=== PATIENT | male | born 1985 | race African-American/Black ===

== ENCOUNTER 2018-04-13 13:06 | Observation (INO) | payer SELFPAY ==
--- OUTSIDE RECORDS SUMMARY | 2018-04-13 13:08 | XMS REPORT | Clinical Summary ---
:1985 Author Organization [facility] Address [address] [place] [address] Phone Care Team Providers Name Role Phone Unavailable Primary Care Provider Unavailable Allergies No Known Allergies Current Medications Prescription Sig. Disp. Refills Start Date End Date Status amLODIPine (NORVASC) 10 MG Take 10 mg by Active tabletIndications: mouth daily. hypertension Active Problems Problem Noted Date Provoked seizure ([facility]) 08/29/2017 Drug use 08/29/2017 Syncope, unspecified syncope type 08/29/2017 Anxiety 08/29/2017 Hypertrophic nonobstructive cardiomyopathy (HCC) 08/29/2017 Acute coronary syndrome ([facility]) 08/28/2017 Encounters Date Type Specialty Care Team Description 08/29/2017 Orders Only General Internal Medicine 08/28/2017 - Hospital Cardiology Ivan Rios, Syncope, unspecified 08/29/2017 Encounter MD syncope type;Observed Mateus Mathews seizure-like activity MD Saroj ([facility]);[facility], [facility], [facility];Acute MD coronary syndrome ([facility]);Anxiety;Drug use;Hypertrophic nonobstructive cardiomyopathy (HCC);Provoked seizure ([facility]) 08/28/2017 Procedure Pass 08/28/2017 Surgery Ivan Rios L CATH & CORONARY ANGIOS 08/28/2017 Procedure Pass 08/28/2017 Procedure Pass after 04/12/2017 Family History Medical History Relation Name Comments Hypertension Father Hypertension Maternal Aunt Hypertension Maternal Grandfather Arthritis Maternal Grandmother Hearing loss Maternal Grandmother Hypertension Maternal Grandmother Vision loss Maternal Grandmother Hypertension Maternal Uncle Heart disease Mother Hypertension Mother Stroke Mother Relation Name Status Comments Father Maternal Aunt Maternal Grandfather Maternal Grandmother Maternal Uncle Mother Social History Tobacco Use Types Packs/Day Years Used Date Current Every Day Smoker 0.5 12 Smokeless Tobacco: Current User Tobacco Cessation: Ready to Quit: No; Counseling Given: No Alcohol Use Drinks/Week oz/Week Comments Yes Sex Assigned at Date Recorded Not on file Last Filed Vital Signs Vital Sign Reading Time Taken Blood Pressure 128/84 08/29/2017 3:22 PM CDT Pulse 65 08/29/2017 3:22 PM CDT Temperature 36.3 C (97.4 F) 08/29/2017 3:22 PM CDT Respiratory Rate 20 08/29/2017 3:22 PM CDT Oxygen Saturation 96% 08/29/2017 3:22 PM CDT Inhaled Oxygen Concentration - - Weight 109 kg (240 lb 3.2 oz) 08/29/2017 4:17 AM CDT Height 195.6 cm (6' 5") 08/28/2017 11:00 PM CDT Body Mass Index 28.48 08/29/2017 4:17 AM CDT Plan of Treatment Not on file Procedures Procedure Name Priority Date/Time Associated Diagnosis Comments L CATH & CORONARY 08/28/2017 8:38 PM CDT NATHEN<I ANGIOS after 04/12/2017 Results EKG-SCANNED (09/07/2017 8:20 AM)RHYTHM STRIP - SCAN (09/01/2017 9:11 AM)Only the most recent of2 resultswithin the time period is included.CARDIAC CATH REPORT - SCAN (08/29/2017 6:30 PM)ECHOCARDIOGRAM REPORT - SCAN (08/29/2017 3: 50 PM)Transthoracic 2D echo w/ doppler (cw/pw/color) (08/29/2017 10:40 AM) Component Value Ref Range Ejection Fraction Specimen Performing Laboratory [facility] ECHO HEARTLAB MKCKESSON CPACS Narrative Transthoracic Echocardiography Report (TTE) Demographics Patient Name [place], Date of Study 08/29/2017 BUD [id number] Male Visit Number [id number] Room Number 1135 Number Date of Birth1985Referring Physician Ivan Rios MD Age32 year(s)Mutuel Clerk Halie Triana, Santhosh Lazo RDCSPhysicimandy YOU Procedure Type of Study TTE procedure:2DECHO W DOPPLER(CW/PW/COLOR) (Routine) Indications:Suspected hypertensive heart disease. Clinical History HGB 12.6 HCT 39 % ACS,HTN Height: 76 inches Weight: 108.86 kg (240 lbs) BSA: 2.39 m^2 BMI: 29.21 kg/m^2 HR: 65 bpm BP: 120/60 mmHg Signature Findings Rhythm/BPSinus bradycardia during the exam. Left Ventricle The LV endocardium is adequately visualized. The left ventricle is chamber size (by vol index) is normal (male - LVED vol - 34-74ml/m2). Severe concentric LV hypertrophy. All of the LV segments contract normally . Global LV systolic function normal . Estimated LVEF by qualitative assessment is normal (>60%) . The LVEF was measured using Santana's single plane method (apical 4 chamber) . Grade 1 diastolic dysfunction (impaired relaxation and low-normal LA pressure). Left AtriumLA is adequately visualized. LA size is mildly enlarged (35- 41 ml/m2) . Right VentricleThe right ventricular chamber size and systolic function are within normal limits. Right Atrium The RA is well visualized. RA cavity size is normal . Aortic Valve Normal AoV structure and function. No evidence of aortic stenosis. No evidence of aortic regurgitation. Mitral Valve Mild MV leaflet thickening. Trace mitral regurgitation. Tricuspid ValveNormal TV structure and function. No evidence of tricuspid regurgitation. Unable to estimate peak systolic PA pressure; inadequate TR velocity signal. Pulmonic Valve Normal PV structure. Mild pulmonary regurgitation. AortaAortic root size (SInus of Valsalva diameter) is normal . PericardiumA trivial pericardial effusion is present . IVC/SVC/PA/PV/PleuralThe inferior vena cava is adequately visualized. The inferior vena cava size is mildly increased . The estimated RA pressure by IVC dynamics 5-10mmHg . Chambers/Structures Left Atrium LA Volume: 88.39 ml LA Area: 25.86 cm^ 2 LA Vol. Index: 37 ml/m^2 Left Ventricle LVIDd: 5.15 cm LV Septum Diastolic: 2.6 cm LV PW Diastolic: 2.4 cm LVEDV BP Santana's:134.49 ml LVESV BP Santana's:41.52 ml LVEF BP Santana's: 69 % LVOT Diameter: 2.49 cm Aorta Ao Root S of Marla.: 2.87 cm Shunts QS:121.25 ml Doppler/Quantitative Measurements Mitral Valve MV Peak E-Wave: 0.79 m/s MV Peak A-Wave: 0.56 m/s E/A Ratio: 1.43 Peak Gradient: 2.53 mmHg Deceleration Time: 282.1 msec Aortic Valve Peak Velocity: 1.81 m/sMean Velocity: 1.06 m/s Peak Gradient: 13.14 mmHgMean Gradient: 5.51 mmHg AV Area (continuity): 4.18 cm^2 AV VTI: 29.02 cm AV DVI: 0.86 LVOT Peak Velocity: 1.43 m/s Peak Gradient: 8.23 mmHg Mean Velocity: 0.81 m/s Mean Gradient: 3.37 mmHg LVOT Diameter: 2.49 cmLVOT VTI: 24.9 cm LVOT Area: 4.87 cm^2LVOT SV:121.19 ml LVOT CO: 7.88 l/min LVOT CI: 3.3 l/min/m^2 Procedure Note Interface, External Ris In - 08/29/2017 3:08 PM CDT Transthoracic Echocardiography Report (TTE) Demographics Patient Name [place], Date of Study 08/29/2017 [facility] Gender Male Visit Number [id number] Race Unknown Room Number 1135 Number Date of 1985 Referring Physician Ivan Rios MD Age 32 year(s) Mutuel Clerk Halie Cox Account Auditor Dari Triana, Interpreting Kris Lazo [facility] Physician Procedure Type of Study TTE procedure:2DECHO W DOPPLER(CW/PW/COLOR) (Routine) Indications:Suspected hypertensive heart disease. Clinical History HGB 12.6 HCT 39 % ACS,HTN Height: 76 inches Weight: 108.86 kg (240 lbs) BSA: 2.39 m^2 BMI: 29.21 kg/m^2 HR: 65 bpm BP: 120/60 mmHg Signature Findings Rhythm/BP Sinus bradycardia during the exam. Left Ventricle The LV endocardium is adequately visualized. The left ventricle is chamber size (by vol index) is normal (male - LVED vol - 34-74ml/m2). Severe concentric LV hypertrophy. All of the LV segments contract normally . Global LV systolic function normal . Estimated LVEF by qualitative assessment is normal (>60%) . The LVEF was measured using Santana's single plane method (apical 4 chamber) . Grade 1 diastolic dysfunction (impaired relaxation and low-normal LA pressure). Left Atrium LA is adequately visualized. LA size is mildly enlarged (35-41 ml/m2) . Right Ventricle The right ventricular chamber size and systolic function are within normal limits. Right Atrium The RA is well visualized. RA cavity size is normal . Aortic Valve Normal AoV structure and function. No evidence of aortic stenosis. No evidence of aortic regurgitation. Mitral Valve Mild MV leaflet thickening. Trace mitral regurgitation. Tricuspid Valve Normal TV structure and function. No evidence of tricuspid regurgitation. Unable to estimate peak systolic PA pressure; inadequate TR velocity signal. Pulmonic Valve Normal PV structure. Mild pulmonary regurgitation. Aorta Aortic root size (SInus of Valsalva diameter) is normal . Pericardium A trivial pericardial effusion is present . IVC/SVC/PA/PV/Pleural The inferior vena cava is adequately visualized. The inferior vena cava size is mildly increased . The estimated RA pressure by IVC dynamics 5-10mmHg . Chambers/Structures Left Atrium LA Volume: 88.39 ml LA Area: 25.86 cm^2 LA Vol. Index: 37 ml/m^2 Left Ventricle LVIDd: 5.15 cm LV Septum Diastolic: 2.6 cm LV PW Diastolic: 2.4 cm LVEDV BP Santana's:134.49 ml LVESV BP Santana's:41.52 ml LVEF BP Santana's: 69 % LVOT Diameter: 2.49 cm Aorta Ao Root S of Marla.: 2.87 cm Shunts QS:121.25 ml Doppler/Quantitative Measurements Mitral Valve MV Peak E-Wave: 0.79 m/s MV Peak A-Wave: 0.56 m/s E/A Ratio: 1.43 Peak Gradient: 2.53 mmHg Deceleration Time: 282.1 msec Aortic Valve Peak Velocity: 1.81 m/s Mean Velocity: 1.06 m/s Peak Gradient: 13.14 mmHg Mean Gradient: 5.51 mmHg AV Area (continuity): 4.18 cm^2 AV VTI: 29.02 cm AV DVI: 0.86 LVOT Peak Velocity: 1.43 m/s Peak Gradient: 8.23 mmHg Mean Velocity: 0.81 m/s Mean Gradient: 3.37 mmHg LVOT Diameter: 2.49 cm LVOT VTI: 24.9 cm LVOT Area: 4.87 cm^2 LVOT SV:121.19 ml LVOT CO: 7.88 l/min LVOT CI: 3.3 l/min/m^2 ECG 12 lead (08/29/2017 9:28 AM) Specimen Performing Laboratory GE MUSE Narrative Ventricular Rate 57 BPM Atrial Rate 57 BPM P-R Interval 164 ms QRS Duration 88 ms Q-T Interval 432 ms QTC Calculation(Bazett) 420 ms P [place] 7 degrees R [place] 38 degrees T [place] 234 degrees Sinus bradycardia Left ventricular hypertrophy with repolarization abnormality Abnormal ECG No previous ECGs available Confirmed by MD CYDNEY, PENELOPE ([id number]) on 08/29/2017 2:24:34 PM Procedure Note Interface, External Ris In - 08/29/2017 2:24 PM CDT Ventricular Rate 57 BPM Atrial Rate 57 BPM P-R Interval 164 ms QRS Duration 88 ms Q-T Interval 432 ms QTC Calculation(Bazett) 420 ms P [place] 7 degrees R [place] 38 degrees T [place] 234 degrees Sinus bradycardia Left ventricular hypertrophy with repolarization abnormality Abnormal ECG No previous ECGs available Confirmed by MD CYDNEY, PENELOPE ([id number]) on 08/29/2017 2:24:34 PM Rapid drug screen, urine (08/29/2017 7:09 AM) Component Value Ref Range Barbiturate Screen Negative Negative Benzodiazepine Screen Positive (A) Negative Cocaine (Metab.) Screen Negative Negative Methadone Screen Negative Negative Opiate Screen Negative Negative Cannabinoid Screen Negative Negative Amph/Methamph Screen Negative Negative Phencyclidine Screen Negative Negative Oxycodone Screen Negative Negative Specimen Performing Laboratory Urine [address] [address] Narrative DRUGCUTOFF CONC. Cocaine 300 ng/mL Cwwxgajcesh95 ng/mL Zjvvlctjxnoqaj965 ng/mL Barbiturate 200 ng/mL Eweazfbhutfif85 ng/mL Bwlajm406 ng/mL Methadone 300 ng/mL Amphetamine/ 1000 ng/mL Methamphetamine Oxycodone 300 ng/mL This assay provides an unconfirmed qualitative test result for the clinical management of patients in emergency situations. Chain of custody not maintained. Some gjvf-mwp-rmkpwrb medications, as well as adulterants, may cause inaccurate results. Clinical correlation should be applied. A more comprehensive drug screen or confirmation of a detected drug may be performed upon request. Urinalysis w/Microscopic (08/29/2017 7:09 AM) Component Value Ref Range Color, UA Yellow Clarity, UA Clear Specific [place], UA 1.034 1.001 - 1.035 pH, UA 6.0 5.0 - 8.0 Protein, UA Negative Negative Glucose, UA Negative Negative Ketones, UA Negative Negative Bilirubin, UA Negative Negative Blood, UA Negative Negative Nitrite, UA Negative Negative Leukocytes, UA Negative Negative Urobilinogen, UA 0.2 0.2 - 1.0 mg/dL RBC, UA 1 /HPF WBC, UA 2 /HPF Mucus Rare Specimen Source Specimen Performing Laboratory Urine [address] [address] CBC with platelet count + automated diff (08/29/2017 4:21 AM)Only the most recent of2 resultswithin the time period is included. Component Value Ref Range WBC 5.9 3.5 - 10.5 K/L RBC 4.35 (L) 4.63 - 6.08 M/L Hemoglobin 12.6 (L) 13.7 - 17.5 GM/DL Hematocrit 39.0 (L) 40.1 - 51.0 % MCV 89.7 79.0 - 92.2 fL MCH 29.0 25.7 - 32.2 pg MCHC 32.3 32.3 - 36.5 GM/DL RDW 13.0 11.6 - 14.4 % Platelets 222 150 - 450 K/CU MM MPV 11.2 9.4 - 12.4 fL nRBC 0 0 - 0 /100 WBC % Neutros 51 % % Lymphs 38 % % Monos 8 % % Eos 2 % % Baso 1 % # Neutros 3.00 1.78 - 5.38 K/L # Lymphs 2.22 1.32 - 3.57 K/L # Monos 0.46 0.30 - 0.82 K/L # Eos 0.12 0.04 - 0.54 K/L # Baso 0.04 0.01 - 0.08 K/L Immature Granulocytes-Relative 0 0 - 1 % Specimen Performing Laboratory Blood - [place], [address] [address] CBC with platelet count + automated diff (08/29/2017 4:21 AM)Only the most recent of2 resultswithin the time period is included. Specimen Performing Laboratory Blood Narrative The following orders were created for panel order CBC with platelet count + automated diff. Procedure Abnormality Status --------- ------ CBC with platelet count ...[[id number]]AbnormalFinal result Please view results for these tests on the individual orders. Magnesium (08/29/2017 4:21 AM) Component Value Ref Range Magnesium 1.9 1.6 - 2.6 mg/dL Specimen Performing Laboratory Blood - [place], [address] [address] Hepatic function panel (08/29/2017 4:21 AM) Component Value Ref Range Protein, Total 6.1 6.0 - 8.3 gm/dL Albumin 3.5 3.5 - 5.0 g/dL Total Bilirubin 0.3 0.2 - 1.2 mg/dL Bilirubin, Direct 0.1 0.1 - 0.5 mg/dL Alkaline Phosphatase 65 40 - 150 U/L AST 15 5 - 34 U/L ALT 9 6 - 55 U/L Specimen Performing Laboratory Blood - [place], [address] [address] Basic metabolic panel (08/29/2017 4:21 AM)Only the most recent of2 resultswithin the time period is included. Component Value Ref Range Sodium 138 136 - 145 meq/L Potassium 3.8 3.5 - 5.1 meq/L Chloride 111 (H) 98 - 107 meq/L CO2 21 (L) 22 - 29 meq/L BUN 19 7 - 21 mg/dL Creatinine 1.12 0.57 - 1.25 mg/dL Glucose 96 70 - 105 mg/dL Calcium 8.6 8.4 - 10.2 mg/dL EGFR 91Comment: ESTIMATED GFR IS NOT ACCURATE mL/min/1.73 sq m CREATININE CLEARANCE IN PREDICTING GLOMERULAR FILTRATION RATE. ESTIMATED GFR IS NOT APPLICABLE FOR DIALYSIS PATIENTS. Specimen Performing Laboratory Blood - [place], [address] [address] after 04/12/2017
--- OUTSIDE RECORDS SUMMARY | 2018-04-13 13:08 | XMS REPORT ---
:1985 [facility] Address [address] [place] [address] Care Team Providers Name Role Phone ANTONIO FONG Unavailable Unavailable Problems This patient has no known problems. Allergies, Adverse Reactions, Alerts This patient has no known allergies or adverse reactions. Medications This patient has no known medications. Results Test Description Test Time Test Comments Text Results Atomic Results Result Comments URINALYSIS W/ MICROSCOPIC 2017-08-29 08:03:00 Test Item Value Reference Range Comments COLOR (BEAKER) (test vkrt=309) Yellow CLARITY (BEAKER) (test rfho=203) Clear SPECIFIC GRAVITY UA (BEAKER) (test hswf=533) 1.034 1.001-1.035 PH UA (BEAKER) (test vkok=260) 6.0 5.0-8.0 PROTEIN UA (BEAKER) (test slrv=862) Negative Negative GLUCOSE UA (BEAKER) (test eoca=364) Negative Negative KETONES UA (BEAKER) (test upbw=741) Negative Negative BILIRUBIN UA (BEAKER) (test dpqo=663) Negative Negative BLOOD UA (BEAKER) (test kwxv=272) Negative Negative NITRITE UA (BEAKER) (test jhxu=705) Negative Negative LEUKOCYTE ESTERASE UA (BEAKER) (test eapc=977) Negative Negative UROBILINOGEN UA (BEAKER) (test vsmr=132) 0.2 mg/dL 0.2-1.0 RBC UA (BEAKER) (test qagv=769) 1 /HPF WBC UA (BEAKER) (test cyfw=012) 2 /HPF MUCUS (BEAKER) (test ugyf=7317) Rare SOURCE(BEAKER) (test gctc=9123) RAPID DRUG SCREEN, [id number] 07:53:00 Test Item Value Reference Range Comments BARBITURATE URINE (BEAKER) (test huoo=445) Negative Negative BENZODIAZEPINE SCREEN URINE (BEAKER) (test Positive Negative wcsf=044) COCAINE (METAB.) SCREEN (BEAKER) (test dyah=1823) Negative Negative METHADONE SCREEN (BEAKER) (test bbcc=7154) Negative Negative OPIATE SCREEN URINE (BEAKER) (test badh=702) Negative Negative CANNABINOID SCREEN URINE (BEAKER) (test npxw=663) Negative Negative AMPH/METHAMPH SCREEN (BEAKER) (test evnf=6788) Negative Negative PHENCYCLIDINE SCREEN URINE (BEAKER) (test jdfc=371) Negative Negative OXYCODONE SCREEN URINE (BEAKER) (test qylr=6850) Negative Negative DRUG CUTOFF CONC.Cocaine 300 ng/mL Cannabinoid 50 ng/mL Benzodiazepine 200 ng/mLBarbiturate 200 ng/ mLPhencyclidine 25 ng/mLOpiate 300 ng/mLMethadone 300 ng/mLAmphetamine/ 1000 ng/mL MethamphetamineOxycodone 300 ng/mLThis assay provides an unconfirmed qualitative test result for the clinical management of patients in emergency situations. Chain of custody not maintained. Some klip-nse-obwbnrm medications, as well as adulterants, may cause inaccurate results. Clinical correlation should be applied. A more comprehensive drug screen or confirmation of a detected drug may be performed upon request.HEPATIC FUNCTION [id number] 05:51:00 Test Item Value Reference Range Comments TOTAL PROTEIN (BEAKER) (test xvoj=657) 6.1 gm/dL 6.0-8.3 ALBUMIN (BEAKER) (test duff=9753) 3.5 g/dL 3.5-5.0 BILIRUBIN TOTAL (BEAKER) (test qhhd=812) 0.3 mg/dL 0.2-1.2 BILIRUBIN DIRECT (BEAKER) (test ksmp=534) 0.1 mg/dL 0.1-0.5 ALKALINE PHOSPHATASE (BEAKER) (test vsew=607) 65 U/L 40-150 AST (SGOT) (BEAKER) (test uvvv=893) 15 U/L 5-34 ALT (SGPT) (BEAKER) (test ldpt=343) 9 U/L 6-55 BASIC METABOLIC [id number] 05:51:00 Test Item Value Reference Range Comments SODIUM (BEAKER) (test 138 meq/L 136-145 iday=910) POTASSIUM (BEAKER) (test 3.9 meq/L 3.5-5.1 grkk=152) CHLORIDE (BEAKER) (test 112 meq/L 98-107 fral=652) CO2 (BEAKER) (test 20 meq/L 22-29 caps=043) BLOOD UREA NITROGEN 21 mg/dL 7-21 (BEAKER) (test arjx=672) CREATININE (BEAKER) (test 1.12 mg/dL 0.57-1.25 kycl=377) GLUCOSE RANDOM (BEAKER) 96 mg/dL 70-105 (test pdaq=266) CALCIUM (BEAKER) (test 8.6 mg/dL 8.4-10.2 dujy=704) EGFR (BEAKER) (test 91 mL/min/1.73 sq m ESTIMATED GFR IS NOT ewec=9271) ACCURATE CREATININE CLEARANCE IN PREDICTING GLOMERULAR FILTRATION RATE. ESTIMATED GFR IS NOT APPLICABLE FOR DIALYSIS PATIENTS. CBC W/PLT COUNT & AUTO [id number] 05:47:00 Test Item Value Reference Range Comments WHITE BLOOD CELL COUNT (BEAKER) (test mbkx=956) 5.9 K/ L 3.5-10.5 RED BLOOD CELL COUNT (BEAKER) (test fxvt=767) 4.35 M/ L 4.63-6.08 HEMOGLOBIN (BEAKER) (test mssj=270) 12.6 GM/DL 13.7-17.5 HEMATOCRIT (BEAKER) (test mire=390) 39.0 % 40.1-51.0 MEAN CORPUSCULAR VOLUME (BEAKER) (test cvwz=257) 89.7 fL 79.0-92.2 MEAN CORPUSCULAR HEMOGLOBIN (BEAKER) (test 29.0 pg 25.7-32.2 ldaq=096) MEAN CORPUSCULAR HEMOGLOBIN CONC (BEAKER) (test 32.3 GM/DL 32.3-36.5 fccq=526) RED CELL DISTRIBUTION WIDTH (BEAKER) (test 13.0 % 11.6-14.4 dmss=187) PLATELET COUNT (BEAKER) (test muir=964) 222 K/CU MM 150-450 MEAN PLATELET VOLUME (BEAKER) (test jitr=059) 11.2 fL 9.4-12.4 NUCLEATED RED BLOOD CELLS (BEAKER) (test 0 /100 WBC 0-0 lrnh=603) NEUTROPHILS RELATIVE PERCENT (BEAKER) (test 51 % yjpk=333) LYMPHOCYTES RELATIVE PERCENT (BEAKER) (test 38 % mezm=887) MONOCYTES RELATIVE PERCENT (BEAKER) (test 8 % ozih=446) EOSINOPHILS RELATIVE PERCENT (BEAKER) (test 2 % sdrm=541) BASOPHILS RELATIVE PERCENT (BEAKER) (test 1 % kuwl=369) NEUTROPHILS ABSOLUTE COUNT (BEAKER) (test 3.00 K/ L 1.78-5.38 elsm=686) LYMPHOCYTES ABSOLUTE COUNT (BEAKER) (test 2.22 K/ L 1.32-3.57 cevc=590) MONOCYTES ABSOLUTE COUNT (BEAKER) (test 0.46 K/ L 0.30-0.82 gzsi=740) EOSINOPHILS ABSOLUTE COUNT (BEAKER) (test 0.12 K/ L 0.04-0.54 ebvu=566) BASOPHILS ABSOLUTE COUNT (BEAKER) (test 0.04 K/ L 0.01-0.08 yfbi=930) IMMATURE GRANULOCYTES-RELATIVE PERCENT (BEAKER) 0 % 0-1 (test bjjw=1114) [id number] 05:40:00 Test Item Value Reference Range Comments MAGNESIUM (BEAKER) (test vkaz=200) 1.9 mg/dL 1.6-2.6 BASIC METABOLIC [id number] 05:40:00 Test Item Value Reference Range Comments SODIUM (BEAKER) (test 138 meq/L 136-145 icjl=417) POTASSIUM (BEAKER) (test 3.8 meq/L 3.5-5.1 jjla=378) CHLORIDE (BEAKER) (test 111 meq/L 98-107 dmsd=400) CO2 (BEAKER) (test 21 meq/L 22-29 peyw=540) BLOOD UREA NITROGEN 19 mg/dL 7-21 (BEAKER) (test yrnm=274) CREATININE (BEAKER) (test 1.12 mg/dL 0.57-1.25 mtrf=382) GLUCOSE RANDOM (BEAKER) 96 mg/dL 70-105 (test srjr=801) CALCIUM (BEAKER) (test 8.6 mg/dL 8.4-10.2 jbax=210) EGFR (BEAKER) (test 91 mL/min/1.73 sq m ESTIMATED GFR IS NOT wexw=5226) ACCURATE CREATININE CLEARANCE IN PREDICTING GLOMERULAR FILTRATION RATE. ESTIMATED GFR IS NOT APPLICABLE FOR DIALYSIS PATIENTS. CBC W/PLT COUNT & AUTO [id number] 00:35:00 Test Item Value Reference Range Comments WHITE BLOOD CELL COUNT 4.4 K/ L 3.5-10.5 (BEAKER) (test aqad=800) RED BLOOD CELL COUNT (BEAKER) 4.54 M/ L 4.63-6.08 (test ypqh=106) HEMOGLOBIN (BEAKER) (test 14.2 GM/DL 13.7-17.5 mtwd=321) HEMATOCRIT (BEAKER) (test 41.1 % 40.1-51.0 ndnu=839) MEAN CORPUSCULAR VOLUME 90.5 fL 79.0-92.2 (BEAKER) (test zpnl=769) MEAN CORPUSCULAR HEMOGLOBIN 31.3 pg 25.7-32.2 (BEAKER) (test gvwh=317) MEAN CORPUSCULAR HEMOGLOBIN 34.5 GM/DL 32.3-36.5 CONC (BEAKER) (test mixj=517) RED CELL DISTRIBUTION WIDTH 14.3 % 11.6-14.4 (BEAKER) (test uigj=593) PLATELET COUNT (BEAKER) (test 409 K/CU MM 150-450 rxut=337) MEAN PLATELET VOLUME (BEAKER) fL 9.4-12.4 Unable to report due to (test tvay=929) abnormal Platelet population distribution. NUCLEATED RED BLOOD CELLS 8 /100 WBC 0-0 (BEAKER) (test bcdx=240) NEUTROPHILS RELATIVE PERCENT 51 % (BEAKER) (test yzau=526) LYMPHOCYTES RELATIVE PERCENT 44 % (BEAKER) (test vkor=784) MONOCYTES RELATIVE PERCENT 3 % (BEAKER) (test enky=486) EOSINOPHILS RELATIVE PERCENT 1 % (BEAKER) (test ueom=803) BASOPHILS RELATIVE PERCENT 1 % (BEAKER) (test uvdf=604) NEUTROPHILS ABSOLUTE COUNT 2.22 K/ L 1.78-5.38 (BEAKER) (test stkb=318) LYMPHOCYTES ABSOLUTE COUNT 1.92 K/ L 1.32-3.57 (BEAKER) (test qibc=736) MONOCYTES ABSOLUTE COUNT 0.14 K/ L 0.30-0.82 (BEAKER) (test hola=463) EOSINOPHILS ABSOLUTE COUNT 0.06 K/ L 0.04-0.54 (BEAKER) (test jhej=070) BASOPHILS ABSOLUTE COUNT 0.03 K/ L 0.01-0.08 (BEAKER) (test dyix=012) IMMATURE GRANULOCYTES-RELATIVE 0 % 0-1 PERCENT (readeo) (test unww=0969)
[2018-04-13 14:19] LABS: Absolute Lymphocytes (CBC) 2.4 K/uL (0.7-4.9); Absolute Monocytes 0.4 K/uL (0.1-1.3); Absolute Neutrophil 4.1 K/uL (1.8-8.0); Eosinophils % 2.3 % (0-4.4); Hematocrit 42.4 % (39.6-49.0); Lymphocytes % 33.6 % (15.3-44.8); MCH 30.2 pg (27.0-35.0); MCV 90.9 fL (80-100); MPV 9.2 fL (7.6-11.3); RBC Red Blood Cell Count 4.67 M/uL (4.33-5.43)
[2018-04-13 14:20] LABS: Protime INR 1.14
[2018-04-13] MEDS ORDERED: ASPIRIN EC 81 MG TAB PO ONE (14:21)
--- NOTE | 2018-04-13 14:21 | RAD REPORT ---
EXAM DESCRIPTION: RAD - Chest Single View - 04/13/2018 2:06 pm CLINICAL HISTORY: Persistent chest pain COMPARISON: October 2017 TECHNIQUE: AP portable chest image was obtained 1403 hours . FINDINGS: Lungs are clear. Heart size is upper normal, similar to slightly smaller than comparison. No acute vascular engorgement. Lung markings are similar to comparison. No measurable pleural effusio n and no pneumothorax. No gross bony abnormality seen. No acute aortic findings suspected. IMPRESSION: No acute cardiopulmonary process. No suspicious change from prior imaging.
[2018-04-13 14:29] LABS: Bicarbonate 24 mEq/L (21-31); Glucose Level 95 mg/dL (65-120); Potassium 3.8 mEq/L (3.6-5.0); Sodium Level 136 mEq/L (135-145)
[2018-04-13 14:35] LABS: ALT/SGPT 13 IU/L (10-60); AST/SGOT 19 IU/L (10-42); Albumin 4.4 g/dL (3.2-5.5); Alkaline Phosphatase 51 IU/L (42-121); BUN Blood Urea Nitrogen 14 mg/dL (6-20); Bilirubin Direct < 0.1 mg/dL (0-0.2); Bilirubin Total 0.4 mg/dL (0.3-1.2); Magnesium 1.8 mg/dL (1.8-2.5); Protein, Total 7.5 g/dL (6.0-8.3)
[2018-04-13] MEDS ORDERED: ONDANSETRON 4 MG/2 ML VIAL ONE ×2 (15:59→18:58)
[2018-04-13] MEDS ORDERED: FENTANYL CITR 100 MCG/2 ML ONE (16:00)
--- NOTE | 2018-04-13 16:32 | EDPHYS ---
Physician Documentation [facility] Name: Michele Lomas Age: 33 yrs Sex: Male : 1985 Arrival Date: 04/13/2018 Time: 13:09 Bed 25 Private MD: None, None ED Physician Ruben Styles HPI: 04/13 16:17 This 33 yrs old Black Male presents to ER via Ambulatory with complaints of Chest Pain. jr8 16:17 The patient or guardian reports chest pain that is located primarily in the anterior jr8 chest wall, bilaterally. The pain does not radiate. Associated signs and symptoms: Pertinent positives: nausea, vomiting. The chest pain is described as sharp. Duration: The patient or guardian reports multiple episodes. Modifying factors: The symptoms are alleviated by nothing. the symptoms are aggravated by nothing. Severity of pain: At its worst the pain was moderate in the emergency department the pain is unchanged. The patient has experienced a previous episode. The patient has not recently seen a physician. history of cardiomegaly. Has had heart cath in past with no acute findings other then enlarged heart. Started he has had on/off chest pain for past couple of days with nausea. Historical: - Allergies: 13:18 Banana; ph - Home Meds: 13:18 amlodipine 10 mg tab 1 tab once daily [Active]; ph - PMHx: 13:18 Back pain; Enlarged Heart; Hypertension; ph - PSHx: 13:18 heart cath; ph - Immunization history:: Adult Immunizations unknown. - Social history:: Smoking status: Patient uses tobacco products, smokes one-half pack cigarettes per day. - Ebola Screening: : No symptoms or risks identified at this time. ROS: 16:17 Eyes: Negative for injury, pain, redness, and discharge, ENT: Negative for injury, jr8 pain, and discharge, Neck: Negative for injury, pain, and swelling, Respiratory: Negative for shortness of breath, cough, wheezing, and pleuritic chest pain, Abdomen/GI: Negative for abdominal pain, nausea, vomiting, diarrhea, and constipation, Back: Negative for injury and pain, MS/Extremity: Negative for injury and deformity, Skin: Negative for injury, rash, and discoloration, Neuro: Negative for headache, weakness, numbness, tingling, and seizure. 16:17 Cardiovascular: Positive for chest pain, Negative for edema, orthopnea, palpitations, paroxysmal nocturnal dyspnea. Exam: 16:17 Eyes: Pupils equal round and reactive to light, extra-ocular motions intact. Lids and jr8 lashes normal. Conjunctiva and sclera are non-icteric and not injected. Cornea within normal limits. Periorbital areas with no swelling, redness, or edema. ENT: Nares patent. No nasal discharge, no septal abnormalities noted. Tympanic membranes are normal and external auditory canals are clear. Oropharynx with no redness, swelling, or masses, exudates, or evidence of obstruction, uvula midline. Mucous membranes moist. Neck: Trachea midline, no thyromegaly or masses palpated, and no cervical lymphadenopathy. Supple, full range of motion without nuchal rigidity, or vertebral point tenderness. No Meningismus. Cardiovascular: Regular rate and rhythm with a normal S1 and S2. No gallops, murmurs, or rubs. Normal PMI, no JVD. No pulse deficits. Respiratory: Lungs have equal breath sounds bilaterally, clear to auscultation and percussion. No rales, rhonchi or wheezes noted. No increased work of breathing, no retractions or nasal flaring. Abdomen/GI: Soft, non-tender, with normal bowel sounds. No distension or tympany. No guarding or rebound. No evidence of tenderness throughout. Back: No spinal tenderness. No costovertebral tenderness. Full range of motion. Skin: Warm, dry with normal turgor. Normal color with no rashes, no lesions, and no evidence of cellulitis. MS/ Extremity: Pulses equal, no cyanosis. Neurovascular intact. Full, normal range of motion. Neuro: Awake and alert, GCS 15, oriented to person, place, time, and situation. Cranial nerves II-XII grossly intact. Motor strength 5/5 in all extremities. Sensory grossly intact. Cerebellar exam normal. Normal gait. Vital Signs: 13:17 BP 155 / 98; Pulse 63; Resp 18; Temp 98.5; Pulse Ox 99% on R/A; Weight 99.79 kg; Height ph 5 ft. 11 in. (180.34 cm); Pain 8/10; 13:44 BP 159 / 85; Pulse 56; Resp 18; Pulse Ox 99% ; tl3 14:46 BP 152 / 97; Pulse 53; Resp 18; Pulse Ox 100% ; tl3 15:00 BP 156 / 81; Pulse 56; Resp 18; Pulse Ox 99% ; tl3 16:00 BP 163 / 95; Pulse 51; Resp 16; Pulse Ox 99% ; tl3 16:47 BP 152 / 98; Pulse 51; Resp 18; Pulse Ox 99% ; tl3 17:41 BP 152 / 78; Pulse 57; Resp 18; Pulse Ox 99% ; tl3 18:48 BP 152 / 88; Pulse 56; Resp 18; Pulse Ox 99% ; tl3 13:17 Body Mass Index 30.68 (99.79 kg, 180.34 cm) ph MDM: 13:40 Patient medically screened. jr8 16:28 HEART Score: ECG: Non specific repolarization disturbance / LBTB / PM (1), Age: < or = jr8 45 years (0), Risk Factors: > or = 3 Risk factors for atherosclerotic disease (2), [Hypertension] [Active Smoker] [+ Family HX] Troponin: > 1 and < 3 x normal limit (1). Data reviewed: vital signs, nurses notes, lab test result(s), EKG, radiologic studies, plain films, and as a result, I will admit patient. Data interpreted: Pulse oximetry: on room air is 100 %. Interpretation: normal. Counseling: I had a detailed discussion with the patient and/or guardian regarding: the historical points, exam findings, and any diagnostic results supporting the discharge/admit diagnosis, lab results, radiology results, the need for further work-up and treatment in the hospital. Response to treatment: the patient's symptoms have mildly improved after treatment. Physician consultation: Mark Norris DO was called at 16:31, was contacted at 16:31, regarding admission, to the telemetry unit. patient's condition, and will see patient in ED. 04/13 13:49 Order name: Basic Metabolic Panel; Complete Time: 15:03 04/13 13:49 Order name: BNP; Complete Time: 15:04/13 13:49 Order name: CBC with Diff; Complete Time: 14:33 04/13 13:49 Order name: LFT's; Complete Time: 15:04/13 13:49 Order name: Magnesium; Complete Time: 15:04/13 13:49 Order name: PT-INR; Complete Time: 14:33 8 04/13 13:49 Order name: Troponin (emerg Dept Use Only); Complete Time: 15:03 8 04/13 15:40 Order name: Troponin (emerg Dept Use Only) [facility] 04/13 16:56 Order name: Basic Metabolic Panel EDLA 04/13 16:56 Order name: Basic Metabolic Panel EDLA 04/13 16:56 Order name: Basic Metabolic Panel EDMS 04/13 16:56 Order name: Basic Metabolic Panel EDMS 04/13 16:56 Order name: CKMB Creatine Kinase MB EDLA 04/13 16:56 Order name: CKMB Creatine Kinase MB EDLA 04/13 13:49 Order name: XRAY Chest (1 view); Complete Time: 14:33 [facility] 04/13 13:49 Order name: EKG; Complete Time: 13:50 8 04/13 13:49 Order name: Cardiac monitoring; Complete Time: 14:18 [facility] 04/13 13:49 Order name: EKG - Nurse/Tech; Complete Time: 14:18 [facility] 04/13 13:49 Order name: IV Saline Lock; Complete Time: 14:18 8 04/13 13:49 Order name: Labs collected and sent; Complete Time: 14:18 [facility] 04/13 13:49 Order name: O2 Per Protocol; Complete Time: 14:18 [facility] 04/13 16:30 Order name: EKG Electrocardiogram; Complete Time: 18:49 EDLA 04/13 16:56 Order name: CKMB Creatine Kinase MB [facility] 04/13 16:56 Order name: Creatine Phosphokinase [facility] 04/13 13:49 Order name: O2 Sat Monitoring; Complete Time: 14:18 [facility] Administered Medications: 14:21 Drug: Aspirin Chewable Tablet 324 mg Route: PO; tl3 14:46 Follow up: Response: No adverse reaction tl3 16:05 Drug: fentaNYL (PF) 50 mcg Route: IVP; Site: right forearm; tl3 16:49 Follow up: Response: No adverse reaction; Pain is decreased tl3 16:06 Drug: Zofran 4 mg Route: IVP; Infused Over: 2 mins; Site: right forearm; tl3 16:49 Follow up: Response: No adverse reaction; Nausea is decreased tl3 16:06 CANCELLED (Duplicate Order): Zofran 4 mg IVP once; over 2 minutes tl3 19:08 Drug: Zofran 4 mg Route: IVP; Infused Over: 2 mins; Site: right forearm; tl3 19:37 Follow up: Response: No adverse reaction; Nausea is decreased tl3 19:08 Drug: fentaNYL (PF) 50 mcg Route: IVP; Site: right forearm; tl3 19:36 Follow up: Response: Pain is decreased tl3 Disposition: 04/13/18 16:32 Hospitalization ordered by Mark Norris for Observation. Preliminary diagnosis are Chest pain, unspecified, Cardiomegaly. - Bed requested for Telemetry/MedSurg (observation). - Status is Observation. tl3 - Condition is Stable. - Problem is new. - Symptoms have improved. UTI on Admission? No Addendum: 04/18/2018 15:25 Co-signature as Attending Physician, Ruben Styles MD I agree with the assessment and k dr plan of care. Signatures: Dispatcher [employer] EDMS Afshan Love Kevin, MD MD [facility] Carter Cedillo PA PA jr8 Michelle Perdomo RN RN Dede Braxton, SABINE RN tl3 Corrections: (The following items were deleted from the chart) 04/13 16:06 16:05 Zofran 4 mg IVP once; over 2 minutes ordered. tl3 tl3 18:41 16:32 Hospitalization Ordered by Mark Norris DO for Observation. Preliminary bd diagnosis is Chest pain, unspecified; Cardiomegaly. Bed requested for Telemetry/MedSurg (observation). Status is Observation. Condition is Stable. Problem is new. Symptoms have improved. UTI on Admission? No. jr8 19:54 18:41 04/13/2018 16:32 Hospitalization Ordered by Mark Norris DO for Observation. tl3 Preliminary diagnosis is Chest pain, unspecified; Cardiomegaly. Bed requested for Telemetry/MedSurg (observation). Status is Observation. Condition is Stable. Problem is new. Symptoms have improved. UTI on Admission? No. bd
--- NOTE | 2018-04-13 16:32 | ER ---
Nurse's Notes [facility] Name: Michele Lomas Age: 33 yrs Sex: Male : 1985 Arrival Date: 04/13/2018 Time: 13:09 Bed 25 Private MD: None, None Diagnosis: Chest pain, unspecified;Cardiomegaly Presentation: 04/13 13:16 Presenting complaint: Patient states: Reports constant chest pain x 2 days, worse ph today, palpitations and nausea that began today, denies SOB. Transition of care: patient was not received from another setting of care. Onset of symptoms was April 13, 2018. Risk Assessment: Do you want to hurt yourself or someone else? Patient reports no desire to harm self or others. Initial Sepsis Screen: Does the patient meet any 2 criteria? No. Patient's initial sepsis screen is negative. Does the patient have a suspected source of infection? No. Patient's initial sepsis screen is negative. Care prior to arrival: None. 13:16 Method Of Arrival: Ambulatory ph 13:16 Acuity: PASTORA 3 ph Historical: - Allergies: 13:18 Banana; ph - Home Meds: 13:18 amlodipine 10 mg tab 1 tab once daily [Active]; ph - PMHx: 13:18 Back pain; Enlarged Heart; Hypertension; ph - PSHx: 13:18 heart cath; ph - Immunization history:: Adult Immunizations unknown. - Social history:: Smoking status: Patient uses tobacco products, smokes one-half pack cigarettes per day. - Ebola Screening: : No symptoms or risks identified at this time. Screenin:44 Abuse screen: Denies threats or abuse. Nutritional screening: No deficits noted. tl3 Tuberculosis screening: No symptoms or risk factors identified. Fall Risk None identified. Assessment: 13:44 General: Appears uncomfortable, slender, well groomed, well developed, well nourished, tl3 Behavior is calm, cooperative, appropriate for age. Pain: Complains of pain in chest Pain does not radiate. Pain currently is 8 out of 10 on a pain scale. Pain began suddenly, this morning pain started, accompanied with nausea. Neuro: No deficits noted. Level of Consciousness is awake, alert, obeys commands, Oriented to person, place, time, situation, Appropriate for age. Cardiovascular: Reports chest pain, nausea, since 630am today Patient's skin is warm and dry. Respiratory: Airway is patent Respiratory effort is even, unlabored, Respiratory pattern is regular, symmetrical. GI: Reports nausea. : No deficits noted. No signs and/or symptoms were reported regarding the genitourinary system. Derm: No deficits noted. No signs and/or symptoms reported regarding the dermatologic system. 15:00 Reassessment: Patient appears in no apparent distress at this time. No changes from tl3 previously documented assessment. Patient and/or family updated on plan of care and expected duration. Pain level reassessed. Patient is alert, oriented x 3, equal unlabored respirations, skin warm/dry/pink. at bedside. 16:00 Reassessment: Patient appears in no apparent distress at this time. No changes from tl3 previously documented assessment. Patient and/or family updated on plan of care and expected duration. Pain level reassessed. Patient is alert, oriented x 3, equal unlabored respirations, skin warm/dry/pink. pt states pain is immproved. 16:47 Reassessment: Patient appears in no apparent distress at this time. No changes from tl3 previously documented assessment. Patient and/or family updated on plan of care and expected duration. Pain level reassessed. Patient is alert, oriented x 3, equal unlabored respirations, skin warm/dry/pink. 16:47 Reassessment: Hospitalist at bedside for admission assessment. tl3 17:41 Reassessment: Patient appears in no apparent distress at this time. No changes from tl3 previously documented assessment. Patient and/or family updated on plan of care and expected duration. Pain level reassessed. Patient is alert, oriented x 3, equal unlabored respirations, skin warm/dry/pink. 18:48 Reassessment: Patient appears in no apparent distress at this time. No changes from tl3 previously documented assessment. Patient and/or family updated on plan of care and expected duration. Pain level reassessed. Patient is alert, oriented x 3, equal unlabored respirations, skin warm/dry/pink. Vital Signs: 13:17 BP 155 / 98; Pulse 63; Resp 18; Temp 98.5; Pulse Ox 99% on R/A; Weight 99.79 kg; Height ph 5 ft. 11 in. (180.34 cm); Pain 8/10; 13:44 BP 159 / 85; Pulse 56; Resp 18; Pulse Ox 99% ; tl3 14:46 BP 152 / 97; Pulse 53; Resp 18; Pulse Ox 100% ; tl3 15:00 BP 156 / 81; Pulse 56; Resp 18; Pulse Ox 99% ; tl3 16:00 BP 163 / 95; Pulse 51; Resp 16; Pulse Ox 99% ; tl3 16:47 BP 152 / 98; Pulse 51; Resp 18; Pulse Ox 99% ; tl3 17:41 BP 152 / 78; Pulse 57; Resp 18; Pulse Ox 99% ; tl3 18:48 BP 152 / 88; Pulse 56; Resp 18; Pulse Ox 99% ; tl3 13:17 Body Mass Index 30.68 (99.79 kg, 180.34 cm) ph ED Course: 13:09 Patient arrived in ED. mr 13:09 None, None is Private Physician. mr 13:17 Triage completed. ph 13:18 Arm band placed on. ph 13:39 [facility]ed[facility]. jr8 13:39 Ruben Styles MD is Attending Physician. jr8 13:43 Dede Braxton, SABINE is Primary Nurse. tl3 13:44 Patient has correct armband on for positive identification. Placed in gown. Bed in low tl3 position. Call light in reach. Side rails up X 1. physical plant manager on. Pulse ox on. NIBP on. Warm blanket given. 13:44 No provider procedures requiring assistance completed. Inserted saline lock: 20 gauge tl3 in right forearm, using aseptic technique. Blood collected. Patient maintains SpO2 saturation greater than 95% on room air. 14:04 X-ray completed. Portable x-ray completed in exam room. Patient tolerated procedure jb2 well. 14:04 XRAY Chest (1 view) In Process Unspecified. EDMS 14:06 EKG done, by field artillery targeting technician. reviewed by Carter LORA. sm3 16:32 Mark Norris DO is Hospitalizing Provider. jr8 19:36 Patient admitted, IV remains in place. tl3 Administered Medications: 14:21 Drug: Aspirin Chewable Tablet 324 mg Route: PO; tl3 14:46 Follow up: Response: No adverse reaction tl3 16:05 Drug: fentaNYL (PF) 50 mcg Route: IVP; Site: right forearm; tl3 16:49 Follow up: Response: No adverse reaction; Pain is decreased tl3 16:06 Drug: Zofran 4 mg Route: IVP; Infused Over: 2 mins; Site: right forearm; tl3 16:49 Follow up: Response: No adverse reaction; Nausea is decreased tl3 16:06 CANCELLED (Duplicate Order): Zofran 4 mg IVP once; over 2 minutes tl3 19:08 Drug: Zofran 4 mg Route: IVP; Infused Over: 2 mins; Site: right forearm; tl3 19:37 Follow up: Response: No adverse reaction; Nausea is decreased tl3 19:08 Drug: fentaNYL (PF) 50 mcg Route: IVP; Site: right forearm; tl3 19:36 Follow up: Response: Pain is decreased tl3 Outcome: 16:32 Decision to Hospitalize by Provider. marixa 19:35 Admitted to Med/surg accompanied by tech, via wheelchair, with chart, Report called to tl3 SABINE Guardado 19:35 Condition: stable 19:35 Instructed on the need for admit, Demonstrated understanding of instructions. 19:54 Patient left the ED. tl3 Signatures: Dispatcher [employer] EDIA HanFernanda fuentes mr ArangoShawn jb2 Carter Cedillo PA PA jr8 Michelle Perdomo RN RN Dede Bingham RN RN tl3 Mariely Vega 3 Corrections: (The following items were deleted from the chart) 16:06 16:06 Zofran 4 mg IVP in right forearm tl3 tl3
[2018-04-13] MEDS ORDERED: TRAMADOL HCL 50 MG TAB PO PRN (16:49)
[2018-04-13] MEDS ORDERED: NITROGLYCERIN 0.4 MG/TAB SL PRN (16:49)
[2018-04-13] MEDS ORDERED: ACETAMINOPHEN 500 MG TAB PO PRN (16:49)
--- NOTE | 2018-04-13 17:02 | P.HP ---
Certification for Inpatient Patient admitted to: Inpatient With expected LOS: >2 Midnights Patient will require the following post-hospital care: None Practitioner: I am a practitioner with admitting privileges, knowledge of patient current condition, hospital course, and medical plan of care. Services: Services provided to patient in accordance with Admission requirements found in Title 42 Section 412.3 of the Code of Federal Regulations Patient History Date of Service: 04/13/18 Primary Care Provider: None; Cardiology-Dr. Meyers Reason for admission: Chest pain History of Present Illness: 33 yo AAM presented to the ER with chest pain. He has history of Cardiomyopathy, HTN, and previous history of CAD. He was life flighted last year to [facility] when he had an angioplasty. No stent was done. He reports some chest pain to the left side. It radiates across chest. He reported some nausea and vomiting. Some shortness of breath noted. He came to the ER for evaluation. He was to follow up with Cardiology this month. In the ER he was found to be hypertensive. He was given medication. EKG shows some ST depression and T wave inversion. His Troponin was 0.04. BMP and CBC unremarkable. Chest pain improved with pain medication. He was admitted for treatment. When I saw him he was stable. HTN improved. He is a smoker. He drinks alcohol on occasion. Family history of CAD is extensive. Allergies banana Allergy (Verified 04/13/15 14:43) Unknown No Known Drug Allergies Allergy (Verified 04/13/15 14:43) Unknown Home medications list reviewed: Yes Home Medications: Amlodipine [Norvasc*] 10 mg PO DAILY 08/21/17 Lisinopril/Hydrochlorothiazide [Lisinopril-Hctz 20-12.5 mg Tab] 1 tab PO DAILY 08/21/17 Aspirin [Aspirin EC 81 MG] 81 mg PO DAILY #90 tablet. 08/22/17 - Past Medical/Surgical History Diabetic: No -: Hypertension -: Cardiomyopathy -: Tobacco abuse -: Alcohol use -: CAD -: Heart Cath. Psychosocial/ Personal History: The patient is single. He has 2 children. He works as a cook. - Family History Father -: Hypertension, Diabetes Mother -: Hypertension, Diabetes Notes: gout Sister -: Heart disease - Social History Smoking Status: Heavy Tobacco smoker (>10 cigarettes/day) Counseled patient to stop smoking for: less than 10 minutes Smoking therapy provided: Yes Patient receptive to therapy: Yes Alcohol use: Yes CD- Drugs: No Caffeine use: Yes Place of Residence: Home Review of Systems General: As per HPI Eyes: Unremarkable ENT: Unremarkable Respiratory: Shortness of Breath, As per HPI Cardiovascular: Chest Pain, As per HPI Gastrointestinal: Nausea, Vomiting, As per HPI Genitourinary: Unremarkable Musculoskeletal: Unremarkable Integumentary: Unremarkable Neurological: Unremarkable Lymphatics: Unremarkable Physical Examination - Physical Exam General: Alert, In no apparent distress, Oriented x3, Cooperative HEENT: Atraumatic, Normocephalic, PERRLA, Mucous membr. moist/pink Neck: Supple, No Thyromegaly Respiratory: Clear to auscultation bilaterally, Normal air movement Cardiovascular: Abnormal pulses (mild bradycardia) Gastrointestinal: Normal bowel sounds, Soft and benign, Non-distended, No ascites, No tenderness, No masses, No rebound, No guarding Musculoskeletal: No contractures, No erythema, No tenderness, No warmth Integumentary: No tenderness/swelling, No erythema, No warmth, No cyanosis Neurological: Normal speech, Normal strength at 5/5 x4 extr, Normal tone, Normal affect Lymphatics: No axilla or inguinal lymphadenopathy - Studies Laboratory Data (last 24 hrs) 04/13/18 14:00: PT 13.5 H, INR 1.14 04/13/18 14:00: WBC 7.1, Hgb 14.1, Hct 42.4, Plt Count 262 04/13/18 14:00: B-Natriuretic Peptide 341 H 04/13/18 14:00: Sodium 136, Potassium 3.8, BUN 14, Creatinine 1.00, Glucose 95, Magnesium 1.8, Total Bilirubin 0.4, AST 19, ALT 13, Alkaline Phosphatase 51 Assessment and Plan - Problems (Diagnosis) (1) NSTEMI (non-ST elevated myocardial infarction) Current Visit: Yes Status: Acute Plan: Will admit the patient. Will monitor on telemetry. Will start Lovenox 1 mg/kg sc BID, ASA 162 mg daily, Nitro as needed, Norvasc and Morphine as needed. Will contact Cardiology to further address and treat. He will likely need cardiac intervention to further address. Will check ECHO (2) Chest pain Onset Date: 08/22/17 Current Visit: No Status: Acute Plan: Continue as above Qualifiers: Chest pain type: unspecified Qualified Code(s): R07.9 - Chest pain, unspecified (3) Cardiomegaly Onset Date: 08/22/17 Current Visit: No Status: Chronic Plan: Will check ECHO. Continue as above. (4) Hypertension Onset Date: 08/22/17 Current Visit: No Status: Chronic Plan: Will restart his Norvasc. May need additional medication likely SHERLY inhibitor. Qualifiers: Hypertension type: essential hypertension (5) Tobacco abuse Onset Date: 08/22/17 Current Visit: No Status: Chronic Plan: Recommendation for tobacco cessation. Discharge Plan: Home Plan to discharge in: Greater than 2 days - Advance Directives Does patient have a Living Will: No Does patient have a Durable POA for Healthcare: No - Code Status/Comfort Care Code Status Assessed: Yes Time Spent Managing Pts Care (In Minutes): 55
[2018-04-13] MEDS: NA CHLORIDE 0.9% 1,000 ML IV SCH (20:53)
[2018-04-13] MEDS: ENOXAPARIN 100 MG/ML SYR SQ SCH (20:55)
[2018-04-13] MEDS ORDERED: ATORVASTATIN 80 MG TAB PO SCH (21:00)
[2018-04-13 21:08] VITALS: BMI 30.8
[2018-04-13 21:18] VITALS: O2SAT 99
[2018-04-14] MEDS: ONDANSETRON 4 MG/2 ML VIAL IV PRN ×2 (00:12→08:14)
[2018-04-14] MEDS: MORPHINE 4 MG/ML SYR IV PRN ×2 (00:12→08:14)
[2018-04-14 02:22] LABS: CKMB Creatine Kinase MB 3.4 ng/ml (0.3-4.0)
[2018-04-14] MEDS: NA CHLORIDE 0.9% 1,000 ML IV SCH (05:41)
[2018-04-14 06:18] LABS: Absolute Lymphocytes (CBC) 2.7 K/uL (0.7-4.9); Absolute Monocytes 0.5 K/uL (0.1-1.3); Absolute Neutrophil 2.7 K/uL (1.8-8.0); Basophils % 0.5 % (0-1.3); Eosinophils % 3.2 % (0-4.4); Hematocrit 40.5 % (39.6-49.0); MCH 30.7 pg (27.0-35.0); MPV 8.8 fL (7.6-11.3); Monocytes % 7.7 % (3.3-12.3)
[2018-04-14 06:30] LABS: BUN Blood Urea Nitrogen 15 mg/dL (6-20); Bicarbonate 27 mEq/L (21-31); Glucose Level 107 mg/dL (65-120); HDL Cholesterol 33 mg/dL (27-67); LDL Cholesterol, Calculated 83 (<130); Magnesium 1.9 mg/dL (1.8-2.5); Potassium 4.2 mEq/L (3.6-5.0); Sodium Level 140 mEq/L (135-145)
[2018-04-14] MEDS ORDERED: PANTOPRAZOLE 40MG TABLET PO SCH (06:30)
--- NOTE | 2018-04-14 07:56 | EKG ---
Test Date: 2018-04-13 Test Time: 14:49:00 Overcoiler: TRINY MEASUREMENT RESULTS: Intervals: Rate: 53 WA: 154 QRSD: 102 QT: 460 QTc: 431 [place]: P: 12 WA: 154 QRS: 29 T: 218 INTERPRETIVE STATEMENTS: Sinus bradycardia Left ventricular hypertrophy with repolarization abnormality Abnormal ECG Compared to ECG 10/07/2017 12:19:11 No significant changes Electronically Signed On 04-14-18 07:55:00 CDT by Tremayne Meyers
--- NOTE | 2018-04-14 07:57 | EKG ---
Test Date: 2018-04-13 Test Time: 13:28:58 Mixing Tumbler Operator: MAYRA MEASUREMENT RESULTS: Intervals: Rate: 66 MO: 168 QRSD: 100 QT: 416 QTc: 436 [place]: P: 33 MO: 168 QRS: 25 T: 209 INTERPRETIVE STATEMENTS: Normal sinus rhythm Left ventricular hypertrophy with repolarization abnormality Abnormal ECG Compared to ECG 10/07/2017 12:19:11 Sinus bradycardia no longer present Electronically Signed On 04-14-18 07:55:05 CDT by Tremayne Meyers
--- NOTE | 2018-04-14 07:57 | P.DS ---
Admission Date: 04/13/18 Discharge Date: 04/14/18 Primary Care Provider: None; Cardiology-Dr. Meyers Disposition: ROUTINE DISCHARGE Discharge Condition: GOOD Reason for Admission: Chest pain Consultations: Cardiology-Dr. Meyers - Problems (1) Chest pain Onset Date: 08/22/17 Current Visit: No Status: Acute Qualifiers: Chest pain type: unspecified Qualified Code(s): R07.9 - Chest pain, unspecified (2) Cardiomegaly Onset Date: 08/22/17 Current Visit: No Status: Chronic (3) Hypertension Onset Date: 08/22/17 Current Visit: No Status: Chronic Qualifiers: Hypertension type: essential hypertension (4) Tobacco abuse Onset Date: 08/22/17 Current Visit: No Status: Chronic (5) LVH (left ventricular hypertrophy) due to hypertensive disease Current Visit: No Status: Chronic Qualifiers: Heart failure presence: without heart failure Qualified Code(s): I11.9 - Hypertensive heart disease without heart failure (6) Hyperlipidemia Current Visit: Yes Status: Chronic Qualifiers: Hyperlipidemia type: unspecified Qualified Code(s): E78.5 - Hyperlipidemia , unspecified Brief History of Present Illness: 33 yo AAIvy presented to the ER with chest pain. He has history of Cardiomyopathy, HTN, and previous history of CAD. He was life flighted last year to [facility] when he had an angioplasty. No stent was done. He reports some chest pain to the left side. It radiates across chest. He reported some nausea and vomiting. Some shortness of breath noted. He came to the ER for evaluation. He was to follow up with Cardiology this month. In the ER he was found to be hypertensive. He was given medication. EKG shows some ST depression and T wave inversion. His Troponin was 0.04. BMP and CBC unremarkable. Chest pain improved with pain medication. He was admitted for treatment. When I saw him he was stable. HTN improved. He is a smoker. He drinks alcohol on occasion. Family history of CAD is extensive. Hospital Course: Patient did well overnight. Troponin were slightly elevated but unchanged since previous troponins done in the past. Case discussed at length with cardiology. Cardiology reported that elevation in troponin was likely related to his LVH. Patient with known hypertension and left ventricular hypertrophy. Patient also has a history of noncompliance with medication and follow up. Cardiology reports the patient had a recent heart catheterization which showed no stenosis or disease. Patient also had an echocardiogram with cardiology. Ejection fraction was about 50%. No need for further intervention at this time. Compliance with medication was addressed in detail. At discharge patient will continue with aspirin 81 mg daily. Patient will need to follow up with cardiology in 1 week to follow up this hospitalization and continue his care. The patient will also be provided nitroglycerin 0.4 mg to be use as needed for chest pain. Patient has hypertension with left ventricular hypertrophy. At discharge patient will continue with Norvasc 10 mg daily. Lisinopril 10 mg 1 pill daily has been added. Recommendation is to maintain blood pressures less 150/80. Further adjustment can be done by his PCP or cardiology. Compliance with medications was addressed in detail. Patient has hyperlipidemia. Patient will continue with lovastatin 40 mg 1 pill daily. Tobacco cessation education will be provided. Vital Signs/Physical Exam: Temp Pulse Resp BP Pulse Ox 97.5 F 58 16 140/77 100 04/14/18 04:00 04/14/18 04:00 04/14/18 04:00 04/14/18 04:00 04/14/18 04:00 General: Alert, In no apparent distress, Oriented x3, Cooperative HEENT: Atraumatic Neck: Supple Respiratory: Clear to auscultation bilaterally, Normal air movement Cardiovascular: Normal pulses, Regular rate/rhythm Gastrointestinal: Normal bowel sounds, Soft and benign, Non-distended, No tenderness, No masses, No rebound, No guarding Musculoskeletal: No erythema, No tenderness, No warmth Integumentary: No tenderness/swelling, No erythema, No warmth, No cyanosis Neurological: Normal speech, Normal strength at 5/5 x4 extr, Normal tone, Normal affect Laboratory Data at Discharge: WBC 6.1 K/uL (4.3-10.9) D 04/14/18 05:13 Hgb 13.8 g/dL (13.6-17.9) 04/14/18 05:13 Hct 40.5 % (39.6-49.0) 04/14/18 05:13 Plt Count 227 K/uL (152-406) 04/14/18 05:13 PT 13.5 SECONDS (9.5-12.5) H 04/13/18 14:00 INR 1.14 04/13/18 14:00 Sodium 140 mEq/L (135-145) 04/14/18 05:13 Potassium 4.2 mEq/L (3.6-5.0) 04/14/18 05:13 BUN 15 mg/dL (6-20) 04/14/18 05:13 Creatinine 1.11 mg/dL (0.61-1.24) 04/14/18 05:13 Glucose 107 mg/dL (65-120) 04/14/18 05:13 Magnesium 1.9 mg/dL (1.8-2.5) 04/14/18 05:13 Total Bilirubin 0.4 mg/dL (0.3-1.2) 04/13/18 14:00 AST 19 IU/L (10-42) 04/13/18 14:00 ALT 13 IU/L (10-60) 04/13/18 14:00 Alkaline Phosphatase 51 IU/L (42-121) 04/13/18 14:00 Troponin I 0.05 ng/mL (<0.03) H 04/14/18 01:11 B-Natriuretic Peptide 341 pg/ml (<=100) H 04/13/18 14:00 Triglycerides 64 mg/dL (35-160) 04/14/18 05:13 Cholesterol 129 mg/dL (<200) 04/14/18 05:13 HDL Cholesterol 33 mg/dL (27-67) 04/14/18 05:13 Cholesterol/HDL Ratio 3.91 04/14/18 05:13 Home Medications: Amlodipine [Norvasc*] 10 mg PO DAILY #30 tab 04/14/18 Aspirin [Aspirin EC 81 MG] 81 mg PO DAILY #90 tablet. 04/14/18 Lisinopril [Prinivil*] 10 mg PO DAILY #30 tab 04/14/18 Lovastatin 40 mg PO DAILY #30 tablet 04/14/18 Nitroglycerin [Nitrostat*] 0.4 mg SL UD PRN #30 tab 04/14/18 New Medications: Amlodipine [Norvasc*] 10 mg PO DAILY #30 tab Aspirin [Aspirin EC 81 MG] 81 mg PO DAILY #90 tablet. Lisinopril [Prinivil*] 10 mg PO DAILY #30 tab Lovastatin 40 mg PO DAILY #30 tablet Nitroglycerin [Nitrostat*] 0.4 mg SL UD PRN #30 tab PRN Reason: Chest Pain Patient Discharge Instructions: 1. Patient will need to follow up with his PCP in 1 week to follow up this hospitalization. 2. Patient presented with chest pain. Patient with a recent heart catheterization and echocardiogram which was unremarkable. Compliance with medication addressed in detail. Case discussed with cardiology. At discharge patient will continue with aspirin 81 mg daily. Patient will also be provided nitroglycerin to be use as needed for chest pain. Recommendation is for the patient follow up with cardiology in 1 week to follow up this visit and continue his care. Compliance with follow up and medication is recommended. 3. Patient has hypertension with left ventricular hypertrophy. At discharge patient will continue with Norvasc 10 mg daily and lisinopril 10 mg daily. Compliance with medication is recommended. Recommendation is to maintain blood pressures less 150/80. Further adjustment can be done by his PCP or cardiology. 4. Patient has hyperlipidemia. Patient will continue with lovastatin 40 mg 1 pill once daily. 5. Tobacco cessation education will be provided. Diet: AHA Activity: Ad artemio Time spent managing pt's care (in minutes): 55
[2018-04-14] MEDS: ENOXAPARIN 100 MG/ML SYR SQ SCH (08:15)
[2018-04-14 08:16] VITALS: BP 132/80
[2018-04-14] MEDS ORDERED: LISINOPRIL 10 MG TAB PO SCH (09:00)
[2018-04-14] MEDS ORDERED: AMLODIPINE 10 MG TAB PO SCH (09:00)
[2018-04-14] MEDS ORDERED: ASPIRIN EC 81 MG TAB PO SCH (09:00)
[2018-04-14 09:43] LABS: CKMB Creatine Kinase MB 3.6 ng/ml (0.3-4.0)
[2018-04-14 10:01] VITALS: TEMP 97.7
--- NOTE | 2018-04-14 10:54 | CON ---
Date of Consultation: 04/14/2018 Reason For Consultation: Chest pain, hypertension. History Of Present Illness: Mr. Lomas is 33, black male, very well known to us from previous of fice visit and admission. Has had a normal heart catheterization before, has a normal ejection fract ion, has severe left ventricular hypertrophy by echocardiography, which is recent with a normal eject ion fraction. Comes in with atypical chest pain, sounds pleuritic. Dr. Norris asked me to see the p atient. I did state the facts that he has had normal heart cath and normal ejection fraction and LVH , which really was showing on his EKG right now. He has a troponin of 0.04, which is really expected with left ventricular hypertrophy. Mr. Lomas does not have coronary heart disease. He has hyp ertension as the only risk factor. He is not diabetic. His EKG is unchanged from previous EKGs. Past Medical History: Hypertension. Allergies: TO BANANAS. Medications: Include Norvasc, aspirin, lisinopril with HCTZ, but we do not really know if he has bal en his medication. Review of Systems: Unremarkable. Social History: Unremarkable. Physical Examination: Unremarkable except for the blood pressure. Diagnostic Data: Positive for LVH and troponin of 0.04. Impression: My impression is that he has atypical chest pain, pleuritic, normal coronaries by cath, LVH, abnormal EKG, which is old, elevated troponin, which is expected and I felt that Mr. Lomas can go home from the emergency room rather than being admitted and follow up as an outpatient. REJI/ALLEGRA Voice ID: [id number] Report ID: [id number]
== END 2018-04-14 10:09 | disposition home or self-care (01) ==
LOC: ER 13:06 → ERHOLD 16:32 → 2ND 19:35
PROVIDERS: ADMIT Physician Assistant; ATTEND Family Medicine
DX: R07.9 Chest pain, unspecified (principal); I25.10 Atherosclerotic heart disease of native coronary artery without angina pectoris; I10 Essential (primary) hypertension; F17.210 Nicotine dependence, cigarettes, uncomplicated; I51.7 Cardiomegaly; E78.5 Hyperlipidemia, unspecified
CPT/HCPCS: 36415; 71045; 80048; 80061; 80076; 82550; 82553; 83735; 83880; 84484; 85025; 85610; 93005; 96374; 96375; 99285; G0378; J1650; J2405; J3010; J7030

== ENCOUNTER 2018-04-26 13:44 | Emergency (ER) | payer SELFPAY ==
--- OUTSIDE RECORDS SUMMARY | 2018-04-26 13:47 | XMS REPORT | Clinical Summary ---
:1985 Author Organization [facility] Address [address] [place] [address] Phone Care Team Providers Name Role Phone Unavailable Primary Care Provider Unavailable Allergies No Known Allergies Current Medications Prescription Sig. Disp. Refills Start Date End Date Status amLODIPine (NORVASC) 10 MG Take 10 mg by Active tabletIndications: mouth daily. 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/29/2017 Acute coronary syndrome ([facility]) 08/28/2017 Encounters Date Type Specialty Care Team Description 08/29/2017 Orders Only General Internal Medicine 08/28/2017 - Hospital Cardiology Ivan Rios, Syncope, unspecified 08/29/2017 Encounter MD syncope type;Observed Mateus Mathews seizure-like activity MD Saroj ([facility]);[facility], [facility] [place], [facility];Acute MD coronary syndrome ([facility]);Anxiety;Drug use;Hypertrophic nonobstructive cardiomyopathy (HCC);Provoked seizure ([facility]) 08/28/2017 Procedure Pass 08/28/2017 Surgery Ivan Rios L CATH & CORONARY ANGIOS 08/28/2017 Procedure Pass 08/28/2017 Procedure Pass after 04/25/2017 Family History Medical History Relation Name Comments [...] 08/28/2017 8:38 PM CDT NATHEN<I ANGIOS after 04/25/2017 Results EKG-SCANNED (09/07/2017 8:20 AM)RHYTHM STRIP - SCAN (09/01/2017 9:11 AM)Only the most recent of2 resultswithin the time period is included.CARDIAC CATH REPORT - SCAN (08/29/2017 6:30 PM)ECHOCARDIOGRAM REPORT - SCAN (08/29/2017 3: 50 PM)Transthoracic 2D echo w/ doppler (cw/pw/color) (08/29/2017 10:40 AM) Component Value Ref Range Ejection Fraction Specimen Performing Laboratory [facility] MKCKESSON CPACS Narrative Transthoracic Echocardiography Report (TTE) Demographics Patient Name [place], Date of Study 08/29/2017 BUD [id number] Male Visit Number [id number] Room Number 1135 Number Date of Birth1985Referring Physician Ivan Rios MD Age32 year(s)Plant Technician Halie Triana, Santhosh Lazo RDCSPhysicimandy YOU Procedure [...] Patient Name LOMAS, Date of Study 08/29/2017 [facility] Gender Male Visit Number [id number] Race Unknown Room Number 1135 Number Date of 1985 Referring Physician Ivan Rios MD Age 32 year(s) 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[facility] Dari Triana, Interpreting Kris Lazo [facility] Physician Procedure Type of Study TTE [...] 432 ms QTC Calculation(Bazett) 420 ms P [place] 7 degrees R [place] 38 degrees T [place] 234 degrees Sinus bradycardia Left ventricular hypertrophy with repolarization abnormality Abnormal ECG No previous ECGs available Confirmed by MD CYDNEY, PENELOPE ([id number]) on 08/29/2017 2:24:34 PM Procedure Note Interface, External Ris In - 08/29/2017 2:24 PM CDT Ventricular Rate 57 BPM Atrial Rate 57 BPM P-R Interval 164 ms QRS Duration 88 ms Q-T Interval 432 ms QTC Calculation(Bazett) 420 ms P [place] 7 degrees R [place] 38 degrees T [place] 234 degrees Sinus bradycardia Left ventricular hypertrophy [...] Screen Negative Negative Specimen Performing Laboratory Urine [address] [address] Narrative DRUGCUTOFF CONC. Cocaine 300 ng/mL Ldybhjwssng76 ng/mL Viugrnuwhxpysa620 ng/mL Barbiturate 200 ng/mL Xqwqnlwgoryea83 ng/mL Tjsomz752 ng/mL Methadone 300 ng/mL Amphetamine/ 1000 ng/mL Methamphetamine Oxycodone 300 ng/mL This assay provides an unconfirmed qualitative test result for the clinical management of patients in emergency situations. Chain of custody not maintained. Some tpww-usi-horbvxy medications, as well as adulterants, may cause inaccurate results. Clinical correlation should be applied. A more comprehensive drug screen or confirmation of a detected drug may be performed upon request. Urinalysis w/Microscopic (08/29/2017 7:09 AM) Component Value Ref Range Color, UA Yellow Clarity, UA Clear Specific [place], UA 1.034 1.001 - 1.035 pH, UA 6.0 5.0 - 8.0 Protein, UA Negative Negative Glucose, UA Negative Negative Ketones, UA Negative Negative Bilirubin, UA Negative Negative Blood, UA Negative Negative Nitrite, UA Negative Negative Leukocytes, UA Negative Negative Urobilinogen, UA 0.2 0.2 - 1.0 mg/dL RBC, UA 1 /HPF WBC, UA 2 /HPF Mucus Rare Specimen Source Specimen Performing Laboratory Urine [address] [address] CBC with platelet count + automated diff [...] % Specimen Performing Laboratory Blood - [place], [address] [address] CBC with platelet count + automated diff (08/29/2017 4:21 AM)Only the most recent of2 resultswithin the time period is included. Specimen Performing Laboratory Blood Narrative The following orders were created for panel order CBC with platelet count + automated diff. Procedure Abnormality Status --------- ------ CBC with platelet count ...[[id number]]AbnormalFinal result Please view results for these tests on the individual orders. Magnesium (08/29/2017 4:21 AM) Component Value Ref Range Magnesium 1.9 1.6 - 2.6 mg/dL Specimen Performing Laboratory Blood - [place], [address] [address] Hepatic function panel (08/29/2017 4:21 AM) Component Value Ref Range Protein, Total 6.1 6.0 - 8.3 gm/dL Albumin 3.5 3.5 - 5.0 g/dL Total Bilirubin 0.3 0.2 - 1.2 mg/dL Bilirubin, Direct 0.1 0.1 - 0.5 mg/dL Alkaline Phosphatase 65 40 - 150 U/L AST 15 5 - 34 U/L ALT 9 6 - 55 U/L Specimen Performing Laboratory Blood - [place], [address] [address] Basic metabolic panel (08/29/2017 4:21 AM)Only the [...] PATIENTS. Specimen Performing Laboratory Blood - [place], [address] [address] after 04/25/2017
--- OUTSIDE RECORDS SUMMARY | 2018-04-26 13:47 | XMS REPORT ---
:1985 Author [facility] Address [facility] [place] [address] Care Team Providers Name Role Phone ANTONIO [...] Value Reference Range Comments COLOR (BEAKER) (test rbfq=494) Yellow CLARITY (BEAKER) (test iwjh=752) Clear SPECIFIC GRAVITY UA (BEAKER) (test ncix=780) 1.034 1.001-1.035 PH UA (BEAKER) (test zmxg=021) 6.0 5.0-8.0 PROTEIN UA (BEAKER) (test zude=088) Negative Negative GLUCOSE UA (BEAKER) (test shsr=021) Negative Negative KETONES UA (BEAKER) (test evxl=069) Negative Negative BILIRUBIN UA (BEAKER) (test vbxj=711) Negative Negative BLOOD UA (BEAKER) (test asfg=972) Negative Negative NITRITE UA (BEAKER) (test woku=028) Negative Negative LEUKOCYTE ESTERASE UA (BEAKER) (test nkya=050) Negative Negative UROBILINOGEN UA (BEAKER) (test xcxo=102) 0.2 mg/dL 0.2-1.0 RBC UA (BEAKER) (test vuth=206) 1 /HPF WBC UA (BEAKER) (test zgre=979) 2 /HPF MUCUS (BEAKER) (test mber=5957) Rare SOURCE(BEAKER) (test lkmg=7065) RAPID DRUG SCREEN, [id number] 07:53:00 Test Item Value Reference Range Comments BARBITURATE URINE (BEAKER) (test tvmz=882) Negative Negative BENZODIAZEPINE SCREEN URINE (BEAKER) (test Positive Negative etlz=758) COCAINE (METAB.) SCREEN (BEAKER) (test cvfc=9928) Negative Negative METHADONE SCREEN (BEAKER) (test cydt=0166) Negative Negative OPIATE SCREEN URINE (BEAKER) (test fboj=667) Negative Negative CANNABINOID SCREEN URINE (BEAKER) (test hemw=180) Negative Negative AMPH/METHAMPH SCREEN (BEAKER) (test eeys=5430) Negative Negative PHENCYCLIDINE SCREEN URINE (BEAKER) (test zvnm=063) Negative Negative OXYCODONE SCREEN URINE (BEAKER) (test ifop=7037) Negative Negative DRUG CUTOFF CONC.Cocaine 300 ng/mL Cannabinoid 50 ng/mL Benzodiazepine 200 ng/mLBarbiturate 200 ng/ mLPhencyclidine 25 ng/mLOpiate 300 ng/mLMethadone 300 ng/mLAmphetamine/ 1000 ng/mL MethamphetamineOxycodone 300 ng/mLThis assay provides an unconfirmed qualitative test result for the clinical management of patients in emergency situations. Chain of custody not maintained. Some upif-shy-hwklnyv medications, as well as adulterants, may cause inaccurate results. Clinical correlation should be applied. A more comprehensive drug screen or confirmation of a detected drug may be performed upon request.HEPATIC FUNCTION [id number] 05:51:00 Test Item Value Reference Range Comments TOTAL PROTEIN (BEAKER) (test bcna=139) 6.1 gm/dL 6.0-8.3 ALBUMIN (BEAKER) (test bryn=4092) 3.5 g/dL 3.5-5.0 BILIRUBIN TOTAL (BEAKER) (test feva=114) 0.3 mg/dL 0.2-1.2 BILIRUBIN DIRECT (BEAKER) (test qban=083) 0.1 mg/dL 0.1-0.5 ALKALINE PHOSPHATASE (BEAKER) (test odbo=327) 65 U/L 40-150 AST (SGOT) (BEAKER) (test hevn=935) 15 U/L 5-34 ALT (SGPT) (BEAKER) (test jnbs=601) 9 U/L 6-55 BASIC METABOLIC [id number] 05:51:00 Test Item Value Reference Range Comments SODIUM (BEAKER) (test 138 meq/L 136-145 syuv=796) POTASSIUM (BEAKER) (test 3.9 meq/L 3.5-5.1 mwlt=346) CHLORIDE (BEAKER) (test 112 meq/L 98-107 unpf=106) CO2 (BEAKER) (test 20 meq/L 22-29 eohh=713) BLOOD UREA NITROGEN 21 mg/dL 7-21 (BEAKER) (test ytgq=899) CREATININE (BEAKER) (test 1.12 mg/dL 0.57-1.25 yhzo=282) GLUCOSE RANDOM (BEAKER) 96 mg/dL 70-105 (test rwjo=319) CALCIUM (BEAKER) (test 8.6 mg/dL 8.4-10.2 qbpp=811) EGFR (BEAKER) (test 91 mL/min/1.73 sq m ESTIMATED GFR IS NOT xfsy=1744) ACCURATE CREATININE CLEARANCE IN PREDICTING GLOMERULAR FILTRATION RATE. ESTIMATED GFR IS NOT APPLICABLE FOR DIALYSIS PATIENTS. CBC W/PLT COUNT & AUTO [id number] 05:47:00 Test Item Value Reference Range Comments WHITE BLOOD CELL COUNT (BEAKER) (test tgyf=376) 5.9 K/ L 3.5-10.5 RED BLOOD CELL COUNT (BEAKER) (test pkrc=619) 4.35 M/ L 4.63-6.08 HEMOGLOBIN (BEAKER) (test qsgl=017) 12.6 GM/DL 13.7-17.5 HEMATOCRIT (BEAKER) (test xxzo=577) 39.0 % 40.1-51.0 MEAN CORPUSCULAR VOLUME (BEAKER) (test ngbw=548) 89.7 fL 79.0-92.2 MEAN CORPUSCULAR HEMOGLOBIN (BEAKER) (test 29.0 pg 25.7-32.2 ywod=606) MEAN CORPUSCULAR HEMOGLOBIN CONC (BEAKER) (test 32.3 GM/DL 32.3-36.5 fpsj=948) RED CELL DISTRIBUTION WIDTH (BEAKER) (test 13.0 % 11.6-14.4 dcvu=982) PLATELET COUNT (BEAKER) (test ljtw=967) 222 K/CU MM 150-450 MEAN PLATELET VOLUME (BEAKER) (test itup=165) 11.2 fL 9.4-12.4 NUCLEATED RED BLOOD CELLS (BEAKER) (test 0 /100 WBC 0-0 mfdy=985) NEUTROPHILS RELATIVE PERCENT (BEAKER) (test 51 % prqv=619) LYMPHOCYTES RELATIVE PERCENT (BEAKER) (test 38 % idkw=820) MONOCYTES RELATIVE PERCENT (BEAKER) (test 8 % wjts=298) EOSINOPHILS RELATIVE PERCENT (BEAKER) (test 2 % fqbc=431) BASOPHILS RELATIVE PERCENT (BEAKER) (test 1 % bsye=727) NEUTROPHILS ABSOLUTE COUNT (BEAKER) (test 3.00 K/ L 1.78-5.38 iypl=629) LYMPHOCYTES ABSOLUTE COUNT (BEAKER) (test 2.22 K/ L 1.32-3.57 ltww=778) MONOCYTES ABSOLUTE COUNT (BEAKER) (test 0.46 K/ L 0.30-0.82 uxzp=616) EOSINOPHILS ABSOLUTE COUNT (BEAKER) (test 0.12 K/ L 0.04-0.54 elly=529) BASOPHILS ABSOLUTE COUNT (BEAKER) (test 0.04 K/ L 0.01-0.08 mnkp=974) IMMATURE GRANULOCYTES-RELATIVE PERCENT (BEAKER) 0 % 0-1 (test gccm=2237) [id number] 05:40:00 Test Item Value Reference Range Comments MAGNESIUM (BEAKER) (test rwra=555) 1.9 mg/dL 1.6-2.6 BASIC METABOLIC [id number] 05:40:00 Test Item Value Reference Range Comments SODIUM (BEAKER) (test 138 meq/L 136-145 zydq=732) POTASSIUM (BEAKER) (test 3.8 meq/L 3.5-5.1 cpjv=480) CHLORIDE (BEAKER) (test 111 meq/L 98-107 yssx=486) CO2 (BEAKER) (test 21 meq/L 22-29 motf=844) BLOOD UREA NITROGEN 19 mg/dL 7-21 (BEAKER) (test mtal=528) CREATININE (BEAKER) (test 1.12 mg/dL 0.57-1.25 sqjw=273) GLUCOSE RANDOM (BEAKER) 96 mg/dL 70-105 (test rysn=375) CALCIUM (BEAKER) (test 8.6 mg/dL 8.4-10.2 pbaa=288) EGFR (BEAKER) (test 91 mL/min/1.73 sq m ESTIMATED GFR IS NOT vkua=4598) ACCURATE CREATININE CLEARANCE IN PREDICTING GLOMERULAR FILTRATION RATE. ESTIMATED GFR IS NOT APPLICABLE FOR DIALYSIS PATIENTS. CBC W/PLT COUNT & AUTO [id number] 00:35:00 Test Item Value Reference Range Comments WHITE BLOOD CELL COUNT 4.4 K/ L 3.5-10.5 (BEAKER) (test uqmp=767) RED BLOOD CELL COUNT (BEAKER) 4.54 M/ L 4.63-6.08 (test upoq=349) HEMOGLOBIN (BEAKER) (test 14.2 GM/DL 13.7-17.5 mgph=875) HEMATOCRIT (BEAKER) (test 41.1 % 40.1-51.0 wpdy=221) MEAN CORPUSCULAR VOLUME 90.5 fL 79.0-92.2 (BEAKER) (test vvzg=696) MEAN CORPUSCULAR HEMOGLOBIN 31.3 pg 25.7-32.2 (BEAKER) (test cqod=477) MEAN CORPUSCULAR HEMOGLOBIN 34.5 GM/DL 32.3-36.5 CONC (BEAKER) (test aavj=930) RED CELL DISTRIBUTION WIDTH 14.3 % 11.6-14.4 (BEAKER) (test evsw=333) PLATELET COUNT (BEAKER) (test 409 K/CU MM 150-450 xrnd=676) MEAN PLATELET VOLUME (BEAKER) fL 9.4-12.4 Unable to report due to (test gson=618) abnormal Platelet population distribution. NUCLEATED RED BLOOD CELLS 8 /100 WBC 0-0 (BEAKER) (test rvwp=303) NEUTROPHILS RELATIVE PERCENT 51 % (BEAKER) (test aans=230) LYMPHOCYTES RELATIVE PERCENT 44 % (BEAKER) (test wsit=180) MONOCYTES RELATIVE PERCENT 3 % (BEAKER) (test tsde=098) EOSINOPHILS RELATIVE PERCENT 1 % (BEAKER) (test epnl=772) BASOPHILS RELATIVE PERCENT 1 % (BEAKER) (test bmpd=086) NEUTROPHILS ABSOLUTE COUNT 2.22 K/ L 1.78-5.38 (BEAKER) (test tinh=575) LYMPHOCYTES ABSOLUTE COUNT 1.92 K/ L 1.32-3.57 (BEAKER) (test fyaz=907) MONOCYTES ABSOLUTE COUNT 0.14 K/ L 0.30-0.82 (BEAKER) (test wmnw=304) EOSINOPHILS ABSOLUTE COUNT 0.06 K/ L 0.04-0.54 (BEAKER) (test litl=178) BASOPHILS ABSOLUTE COUNT 0.03 K/ L 0.01-0.08 (BEAKER) (test uasd=933) IMMATURE GRANULOCYTES-RELATIVE 0 % 0-1 PERCENT (EpocratesAKER) (test bial=1154)
[2018-04-26 14:18] LABS: Absolute Lymphocytes (CBC) 1.7 K/uL (0.7-4.9); Absolute Monocytes 0.4 K/uL (0.1-1.3); Absolute Neutrophil 2.9 K/uL (1.8-8.0); Basophils % 0.9 % (0-1.3); Eosinophils % 2.4 % (0-4.4); Hematocrit 45.5 % (39.6-49.0); Lymphocytes % 33.1 % (15.3-44.8); MCH 30.1 pg (27.0-35.0); MCV 91.6 fL (80-100); MPV 8.4 fL (7.6-11.3); Monocytes % 7.3 % (3.3-12.3); RBC Red Blood Cell Count 4.96 M/uL (4.33-5.43)
[2018-04-26 14:39] LABS: ALT/SGPT 18 U/L (12-78); AST/SGOT 15 U/L (15-37); Albumin 4.2 g/dL (3.4-5.0); Alkaline Phosphatase 57 U/L (45-117); BUN Blood Urea Nitrogen 12 mg/dL (7-18); Bicarbonate 27 mmol/L (21-32); Bilirubin Direct 0.1 mg/dL (0-0.2); Bilirubin Total 0.6 mg/dL (0.2-1.0); Glucose Level 100 mg/dL (74-106); Lipase 144 U/L (73-393); Potassium 3.9 mmol/L (3.5-5.1); Protein, Total 7.6 g/dL (6.4-8.2); Sodium Level 142 mmol/L (136-145)
[2018-04-26] MEDS ORDERED: PROMETHAZINE 25 MG/ML VIAL ONE (14:42)
--- NOTE | 2018-04-26 15:33 | RAD REPORT ---
EXAM DESCRIPTION: CT - Abdomen Pelvis W Contrast - 04/26/2018 2:59 pm CLINICAL HISTORY: Abdominal pain with vomiting COMPARISON: none. TECHNIQUE: Computed axial tomography of the abdomen pelvis was obtained. 100 cc [id number] was admin istered intravenously. Oral contrast was not requested which limits evaluation of bowel. All CT scans are performed using dose optimization technique as appropriate and may include automated exposure control or mA/KV adjustment according to patient size. FINDINGS: The liver, spleen, pancreas, adrenal and kidneys appear unremarkable. There is no evidence of diverticulitis. The appendix is normal. A moderate amount of stool is present within the colon. IMPRESSION: Moderate amount of stool within the colon
--- NOTE | 2018-04-26 15:40 | EDPHYS ---
Physician Documentation [facility] Name: Michele Lomas Age: 33 yrs Sex: Male : 1985 Arrival Date: 04/26/2018 Time: 13:47 Bed 19 Private MD: ED Physician Blanco Shultz HPI: 04/26 15:23 This 33 yrs old Black Male presents to ER via Ambulatory with complaints of Abdominal jr8 Pain, Unintentional Weight Loss. 15:23 The patient presents with abdominal pain that is diffuse. Onset: The symptoms/episode jr8 began/occurred gradually, 2 week(s) ago. The symptoms do not radiate. Associated signs and symptoms: Pertinent positives: nausea and vomiting. The symptoms are described as burning, dull. Modifying factors: The symptoms are alleviated by nothing, the symptoms are aggravated by food. Severity of pain: At its worst the pain was mild in the emergency department the pain is unchanged. The patient has not experienced similar symptoms in the past. The patient has not recently seen a physician. Historical: - Allergies: 13:52 Banana; sg - PMHx: 13:52 Back pain; Enlarged Heart; Hypertension; sg - PSHx: 13:52 heart cath; sg - Immunization history:: Adult Immunizations up to date. - Social history:: Smoking status: Patient uses tobacco products, smokes one-half pack cigarettes per day. - Ebola Screening: : Patient negative for fever greater than or equal to 101.5 degrees Fahrenheit, and additional compatible Ebola Virus Disease symptoms Patient denies exposure to infectious person Patient denies travel to an Ebola-affected area in the 21 days before illness onset No symptoms or risks identified at this time. ROS: 15:23 Eyes: Negative for injury, pain, redness, and discharge, ENT: Negative for injury, jr8 pain, and discharge, Neck: Negative for injury, pain, and swelling, Cardiovascular: Negative for chest pain, palpitations, and edema, Respiratory: Negative for shortness of breath, cough, wheezing, and pleuritic chest pain, Back: Negative for injury and pain, MS/Extremity: Negative for injury and deformity, Skin: Negative for injury, rash, and discoloration, Neuro: Negative for headache, weakness, numbness, tingling, and seizure. 15:23 Abdomen/GI: Positive for abdominal pain, nausea and vomiting, Negative for diarrhea, constipation, abdominal cramps, abdominal distension, anorexia, dysphagia, hematemesis, black/tarry stool, rectal pain, rectal bleeding, bowel incontinence, flatulence. Exam: 15:23 Eyes: Pupils equal round and reactive to light, extra-ocular motions intact. Lids and jr8 lashes normal. Conjunctiva and sclera are non-icteric and not injected. Cornea within normal limits. Periorbital areas with no swelling, redness, or edema. ENT: Nares patent. No nasal discharge, no septal abnormalities noted. Tympanic membranes are normal and external auditory canals are clear. Oropharynx with no redness, swelling, or masses, exudates, or evidence of obstruction, uvula midline. Mucous membranes moist. Neck: Trachea midline, no thyromegaly or masses palpated, and no cervical lymphadenopathy. Supple, full range of motion without nuchal rigidity, or vertebral point tenderness. No Meningismus. Cardiovascular: Regular rate and rhythm with a normal S1 and S2. No gallops, murmurs, or rubs. Normal PMI, no JVD. No pulse deficits. Respiratory: Lungs have equal breath sounds bilaterally, clear to auscultation and percussion. No rales, rhonchi or wheezes noted. No increased work of breathing, no retractions or nasal flaring. Abdomen/GI: Soft, non-tender, with normal bowel sounds. No distension or tympany. No guarding or rebound. No evidence of tenderness throughout. Back: No spinal tenderness. No costovertebral tenderness. Full range of motion. Skin: Warm, dry with normal turgor. Normal color with no rashes, no lesions, and no evidence of cellulitis. MS/ Extremity: Pulses equal, no cyanosis. Neurovascular intact. Full, normal range of motion. Neuro: Awake and alert, GCS 15, oriented to person, place, time, and situation. Cranial nerves II-XII grossly intact. Motor strength 5/5 in all extremities. Sensory grossly intact. Cerebellar exam normal. Normal gait. Vital Signs: 13:51 Pulse 74; Resp 17; Temp 98.0; Pulse Ox 99% on R/A; Weight 90.26 kg; Height 5 ft. 11 in. sg (180.34 cm); Pain 6/10; 13:53 BP 146 / 81; sg 15:00 BP 140 / 80; Pulse 75; Resp 16; Pulse Ox 99% ; jl7 13:51 Body Mass Index 27.75 (90.26 kg, 180.34 cm) sg MDM: 14:00 Patient medically screened. 15:38 Differential diagnosis: appendicitis, bowel obstruction, cholecystitis, Cholelithiasis, jr8 diverticulitis, gastritis, gastroesophageal reflux disease, non-specific abd pain, pancreatitis, Peptic Ulcer Disease. Data reviewed: vital signs, nurses notes, lab test result(s), radiologic studies, CT scan, and as a result, I will discharge patient. Data interpreted: Pulse oximetry: on room air is 99 %. Interpretation: normal. Counseling: I had a detailed discussion with the patient and/or guardian regarding: the historical points, exam findings, and any diagnostic results supporting the discharge/admit diagnosis, lab results, radiology results, the need for outpatient follow up, a diet technician registered, to return to the emergency department if symptoms worsen or persist or if there are any questions or concerns that arise at home. Special discussion: Based on the patient's Hx, exam, and Dx evaluation, there is no indication for emergent surgery or inpatient Tx. It is understood by the patient/guardian that if the Sx's persist or worsen they need to return immediately for re-evaluation. 04/26 14:00 Order name: Basic Metabolic Panel; Complete Time: 15:08 04/26 14:00 Order name: CBC with Diff; Complete Time: 14:23 04/26 14:00 Order name: Creatinine for Radiology; Complete Time: 15:08 04/26 14:00 Order name: Hepatic Function; Complete Time: 15:08 04/26 14:00 Order name: Lipase; Complete Time: 15:08 04/26 14:24 Order name: CT Abd/Pelvis - W/Contrast; Complete Time: 15:38 04/26 14:00 Order name: IV Saline Lock; Complete Time: 14:16 04/26 14:00 Order name: Labs collected and sent; Complete Time: 14:16 04/26 14:00 Order name: Urine Dipstick-Ancillary (obtain specimen); Complete Time: 14:16 Administered Medications: 14:49 Drug: Phenergan 12.5 mg Route: IVP; Site: right antecubital; [facility] 15:30 Follow up: Response: No adverse reaction; Nausea is decreased jl7 Disposition: 18:36 Co-signature as Attending Physician, Blanco Shultz MD. rn Disposition: 04/26/18 15:39 Discharged to Home. Impression: Abdominal and pelvic pain, Constipation. - Condition is Stable. - Discharge Instructions: Abdominal Pain, Adult, Constipation, Adult. - Prescriptions for omeprazole 40 mg Oral capsule,delayed release(DR/EC) - take 1 capsule by ORAL route once daily; 30 capsule. Zofran 4 mg Oral Tablet - take 1 tablet by ORAL route every 12 hours As needed; 20 tablet. - Medication Reconciliation Form, Thank You Letter, Antibiotic Education, Prescription Opioid Use, Work release form form. - Follow up: Enoc Hopkins MD; When: 2 - 3 days; Reason: Recheck today's complaints, Continuance of care, Re-evaluation by your physician. - Problem is new. - Symptoms have improved. Signatures: Dispatcher [employer] EDGrover Shelby RN Blanco Kennedy MD MD rn Roszak, Josh, PA PA jr8 Brittany Stoner RN RN jl7 Corrections: (The following items were deleted from the chart) 16:00 15:39 04/26/2018 15:39 Discharged to Home. Impression: Abdominal and pelvic pain; jl7 Constipation. Condition is Stable. Forms are Medication Reconciliation Form, Thank You Letter, Antibiotic Education, Prescription Opioid Use. Follow up: Enoc Hopkins; When: 2 - 3 days; Reason: Recheck today's complaints, Continuance of care, Re-evaluation by your physician. Problem is new. Symptoms have improved. jr8
--- NOTE | 2018-04-26 15:40 | ER ---
Nurse's Notes [facility] Name: Michele Lomas Age: 33 yrs Sex: Male : 1985 Arrival Date: 04/26/2018 Time: 13:47 Bed 19 Private MD: Diagnosis: Abdominal and pelvic pain;Constipation Presentation: 04/26 13:49 Presenting complaint: Patient states: Was seen a couple weeks ago for what was sg diagnosed with silent strokes, pt stated he has had abd pain and vomiting with meals also lost about 19 lbs in two weeks without trying. Has seen for a checkup, was cleared and was instructed to follow up with him in October, unsure if the new medications he has started has made him have these symptoms. Transition of care: patient was not received from another setting of care. Onset of symptoms was April 26, 2018. Risk Assessment: Do you want to hurt yourself or someone else? Patient reports no desire to harm self or others. Initial Sepsis Screen: Does the patient meet any 2 criteria? No. Patient's initial sepsis screen is negative. Does the patient have a suspected source of infection? No. Patient's initial sepsis screen is negative. Care prior to arrival: None. 13:49 Method Of Arrival: Ambulatory sg 13:49 Acuity: PASTORA 3 sg Historical: - Allergies: 13:52 Banana; sg - PMHx: 13:52 Back pain; Enlarged Heart; Hypertension; sg - PSHx: 13:52 heart cath; sg - Immunization history:: Adult Immunizations up to date. - Social history:: Smoking status: Patient uses tobacco products, smokes one-half pack cigarettes per day. - Ebola Screening: : Patient negative for fever greater than or equal to 101.5 degrees Fahrenheit, and additional compatible Ebola Virus Disease symptoms Patient denies exposure to infectious person Patient denies travel to an Ebola-affected area in the 21 days before illness onset No symptoms or risks identified at this time. Screenin:12 Abuse screen: Denies threats or abuse. Denies injuries from another. Nutritional jl7 screening: No deficits noted. Tuberculosis screening: No symptoms or risk factors identified. Fall Risk IV access (20 points). Total Asencio Fall Scale indicates No Risk (0-24 pts). Assessment: 14:12 General: Appears in no apparent distress. uncomfortable, Behavior is calm, cooperative, jl7 appropriate for age. Pain: Complains of pain in abdomen Pain does not radiate. Pain currently is 6 out of 10 on a pain scale. Quality of pain is described as "pain" Pain began a week and a half ago Is continuous. Neuro: Level of Consciousness is awake, alert, obeys commands, Oriented to person, place, time, situation. Cardiovascular: Patient's skin is warm and dry. Respiratory: Airway is patent Respiratory effort is even, unlabored, Respiratory pattern is regular, symmetrical. GI: Abdomen is flat, non-distended, Reports nausea, vomiting, Patient currently denies diarrhea. : No signs and/or symptoms were reported regarding the genitourinary system. EENT: No signs and/or symptoms were reported regarding the EENT system. Derm: Skin is dry, Skin is normal, Skin temperature is warm. Musculoskeletal: No signs and/or symptoms reported regarding the musculoskeletal system. 15:00 Reassessment: Patient and/or family updated on plan of care and expected duration. Pain jl7 level reassessed. Patient is alert, oriented x 3, equal unlabored respirations, skin warm/dry/pink. Vital Signs: 13:51 Pulse 74; Resp 17; Temp 98.0; Pulse Ox 99% on R/A; Weight 90.26 kg; Height 5 ft. 11 in. sg (180.34 cm); Pain 6/10; 13:53 BP 146 / 81; sg 15:00 BP 140 / 80; Pulse 75; Resp 16; Pulse Ox 99% ; jl7 13:51 Body Mass Index 27.75 (90.26 kg, 180.34 cm) ED Course: 13:47 Patient arrived in ED. sg 13:48 Arm band placed on. sg 13:51 Triage completed. sg 13:55 Brittany Stoner, SABINE is Primary Nurse. jl7 14:00 Carter Cedillo PA is PHCP. jr8 14:00 Blanco Shultz MD is Attending Physician. jr8 14:12 Patient has correct armband on for positive identification. Bed in low position. Call 7 light in reach. Side rails up X 1. Pulse ox on. NIBP on. 14:12 Initial lab(s) drawn, by me, sent to lab. Inserted saline lock: 20 gauge in right jl7 antecubital area, using aseptic technique. Blood collected. 14:59 CT Abd/Pelvis - W/Contrast In Process Unspecified. EDMS 15:39 Enoc Hopkins MD is Referral Physician. jr8 15:58 No provider procedures requiring assistance completed. IV discontinued, intact, jl7 bleeding controlled, No redness/swelling at site. Pressure dressing applied. Administered Medications: 14:49 Drug: Phenergan 12.5 mg Route: IVP; Site: right antecubital; jl7 15:30 Follow up: Response: No adverse reaction; Nausea is decreased jl7 Outcome: 15:39 Discharge ordered by . jr8 15:58 Discharged to home ambulatory. jl7 15:58 Condition: stable 15:58 Discharge instructions given to patient, Instructed on discharge instructions, follow up and referral plans. medication usage, Demonstrated understanding of instructions, follow-up care, medications, Prescriptions given X 2. 16:00 Patient left the ED. jl7 Signatures: Dispatcher [employer] EDGrover Shelby RN RN sg Roszak, Josh, PA PA jr8 Brittany Stoner RN RN jl7
[2018-04-26 16:16] VITALS: TEMP 98; O2SAT 99
[2018-04-26 16:18] VITALS: BP 140/80
== END 2018-04-26 16:00 | disposition home or self-care (01) ==
LOC: ER 13:44
DX: K59.00 Constipation, unspecified (principal); I10 Essential (primary) hypertension; Z91.018 Allergy to other foods
CPT/HCPCS: 36415; 74177; 80048; 80076; 83690; 85025; 96374; 99284; J2550; Q9967

== ENCOUNTER 2018-06-06 19:41 | Emergency (ER) | payer SELFPAY ==
--- OUTSIDE RECORDS SUMMARY | 2018-06-06 19:44 | XMS REPORT ---
:1985 [facility] Address [address] [place] [address] Care Team Providers Name Role Phone ANTONIO [...] Value Reference Range Comments COLOR (BEAKER) (test wpew=426) Yellow CLARITY (BEAKER) (test hojy=841) Clear SPECIFIC GRAVITY UA (BEAKER) (test ftdc=710) 1.034 1.001-1.035 PH UA (BEAKER) (test fkyv=057) 6.0 5.0-8.0 PROTEIN UA (BEAKER) (test wrdv=231) Negative Negative GLUCOSE UA (BEAKER) (test ucem=840) Negative Negative KETONES UA (BEAKER) (test lezm=736) Negative Negative BILIRUBIN UA (BEAKER) (test mfru=112) Negative Negative BLOOD UA (BEAKER) (test icqt=053) Negative Negative NITRITE UA (BEAKER) (test tmhx=977) Negative Negative LEUKOCYTE ESTERASE UA (BEAKER) (test ggbs=430) Negative Negative UROBILINOGEN UA (BEAKER) (test jqcu=017) 0.2 mg/dL 0.2-1.0 RBC UA (BEAKER) (test cith=920) 1 /HPF WBC UA (BEAKER) (test gixh=451) 2 /HPF MUCUS (BEAKER) (test sdcm=3634) Rare SOURCE(BEAKER) (test emvx=6828) RAPID DRUG SCREEN, [id number] 07:53:00 Test Item Value Reference Range Comments BARBITURATE URINE (BEAKER) (test pbvn=530) Negative Negative BENZODIAZEPINE SCREEN URINE (BEAKER) (test Positive Negative xvgk=899) COCAINE (METAB.) SCREEN (BEAKER) (test ztiy=7768) Negative Negative METHADONE SCREEN (BEAKER) (test xguz=4552) Negative Negative OPIATE SCREEN URINE (BEAKER) (test aiaq=335) Negative Negative CANNABINOID SCREEN URINE (BEAKER) (test ocrh=972) Negative Negative AMPH/METHAMPH SCREEN (BEAKER) (test nnzt=9181) Negative Negative PHENCYCLIDINE SCREEN URINE (BEAKER) (test fium=853) Negative Negative OXYCODONE SCREEN URINE (BEAKER) (test eyiv=1660) Negative Negative DRUG CUTOFF CONC.Cocaine 300 ng/mL Cannabinoid 50 ng/mL Benzodiazepine 200 ng/mLBarbiturate 200 ng/ mLPhencyclidine 25 ng/mLOpiate 300 ng/mLMethadone 300 ng/mLAmphetamine/ 1000 ng/mL MethamphetamineOxycodone 300 ng/mLThis assay provides an unconfirmed qualitative test result for the clinical management of patients in emergency situations. Chain of custody not maintained. Some aurc-zgz-lldalgs medications, as well as adulterants, may cause inaccurate results. Clinical correlation should be applied. A more comprehensive drug screen or confirmation of a detected drug may be performed upon request.HEPATIC FUNCTION [id number] 05:51:00 Test Item Value Reference Range Comments TOTAL PROTEIN (BEAKER) (test pwjh=849) 6.1 gm/dL 6.0-8.3 ALBUMIN (BEAKER) (test wqih=8540) 3.5 g/dL 3.5-5.0 BILIRUBIN TOTAL (BEAKER) (test jftw=201) 0.3 mg/dL 0.2-1.2 BILIRUBIN DIRECT (BEAKER) (test arts=983) 0.1 mg/dL 0.1-0.5 ALKALINE PHOSPHATASE (BEAKER) (test yelo=619) 65 U/L 40-150 AST (SGOT) (BEAKER) (test srzu=308) 15 U/L 5-34 ALT (SGPT) (BEAKER) (test wvrx=856) 9 U/L 6-55 BASIC METABOLIC [id number] 05:51:00 Test Item Value Reference Range Comments SODIUM (BEAKER) (test 138 meq/L 136-145 mqvh=106) POTASSIUM (BEAKER) (test 3.9 meq/L 3.5-5.1 itug=206) CHLORIDE (BEAKER) (test 112 meq/L 98-107 virm=852) CO2 (BEAKER) (test 20 meq/L 22-29 zhkx=597) BLOOD UREA NITROGEN 21 mg/dL 7-21 (BEAKER) (test iymb=160) CREATININE (BEAKER) (test 1.12 mg/dL 0.57-1.25 mzus=987) GLUCOSE RANDOM (BEAKER) 96 mg/dL 70-105 (test hdki=311) CALCIUM (BEAKER) (test 8.6 mg/dL 8.4-10.2 xfuk=437) EGFR (BEAKER) (test 91 mL/min/1.73 sq m ESTIMATED GFR IS NOT akfb=1334) ACCURATE CREATININE CLEARANCE IN PREDICTING GLOMERULAR FILTRATION RATE. ESTIMATED GFR IS NOT APPLICABLE FOR DIALYSIS PATIENTS. CBC W/PLT COUNT & AUTO [id number] 05:47:00 Test Item Value Reference Range Comments WHITE BLOOD CELL COUNT (BEAKER) (test czva=776) 5.9 K/ L 3.5-10.5 RED BLOOD CELL COUNT (BEAKER) (test ypmz=530) 4.35 M/ L 4.63-6.08 HEMOGLOBIN (BEAKER) (test qkjh=714) 12.6 GM/DL 13.7-17.5 HEMATOCRIT (BEAKER) (test rmsl=410) 39.0 % 40.1-51.0 MEAN CORPUSCULAR VOLUME (BEAKER) (test rygo=508) 89.7 fL 79.0-92.2 MEAN CORPUSCULAR HEMOGLOBIN (BEAKER) (test 29.0 pg 25.7-32.2 hihb=670) MEAN CORPUSCULAR HEMOGLOBIN CONC (BEAKER) (test 32.3 GM/DL 32.3-36.5 dgav=619) RED CELL DISTRIBUTION WIDTH (BEAKER) (test 13.0 % 11.6-14.4 xzra=475) PLATELET COUNT (BEAKER) (test pstg=340) 222 K/CU MM 150-450 MEAN PLATELET VOLUME (BEAKER) (test nbki=418) 11.2 fL 9.4-12.4 NUCLEATED RED BLOOD CELLS (BEAKER) (test 0 /100 WBC 0-0 zdhh=436) NEUTROPHILS RELATIVE PERCENT (BEAKER) (test 51 % lylb=227) LYMPHOCYTES RELATIVE PERCENT (BEAKER) (test 38 % qohe=919) MONOCYTES RELATIVE PERCENT (BEAKER) (test 8 % cdkv=178) EOSINOPHILS RELATIVE PERCENT (BEAKER) (test 2 % nusj=087) BASOPHILS RELATIVE PERCENT (BEAKER) (test 1 % loiu=627) NEUTROPHILS ABSOLUTE COUNT (BEAKER) (test 3.00 K/ L 1.78-5.38 bhem=587) LYMPHOCYTES ABSOLUTE COUNT (BEAKER) (test 2.22 K/ L 1.32-3.57 ersl=140) MONOCYTES ABSOLUTE COUNT (BEAKER) (test 0.46 K/ L 0.30-0.82 iwsv=928) EOSINOPHILS ABSOLUTE COUNT (BEAKER) (test 0.12 K/ L 0.04-0.54 gxmr=453) BASOPHILS ABSOLUTE COUNT (BEAKER) (test 0.04 K/ L 0.01-0.08 hgyt=083) IMMATURE GRANULOCYTES-RELATIVE PERCENT (BEAKER) 0 % 0-1 (test ysop=1926) [id number] 05:40:00 Test Item Value Reference Range Comments MAGNESIUM (BEAKER) (test ytlf=035) 1.9 mg/dL 1.6-2.6 BASIC METABOLIC [id number] 05:40:00 Test Item Value Reference Range Comments SODIUM (BEAKER) (test 138 meq/L 136-145 fqro=769) POTASSIUM (BEAKER) (test 3.8 meq/L 3.5-5.1 rzvk=819) CHLORIDE (BEAKER) (test 111 meq/L 98-107 nedq=864) CO2 (BEAKER) (test 21 meq/L 22-29 dhon=712) BLOOD UREA NITROGEN 19 mg/dL 7-21 (BEAKER) (test bsxs=684) CREATININE (BEAKER) (test 1.12 mg/dL 0.57-1.25 urnm=053) GLUCOSE RANDOM (BEAKER) 96 mg/dL 70-105 (test msim=896) CALCIUM (BEAKER) (test 8.6 mg/dL 8.4-10.2 uwyx=592) EGFR (BEAKER) (test 91 mL/min/1.73 sq m ESTIMATED GFR IS NOT twlt=0002) ACCURATE CREATININE CLEARANCE IN PREDICTING GLOMERULAR FILTRATION RATE. ESTIMATED GFR IS NOT APPLICABLE FOR DIALYSIS PATIENTS. CBC W/PLT COUNT & AUTO [id number] 00:35:00 Test Item Value Reference Range Comments WHITE BLOOD CELL COUNT 4.4 K/ L 3.5-10.5 (BEAKER) (test usiz=745) RED BLOOD CELL COUNT (BEAKER) 4.54 M/ L 4.63-6.08 (test qqmh=076) HEMOGLOBIN (BEAKER) (test 14.2 GM/DL 13.7-17.5 rtds=731) HEMATOCRIT (BEAKER) (test 41.1 % 40.1-51.0 dsde=063) MEAN CORPUSCULAR VOLUME 90.5 fL 79.0-92.2 (BEAKER) (test hdnz=520) MEAN CORPUSCULAR HEMOGLOBIN 31.3 pg 25.7-32.2 (BEAKER) (test gxkq=439) MEAN CORPUSCULAR HEMOGLOBIN 34.5 GM/DL 32.3-36.5 CONC (BEAKER) (test sbry=902) RED CELL DISTRIBUTION WIDTH 14.3 % 11.6-14.4 (BEAKER) (test qxtw=184) PLATELET COUNT (BEAKER) (test 409 K/CU MM 150-450 gacy=706) MEAN PLATELET VOLUME (BEAKER) fL 9.4-12.4 Unable to report due to (test gbhs=643) abnormal Platelet population distribution. NUCLEATED RED BLOOD CELLS 8 /100 WBC 0-0 (BEAKER) (test ipsh=547) NEUTROPHILS RELATIVE PERCENT 51 % (BEAKER) (test gvkq=686) LYMPHOCYTES RELATIVE PERCENT 44 % (BEAKER) (test qool=328) MONOCYTES RELATIVE PERCENT 3 % (BEAKER) (test yjke=588) EOSINOPHILS RELATIVE PERCENT 1 % (BEAKER) (test otrx=726) BASOPHILS RELATIVE PERCENT 1 % (BEAKER) (test eotc=638) NEUTROPHILS ABSOLUTE COUNT 2.22 K/ L 1.78-5.38 (BEAKER) (test ugow=114) LYMPHOCYTES ABSOLUTE COUNT 1.92 K/ L 1.32-3.57 (BEAKER) (test vnla=142) MONOCYTES ABSOLUTE COUNT 0.14 K/ L 0.30-0.82 (BEAKER) (test jpgs=215) EOSINOPHILS ABSOLUTE COUNT 0.06 K/ L 0.04-0.54 (BEAKER) (test bkgj=663) BASOPHILS ABSOLUTE COUNT 0.03 K/ L 0.01-0.08 ([employer]ach[employer]AKER) (test yjtj=643) IMMATURE GRANULOCYTES-RELATIVE 0 % 0-1 PERCENT (Coach[employer]ixAKER) (test klhh=4904)
--- OUTSIDE RECORDS SUMMARY | 2018-06-06 19:44 | XMS REPORT | Clinical Summary ---
:1985 Author Organization [facility] Address [address] [place] [address] Phone Care Team Providers Name Role Phone Unavailable Primary Care Provider Unavailable Allergies No Known Allergies Current Medications Prescription Sig. Disp. Refills Start Date End Date Status amLODIPine (NORVASC) 10 MG Take 10 mg by Active tabletIndications: mouth daily. hypertension Active Problems Problem Noted Date Provoked seizure ([facility]) 08/29/2017 Drug use 08/29/2017 Syncope, unspecified syncope type 08/29/2017 Anxiety 08/29/2017 Hypertrophic nonobstructive cardiomyopathy (HCC) 08/29/2017 Acute coronary syndrome ([facility]) 08/28/2017 Encounters Date Type Specialty Care Team Description 08/29/2017 Orders Only General Internal Medicine 08/28/2017 - Hospital Cardiology Ivan Rios, Syncope, unspecified 08/29/2017 Encounter MD syncope type;Observed Mateus Mathews seizure-like activity MD Saroj ([facility]);[facility], [facility] [place], [facility];Acute MD coronary syndrome ([facility]);Anxiety;Drug use;Hypertrophic nonobstructive cardiomyopathy (HCC);Provoked seizure ([facility]) 08/28/2017 Procedure Pass 08/28/2017 Surgery Ivan Rios L CATH & CORONARY ANGIOS 08/28/2017 Procedure Pass 08/28/2017 Procedure Pass after 06/05/2017 Family History Medical History Relation Name Comments [...] 08/28/2017 8:38 PM CDT NATHEN<I ANGIOS after 06/05/2017 Results EKG-SCANNED (09/07/2017 8:20 AM)RHYTHM STRIP - SCAN (09/01/2017 9:11 AM)Only the most recent of2 resultswithin the time period is included.CARDIAC CATH REPORT - SCAN (08/29/2017 6:30 PM)ECHOCARDIOGRAM REPORT - SCAN (08/29/2017 3: 50 PM)Transthoracic 2D echo w/ doppler (cw/pw/color) (08/29/2017 10:40 AM) Component Value Ref Range Ejection Fraction Specimen Performing Laboratory [facility] ECHO HEARTLAB MKCKESSON CPACS Narrative Transthoracic Echocardiography Report (TTE) Demographics Patient Name [place], Date of Study 08/29/2017 BUD [id number] Male Visit Number [id number] Room Number 1135 Number Date of Birth1985Referring Physician Ivan Rios MD Age32 year(s)Negative Developer Halie Triana, Santhosh Lazo RDCSPhysicimandy YOU Procedure [...] Name LOMAS, Date of Study 08/29/2017 [facility] Gender Male Visit Number [id number] Race Unknown Room Number 1135 Number Date of 1985 Referring Physician Ivan Rios MD Age 32 year(s) Negative Developer Halie Cox Video Production Assistant Dari Triana, Interpreting Kris Lazo [facility] Physician Procedure Type of Study TTE procedure:2DECHO [...] 432 ms QTC Calculation(Bazett) 420 ms P Lincoln 7 degrees R Lincoln 38 degrees T Lincoln 234 degrees Sinus bradycardia Left ventricular hypertrophy with repolarization abnormality Abnormal ECG No previous ECGs available Confirmed by MD CYDNEY, PENELOPE ([id number]) on 08/29/2017 2:24:34 PM Procedure Note Interface, External Ris In - 08/29/2017 2:24 PM CDT Ventricular Rate 57 BPM Atrial Rate 57 BPM P-R Interval 164 ms QRS Duration 88 ms Q-T Interval 432 ms QTC Calculation(Bazett) 420 ms P Lincoln 7 degrees R Lincoln 38 degrees T Lincoln 234 degrees Sinus bradycardia Left ventricular hypertrophy [...] Screen Negative Negative Specimen Performing Laboratory Urine [address] [address] Narrative DRUGCUTOFF CONC. Cocaine 300 ng/mL Nxbnjljspsg35 ng/mL Umcyjylzguyhoo642 ng/mL Barbiturate 200 ng/mL Zjgtctorofejo05 ng/mL Gzlxrb760 ng/mL Methadone 300 ng/mL Amphetamine/ 1000 ng/mL Methamphetamine Oxycodone 300 ng/mL This assay provides an unconfirmed qualitative test result for the clinical management of patients in emergency situations. Chain of custody not maintained. Some tzxh-esp-mibuwkn medications, as well as adulterants, may cause inaccurate results. Clinical correlation should be applied. A more comprehensive drug screen or confirmation of a detected drug may be performed upon request. Urinalysis w/Microscopic (08/29/2017 7:09 AM) Component Value Ref Range Color, UA Yellow Clarity, UA Clear Specific Remer, UA 1.034 1.001 - 1.035 pH, UA 6.0 5.0 - 8.0 Protein, UA Negative Negative Glucose, UA Negative Negative Ketones, UA Negative Negative Bilirubin, UA Negative Negative Blood, UA Negative Negative Nitrite, UA Negative Negative Leukocytes, UA Negative Negative Urobilinogen, UA 0.2 0.2 - 1.0 mg/dL RBC, UA 1 /HPF WBC, UA 2 /HPF Mucus Rare Specimen Source Specimen Performing Laboratory Urine [address] [address] CBC with platelet count + automated diff [...] % Specimen Performing Laboratory Blood - Arm, [address] [address] CBC with platelet count + automated diff (08/29/2017 4:21 AM)Only the most recent of2 resultswithin the time period is included. Specimen Performing Laboratory Blood Narrative The following orders were created for panel order CBC with platelet count + automated diff. Procedure Abnormality Status --------- ------ CBC with platelet count ...[[id number]]AbnormalFinal result Please view results for these tests on the individual orders. Magnesium (08/29/2017 4:21 AM) Component Value Ref Range Magnesium 1.9 1.6 - 2.6 mg/dL Specimen Performing Laboratory Blood - [place], [address] [address] Hepatic function panel (08/29/2017 4:21 AM) Component Value Ref Range Protein, Total 6.1 6.0 - 8.3 gm/dL Albumin 3.5 3.5 - 5.0 g/dL Total Bilirubin 0.3 0.2 - 1.2 mg/dL Bilirubin, Direct 0.1 0.1 - 0.5 mg/dL Alkaline Phosphatase 65 40 - 150 U/L AST 15 5 - 34 U/L ALT 9 6 - 55 U/L Specimen Performing Laboratory Blood - Arm, [address] [address] Basic metabolic panel (08/29/2017 4:21 AM)Only the [...] PATIENTS. Specimen Performing Laboratory Blood - [place], [address] [address] after 06/05/2017
[2018-06-06 20:19] LABS: Absolute Lymphocytes (CBC) 1.8 K/uL (0.7-4.9); Absolute Monocytes 0.5 K/uL (0.1-1.3); Absolute Neutrophil 4.9 K/uL (1.8-8.0); Basophils % 0.9 % (0-1.3); Eosinophils % 1.7 % (0-4.4); Hematocrit 40.1 % (39.6-49.0); Lymphocytes % 24.2 % (15.3-44.8); MCH 31.4 pg (27.0-35.0); MCV 93.7 fL (80-100); MPV 8.4 fL (7.6-11.3); Monocytes % 6.4 % (3.3-12.3); RBC Red Blood Cell Count 4.28 M/uL (4.33-5.43)
[2018-06-06 20:22] LABS: Protime INR 1.17
[2018-06-06 20:36] LABS: Albumin 3.7 g/dL (3.4-5.0); Bilirubin Total 0.4 mg/dL (0.2-1.0); Potassium 3.8 mmol/L (3.5-5.1); Protein, Total 6.7 g/dL (6.4-8.2)
--- NOTE | 2018-06-06 20:44 | EDPHYS ---
Physician Documentation [facility] Name: Michele Lomas Age: 33 yrs Sex: Male : 1985 Arrival Date: 06/06/2018 Time: 19:49 Bed 2 Private MD: ED Physician Jacky Mauricio HPI: 06/06 19:52 This 33 yrs old Black Male presents to ER via Unassigned with complaints of Drug Abuse. ps1 19:52 patient brought in by EMS for witnessed seizure after smoking synthetic marijuana. ps1 Patient well known to EMS for same. He verbally attests to smoking synthetic. Reported seizure activity for less than a minute and is now alert and responding to questions. . Historical: - Allergies: 19:56 Banana; ao - Home Meds: 19:56 amlodipine 10 mg tab 1 tab once daily [Active]; ao - PMHx: 19:56 Back pain; Enlarged Heart; Hypertension; ao - PSHx: 19:56 None; ao - Immunization history:: Adult Immunizations unknown. - Social history:: Smoking status: Patient uses tobacco products, smokes one pack cigarettes per day. Patient uses alcohol, street drugs. - Ebola Screening: : Patient negative for fever greater than or equal to 101.5 degrees Fahrenheit, and additional compatible Ebola Virus Disease symptoms Patient denies exposure to infectious person Patient denies travel to an Ebola-affected area in the 21 days before illness onset. ROS: 19:55 Unable to obtain ROS due to altered mental status. ps1 Exam: 19:55 Head/Face: Normocephalic, atraumatic. Eyes: Pupils equal round and reactive to light, ps1 extra-ocular motions intact. Lids and lashes normal. Conjunctiva and sclera are non-icteric and not injected. Chest/axilla: Normal chest wall appearance and motion. Nontender with no deformity. No lesions are appreciated. 19:55 Respiratory: Lungs have equal breath sounds bilaterally, clear to auscultation and percussion. No rales, rhonchi or wheezes noted. No increased work of breathing, no retractions or nasal flaring. Abdomen/GI: Soft, non-tender, with normal bowel sounds. No distension or tympany. No guarding or rebound. No evidence of tenderness throughout. Back: No spinal tenderness. No costovertebral tenderness. Full range of motion. Skin: Warm, dry with normal turgor. Normal color with no rashes, no lesions, and no evidence of cellulitis. 19:55 Constitutional: The patient appears alert, lethargic. 19:55 Cardiovascular: Rate: tachycardic. Vital Signs: 19:55 BP 114 / 62; Pulse 70; Resp 16; Temp 98.6; Pulse Ox 97% on R/A; Weight 104.33 kg (R); ao Height 5 ft. 3 in. (160.02 cm); Pain 0/10; 21:18 BP 127 / 81; Pulse 55; Resp 18; Temp 98.7; Pulse Ox 100% on R/A; Pain 0/10; ak1 19:55 Body Mass Index 40.74 (104.33 kg, 160.02 cm) ao MDM: 20:02 Patient medically screened. ps1 20:44 Data reviewed: vital signs, nurses notes, lab test result(s), and as a result, I will ps1 discharge patient. Counseling: I had a detailed discussion with the patient and/or guardian regarding: the historical points, exam findings, and any diagnostic results supporting the discharge/admit diagnosis, lab results, the need for outpatient follow up, stop using synthetic marijuana.. ED course: pt alert and oriented. Answering questions appropriately. Home with sober cart attendant. . 08 20:01 Order name: CBC with Diff; Complete Time: 20:30 ps1 08 20:01 Order name: CMP; Complete Time: 20:41 ps1 06/06 20:01 Order name: PT-INR; Complete Time: 20:30 ps1 Administered Medications: No medications were administered Disposition: 20:46 Chart complete. ps1 Disposition: 06/06/18 20:43 Discharged to Home. Impression: Drug abuse, synthetic marijuana, Seizure. - Condition is Stable. - Discharge Instructions: Drug Toxicity. - Medication Reconciliation Form, Thank You Letter, Antibiotic Education, Prescription Opioid Use form. - Follow up: Private Physician; When: As needed; Reason: Recheck today's complaints, Continuance of care, Re-evaluation by your physician. Follow up: Emergency Department; When: As needed; Reason: Worsening of condition. - Problem is new. - Symptoms have improved. Signatures: Dispatcher [employer] EDMS Joy Ba RN RN ak1 Juan Jose Chaudhary RN Jacky Crocker MD MD ps1 Corrections: (The following items were deleted from the chart) 21:20 20:43 06/06/2018 20:43 Discharged to Home. Impression: Drug abuse, synthetic marijuana; ak1 Seizure. Condition is Stable. Forms are Medication Reconciliation Form, Thank You Letter, Antibiotic Education, Prescription Opioid Use. Follow up: Private Physician; When: As needed; Reason: Recheck today's complaints, Continuance of care, Re-evaluation by your physician. Follow up: Emergency Department; When: As needed; Reason: Worsening of condition. Problem is new. Symptoms have improved. ps1
--- NOTE | 2018-06-06 20:44 | ER ---
Nurse's Notes [facility] Name: Michele Lomas Age: 33 yrs Sex: Male : 1985 Arrival Date: 06/06/2018 Time: 19:49 Bed 2 Private MD: Diagnosis: Drug abuse, synthetic marijuana;Seizure Presentation: 06/06 19:52 Presenting complaint: EMS states: Family called to report that patient was in the ao ground and had a possible seizure. Patient was asked and stated that he had smoke that "fake crap". Family think that he abuse synthetic. Transition of care: patient was not received from another setting of care. Onset of symptoms is unknown. Risk Assessment: Do you want to hurt yourself or someone else? Patient reports no desire to harm self or others. Initial Sepsis Screen: Does the patient meet any 2 criteria? No. Patient's initial sepsis screen is negative. Does the patient have a suspected source of infection? No. Patient's initial sepsis screen is negative. Care prior to arrival: None. 19:52 Method Of Arrival: EMS: [facility] ao 19:52 Acuity: PASTORA 2 ao Historical: - Allergies: 19:56 Banana; ao - Home Meds: 19:56 amlodipine 10 mg tab 1 tab once daily [Active]; ao - PMHx: 19:56 Back pain; Enlarged Heart; Hypertension; ao - PSHx: 19:56 None; ao - Immunization history:: Adult Immunizations unknown. - Social history:: Smoking status: Patient uses tobacco products, smokes one pack cigarettes per day. Patient uses alcohol, street drugs. - Ebola Screening: : Patient negative for fever greater than or equal to 101.5 degrees Fahrenheit, and additional compatible Ebola Virus Disease symptoms Patient denies exposure to infectious person Patient denies travel to an Ebola-affected area in the 21 days before illness onset. Screenin:19 Abuse screen: Denies threats or abuse. Denies injuries from another. Nutritional ao screening: No deficits noted. Tuberculosis screening: No symptoms or risk factors identified. Fall Risk Fall in past 12 months (25 points). Secondary diagnosis (15 points) IV access (20 points). Ambulatory Aid- None/Bed Rest/Nurse Assist (0 pts). Gait- Impaired (20 pts.). Mental Status- Overestimates/Forgets Limitations (15 pts.). Total Asencio Fall Scale indicates High Risk Score (45 or more points). Fall prevention measures have been instituted. Placed Close to Nursing Station Frequent Obs/Assessments Occuring As available patient and family educated on Fall Prevention Program and Strategies. Assessment: 19:57 General: Appears in no apparent distress. Behavior is drowsy, inappropriate for age, ao listless, restless, uncooperative. Pain: Unable to use pain scale. FLACC scale score is 0 out of 10. Neuro: Level of Consciousness is awake, lethargic, listless, Oriented to person, Moves all extremities. Full function Speech is normal, Facial symmetry appears normal, Pupils are PERRLA. Cardiovascular: Capillary refill < 3 seconds Patient's skin is warm and dry. Respiratory: Airway is patent Respiratory effort is even, unlabored, Respiratory pattern is regular, symmetrical. GI: Abdomen is non-distended. : No signs and/or symptoms were reported regarding the genitourinary system. EENT: No signs and/or symptoms were reported regarding the EENT system. Derm: Skin is intact, Skin is dry. Musculoskeletal: Circulation, motion, and sensation intact. Range of motion: intact in all extremities. Vital Signs: 19:55 BP 114 / 62; Pulse 70; Resp 16; Temp 98.6; Pulse Ox 97% on R/A; Weight 104.33 kg (R); ao Height 5 ft. 3 in. (160.02 cm); Pain 0/10; 21:18 BP 127 / 81; Pulse 55; Resp 18; Temp 98.7; Pulse Ox 100% on R/A; Pain 0/10; ak1 19:55 Body Mass Index 40.74 (104.33 kg, 160.02 cm) ao ED Course: 19:49 Patient arrived in ED. ao 19:51 Jacky Mauricio MD is Attending Physician. ps1 19:55 Triage completed. ao 19:55 Arm band placed on right wrist. Patient placed in an exam room, on a stretcher, on ao oxygen, Patient notified of wait time. 20:16 Juan Jose Chaudhary, RN is Primary Nurse. ao 20:16 Inserted saline lock: 18 gauge in right forearm, using aseptic technique. ,using ao aseptic technique. Ray, ultrasound technologist Blood collected. 20:19 Patient has correct armband on for positive identification. ratoprinter on. Pulse ao ox on. NIBP on. 21:19 No provider procedures requiring assistance completed. IV discontinued, intact, ak1 bleeding controlled, No redness/swelling at site. Pressure dressing applied. Administered Medications: No medications were administered Outcome: :43 Discharge ordered by . ps1 21:19 Discharged to home via wheelchair, with family. ak1 21:19 Condition: good 21:19 Discharge instructions given to patient, family, Instructed on discharge instructions, follow up and referral plans. Demonstrated understanding of instructions, follow-up care. 21:20 Patient left the ED. ak1 Signatures: Joy Ba RN RN ak1 Juan Jose Chaudhary RN RN Jacky Sanchez MD MD ps1
[2018-06-06 21:26] VITALS: BP 127/81; TEMP 98.7; O2SAT 100
== END 2018-06-06 21:20 | disposition home or self-care (01) ==
LOC: ER 19:41
DX: F12.10 Cannabis abuse, uncomplicated (principal); R56.9 Unspecified convulsions; I10 Essential (primary) hypertension; F17.210 Nicotine dependence, cigarettes, uncomplicated; Z91.018 Allergy to other foods
CPT/HCPCS: 36415; 80053; 85025; 85610; 99285

== ENCOUNTER 2019-05-01 11:32 | Emergency (ER) | payer SELFPAY ==
--- OUTSIDE RECORDS SUMMARY | 2019-05-01 11:49 | XMS REPORT ---
:1985 Author Organization [facility] Address [address] [place] [address] Care Team Providers Name Role Phone ANTONIO [...] Value Reference Range Comments COLOR (BEAKER) (test ezaj=963) Yellow CLARITY (BEAKER) (test zyfo=089) Clear SPECIFIC GRAVITY UA (BEAKER) (test gznj=402) 1.034 1.001-1.035 PH UA (BEAKER) (test sjca=910) 6.0 5.0-8.0 PROTEIN UA (BEAKER) (test tcbm=137) Negative Negative GLUCOSE UA (BEAKER) (test hkfh=055) Negative Negative KETONES UA (BEAKER) (test swag=785) Negative Negative BILIRUBIN UA (BEAKER) (test fniu=324) Negative Negative BLOOD UA (BEAKER) (test aisr=910) Negative Negative NITRITE UA (BEAKER) (test xzbw=534) Negative Negative LEUKOCYTE ESTERASE UA (BEAKER) (test feaf=557) Negative Negative UROBILINOGEN UA (BEAKER) (test wxza=282) 0.2 mg/dL 0.2-1.0 RBC UA (BEAKER) (test mvee=190) 1 /HPF WBC UA (BEAKER) (test fhit=846) 2 /HPF MUCUS (BEAKER) (test jrrc=1749) Rare SOURCE(BEAKER) (test nksy=7384) RAPID DRUG SCREEN, [id number] 07:53:00 Test Item Value Reference Range Comments BARBITURATE URINE (BEAKER) (test zwkc=046) Negative Negative BENZODIAZEPINE SCREEN URINE (BEAKER) (test Positive Negative bnif=880) COCAINE (METAB.) SCREEN (BEAKER) (test lvbx=5892) Negative Negative METHADONE SCREEN (BEAKER) (test papd=1462) Negative Negative OPIATE SCREEN URINE (BEAKER) (test cvyd=376) Negative Negative CANNABINOID SCREEN URINE (BEAKER) (test cwfx=316) Negative Negative AMPH/METHAMPH SCREEN (BEAKER) (test gegg=1512) Negative Negative PHENCYCLIDINE SCREEN URINE (BEAKER) (test fdec=854) Negative Negative OXYCODONE SCREEN URINE (BEAKER) (test cxgz=8350) Negative Negative DRUG CUTOFF CONC.Cocaine 300 ng/mL Cannabinoid 50 ng/mL Benzodiazepine 200 ng/mLBarbiturate 200 ng/ mLPhencyclidine 25 ng/mLOpiate 300 ng/mLMethadone 300 ng/mLAmphetamine/ 1000 ng/mL MethamphetamineOxycodone 300 ng/mLThis assay provides an unconfirmed qualitative test result for the clinical management of patients in emergency situations. Chain of custody not maintained. Some auzi-hyu-mqcpuqe medications, as well as adulterants, may cause inaccurate results. Clinical correlation should be applied. A more comprehensive drug screen or confirmation of a detected drug may be performed upon request.HEPATIC FUNCTION [id number] 05:51:00 Test Item Value Reference Range Comments TOTAL PROTEIN (BEAKER) (test kfhq=620) 6.1 gm/dL 6.0-8.3 ALBUMIN (BEAKER) (test brna=7711) 3.5 g/dL 3.5-5.0 BILIRUBIN TOTAL (BEAKER) (test scyk=691) 0.3 mg/dL 0.2-1.2 BILIRUBIN DIRECT (BEAKER) (test stvn=620) 0.1 mg/dL 0.1-0.5 ALKALINE PHOSPHATASE (BEAKER) (test chbx=167) 65 U/L 40-150 AST (SGOT) (BEAKER) (test btsa=234) 15 U/L 5-34 ALT (SGPT) (BEAKER) (test shws=008) 9 U/L 6-55 BASIC METABOLIC [id number] 05:51:00 Test Item Value Reference Range Comments SODIUM (BEAKER) (test 138 meq/L 136-145 bskb=947) POTASSIUM (BEAKER) (test 3.9 meq/L 3.5-5.1 ifce=296) CHLORIDE (BEAKER) (test 112 meq/L 98-107 lsfr=961) CO2 (BEAKER) (test 20 meq/L 22-29 fgeb=054) BLOOD UREA NITROGEN 21 mg/dL 7-21 (BEAKER) (test jpyb=162) CREATININE (BEAKER) (test 1.12 mg/dL 0.57-1.25 jfhq=863) GLUCOSE RANDOM (BEAKER) 96 mg/dL 70-105 (test rhsp=520) CALCIUM (BEAKER) (test 8.6 mg/dL 8.4-10.2 betw=665) EGFR (BEAKER) (test 91 mL/min/1.73 sq m ESTIMATED GFR IS NOT jbnv=6973) ACCURATE CREATININE CLEARANCE IN PREDICTING GLOMERULAR FILTRATION RATE. ESTIMATED GFR IS NOT APPLICABLE FOR DIALYSIS PATIENTS. CBC W/PLT COUNT & AUTO [id number] 05:47:00 Test Item Value Reference Range Comments WHITE BLOOD CELL COUNT (BEAKER) (test yrzg=897) 5.9 K/ L 3.5-10.5 RED BLOOD CELL COUNT (BEAKER) (test yqnb=045) 4.35 M/ L 4.63-6.08 HEMOGLOBIN (BEAKER) (test zftp=151) 12.6 GM/DL 13.7-17.5 HEMATOCRIT (BEAKER) (test neob=993) 39.0 % 40.1-51.0 MEAN CORPUSCULAR VOLUME (BEAKER) (test iijt=657) 89.7 fL 79.0-92.2 MEAN CORPUSCULAR HEMOGLOBIN (BEAKER) (test 29.0 pg 25.7-32.2 wihj=923) MEAN CORPUSCULAR HEMOGLOBIN CONC (BEAKER) (test 32.3 GM/DL 32.3-36.5 yuzf=265) RED CELL DISTRIBUTION WIDTH (BEAKER) (test 13.0 % 11.6-14.4 zabr=587) PLATELET COUNT (BEAKER) (test yjxd=152) 222 K/CU MM 150-450 MEAN PLATELET VOLUME (BEAKER) (test aauw=195) 11.2 fL 9.4-12.4 NUCLEATED RED BLOOD CELLS (BEAKER) (test 0 /100 WBC 0-0 glcy=006) NEUTROPHILS RELATIVE PERCENT (BEAKER) (test 51 % optx=833) LYMPHOCYTES RELATIVE PERCENT (BEAKER) (test 38 % ipnr=234) MONOCYTES RELATIVE PERCENT (BEAKER) (test 8 % rbxp=755) EOSINOPHILS RELATIVE PERCENT (BEAKER) (test 2 % yufz=161) BASOPHILS RELATIVE PERCENT (BEAKER) (test 1 % wqmj=572) NEUTROPHILS ABSOLUTE COUNT (BEAKER) (test 3.00 K/ L 1.78-5.38 vtkx=757) LYMPHOCYTES ABSOLUTE COUNT (BEAKER) (test 2.22 K/ L 1.32-3.57 bqyl=052) MONOCYTES ABSOLUTE COUNT (BEAKER) (test 0.46 K/ L 0.30-0.82 wkfu=080) EOSINOPHILS ABSOLUTE COUNT (BEAKER) (test 0.12 K/ L 0.04-0.54 rsqj=246) BASOPHILS ABSOLUTE COUNT (BEAKER) (test 0.04 K/ L 0.01-0.08 wdeu=685) IMMATURE GRANULOCYTES-RELATIVE PERCENT (BEAKER) 0 % 0-1 (test wlda=1167) [id number] 05:40:00 Test Item Value Reference Range Comments MAGNESIUM (BEAKER) (test pksc=104) 1.9 mg/dL 1.6-2.6 BASIC METABOLIC [id number] 05:40:00 Test Item Value Reference Range Comments SODIUM (BEAKER) (test 138 meq/L 136-145 qxhn=716) POTASSIUM (BEAKER) (test 3.8 meq/L 3.5-5.1 cspc=992) CHLORIDE (BEAKER) (test 111 meq/L 98-107 cfnl=212) CO2 (BEAKER) (test 21 meq/L 22-29 cxtd=478) BLOOD UREA NITROGEN 19 mg/dL 7-21 (BEAKER) (test salf=666) CREATININE (BEAKER) (test 1.12 mg/dL 0.57-1.25 lohs=981) GLUCOSE RANDOM (BEAKER) 96 mg/dL 70-105 (test ylpy=801) CALCIUM (BEAKER) (test 8.6 mg/dL 8.4-10.2 ocib=271) EGFR (BEAKER) (test 91 mL/min/1.73 sq m ESTIMATED GFR IS NOT jqac=4456) ACCURATE CREATININE CLEARANCE IN PREDICTING GLOMERULAR FILTRATION RATE. ESTIMATED GFR IS NOT APPLICABLE FOR DIALYSIS PATIENTS. CBC W/PLT COUNT & AUTO [id number] 00:35:00 Test Item Value Reference Range Comments WHITE BLOOD CELL COUNT 4.4 K/ L 3.5-10.5 (BEAKER) (test voqe=927) RED BLOOD CELL COUNT (BEAKER) 4.54 M/ L 4.63-6.08 (test ceqh=157) HEMOGLOBIN (BEAKER) (test 14.2 GM/DL 13.7-17.5 xqta=756) HEMATOCRIT (BEAKER) (test 41.1 % 40.1-51.0 gxnj=772) MEAN CORPUSCULAR VOLUME 90.5 fL 79.0-92.2 (BEAKER) (test gfeh=330) MEAN CORPUSCULAR HEMOGLOBIN 31.3 pg 25.7-32.2 (BEAKER) (test gjqs=202) MEAN CORPUSCULAR HEMOGLOBIN 34.5 GM/DL 32.3-36.5 CONC (BEAKER) (test yeks=663) RED CELL DISTRIBUTION WIDTH 14.3 % 11.6-14.4 (BEAKER) (test yfyv=071) PLATELET COUNT (BEAKER) (test 409 K/CU MM 150-450 qqxk=273) MEAN PLATELET VOLUME (BEAKER) fL 9.4-12.4 Unable to report due to (test ifzh=710) abnormal Platelet population distribution. NUCLEATED RED BLOOD CELLS 8 /100 WBC 0-0 (BEAKER) (test xwlr=126) NEUTROPHILS RELATIVE PERCENT 51 % (BEAKER) (test xeor=058) LYMPHOCYTES RELATIVE PERCENT 44 % (BEAKER) (test gknc=794) MONOCYTES RELATIVE PERCENT 3 % (BEAKER) (test lajp=280) EOSINOPHILS RELATIVE PERCENT 1 % (BEAKER) (test zcxi=614) BASOPHILS RELATIVE PERCENT 1 % (BEAKER) (test xtge=546) NEUTROPHILS ABSOLUTE COUNT 2.22 K/ L 1.78-5.38 (BEAKER) (test eslm=660) LYMPHOCYTES ABSOLUTE COUNT 1.92 K/ L 1.32-3.57 (BEAKER) (test tamm=064) MONOCYTES ABSOLUTE COUNT 0.14 K/ L 0.30-0.82 (BEAKER) (test cxlf=009) EOSINOPHILS ABSOLUTE COUNT 0.06 K/ L 0.04-0.54 (BEAKER) (test ffsc=570) BASOPHILS ABSOLUTE COUNT 0.03 K/ L 0.01-0.08 (BEAKER) (test oiue=934) IMMATURE GRANULOCYTES-RELATIVE 0 % 0-1 PERCENT (Ebook GlueAKER) (test ebms=6204)
--- OUTSIDE RECORDS SUMMARY | 2019-05-01 11:49 | XMS REPORT | Clinical Summary ---
:1985 [facility] Address [address] [place] [address] Care Team Providers Name Role Phone Juan C Primary Care Provider Allergies No Known Allergies Medications Medication Sig Dispensed Refills Start Date End Date Status amLODIPine (NORVASC) 10 Take 10 mg by 0 Active MG tabletIndications: mouth daily. hypertension Active Problems Problem Noted Date Provoked seizure 08/29/2017 Drug use 08/29/2017 Syncope, unspecified syncope type 08/29/2017 Anxiety 08/29/2017 Hypertrophic nonobstructive cardiomyopathy 08/29/2017 Acute coronary syndrome 08/28/2017 Family History Medical History Relation Name Comments [...] Assigned at Date Recorded Not on file Job Start Date Occupation Industry Not on file Not on file Not on file Travel History Travel Start Travel End No recent travel history available. Last Filed Vital Signs Not on file Plan of Treatment Not on file Results Not on fileafter 04/30/2018 Advance Directives For more information, please contact:[facility] ClinicReliOnNorthwest HospitalFsmhzl[address] [place], [place] [phone] Code Status Date Activated Date Inactivated Comments Full Code 08/28/2017 10:26 PM 08/29/2017 8:43 PM This code status was determined by: Patient
--- NOTE | 2019-05-01 12:29 | RAD REPORT ---
EXAM DESCRIPTION: CT - Head Brain Wo Cont - 05/01/2019 12:22 pm CLINICAL HISTORY: HEADACHE Headache, drowsiness COMPARISON: Head Brain Wo Cont dated 08/28/2017 TECHNIQUE: All CT scans are performed using dose optimization technique as appropriate and may inclu de automated exposure control or mA/KV adjustment according to patient size. FINDINGS: No intracranial hemorrhage, hydrocephalus or extra-axial fluid collection.No areas of brai n edema or evidence of midline shift. The paranasal sinuses and mastoids are clear. The calvarium is intact. IMPRESSION: No acute intracranial abnormality.
--- NOTE | 2019-05-01 12:38 | EDPHYS ---
Physician Documentation [facility] Name: Michele Lomas Age: 34 yrs Sex: Male : 1985 Arrival Date: 05/01/2019 Time: 11:35 Bed 19 Private MD: ED Physician Ruben Styles HPI: 05/01 12:11 This 34 yrs old Black Male presents to ER via Unassigned with complaints of Headache. kb 12:11 The patient complains of pain to the top of head. The patient describes the headache as kb intermittent. Onset: The symptoms/episode began/occurred 2 week(s) ago. Associated signs and symptoms: The patient has no apparent associated signs or symptoms. Severity of symptoms: At its worst the pain was mild, moderate, in the emergency department the pain has resolved. Headache History: Denies prior headaches. The symptoms are alleviated by nothing. the symptoms are aggravated by nothing. The patient has not experienced similar symptoms in the past. The patient has not recently seen a physician. Pt reports intermittent headaches for 2+ weeks. States he doesn't have one right now. Comes and goes on its own. . Historical: - Allergies: 11:54 Banana; aj - Immunization history:: Adult Immunizations unknown. - Social history:: Smoking status: unknown. - Ebola Screening: : Patient negative for fever greater than or equal to 101.5 degrees Fahrenheit, and additional compatible Ebola Virus Disease symptoms Patient denies exposure to infectious person Patient denies travel to an Ebola-affected area in the 21 days before illness onset No symptoms or risks identified at this time. ROS: 12:10 Constitutional: Negative for fever, chills, and weight loss, Eyes: Negative for injury, kb pain, redness, and discharge, ENT: Negative for injury, pain, and discharge, Neck: Negative for injury, pain, and swelling, Cardiovascular: Negative for chest pain, palpitations, and edema, Respiratory: Negative for shortness of breath, cough, wheezing, and pleuritic chest pain, Abdomen/GI: Negative for abdominal pain, nausea, vomiting, diarrhea, and constipation, Back: Negative for injury and pain, : Negative for injury, bleeding, discharge, and swelling, MS/Extremity: Negative for injury and deformity, Skin: Negative for injury, rash, and discoloration, Neuro: Negative for headache, weakness, numbness, tingling, and seizure. Exam: 12:10 Constitutional: This is a well developed, well nourished patient who is awake, alert, kb and in no acute distress. Head/Face: Normocephalic, atraumatic. Eyes: Pupils equal round and reactive to light, extra-ocular motions intact. Lids and lashes normal. Conjunctiva and sclera are non-icteric and not injected. Cornea within normal limits. Periorbital areas with no swelling, redness, or edema. ENT: Nares patent. No nasal discharge, no septal abnormalities noted. Tympanic membranes are normal and external auditory canals are clear. Oropharynx with no redness, swelling, or masses, exudates, or evidence of obstruction, uvula midline. Mucous membranes moist. Neck: Trachea midline, no thyromegaly or masses palpated, and no cervical lymphadenopathy. Supple, full range of motion without nuchal rigidity, or vertebral point tenderness. No Meningismus. Chest/axilla: Normal chest wall appearance and motion. Nontender with no deformity. No lesions are appreciated. Cardiovascular: Regular rate and rhythm with a normal S1 and S2. No gallops, murmurs, or rubs. Normal PMI, no JVD. No pulse deficits. Respiratory: Lungs have equal breath sounds bilaterally, clear to auscultation and percussion. No rales, rhonchi or wheezes noted. No increased work of breathing, no retractions or nasal flaring. Abdomen/GI: Soft, non-tender, with normal bowel sounds. No distension or tympany. No guarding or rebound. No evidence of tenderness throughout. Skin: Warm, dry with normal turgor. Normal color with no rashes, no lesions, and no evidence of cellulitis. MS/ Extremity: Pulses equal, no cyanosis. Neurovascular intact. Full, normal range of motion. Neuro: Awake and alert, GCS 15, oriented to person, place, time, and situation. Cranial nerves II-XII grossly intact. Motor strength 5/5 in all extremities. Sensory grossly intact. Cerebellar exam normal. Normal gait. Vital Signs: 11:54 BP 104 / 58; Pulse 75; Resp 16; Temp 98.0; Pulse Ox 99% on R/A; Weight 102.06 kg; aj Height 5 ft. 11 in. (180.34 cm); 11:54 Body Mass Index 31.38 (102.06 kg, 180.34 cm) [place] Coma Score: 12:10 Eye Response: spontaneous(4). Verbal Response: oriented(5). Motor Response: obeys kb commands(6). Total: 15. MDM: 12:00 Patient medically screened. kb 12:10 Data reviewed: vital signs, nurses notes. Data interpreted: Pulse oximetry: on room air kb is 99 %. Interpretation: normal. ED course: Pt requests CT of brain. 12:36 Counseling: I had a detailed discussion with the patient and/or guardian regarding: the kb historical points, exam findings, and any diagnostic results supporting the discharge/admit diagnosis, radiology results, the need for outpatient follow up, a neurologist, to return to the emergency department if symptoms worsen or persist or if there are any questions or concerns that arise at home. 05/01 12:08 Order name: CT Head Brain wo Cont; Complete Time: 12:35 kb Administered Medications: No medications were administered Disposition: 17:15 Co-signature as Attending Physician, Ruben Styles MD I agree with the assessment and kdr plan of care. Disposition: 05/01/19 12:37 Discharged to Home. Impression: Headache. - Condition is Stable. - Discharge Instructions: General Headache Without Cause, Wioz-bu-Hjli. - Prescriptions for Fiorinal 50- 325-40 mg Oral Capsule - take 1 capsule by ORAL route every 4 hours As needed - not to exceed 6 capsules per day; 16 capsule. - Medication Reconciliation Form, Thank You Letter, Antibiotic Education, Prescription Opioid Use form. - Follow up: Emergency Department; When: As needed; Reason: Worsening of condition. Follow up: Private Physician; When: 2 - 3 days; Reason: Recheck today's complaints, Continuance of care, Re-evaluation by your physician. Signatures: Dispatcher [employer] EDMS Judith Gaxiola FNP-C FNP-Martha Sarabia RN RN aj Rittger, Kevin, MD MD kdr Williams, Irene, RN RN iw Corrections: (The following items were deleted from the chart) 12:49 12:37 05/01/2019 12:37 Discharged to Home. Impression: Headache. Condition is Stable. iw Forms are Medication Reconciliation Form, Thank You Letter, Antibiotic Education, Prescription Opioid Use. Follow up: Emergency Department; When: As needed; Reason: Worsening of condition. Follow up: Private Physician; When: 2 - 3 days; Reason: Recheck today's complaints, Continuance of care, Re-evaluation by your physician. kb
--- NOTE | 2019-05-01 12:38 | ER ---
Nurse's Notes [facility] Name: Michele Lomas Age: 34 yrs Sex: Male : 1985 Arrival Date: 05/01/2019 Time: 11:35 Bed 19 Private MD: Diagnosis: Headache Presentation: 05/01 11:53 Presenting complaint: Patient states: Headaches that started when patient ran out of HTN medication 2 weeks ago, Reports headaches are relieved with advil and are intermittent. Reports headache is gone now but that he knows it will come back. Care prior to arrival: None. 11:53 Acuity: PASTORA 5 aj 12:15 Transition of care: patient was not received from another setting of care. Onset of iw symptoms was May 01, 2019. Risk Assessment: Do you want to hurt yourself or someone else? Patient reports no desire to harm self or others. Initial Sepsis Screen: Does the patient meet any 2 criteria? No. Patient's initial sepsis screen is negative. Does the patient have a suspected source of infection? No. Patient's initial sepsis screen is negative. 12:15 Method Of Arrival: Ambulatory iw Triage Assessment: 11:54 Headache History: The patient has had previous headaches and this one is different than previous episodes. General: Appears in no apparent distress. comfortable, Behavior is calm, cooperative, appropriate for age. Pain: Denies pain. Neuro: Reports headache resolved. 12:48 Pain: Pain currently is 0 out of 10 on a pain scale. Pain began Also complains of no iw other associated symptoms. Historical: - Allergies: 11:54 Banana; aj - Immunization history:: Adult Immunizations unknown. - Social history:: Smoking status: unknown. - Ebola Screening: : Patient negative for fever greater than or equal to 101.5 degrees Fahrenheit, and additional compatible Ebola Virus Disease symptoms Patient denies exposure to infectious person Patient denies travel to an Ebola-affected area in the 21 days before illness onset No symptoms or risks identified at this time. Screenin:45 Abuse screen: Denies threats or abuse. Denies injuries from another. Nutritional iw screening: No deficits noted. Tuberculosis screening: No symptoms or risk factors identified. Fall Risk None identified. Assessment: 12:15 General: Appears Behavior is calm, cooperative. Pain: Complains of pain in top of head. iw Neuro: Level of Consciousness is awake, alert, obeys commands, Oriented to person, place, time, Moves all extremities. Cardiovascular: Patient's skin is warm and dry. Respiratory: Respiratory effort is even, unlabored. GI: No signs and/or symptoms were reported involving the gastrointestinal system. Derm: Skin is intact, is healthy with good turgor. Musculoskeletal: Range of motion: intact in all extremities. Vital Signs: 11:54 BP 104 / 58; Pulse 75; Resp 16; Temp 98.0; Pulse Ox 99% on R/A; Weight 102.06 kg; aj Height 5 ft. 11 in. (180.34 cm); 11:54 Body Mass Index 31.38 (102.06 kg, 180.34 cm) aj [place] Coma Score: 12:10 Eye Response: spontaneous(4). Verbal Response: oriented(5). Motor Response: obeys kb commands(6). Total: 15. ED Course: 11:35 Patient arrived in ED. rg4 11:54 Triage completed. aj 11:54 Arm band placed on left wrist. Patient placed in waiting room, Patient notified of wait aj time. 11:56 Judith Gaxiola FNP-C is [facility]. kb 11:56 Ruben Styles MD is Attending Physician. kb 12:15 Patient has correct armband on for positive identification. iw 12:24 CT Head Brain wo Cont In Process Unspecified. EDMS 12:35 Sandra Sutherland, RN is Primary Nurse. iw 12:48 No provider procedures requiring assistance completed. Patient did not have IV access iw during this emergency room visit. Administered Medications: No medications were administered Outcome: 12:37 Discharge ordered by MD. kb 12:48 Discharged to home ambulatory, with family. iw 12:48 Condition: good 12:48 Discharge instructions given to patient, Instructed on discharge instructions, follow up and referral plans. medication usage, Demonstrated understanding of instructions, follow-up care, medications, Prescriptions given X 1. 12:49 Patient left the ED. iw Signatures: Dispatcher [employer] EDMS Judith Gaxiola FNP-C FNP-Martha Sarabia RN RN aj Williams, Irene, RN RN iw Garcia, Rubi rg4 Corrections: (The following items were deleted from the chart) 19:33 12:50 Pain: Pain currently is 0 out of 10 on a pain scale. Pain began Also complains of iw no other associated symptoms. iw
[2019-05-01 13:44] VITALS: BP 104/58; TEMP 98; O2SAT 99
== END 2019-05-01 12:49 | disposition home or self-care (01) ==
LOC: ER 11:32
DX: R51 Headache (principal)
CPT/HCPCS: 70450; 99283

== ENCOUNTER 2019-06-28 18:54 | Emergency (ER) | payer SELFPAY ==
--- OUTSIDE RECORDS SUMMARY | 2019-06-28 18:57 | XMS REPORT ---
:1985 [facility] Address [address] [place] [address] Care Team Providers Name Role Phone ANTONIO [...] Value Reference Range Comments COLOR (BEAKER) (test gfpy=382) Yellow CLARITY (BEAKER) (test mmkd=746) Clear SPECIFIC GRAVITY UA (BEAKER) (test jpgm=329) 1.034 1.001-1.035 PH UA (BEAKER) (test htoo=350) 6.0 5.0-8.0 PROTEIN UA (BEAKER) (test cjwu=760) Negative Negative GLUCOSE UA (BEAKER) (test uqtu=327) Negative Negative KETONES UA (BEAKER) (test ovei=495) Negative Negative BILIRUBIN UA (BEAKER) (test uvyl=196) Negative Negative BLOOD UA (BEAKER) (test jxwl=980) Negative Negative NITRITE UA (BEAKER) (test onom=195) Negative Negative LEUKOCYTE ESTERASE UA (BEAKER) (test biln=532) Negative Negative UROBILINOGEN UA (BEAKER) (test vbbg=063) 0.2 mg/dL 0.2-1.0 RBC UA (BEAKER) (test gsoe=489) 1 /HPF WBC UA (BEAKER) (test vjzp=647) 2 /HPF MUCUS (BEAKER) (test prum=9194) Rare SOURCE(BEAKER) (test bjmw=3909) RAPID DRUG SCREEN, [id number] 07:53:00 Test Item Value Reference Range Comments BARBITURATE URINE (BEAKER) (test ircc=092) Negative Negative BENZODIAZEPINE SCREEN URINE (BEAKER) (test Positive Negative quep=704) COCAINE (METAB.) SCREEN (BEAKER) (test uyxu=0748) Negative Negative METHADONE SCREEN (BEAKER) (test fljl=4243) Negative Negative OPIATE SCREEN URINE (BEAKER) (test grmu=626) Negative Negative CANNABINOID SCREEN URINE (BEAKER) (test mvcb=888) Negative Negative AMPH/METHAMPH SCREEN (BEAKER) (test wags=2910) Negative Negative PHENCYCLIDINE SCREEN URINE (BEAKER) (test ctzz=119) Negative Negative OXYCODONE SCREEN URINE (BEAKER) (test wtem=3995) Negative Negative DRUG CUTOFF CONC.Cocaine 300 ng/mL Cannabinoid 50 ng/mL Benzodiazepine 200 ng/mLBarbiturate 200 ng/ mLPhencyclidine 25 ng/mLOpiate 300 ng/mLMethadone 300 ng/mLAmphetamine/ 1000 ng/mL MethamphetamineOxycodone 300 ng/mLThis assay provides an unconfirmed qualitative test result for the clinical management of patients in emergency situations. Chain of custody not maintained. Some riea-rso-wjqrblk medications, as well as adulterants, may cause inaccurate results. Clinical correlation should be applied. A more comprehensive drug screen or confirmation of a detected drug may be performed upon request.HEPATIC FUNCTION [id number] 05:51:00 Test Item Value Reference Range Comments TOTAL PROTEIN (BEAKER) (test fcdx=798) 6.1 gm/dL 6.0-8.3 ALBUMIN (BEAKER) (test tkwd=9652) 3.5 g/dL 3.5-5.0 BILIRUBIN TOTAL (BEAKER) (test ssfn=178) 0.3 mg/dL 0.2-1.2 BILIRUBIN DIRECT (BEAKER) (test esbi=291) 0.1 mg/dL 0.1-0.5 ALKALINE PHOSPHATASE (BEAKER) (test yjws=097) 65 U/L 40-150 AST (SGOT) (BEAKER) (test mmik=085) 15 U/L 5-34 ALT (SGPT) (BEAKER) (test tfyw=865) 9 U/L 6-55 BASIC METABOLIC [id number] 05:51:00 Test Item Value Reference Range Comments SODIUM (BEAKER) (test 138 meq/L 136-145 fxqm=458) POTASSIUM (BEAKER) (test 3.9 meq/L 3.5-5.1 xxbu=951) CHLORIDE (BEAKER) (test 112 meq/L 98-107 xqdy=358) CO2 (BEAKER) (test 20 meq/L 22-29 oswn=302) BLOOD UREA NITROGEN 21 mg/dL 7-21 (BEAKER) (test vjoh=847) CREATININE (BEAKER) (test 1.12 mg/dL 0.57-1.25 ztkk=505) GLUCOSE RANDOM (BEAKER) 96 mg/dL 70-105 (test fnld=454) CALCIUM (BEAKER) (test 8.6 mg/dL 8.4-10.2 ruaj=837) EGFR (BEAKER) (test 91 mL/min/1.73 sq m ESTIMATED GFR IS NOT bxwv=7775) ACCURATE CREATININE CLEARANCE IN PREDICTING GLOMERULAR FILTRATION RATE. ESTIMATED GFR IS NOT APPLICABLE FOR DIALYSIS PATIENTS. CBC W/PLT COUNT & AUTO [id number] 05:47:00 Test Item Value Reference Range Comments WHITE BLOOD CELL COUNT (BEAKER) (test krmg=219) 5.9 K/ L 3.5-10.5 RED BLOOD CELL COUNT (BEAKER) (test tmro=371) 4.35 M/ L 4.63-6.08 HEMOGLOBIN (BEAKER) (test elsu=503) 12.6 GM/DL 13.7-17.5 HEMATOCRIT (BEAKER) (test fwcz=866) 39.0 % 40.1-51.0 MEAN CORPUSCULAR VOLUME (BEAKER) (test iwpb=565) 89.7 fL 79.0-92.2 MEAN CORPUSCULAR HEMOGLOBIN (BEAKER) (test 29.0 pg 25.7-32.2 byzd=913) MEAN CORPUSCULAR HEMOGLOBIN CONC (BEAKER) (test 32.3 GM/DL 32.3-36.5 bsfu=557) RED CELL DISTRIBUTION WIDTH (BEAKER) (test 13.0 % 11.6-14.4 gfzv=289) PLATELET COUNT (BEAKER) (test dfnr=662) 222 K/CU MM 150-450 MEAN PLATELET VOLUME (BEAKER) (test rmjg=969) 11.2 fL 9.4-12.4 NUCLEATED RED BLOOD CELLS (BEAKER) (test 0 /100 WBC 0-0 txwx=380) NEUTROPHILS RELATIVE PERCENT (BEAKER) (test 51 % frnp=423) LYMPHOCYTES RELATIVE PERCENT (BEAKER) (test 38 % fdlq=991) MONOCYTES RELATIVE PERCENT (BEAKER) (test 8 % cdyy=527) EOSINOPHILS RELATIVE PERCENT (BEAKER) (test 2 % gjqp=696) BASOPHILS RELATIVE PERCENT (BEAKER) (test 1 % rgqv=094) NEUTROPHILS ABSOLUTE COUNT (BEAKER) (test 3.00 K/ L 1.78-5.38 nmhj=859) LYMPHOCYTES ABSOLUTE COUNT (BEAKER) (test 2.22 K/ L 1.32-3.57 fjuk=882) MONOCYTES ABSOLUTE COUNT (BEAKER) (test 0.46 K/ L 0.30-0.82 nenv=715) EOSINOPHILS ABSOLUTE COUNT (BEAKER) (test 0.12 K/ L 0.04-0.54 ibrs=493) BASOPHILS ABSOLUTE COUNT (BEAKER) (test 0.04 K/ L 0.01-0.08 zwfk=075) IMMATURE GRANULOCYTES-RELATIVE PERCENT (BEAKER) 0 % 0-1 (test ggkq=1439) [id number] 05:40:00 Test Item Value Reference Range Comments MAGNESIUM (BEAKER) (test jief=404) 1.9 mg/dL 1.6-2.6 BASIC METABOLIC [id number] 05:40:00 Test Item Value Reference Range Comments SODIUM (BEAKER) (test 138 meq/L 136-145 yfux=263) POTASSIUM (BEAKER) (test 3.8 meq/L 3.5-5.1 fcaj=525) CHLORIDE (BEAKER) (test 111 meq/L 98-107 xhwe=860) CO2 (BEAKER) (test 21 meq/L 22-29 ovnd=076) BLOOD UREA NITROGEN 19 mg/dL 7-21 (BEAKER) (test ntfy=406) CREATININE (BEAKER) (test 1.12 mg/dL 0.57-1.25 cwwd=533) GLUCOSE RANDOM (BEAKER) 96 mg/dL 70-105 (test vdmi=381) CALCIUM (BEAKER) (test 8.6 mg/dL 8.4-10.2 gwun=187) EGFR (BEAKER) (test 91 mL/min/1.73 sq m ESTIMATED GFR IS NOT wusy=9469) ACCURATE CREATININE CLEARANCE IN PREDICTING GLOMERULAR FILTRATION RATE. ESTIMATED GFR IS NOT APPLICABLE FOR DIALYSIS PATIENTS. CBC W/PLT COUNT & AUTO [id number] 00:35:00 Test Item Value Reference Range Comments WHITE BLOOD CELL COUNT 4.4 K/ L 3.5-10.5 (BEAKER) (test mdln=493) RED BLOOD CELL COUNT (BEAKER) 4.54 M/ L 4.63-6.08 (test fkfs=951) HEMOGLOBIN (BEAKER) (test 14.2 GM/DL 13.7-17.5 bwvj=680) HEMATOCRIT (BEAKER) (test 41.1 % 40.1-51.0 dpzu=374) MEAN CORPUSCULAR VOLUME 90.5 fL 79.0-92.2 (BEAKER) (test zkxo=698) MEAN CORPUSCULAR HEMOGLOBIN 31.3 pg 25.7-32.2 (BEAKER) (test fdst=154) MEAN CORPUSCULAR HEMOGLOBIN 34.5 GM/DL 32.3-36.5 CONC (BEAKER) (test mxie=895) RED CELL DISTRIBUTION WIDTH 14.3 % 11.6-14.4 (BEAKER) (test gsho=089) PLATELET COUNT (BEAKER) (test 409 K/CU MM 150-450 npqt=493) MEAN PLATELET VOLUME (BEAKER) fL 9.4-12.4 Unable to report due to (test uuzm=192) abnormal Platelet population distribution. NUCLEATED RED BLOOD CELLS 8 /100 WBC 0-0 (BEAKER) (test mrrz=138) NEUTROPHILS RELATIVE PERCENT 51 % (BEAKER) (test cxzf=499) LYMPHOCYTES RELATIVE PERCENT 44 % (BEAKER) (test tumr=637) MONOCYTES RELATIVE PERCENT 3 % (BEAKER) (test epzz=734) EOSINOPHILS RELATIVE PERCENT 1 % (BEAKER) (test cfaj=201) BASOPHILS RELATIVE PERCENT 1 % (BEAKER) (test roih=231) NEUTROPHILS ABSOLUTE COUNT 2.22 K/ L 1.78-5.38 (BEAKER) (test tkpf=092) LYMPHOCYTES ABSOLUTE COUNT 1.92 K/ L 1.32-3.57 (BEAKER) (test xgtj=174) MONOCYTES ABSOLUTE COUNT 0.14 K/ L 0.30-0.82 (BEAKER) (test mllj=799) EOSINOPHILS ABSOLUTE COUNT 0.06 K/ L 0.04-0.54 (BEAKER) (test crqh=670) BASOPHILS ABSOLUTE COUNT 0.03 K/ L 0.01-0.08 (BEAKER) (test ijlo=875) IMMATURE GRANULOCYTES-RELATIVE 0 % 0-1 PERCENT ([employer] ResourcesAKER) (test ulrf=1947)
--- OUTSIDE RECORDS SUMMARY | 2019-06-28 18:57 | XMS REPORT | Clinical Summary ---
:1985 Author Organization [facility] TechnologiesBound[facility] HospitalYieldPlanetProv[facility] Address [address] [place] [address] Care Team Providers Name Role Phone Juan [...] Not on file Results Not on fileafter 06/27/2018 Advance Directives For more information, please contact:[facility] [email or web address] St. Peter HospitalDyjeyh[address] [place], [place] [phone] Code Status Date Activated Date Inactivated Comments Full Code 08/28/2017 10:26 PM 08/29/2017 8:43 PM This code status was determined by: Patient
[2019-06-28] MEDS ORDERED: KETOROLAC 30 MG/ML INJ ONE (19:21)
[2019-06-28] MEDS ORDERED: AMOX/K CLAV 875 MG TAB ONE (19:21)
[2019-06-28] MEDS ORDERED: AMOXICILLIN TRIHYDR 250 MG CAP ONE (19:23)
--- NOTE | 2019-06-28 19:43 | ER ---
Nurse's Notes [facility] Name: Michele Lomas Age: 34 yrs Sex: Male : 1985 Arrival Date: 06/28/2019 Time: 18:56 Bed 9 Private MD: Diagnosis: Dental caries Presentation: 06/28 19:00 Presenting complaint: Patient states: right sided dental pain for a month, worse today. la1 Transition of care: patient was not received from another setting of care. Onset of symptoms was June 28, 2019. Risk Assessment: Do you want to hurt yourself or someone else? Patient reports no desire to harm self or others. Initial Sepsis Screen: Does the patient meet any 2 criteria? No. Patient's initial sepsis screen is negative. Does the patient have a suspected source of infection? No. Patient's initial sepsis screen is negative. Care prior to arrival: None. 19:00 Method Of Arrival: Ambulatory la1 19:00 Acuity: PASTORA 5 la1 Historical: - Allergies: 19:02 Banana; la1 - PMHx: 19:02 Back pain; Enlarged Heart; Hypertension; la1 - Immunization history:: Adult Immunizations up to date. - Social history:: Smoking status: Patient uses tobacco products, smokes one pack cigarettes per day. - Ebola Screening: : No symptoms or risks identified at this time. Screenin:07 Abuse screen: Denies threats or abuse. Nutritional screening: No deficits noted. la1 Tuberculosis screening: No symptoms or risk factors identified. Fall Risk None identified. Assessment: 19:07 Reassessment: Patient is alert, oriented x 3, equal unlabored respirations, skin la1 warm/dry/pink. General: Appears uncomfortable. Pain: Complains of pain in lower right second molar and lower right third molar. EENT: Poor dentition noted. Vital Signs: 19:02 BP 148 / 101; Pulse 58; Resp 16; Temp 97.5; Pulse Ox 98% on R/A; Weight 95.25 kg; la1 Height 5 ft. 11 in. (180.34 cm); 19:02 Body Mass Index 29.29 (95.25 kg, 180.34 cm) la1 ED Course: 18:56 Patient arrived in ED. mr 19:01 Triage completed. la1 19:01 Arm band placed on left wrist. la1 19:06 Jose Francisco Ly PA is PHCP. marisela 19:06 Nick Rizo MD is Attending Physician. [facility] 19:07 Omid Azevedo, RN is Primary Nurse. la1 19:08 Patient has correct armband on for positive identification. la1 19:58 No provider procedures requiring assistance completed. Patient did not have IV access la1 during this emergency room visit. Administered Medications: 19: Drug: Ketorolac 30 mg Route: IM; Site: left gluteus; la1 19:57 Follow up: Response: No adverse reaction la1 19: Drug: Amoxicillin 875 mg Route: PO; la1 19:57 Follow up: Response: No adverse reaction la1 19:57 Drug: HYDROcodone-acetaminophen 5 mg-325 mg 1 tabs {Note: RASS = 2.} Route: PO; la1 19:58 Follow up: Response: Medication administered at discharge. la1 Outcome: 19:41 Discharge ordered by MD. [facility] 19:58 Discharged to home ambulatory. la1 19:58 Condition: stable 19:58 Discharge instructions given to patient, Instructed on discharge instructions, follow up and referral plans. medication usage, Demonstrated understanding of instructions, follow-up care, medications, Prescriptions given X 2. 19:58 Patient left the ED. la1 Signatures: Jose Francisco Ly PA PA jmm Rivera Gabbi mr Omid Azevedo, RN RN la1
--- NOTE | 2019-06-28 19:43 | EDPHYS ---
Physician Documentation [facility] Name: Michele Lomas Age: 34 yrs Sex: Male : 1985 Arrival Date: 06/28/2019 Time: 18:56 Bed 9 Private MD: ED Physician Nick Rizo HPI: 06/28 19:11 This 34 yrs old Black Male presents to ER via Ambulatory with complaints of Toothache. [facility] 19:11 The patient presents with pain. Onset: The symptoms/episode began/occurred gradually, 1 jmm month(s) ago. Duration: The symptoms are continuous. Modifying factors: The symptoms are alleviated by nothing. Associated signs and symptoms: Pertinent negatives: fever. This is a 34 year old male with a history of htn that presents to the ED with complaints of right sided jaw pain beginning approx 1 month ago worsening over the past 2 days. Pain radiates to the patient's right ear. . Historical: - Allergies: 19:02 Banana; la1 - PMHx: 19:02 Back pain; Enlarged Heart; Hypertension; la1 - Immunization history:: Adult Immunizations up to date. - Social history:: Smoking status: Patient uses tobacco products, smokes one pack cigarettes per day. - Ebola Screening: : No symptoms or risks identified at this time. ROS: 19:11 Constitutional: Negative for fever, chills, and weight loss. jmm 19:11 ENT: Positive for dental pain, ear pain. 19:11 All other systems are negative. Exam: 19:11 Constitutional: This is a well developed, well nourished patient who is awake, alert, jmm and in no acute distress. Head/Face: atraumatic. 19:11 Neck: Trachea midline, Supple Chest/axilla: Normal chest wall appearance and motion. Cardiovascular: Regular rate and rhythm. No edema appreciated Respiratory: Normal respirations, no respiratory distress appreciated Abdomen/GI: Non distended, soft Back: Normal ROM Skin: General appearance color normal MS/ Extremity: Moves all extremities, no obvious deformities appreciated, no edema noted to the lower extremities Neuro: Awake and alert, normal gait Psych: Behavior is normal, Mood is normal, Patient is cooperative and pleasant 19:11 ENT: TM's: are normal, Dental exam: dental caries, that is moderate, specifically in the upper right third molar (#1) and lower right third molar (#32). Vital Signs: 19:02 BP 148 / 101; Pulse 58; Resp 16; Temp 97.5; Pulse Ox 98% on R/A; Weight 95.25 kg; la1 Height 5 ft. 11 in. (180.34 cm); 19:02 Body Mass Index 29.29 (95.25 kg, 180.34 cm) la1 MDM: 19:11 Patient medically screened. [facility] 19:41 Data reviewed: vital signs, nurses notes. Counseling: I had a detailed discussion with marisela the patient and/or guardian regarding: the historical points, exam findings, and any diagnostic results supporting the discharge/admit diagnosis, the need for outpatient follow up, to return to the emergency department if symptoms worsen or persist or if there are any questions or concerns that arise at home. Administered Medications: 19:26 Drug: Ketorolac 30 mg Route: IM; Site: left gluteus; la1 19:57 Follow up: Response: No adverse reaction mi1 19:26 Drug: Amoxicillin 875 mg Route: PO; la1 19:57 Follow up: Response: No adverse reaction la1 19:57 Drug: HYDROcodone-acetaminophen 5 mg-325 mg 1 tabs {Note: RASS = 2.} Route: PO; la1 19:58 Follow up: Response: Medication administered at discharge. la1 Disposition: 06/29 09:15 Co-signature as Attending Physician, Nick Rizo MD I agree with the assessment and [facility] plan of care. Disposition: 06/28/19 19:41 Discharged to Home. Impression: Dental caries. - Condition is Stable. - Discharge Instructions: Dental Pain. - Prescriptions for Amoxicillin 875 mg Oral Tablet - take 1 tablet by ORAL route every 12 hours for 10 days; 20 tablet. Ultracet 37.5- 325 mg Oral Tablet - take 1 tablet by ORAL route every 6 hours - for up to 5 days; do not exceed 8 tablets per day.; 12 tablet. - Medication Reconciliation Form, Thank You Letter, Antibiotic Education, Prescription Opioid Use form. - Follow up: Private Physician; When: 2 - 3 days; Reason: Recheck today's complaints, Continuance of care, Re-evaluation by your physician. Signatures: Nick Rizo MD MD cha Mickail, Joel, PA PA [facility] Attema, Omid, RN RN la1 Corrections: (The following items were deleted from the chart) 06/28 19:58 19:41 06/28/2019 19:41 Discharged to Home. Impression: Dental caries. Condition is la1 Stable. Forms are Medication Reconciliation Form, Thank You Letter, Antibiotic Education, Prescription Opioid Use. Follow up: Private Physician; When: 2 - 3 days; Reason: Recheck today's complaints, Continuance of care, Re-evaluation by your physician. marisela
[2019-06-28] MEDS ORDERED: HYDROCODONE/APAP 5/325 MG TAB ONE (19:54)
[2019-06-28 23:02] VITALS: BP 148/101; TEMP 97.5; O2SAT 98
== END 2019-06-28 19:58 | disposition home or self-care (01) ==
LOC: ER 18:54
DX: K02.9 Dental caries, unspecified (principal); F17.210 Nicotine dependence, cigarettes, uncomplicated; Z91.018 Allergy to other foods
CPT/HCPCS: 96372; 99283

== ENCOUNTER 2019-07-28 11:08 | Emergency (ER) | payer SELFPAY ==
--- OUTSIDE RECORDS SUMMARY | 2019-07-28 11:10 | XMS REPORT ---
:1985 [facility] Address [address] [place] [id number] Care Team Providers Name Role Phone ANTONIO [...] Value Reference Range Comments COLOR (BEAKER) (test klio=936) Yellow CLARITY (BEAKER) (test vvig=895) Clear SPECIFIC GRAVITY UA (BEAKER) (test hwug=091) 1.034 1.001-1.035 PH UA (BEAKER) (test fwbs=066) 6.0 5.0-8.0 PROTEIN UA (BEAKER) (test ktxk=989) Negative Negative GLUCOSE UA (BEAKER) (test fozy=113) Negative Negative KETONES UA (BEAKER) (test cufj=298) Negative Negative BILIRUBIN UA (BEAKER) (test iunx=686) Negative Negative BLOOD UA (BEAKER) (test saie=275) Negative Negative NITRITE UA (BEAKER) (test mcid=212) Negative Negative LEUKOCYTE ESTERASE UA (BEAKER) (test yqfe=847) Negative Negative UROBILINOGEN UA (BEAKER) (test zesi=596) 0.2 mg/dL 0.2-1.0 RBC UA (BEAKER) (test wvwf=581) 1 /HPF WBC UA (BEAKER) (test lbus=217) 2 /HPF MUCUS (BEAKER) (test flqs=4881) Rare SOURCE(BEAKER) (test bqcm=3306) RAPID DRUG SCREEN, [id number] 07:53:00 Test Item Value Reference Range Comments BARBITURATE URINE (BEAKER) (test fyrk=800) Negative Negative BENZODIAZEPINE SCREEN URINE (BEAKER) (test Positive Negative loiy=916) COCAINE (METAB.) SCREEN (BEAKER) (test vkuc=2305) Negative Negative METHADONE SCREEN (BEAKER) (test rpmj=9188) Negative Negative OPIATE SCREEN URINE (BEAKER) (test lmef=669) Negative Negative CANNABINOID SCREEN URINE (BEAKER) (test ajmu=759) Negative Negative AMPH/METHAMPH SCREEN (BEAKER) (test wpra=5403) Negative Negative PHENCYCLIDINE SCREEN URINE (BEAKER) (test bxbn=410) Negative Negative OXYCODONE SCREEN URINE (BEAKER) (test qwxn=8368) Negative Negative DRUG CUTOFF CONC.Cocaine 300 ng/mL Cannabinoid 50 ng/mL Benzodiazepine 200 ng/mLBarbiturate 200 ng/ mLPhencyclidine 25 ng/mLOpiate 300 ng/mLMethadone 300 ng/mLAmphetamine/ 1000 ng/mL MethamphetamineOxycodone 300 ng/mLThis assay provides an unconfirmed qualitative test result for the clinical management of patients in emergency situations. Chain of custody not maintained. Some pclt-fgx-yalnaqi medications, as well as adulterants, may cause inaccurate results. Clinical correlation should be applied. A more comprehensive drug screen or confirmation of a detected drug may be performed upon request.HEPATIC FUNCTION [id number] 05:51:00 Test Item Value Reference Range Comments TOTAL PROTEIN (BEAKER) (test smfl=344) 6.1 gm/dL 6.0-8.3 ALBUMIN (BEAKER) (test fapq=9703) 3.5 g/dL 3.5-5.0 BILIRUBIN TOTAL (BEAKER) (test emqn=729) 0.3 mg/dL 0.2-1.2 BILIRUBIN DIRECT (BEAKER) (test aydj=987) 0.1 mg/dL 0.1-0.5 ALKALINE PHOSPHATASE (BEAKER) (test gzqz=625) 65 U/L 40-150 AST (SGOT) (BEAKER) (test oega=928) 15 U/L 5-34 ALT (SGPT) (BEAKER) (test wagn=530) 9 U/L 6-55 BASIC METABOLIC [id number] 05:51:00 Test Item Value Reference Range Comments SODIUM (BEAKER) (test 138 meq/L 136-145 yetj=058) POTASSIUM (BEAKER) (test 3.9 meq/L 3.5-5.1 tdhl=835) CHLORIDE (BEAKER) (test 112 meq/L 98-107 kyzv=493) CO2 (BEAKER) (test 20 meq/L 22-29 yepd=687) BLOOD UREA NITROGEN 21 mg/dL 7-21 (BEAKER) (test xldc=824) CREATININE (BEAKER) (test 1.12 mg/dL 0.57-1.25 upsm=477) GLUCOSE RANDOM (BEAKER) 96 mg/dL 70-105 (test zoiy=307) CALCIUM (BEAKER) (test 8.6 mg/dL 8.4-10.2 bksg=298) EGFR (BEAKER) (test 91 mL/min/1.73 sq m ESTIMATED GFR IS NOT kaim=3003) ACCURATE CREATININE CLEARANCE IN PREDICTING GLOMERULAR FILTRATION RATE. ESTIMATED GFR IS NOT APPLICABLE FOR DIALYSIS PATIENTS. CBC W/PLT COUNT & AUTO [id number] 05:47:00 Test Item Value Reference Range Comments WHITE BLOOD CELL COUNT (BEAKER) (test ualn=822) 5.9 K/ L 3.5-10.5 RED BLOOD CELL COUNT (BEAKER) (test skrs=373) 4.35 M/ L 4.63-6.08 HEMOGLOBIN (BEAKER) (test nuvn=182) 12.6 GM/DL 13.7-17.5 HEMATOCRIT (BEAKER) (test oaob=167) 39.0 % 40.1-51.0 MEAN CORPUSCULAR VOLUME (BEAKER) (test cqhv=092) 89.7 fL 79.0-92.2 MEAN CORPUSCULAR HEMOGLOBIN (BEAKER) (test 29.0 pg 25.7-32.2 zqwo=344) MEAN CORPUSCULAR HEMOGLOBIN CONC (BEAKER) (test 32.3 GM/DL 32.3-36.5 sifr=804) RED CELL DISTRIBUTION WIDTH (BEAKER) (test 13.0 % 11.6-14.4 qodb=082) PLATELET COUNT (BEAKER) (test bcmz=036) 222 K/CU MM 150-450 MEAN PLATELET VOLUME (BEAKER) (test woim=346) 11.2 fL 9.4-12.4 NUCLEATED RED BLOOD CELLS (BEAKER) (test 0 /100 WBC 0-0 aiim=584) NEUTROPHILS RELATIVE PERCENT (BEAKER) (test 51 % jawf=075) LYMPHOCYTES RELATIVE PERCENT (BEAKER) (test 38 % mvqh=381) MONOCYTES RELATIVE PERCENT (BEAKER) (test 8 % gkqg=163) EOSINOPHILS RELATIVE PERCENT (BEAKER) (test 2 % iduk=979) BASOPHILS RELATIVE PERCENT (BEAKER) (test 1 % mimn=420) NEUTROPHILS ABSOLUTE COUNT (BEAKER) (test 3.00 K/ L 1.78-5.38 qirg=659) LYMPHOCYTES ABSOLUTE COUNT (BEAKER) (test 2.22 K/ L 1.32-3.57 cjdw=077) MONOCYTES ABSOLUTE COUNT (BEAKER) (test 0.46 K/ L 0.30-0.82 odny=969) EOSINOPHILS ABSOLUTE COUNT (BEAKER) (test 0.12 K/ L 0.04-0.54 kphw=351) BASOPHILS ABSOLUTE COUNT (BEAKER) (test 0.04 K/ L 0.01-0.08 tklt=279) IMMATURE GRANULOCYTES-RELATIVE PERCENT (BEAKER) 0 % 0-1 (test bvrw=6937) [id number] 05:40:00 Test Item Value Reference Range Comments MAGNESIUM (BEAKER) (test azcg=723) 1.9 mg/dL 1.6-2.6 BASIC METABOLIC [id number] 05:40:00 Test Item Value Reference Range Comments SODIUM (BEAKER) (test 138 meq/L 136-145 fsmc=418) POTASSIUM (BEAKER) (test 3.8 meq/L 3.5-5.1 ndts=170) CHLORIDE (BEAKER) (test 111 meq/L 98-107 msvz=044) CO2 (BEAKER) (test 21 meq/L 22-29 fflt=547) BLOOD UREA NITROGEN 19 mg/dL 7-21 (BEAKER) (test mwae=219) CREATININE (BEAKER) (test 1.12 mg/dL 0.57-1.25 nvbg=098) GLUCOSE RANDOM (BEAKER) 96 mg/dL 70-105 (test okdg=610) CALCIUM (BEAKER) (test 8.6 mg/dL 8.4-10.2 awbq=835) EGFR (BEAKER) (test 91 mL/min/1.73 sq m ESTIMATED GFR IS NOT lyoj=5734) ACCURATE CREATININE CLEARANCE IN PREDICTING GLOMERULAR FILTRATION RATE. ESTIMATED GFR IS NOT APPLICABLE FOR DIALYSIS PATIENTS. CBC W/PLT COUNT & AUTO [id number] 00:35:00 Test Item Value Reference Range Comments WHITE BLOOD CELL COUNT 4.4 K/ L 3.5-10.5 (BEAKER) (test miwo=868) RED BLOOD CELL COUNT (BEAKER) 4.54 M/ L 4.63-6.08 (test jciv=419) HEMOGLOBIN (BEAKER) (test 14.2 GM/DL 13.7-17.5 doee=554) HEMATOCRIT (BEAKER) (test 41.1 % 40.1-51.0 ocnk=106) MEAN CORPUSCULAR VOLUME 90.5 fL 79.0-92.2 (BEAKER) (test zysl=874) MEAN CORPUSCULAR HEMOGLOBIN 31.3 pg 25.7-32.2 (BEAKER) (test aoiu=906) MEAN CORPUSCULAR HEMOGLOBIN 34.5 GM/DL 32.3-36.5 CONC (BEAKER) (test htdz=695) RED CELL DISTRIBUTION WIDTH 14.3 % 11.6-14.4 (BEAKER) (test gbra=997) PLATELET COUNT (BEAKER) (test 409 K/CU MM 150-450 umzx=584) MEAN PLATELET VOLUME (BEAKER) fL 9.4-12.4 Unable to report due to (test tbow=733) abnormal Platelet population distribution. NUCLEATED RED BLOOD CELLS 8 /100 WBC 0-0 (BEAKER) (test cuwn=144) NEUTROPHILS RELATIVE PERCENT 51 % (BEAKER) (test tfwq=900) LYMPHOCYTES RELATIVE PERCENT 44 % (BEAKER) (test iewp=089) MONOCYTES RELATIVE PERCENT 3 % (BEAKER) (test blul=962) EOSINOPHILS RELATIVE PERCENT 1 % (BEAKER) (test bmwi=805) BASOPHILS RELATIVE PERCENT 1 % (BEAKER) (test sddw=584) NEUTROPHILS ABSOLUTE COUNT 2.22 K/ L 1.78-5.38 (BEAKER) (test bngs=789) LYMPHOCYTES ABSOLUTE COUNT 1.92 K/ L 1.32-3.57 (BEAKER) (test arad=149) MONOCYTES ABSOLUTE COUNT 0.14 K/ L 0.30-0.82 (BEAKER) (test gvsp=200) EOSINOPHILS ABSOLUTE COUNT 0.06 K/ L 0.04-0.54 (BEAKER) (test zxhk=944) BASOPHILS ABSOLUTE COUNT 0.03 K/ L 0.01-0.08 (BEAKER) (test mztn=098) IMMATURE GRANULOCYTES-RELATIVE 0 % 0-1 PERCENT (Zeppelin) (test mcvk=5995)
--- OUTSIDE RECORDS SUMMARY | 2019-07-28 11:10 | XMS REPORT | Clinical Summary ---
:1985 Author [facility] Address [address] [place] [address] Care Team Providers Name Role Phone Juan [...] Not on file Results Not on fileafter 07/27/2018 Advance Directives For more information, please contact:[facility] IndustriesFranciscan HealthVtonwg[address] [place], [place] [phone] Code Status Date Activated Date Inactivated Comments Full Code 08/28/2017 10:26 PM 08/29/2017 8:43 PM This code status was determined by: Patient
[2019-07-28] MEDS ORDERED: LIDOCAINE VISCOUS 2% SOLN 15 ML UDC ONE (11:49)
[2019-07-28] MEDS ORDERED: ONDANSETRON 4 MG (ODT) TAB ONE (11:49)
[2019-07-28] MEDS ORDERED: MAGNE/ALUM HYDROXD 30 ML UCUP ONE (11:49)
--- NOTE | 2019-07-28 12:03 | EDPHYS ---
Physician Documentation [facility] Name: Michele Lomas Age: 34 yrs Sex: Male : 1985 Arrival Date: 07/28/2019 Time: 11:10 Bed 11 Private MD: None, None ED Physician Melanie Hawkins HPI: 07/28 12:01 This 34 yrs old Black Male presents to ER via Ambulatory with complaints of kb Nausea/Vomiting. 12:01 The patient presents to the emergency department with nausea, vomiting. Onset: The kb symptoms/episode began/occurred 3 day(s) ago. Possible causes: bad food exposure. The symptoms are aggravated by nothing. The symptoms are alleviated by nothing. Associated signs and symptoms: Pertinent positives: nausea, vomiting. Severity of symptoms: At their worst the symptoms were mild moderate in the emergency department the symptoms are unchanged. The patient has not experienced similar symptoms in the past. The patient has not recently seen a physician. Pt reports the food he ate on Monday didn't sit well with him and it made him have nausea and vomiting. States he just came to get something for nausea. Historical: - Allergies: 11: Banana; la1 - PMHx: 11:31 Back pain; Enlarged Heart; Hypertension; la1 - Immunization history:: Adult Immunizations up to date. - Social history:: Smoking status: Patient uses tobacco products, smokes one-half pack cigarettes per day. - Ebola Screening: : No symptoms or risks identified at this time. ROS: 12:00 Constitutional: Negative for fever, chills, and weight loss, Cardiovascular: Negative kb for chest pain, palpitations, and edema, Respiratory: Negative for shortness of breath, cough, wheezing, and pleuritic chest pain, Back: Negative for injury and pain, : Negative for injury, bleeding, discharge, and swelling, MS/Extremity: Negative for injury and deformity, Skin: Negative for injury, rash, and discoloration, Neuro: Negative for headache, weakness, numbness, tingling, and seizure. 12:00 Abdomen/GI: Positive for nausea and vomiting, Negative for abdominal pain, diarrhea, constipation, abdominal cramps, abdominal distension, anorexia. Exam: 12:00 Constitutional: This is a well developed, well nourished patient who is awake, alert, kb and in no acute distress. Head/Face: Normocephalic, atraumatic. ENT: Nares patent. No nasal discharge, no septal abnormalities noted. Tympanic membranes are normal and external auditory canals are clear. Oropharynx with no redness, swelling, or masses, exudates, or evidence of obstruction, uvula midline. Mucous membranes moist. Neck: Trachea midline, no thyromegaly or masses palpated, and no cervical lymphadenopathy. Supple, full range of motion without nuchal rigidity, or vertebral point tenderness. No Meningismus. Chest/axilla: Normal chest wall appearance and motion. Nontender with no deformity. No lesions are appreciated. Cardiovascular: Regular rate and rhythm with a normal S1 and S2. No gallops, murmurs, or rubs. Normal PMI, no JVD. No pulse deficits. Respiratory: Lungs have equal breath sounds bilaterally, clear to auscultation and percussion. No rales, rhonchi or wheezes noted. No increased work of breathing, no retractions or nasal flaring. Abdomen/GI: Soft, non-tender, with normal bowel sounds. No distension or tympany. No guarding or rebound. No evidence of tenderness throughout. Back: No spinal tenderness. No costovertebral tenderness. Full range of motion. Skin: Warm, dry with normal turgor. Normal color with no rashes, no lesions, and no evidence of cellulitis. MS/ Extremity: Pulses equal, no cyanosis. Neurovascular intact. Full, normal range of motion. Neuro: Awake and alert, GCS 15, oriented to person, place, time, and situation. Cranial nerves II-XII grossly intact. Motor strength 5/5 in all extremities. Sensory grossly intact. Cerebellar exam normal. Normal gait. Vital Signs: 11:32 BP 159 / 99; Pulse 54; Resp 16; Temp 97.7; Pulse Ox 100% on R/A; Weight 97.52 kg; la1 Height 5 ft. 11 in. (180.34 cm); 11:32 Body Mass Index 29.99 (97.52 kg, 180.34 cm) la1 MDM: 11:34 Patient medically screened. kb 11:59 Data reviewed: vital signs, nurses notes. Data interpreted: Pulse oximetry: on room air kb is 100 %. Interpretation: normal. Counseling: I had a detailed discussion with the patient and/or guardian regarding: the historical points, exam findings, and any diagnostic results supporting the discharge/admit diagnosis, the need for outpatient follow up, a family practitioner, to return to the emergency department if symptoms worsen or persist or if there are any questions or concerns that arise at home. 07/28 12:00 Order name: PO challenge; Complete Time: 12:02 kb Administered Medications: 11:52 Drug: Zofran 4 mg Route: PO; aa5 12:02 Follow up: Response: No adverse reaction aa5 11:52 Drug: GI Cocktail without - (Maalox Suspension 30 ml, Lidocaine Liquid 2 % 15 aa5 ml) Route: PO; 12:02 Follow up: Response: No adverse reaction aa5 Disposition: 18:29 Co-signature as Attending Physician, Melanie Hawkins MD. ma2 Disposition: 07/28/19 12:03 Discharged to Home. Impression: Nausea and vomiting. - Condition is Stable. - Discharge Instructions: Nausea and Vomiting, Adult, Lufc-xm-Ocok. - Prescriptions for Zofran 4 mg Oral Tablet - take 1 tablet by ORAL route every 6 hours As needed; 20 tablet. - Work release form, Medication Reconciliation Form, Thank You Letter, Antibiotic Education, Prescription Opioid Use form. - Follow up: Emergency Department; When: As needed; Reason: Worsening of condition. Follow up: Private Physician; When: 2 - 3 days; Reason: Recheck today's complaints, Continuance of care, Re-evaluation by your physician. Signatures: Judith Gaxiola, LIBBY-C LIBBY-Krystle Cottrell RN RN aa5 Omid Azevedo RN RN la1 Melanie Hawkins MD MD ma2 Corrections: (The following items were deleted from the chart) 12:24 12:03 07/28/2019 12:03 Discharged to Home. Impression: Nausea and vomiting. Condition la1 is Stable. Forms are Medication Reconciliation Form, Thank You Letter, Antibiotic Education, Prescription Opioid Use. Follow up: Emergency Department; When: As needed; Reason: Worsening of condition. Follow up: Private Physician; When: 2 - 3 days; Reason: Recheck today's complaints, Continuance of care, Re-evaluation by your physician. kb
--- NOTE | 2019-07-28 12:03 | ER ---
Nurse's Notes [facility] Name: Michele Lomas Age: 34 yrs Sex: Male : 1985 Arrival Date: 07/28/2019 Time: 11:10 Bed 11 Private MD: None, None Diagnosis: Nausea and vomiting Presentation: 07/28 11:31 Presenting complaint: Patient states: I had red top Monday at work, I vomited, I went la1 home from work and today I still feel nausea. I need to get back to work and amish but I feel too bad. Transition of care: patient was not received from another setting of care. Onset of symptoms was July 28, 2019. Risk Assessment: Do you want to hurt yourself or someone else? Patient reports no desire to harm self or others. Initial Sepsis Screen: Does the patient meet any 2 criteria? No. Patient's initial sepsis screen is negative. Does the patient have a suspected source of infection? No. Patient's initial sepsis screen is negative. Care prior to arrival: None. 11:31 Method Of Arrival: Ambulatory la1 11:31 Acuity: PASTORA 3 la1 Historical: - Allergies: 11:31 Banana; la1 - PMHx: 11:31 Back pain; Enlarged Heart; Hypertension; la1 - Immunization history:: Adult Immunizations up to date. - Social history:: Smoking status: Patient uses tobacco products, smokes one-half pack cigarettes per day. - Ebola Screening: : No symptoms or risks identified at this time. Screenin:34 Abuse screen: Denies threats or abuse. Nutritional screening: No deficits noted. la1 Tuberculosis screening: No symptoms or risk factors identified. Fall Risk None identified. Assessment: 11:33 General: Appears in no apparent distress. Behavior is calm, cooperative. Pain: Denies la1 pain. Neuro: Level of Consciousness is awake, alert, obeys commands, Oriented to person, place, time, situation. Cardiovascular: Capillary refill < 3 seconds Patient's skin is warm and dry. Respiratory: Airway is patent Respiratory effort is even, unlabored, Respiratory pattern is regular, symmetrical. GI: Abdomen is round non-distended, Bowel sounds present X 4 quads. Reports nausea. : No signs and/or symptoms were reported regarding the genitourinary system. 11:52 Neuro: Level of Consciousness is awake, alert, obeys commands, Oriented to person, aa5 place, time, situation. Respiratory: Airway is patent Respiratory effort is even, unlabored, Respiratory pattern is regular, symmetrical. Derm: Skin is dry, Skin is normal, Skin temperature is warm. 12:02 Reassessment: Pt tolerated cup of water well . aa5 12:02 Neuro: Level of Consciousness is awake, alert, obeys commands, Oriented to person, aa5 place, time, situation. Respiratory: Airway is patent Respiratory effort is even, unlabored, Respiratory pattern is regular, symmetrical. Derm: Skin is dry, Skin is normal, Skin temperature is warm. Vital Signs: 11:32 BP 159 / 99; Pulse 54; Resp 16; Temp 97.7; Pulse Ox 100% on R/A; Weight 97.52 kg; la1 Height 5 ft. 11 in. (180.34 cm); 11:32 Body Mass Index 29.99 (97.52 kg, 180.34 cm) la1 ED Course: 11:10 Patient arrived in ED. mr 11:11 None, None is Private Physician. mr 11:12 [facility]C [facility]. kb 11:12 Melanie Hawkins MD is Attending Physician. kb 11:31 Arm band placed on left wrist. la1 11:32 Triage completed. la1 11:34 Patient has correct armband on for positive identification. la1 11:52 Krystle Johnson, RN is Primary Nurse. aa5 12:24 Patient did not have IV access during this emergency room visit. la1 Administered Medications: 11:52 Drug: Zofran 4 mg Route: PO; aa5 12:02 Follow up: Response: No adverse reaction aa5 11:52 Drug: GI Cocktail without - (Maalox Suspension 30 ml, Lidocaine Liquid 2 % 15 aa5 ml) Route: PO; 12:02 Follow up: Response: No adverse reaction aa5 Outcome: 12:03 Discharge ordered by . kb 12:24 Patient left the ED. la1 12:24 Discharged to home ambulatory. la1 12:24 Condition: stable 12:24 Discharge instructions given to patient, Instructed on discharge instructions, follow up and referral plans. medication usage, Demonstrated understanding of instructions, follow-up care, medications, Prescriptions given X 1. Signatures: Judith Gaxiola FNP-C SENIOR COST ACCOUNTANT-Gabbi Tanner mr Johnson, Krystle, RN RN aa5 Omid Azevedo RN RN la1
[2019-07-28 12:32] VITALS: BP 159/99; TEMP 97.7; O2SAT 100
== END 2019-07-28 12:24 | disposition home or self-care (01) ==
LOC: ER 11:08
DX: R11.2 Nausea with vomiting, unspecified (principal); I10 Essential (primary) hypertension; F17.210 Nicotine dependence, cigarettes, uncomplicated; Z91.018 Allergy to other foods
CPT/HCPCS: 99283

== ENCOUNTER 2019-11-13 01:41 | Emergency (ER) | payer SELFPAY ==
--- OUTSIDE RECORDS SUMMARY | 2019-11-13 01:43 | XMS REPORT ---
:1985 [facility] [address] [place] [address] Care Team Providers Name Role Phone ANTONIO [...] Value Reference Range Comments COLOR (BEAKER) (test dvfq=882) Yellow CLARITY (BEAKER) (test tniq=891) Clear SPECIFIC GRAVITY UA (BEAKER) (test azbv=772) 1.034 1.001-1.035 PH UA (BEAKER) (test ekin=560) 6.0 5.0-8.0 PROTEIN UA (BEAKER) (test mzpb=210) Negative Negative GLUCOSE UA (BEAKER) (test nfll=831) Negative Negative KETONES UA (BEAKER) (test snqg=495) Negative Negative BILIRUBIN UA (BEAKER) (test ixcd=525) Negative Negative BLOOD UA (BEAKER) (test ipzg=052) Negative Negative NITRITE UA (BEAKER) (test dqas=556) Negative Negative LEUKOCYTE ESTERASE UA (BEAKER) (test yiaq=135) Negative Negative UROBILINOGEN UA (BEAKER) (test cczk=645) 0.2 mg/dL 0.2-1.0 RBC UA (BEAKER) (test pvbx=252) 1 /HPF WBC UA (BEAKER) (test hywi=579) 2 /HPF MUCUS (BEAKER) (test dpgj=2783) Rare SOURCE(BEAKER) (test flzs=5111) RAPID DRUG SCREEN, [id number] 07:53:00 Test Item Value Reference Range Comments BARBITURATE URINE (BEAKER) (test uorh=185) Negative Negative BENZODIAZEPINE SCREEN URINE (BEAKER) (test Positive Negative kirr=335) COCAINE (METAB.) SCREEN (BEAKER) (test oamy=9462) Negative Negative METHADONE SCREEN (BEAKER) (test frro=1601) Negative Negative OPIATE SCREEN URINE (BEAKER) (test bwha=523) Negative Negative CANNABINOID SCREEN URINE (BEAKER) (test didr=348) Negative Negative AMPH/METHAMPH SCREEN (BEAKER) (test fxhp=2088) Negative Negative PHENCYCLIDINE SCREEN URINE (BEAKER) (test myst=603) Negative Negative OXYCODONE SCREEN URINE (BEAKER) (test zwbb=6848) Negative Negative DRUG CUTOFF CONC.Cocaine 300 ng/mL Cannabinoid 50 ng/mL Benzodiazepine 200 ng/mLBarbiturate 200 ng/ mLPhencyclidine 25 ng/mLOpiate 300 ng/mLMethadone 300 ng/mLAmphetamine/ 1000 ng/mL MethamphetamineOxycodone 300 ng/mLThis assay provides an unconfirmed qualitative test result for the clinical management of patients in emergency situations. Chain of custody not maintained. Some siqw-fhv-ymhlesj medications, as well as adulterants, may cause inaccurate results. Clinical correlation should be applied. A more comprehensive drug screen or confirmation of a detected drug may be performed upon request.HEPATIC FUNCTION [id number] 05:51:00 Test Item Value Reference Range Comments TOTAL PROTEIN (BEAKER) (test qneh=122) 6.1 gm/dL 6.0-8.3 ALBUMIN (BEAKER) (test mufq=8476) 3.5 g/dL 3.5-5.0 BILIRUBIN TOTAL (BEAKER) (test zuvd=542) 0.3 mg/dL 0.2-1.2 BILIRUBIN DIRECT (BEAKER) (test doog=065) 0.1 mg/dL 0.1-0.5 ALKALINE PHOSPHATASE (BEAKER) (test noad=609) 65 U/L 40-150 AST (SGOT) (BEAKER) (test cgxb=732) 15 U/L 5-34 ALT (SGPT) (BEAKER) (test nmjt=997) 9 U/L 6-55 BASIC METABOLIC [id number] 05:51:00 Test Item Value Reference Range Comments SODIUM (BEAKER) (test 138 meq/L 136-145 anqx=564) POTASSIUM (BEAKER) (test 3.9 meq/L 3.5-5.1 unwj=903) CHLORIDE (BEAKER) (test 112 meq/L 98-107 grix=248) CO2 (BEAKER) (test 20 meq/L 22-29 xysq=941) BLOOD UREA NITROGEN 21 mg/dL 7-21 (BEAKER) (test kgpx=054) CREATININE (BEAKER) (test 1.12 mg/dL 0.57-1.25 bvgb=421) GLUCOSE RANDOM (BEAKER) 96 mg/dL 70-105 (test ezqs=808) CALCIUM (BEAKER) (test 8.6 mg/dL 8.4-10.2 nkgd=041) EGFR (BEAKER) (test 91 mL/min/1.73 sq m ESTIMATED GFR IS NOT tfxv=1320) ACCURATE CREATININE CLEARANCE IN PREDICTING GLOMERULAR FILTRATION RATE. ESTIMATED GFR IS NOT APPLICABLE FOR DIALYSIS PATIENTS. CBC W/PLT COUNT & AUTO [id number] 05:47:00 Test Item Value Reference Range Comments WHITE BLOOD CELL COUNT (BEAKER) (test iqmn=239) 5.9 K/ L 3.5-10.5 RED BLOOD CELL COUNT (BEAKER) (test ioje=278) 4.35 M/ L 4.63-6.08 HEMOGLOBIN (BEAKER) (test aqeq=013) 12.6 GM/DL 13.7-17.5 HEMATOCRIT (BEAKER) (test imke=827) 39.0 % 40.1-51.0 MEAN CORPUSCULAR VOLUME (BEAKER) (test omzt=841) 89.7 fL 79.0-92.2 MEAN CORPUSCULAR HEMOGLOBIN (BEAKER) (test 29.0 pg 25.7-32.2 mkdi=915) MEAN CORPUSCULAR HEMOGLOBIN CONC (BEAKER) (test 32.3 GM/DL 32.3-36.5 xkhh=095) RED CELL DISTRIBUTION WIDTH (BEAKER) (test 13.0 % 11.6-14.4 hyqz=221) PLATELET COUNT (BEAKER) (test zzsl=974) 222 K/CU MM 150-450 MEAN PLATELET VOLUME (BEAKER) (test qoyv=810) 11.2 fL 9.4-12.4 NUCLEATED RED BLOOD CELLS (BEAKER) (test 0 /100 WBC 0-0 hkbm=660) NEUTROPHILS RELATIVE PERCENT (BEAKER) (test 51 % wifd=924) LYMPHOCYTES RELATIVE PERCENT (BEAKER) (test 38 % knkt=338) MONOCYTES RELATIVE PERCENT (BEAKER) (test 8 % cleo=503) EOSINOPHILS RELATIVE PERCENT (BEAKER) (test 2 % epvy=879) BASOPHILS RELATIVE PERCENT (BEAKER) (test 1 % qkog=594) NEUTROPHILS ABSOLUTE COUNT (BEAKER) (test 3.00 K/ L 1.78-5.38 yoeq=402) LYMPHOCYTES ABSOLUTE COUNT (BEAKER) (test 2.22 K/ L 1.32-3.57 spwi=356) MONOCYTES ABSOLUTE COUNT (BEAKER) (test 0.46 K/ L 0.30-0.82 wbys=128) EOSINOPHILS ABSOLUTE COUNT (BEAKER) (test 0.12 K/ L 0.04-0.54 zkmx=017) BASOPHILS ABSOLUTE COUNT (BEAKER) (test 0.04 K/ L 0.01-0.08 lazq=876) IMMATURE GRANULOCYTES-RELATIVE PERCENT (BEAKER) 0 % 0-1 (test xbhk=9439) [id number] 05:40:00 Test Item Value Reference Range Comments MAGNESIUM (BEAKER) (test wand=008) 1.9 mg/dL 1.6-2.6 BASIC METABOLIC [id number] 05:40:00 Test Item Value Reference Range Comments SODIUM (BEAKER) (test 138 meq/L 136-145 mhec=228) POTASSIUM (BEAKER) (test 3.8 meq/L 3.5-5.1 pgri=098) CHLORIDE (BEAKER) (test 111 meq/L 98-107 ijpa=802) CO2 (BEAKER) (test 21 meq/L 22-29 ciyl=017) BLOOD UREA NITROGEN 19 mg/dL 7-21 (BEAKER) (test ckhy=049) CREATININE (BEAKER) (test 1.12 mg/dL 0.57-1.25 tmvn=022) GLUCOSE RANDOM (BEAKER) 96 mg/dL 70-105 (test bupa=164) CALCIUM (BEAKER) (test 8.6 mg/dL 8.4-10.2 yxzx=667) EGFR (BEAKER) (test 91 mL/min/1.73 sq m ESTIMATED GFR IS NOT gegk=9674) ACCURATE CREATININE CLEARANCE IN PREDICTING GLOMERULAR FILTRATION RATE. ESTIMATED GFR IS NOT APPLICABLE FOR DIALYSIS PATIENTS. CBC W/PLT COUNT & AUTO [id number] 00:35:00 Test Item Value Reference Range Comments WHITE BLOOD CELL COUNT 4.4 K/ L 3.5-10.5 (BEAKER) (test gewf=176) RED BLOOD CELL COUNT (BEAKER) 4.54 M/ L 4.63-6.08 (test enuz=526) HEMOGLOBIN (BEAKER) (test 14.2 GM/DL 13.7-17.5 hqgz=324) HEMATOCRIT (BEAKER) (test 41.1 % 40.1-51.0 swpc=933) MEAN CORPUSCULAR VOLUME 90.5 fL 79.0-92.2 (BEAKER) (test zptz=231) MEAN CORPUSCULAR HEMOGLOBIN 31.3 pg 25.7-32.2 (BEAKER) (test hcbh=704) MEAN CORPUSCULAR HEMOGLOBIN 34.5 GM/DL 32.3-36.5 CONC (BEAKER) (test cmqb=291) RED CELL DISTRIBUTION WIDTH 14.3 % 11.6-14.4 (BEAKER) (test errw=345) PLATELET COUNT (BEAKER) (test 409 K/CU MM 150-450 kdie=301) MEAN PLATELET VOLUME (BEAKER) fL 9.4-12.4 Unable to report due to (test frjd=910) abnormal Platelet population distribution. NUCLEATED RED BLOOD CELLS 8 /100 WBC 0-0 (BEAKER) (test tekm=188) NEUTROPHILS RELATIVE PERCENT 51 % (BEAKER) (test eyud=031) LYMPHOCYTES RELATIVE PERCENT 44 % (BEAKER) (test lile=108) MONOCYTES RELATIVE PERCENT 3 % (BEAKER) (test vofq=169) EOSINOPHILS RELATIVE PERCENT 1 % (BEAKER) (test efjl=214) BASOPHILS RELATIVE PERCENT 1 % (BEAKER) (test ston=381) NEUTROPHILS ABSOLUTE COUNT 2.22 K/ L 1.78-5.38 (BEAKER) (test uatt=603) LYMPHOCYTES ABSOLUTE COUNT 1.92 K/ L 1.32-3.57 (BEAKER) (test shyh=491) MONOCYTES ABSOLUTE COUNT 0.14 K/ L 0.30-0.82 (BEAKER) (test lbgl=260) EOSINOPHILS ABSOLUTE COUNT 0.06 K/ L 0.04-0.54 (BEAKER) (test tduk=635) BASOPHILS ABSOLUTE COUNT 0.03 K/ L 0.01-0.08 (BEAKER) (test xwmj=927) IMMATURE GRANULOCYTES-RELATIVE 0 % 0-1 PERCENT ([employer] InfrastructureAKER) (test rrbz=0240)
[2019-11-13 02:22] LABS: Absolute Lymphocytes (CBC) 2.2 K/uL (0.7-4.9); Basophils % 0.8 % (0-1.3); Hematocrit 41.4 % (39.6-49.0); Lymphocytes % 31.7 % (15.3-44.8); MPV 8.8 fL (7.6-11.3); RBC Red Blood Cell Count 4.52 M/uL (4.33-5.43)
[2019-11-13 02:31] LABS: Potassium 3.8 mmol/L (3.5-5.1)
[2019-11-13] MEDS ORDERED: ONDANSETRON 4 MG/2 ML VIAL ONE (03:06)
[2019-11-13] MEDS ORDERED: MORPHINE 4 MG/ML SYR ONE ×2 (03:06→04:51)
[2019-11-13] MEDS ORDERED: dexAMETHasone 10 MG/ML VIAL ONE (04:05)
[2019-11-13] MEDS ORDERED: CEFTRIAXONE/SWI 1gm 1 GM/10 ML SYR ONE (04:05)
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
[2019-11-13 06:52] VITALS: TEMP 97.5
[2019-11-13 06:59] VITALS: BP 129/87; O2SAT 96
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
== END 2019-11-13 06:37 | disposition short-term general hospital (02) ==
LOC: ER 01:41
DX: M54.2 Cervicalgia (principal); S12.8XXA Fracture of other parts of neck, initial encounter; W50.0XXA Accidental hit or strike by another person, initial encounter; Y93.9 Activity, unspecified; Y92.9 Unspecified place or not applicable; F17.210 Nicotine dependence, cigarettes, uncomplicated; I10 Essential (primary) hypertension; I51.7 Cardiomegaly
CPT/HCPCS: 36415; 70498; 80048; 85025; 96365; 96375; 99285; J0696; J1100; J2405; Q9967

== ENCOUNTER 2020-02-14 07:57 | Inpatient (IN) | payer SELFPAY ==
--- OUTSIDE RECORDS SUMMARY | 2020-02-14 08:01 | XMS REPORT ---
:1985 Author Organization [facility] t Address [address] [place] [address] Care Team Providers Name Role Phone MASSUMI Unavailable Unavailable Problems This patient has no known problems. Allergies, Adverse Reactions, Alerts This patient has no known allergies or adverse reactions. Medications This patient has no known medications. Encounters Start End Encounter Admission Attending Care Care Encounter Date/Time Date/Time Type Type Clinicians Facility Department ID 2019-11-13 2019-11-13 Outpatient E [facility] [id number] 13:40:00 13:40:00 Results Test Description Test Time Test Comments Text Results Atomic Results Result Comments URINALYSIS W/ MICROSCOPIC 2017-08-29 08:03:00 Test Item Value Reference Range Comments COLOR (BEAKER) (test code = 470) Yellow CLARITY (BEAKER) (test code = 469) Clear SPECIFIC GRAVITY UA (BEAKER) (test code = 468) 1.034 1 .001-1.035 PH UA (BEAKER) (test code = 467) 6.0 5.0-8.0 PROTEIN UA (BEAKER) (test code = 464) Negative Negative GLUCOSE UA (BEAKER) (test code = 365) Negative Negative KETONES UA (BEAKER) (test code = 371) Negative Negative BILIRUBIN UA (BEAKER) (test code = 462) Negative Negative BLOOD UA (BEAKER) (test code = 461) Negative Negative NITRITE UA (BEAKER) (test code = 465) Negative Negative LEUKOCYTE ESTERASE UA (BEAKER) (test code = 466) Negative Negative UROBILINOGEN UA (BEAKER) (test code = 463) 0.2 mg/dL 0.2-1 .0 RBC UA (BEAKER) (test code = 519) 1 /HPF WBC UA (BEAKER) (test code = 520) 2 /HPF MUCUS (BEAKER) (test code = 1574) Rare SOURCE(BEAKER) (test code = 7775) RAPID DRUG SCREEN, [id number] 07:53:00 Test Item Value Reference Range Comments BARBITURATE URINE (BEAKER) (test code = 725) Negative Neg ative BENZODIAZEPINE SCREEN URINE (BEAKER) (test code = Positive Negative 726) COCAINE (METAB.) SCREEN (BEAKER) (test code = 1164) Negative Negative METHADONE SCREEN (BEAKER) (test code = 1436) Negative Neg ative OPIATE SCREEN URINE (BEAKER) (test code = 734) Negative N egative CANNABINOID SCREEN URINE (BEAKER) (test code = 727) Negative Negative AMPH/METHAMPH SCREEN (BEAKER) (test code = 1438) Negative Negative PHENCYCLIDINE SCREEN URINE (BEAKER) (test code = Negative Negative 608) OXYCODONE SCREEN URINE (BEAKER) (test code = 2761) Negative Negative DRUG CUTOFF CONC.Cocaine 300 ng/mL Cannabinoid 50 ng/mL Benzodiazepine 200 ng/mLBarbiturate 200 ng/mLPhencyclidine 25 ng/mLOpiate 300 ng/mLMethadone 300 ng/mLAmphetamine/ 1000 ng/mL MethamphetamineOxycodone 300 ng/mLThis assay provides an unconfirmed qualitative test result for the clinical management of patients in emergency situations. Chain of custody not maintained. Some ptdw-ibm-ipkcuor medications, as well as adulterants, may cause inaccurate results. Clinical correlation should be applied. A more comprehensive drug screen or confirmation of a detected drug may be performed upon request. HEPATIC FUNCTION [id number] 05:51:00 Test Item Value Reference Range Comments TOTAL PROTEIN (BEAKER) (test code = 770) 6.1 gm/dL 6.0-8.3 ALBUMIN (BEAKER) (test code = 1145) 3.5 g/dL 3.5-5.0 BILIRUBIN TOTAL (BEAKER) (test code = 377) 0.3 mg/dL 0.2-1 .2 BILIRUBIN DIRECT (BEAKER) (test code = 706) 0.1 mg/dL 0.1- 0.5 ALKALINE PHOSPHATASE (BEAKER) (test code = 346) 65 U/L 40-150 AST (SGOT) (BEAKER) (test code = 353) 15 U/L 5-34 ALT (SGPT) (BEAKER) (test code = 347) 9 U/L 6-55 BASIC METABOLIC [id number] 05:51:00 Test Item Value Reference Range Comments SODIUM (BEAKER) (test 138 meq/L 136-145 code = 381) POTASSIUM (BEAKER) (test 3.9 meq/L 3.5-5.1 code = 379) CHLORIDE (BEAKER) (test 112 meq/L 98-107 code = 382) CO2 (BEAKER) (test code = 20 meq/L 22-29 355) BLOOD UREA NITROGEN 21 mg/dL 7-21 (BEAKER) (test code = 354) CREATININE (BEAKER) (test 1.12 mg/dL 0.57-1.25 code = 358) GLUCOSE RANDOM (BEAKER) 96 mg/dL 70-105 (test code = 652) CALCIUM (BEAKER) (test 8.6 mg/dL 8.4-10.2 code = 697) EGFR (BEAKER) (test code 91 mL/min/1.73 sq m EST IMATED GFR IS NOT = 1092) ACCURATE CREA TININE CLEARANCE IN PRE DICTING GLOMERULAR FILTR ATION RATE. ESTIMATED GFR IS NOT APPLICABLE F OR DIALYSIS PATIENT S. CBC W/PLT COUNT & AUTO [id number] 05:47:00 Test Item Value Reference Range Comments WHITE BLOOD CELL COUNT (BEAKER) (test code = 5.9 K/ L 3.5 -10.5 775) RED BLOOD CELL COUNT (BEAKER) (test code = 761) 4.35 M/ L 4.63-6.08 HEMOGLOBIN (BEAKER) (test code = 410) 12.6 GM/DL 13.7-17.5 HEMATOCRIT (BEAKER) (test code = 411) 39.0 % 40.1-51.0 MEAN CORPUSCULAR VOLUME (BEAKER) (test code = 89.7 fL 79 .0-92.2 753) MEAN CORPUSCULAR HEMOGLOBIN (BEAKER) (test code 29.0 pg 25.7-32.2 = 751) MEAN CORPUSCULAR HEMOGLOBIN CONC (BEAKER) (test 32.3 GM/DL 32.3-36.5 code = 752) RED CELL DISTRIBUTION WIDTH (BEAKER) (test code 13.0 % 11.6-14.4 = 412) PLATELET COUNT (BEAKER) (test code = 756) 222 K/CU MM 150-45 0 MEAN PLATELET VOLUME (BEAKER) (test code = 754) 11.2 fL 9.4-12.4 NUCLEATED RED BLOOD CELLS (BEAKER) (test code = 0 /100 WBC 0-0 413) NEUTROPHILS RELATIVE PERCENT (BEAKER) (test code 51 % = 429) LYMPHOCYTES RELATIVE PERCENT (BEAKER) (test code 38 % = 430) MONOCYTES RELATIVE PERCENT (BEAKER) (test code = 8 % 431) EOSINOPHILS RELATIVE PERCENT (BEAKER) (test code 2 % = 432) BASOPHILS RELATIVE PERCENT (BEAKER) (test code = 1 % 437) NEUTROPHILS ABSOLUTE COUNT (BEAKER) (test code = 3.00 K/ L 1.78-5.38 670) LYMPHOCYTES ABSOLUTE COUNT (BEAKER) (test code = 2.22 K/ L 1.32-3.57 414) MONOCYTES ABSOLUTE COUNT (BEAKER) (test code = 0.46 K/ L 0 .30-0.82 415) EOSINOPHILS ABSOLUTE COUNT (BEAKER) (test code = 0.12 K/ L 0.04-0.54 416) BASOPHILS ABSOLUTE COUNT (BEAKER) (test code = 0.04 K/ L 0 .01-0.08 417) IMMATURE GRANULOCYTES-RELATIVE PERCENT (BEAKER) 0 % 0-1 (test code = 2801) [id number] 05:40:00 Test Item Value Reference Range Comments MAGNESIUM (BEAKER) (test code = 627) 1.9 mg/dL 1.6-2.6 BASIC METABOLIC [id number] 05:40:00 Test Item Value Reference Range Comments SODIUM (BEAKER) (test 138 meq/L 136-145 code = 381) POTASSIUM (BEAKER) (test 3.8 meq/L 3.5-5.1 code = 379) CHLORIDE (BEAKER) (test 111 meq/L 98-107 code = 382) CO2 (BEAKER) (test code = 21 meq/L 22-29 355) BLOOD UREA NITROGEN 19 mg/dL 7-21 (BEAKER) (test code = 354) CREATININE (BEAKER) (test 1.12 mg/dL 0.57-1.25 code = 358) GLUCOSE RANDOM (BEAKER) 96 mg/dL 70-105 (test code = 652) CALCIUM (BEAKER) (test 8.6 mg/dL 8.4-10.2 code = 697) EGFR (BEAKER) (test code 91 mL/min/1.73 sq m EST IMATED GFR IS NOT = 1092) ACCURATE CREA TININE CLEARANCE IN PRE DICTING GLOMERULAR FILTR ATION RATE. ESTIMATED GFR IS NOT APPLICABLE F OR DIALYSIS PATIENT S. CBC W/PLT COUNT & AUTO [id number] 00:35:00 Test Item Value Reference Range Comments WHITE BLOOD CELL COUNT 4.4 K/ L 3.5-10.5 (BEAKER) (test code = 775) RED BLOOD CELL COUNT (BEAKER) 4.54 M/ L 4.63-6.08 (test code = 761) HEMOGLOBIN (BEAKER) (test code 14.2 GM/DL 13.7-17.5 = 410) HEMATOCRIT (BEAKER) (test code 41.1 % 40.1-51.0 = 411) MEAN CORPUSCULAR VOLUME 90.5 fL 79.0-92.2 (BEAKER) (test code = 753) MEAN CORPUSCULAR HEMOGLOBIN 31.3 pg 25.7-32.2 (BEAKER) (test code = 751) MEAN CORPUSCULAR HEMOGLOBIN 34.5 GM/DL 32.3-36.5 CONC (BEAKER) (test code = 752) RED CELL DISTRIBUTION WIDTH 14.3 % 11.6-14.4 (BEAKER) (test code = 412) PLATELET COUNT (BEAKER) (test 409 K/CU MM 150-450 code = 756) MEAN PLATELET VOLUME (BEAKER) fL 9.4-12.4 Un able to report due to (test code = 754) abnormal Plate let population distr ibution. NUCLEATED RED BLOOD CELLS 8 /100 WBC 0-0 (BEAKER) (test code = 413) NEUTROPHILS RELATIVE PERCENT 51 % (BEAKER) (test code = 429) LYMPHOCYTES RELATIVE PERCENT 44 % (BEAKER) (test code = 430) MONOCYTES RELATIVE PERCENT 3 % (BEAKER) (test code = 431) EOSINOPHILS RELATIVE PERCENT 1 % (BEAKER) (test code = 432) BASOPHILS RELATIVE PERCENT 1 % (BEAKER) (test code = 437) NEUTROPHILS ABSOLUTE COUNT 2.22 K/ L 1.78-5.38 (BEAKER) (test code = 670) LYMPHOCYTES ABSOLUTE COUNT 1.92 K/ L 1.32-3.57 (BEAKER) (test code = 414) MONOCYTES ABSOLUTE COUNT 0.14 K/ L 0.30-0.82 (BEAKER) (test code = 415) EOSINOPHILS ABSOLUTE COUNT 0.06 K/ L 0.04-0.54 (BEAKER) (test code = 416) BASOPHILS ABSOLUTE COUNT 0.03 K/ L 0.01-0.08 (BEAKER) (test code = 417) IMMATURE GRANULOCYTES-RELATIVE 0 % 0-1 PERCENT (BEAKER) (test code = 2801)
[2020-02-14 08:54] LABS: Absolute Lymphocytes (CBC) 2.1 K/uL (0.7-4.9); Basophils % 0.9 % (0-1.3); Hematocrit 40.2 % (39.6-49.0); Lymphocytes % 33.8 % (15.3-44.8); MPV 8.9 fL (7.6-11.3); RBC Red Blood Cell Count 4.23 M/uL (4.33-5.43)
[2020-02-14 08:55] LABS: Protime INR 0.94
[2020-02-14 09:10] LABS: ALT/SGPT 17 U/L (12-78); AST/SGOT 13 U/L (15-37); Albumin 3.4 g/dL (3.4-5.0); Alkaline Phosphatase 57 U/L (45-117); BUN Blood Urea Nitrogen 17 mg/dL (7-18); Bicarbonate 25 mmol/L (21-32); Bilirubin Direct 0.1 mg/dL (0-0.2); Bilirubin Total 0.3 mg/dL (0.2-1.0); Glucose Level 99 mg/dL (74-106); Magnesium 1.9 mg/dL (1.8-2.4); NT PRO-BNP 494 pg/mL (<125); Protein, Total 6.7 g/dL (6.4-8.2); Sodium Level 142 mmol/L (136-145); Troponin (Emerg Dept Use Only) 0.04 ng/mL (0.0-0.045)
--- NOTE | 2020-02-14 09:23 | RAD REPORT ---
EXAM DESCRIPTION: RAD - Chest Single View - 02/14/2020 8:58 am CLINICAL HISTORY: CHEST PAIN COMPARISON: AP chest April 2018 TECHNIQUE: AP portable chest image was obtained 02/14/2020 8:58 am . FINDINGS: Lungs are clear. Cardiomegaly is present similar or slightly worse than the 2018 study. Va sculature is not outside of normal range. Significant failure or volume overload are not evident. No measurable pleural effusion and no pneumothorax. No acute bony abnormality seen. No acute aortic find ings suspected. IMPRESSION: Cardiomegaly, similar or slightly worse than 2018 imaging. No focal infiltrates seen and no significant failure or volume overload identifiable.
--- NOTE | 2020-02-14 09:56 | ER ---
Nurse's Notes [facility] Name: Michele Lomas Age: 34 yrs Sex: Male : 1985 Arrival Date: 02/14/2020 Time: 07:59 Bed 19 Private MD: Diagnosis: Chest pain, unspecified Presentation: 02/13 08:01 Chief complaint: EMS states: Constant left sided chest pain, radiates to the back, jl7 described as pressure, with shortness of breath. Denies fever, cough, nausea. Coronavirus screen: Proceed with normal triage. Patient denies a cough. Patient reports shortness of breath or difficulty breathing. Patient denies measured and/or subjective temperature greater than 100.4F prior to today's visit. Patient denies travel on a cruise ship or to a country the [facility] currently lists as an affected area. Patient denies contact with known and/or suspected case of COVID-19. Ebola Screen: No symptoms or risks identified at this time. Initial Sepsis Screen: Does the patient meet any 2 criteria? No. Patient's initial sepsis screen is negative. Does the patient have a suspected source of infection? No. Patient's initial sepsis screen is negative. Risk Assessment: Do you want to hurt yourself or someone else? Patient reports no desire to harm self or others. Onset of symptoms was February 14, 2020 at 06:00. Care prior to arrival: Medication(s) given: ASA, 81 mg, x 4. 08:01 Method Of Arrival: EMS: [facility] jl7 08:01 Acuity: PASTORA 3 jl7 Triage Assessment: 08:08 General: Appears in no apparent distress. uncomfortable, Behavior is calm, cooperative, jl7 appropriate for age. Pain: Complains of pain in anterior aspect of left upper chest Pain radiates to thoracic area Pain currently is 8.5 out of 10 on a pain scale. Quality of pain is described as pressure, sharp, Pain began 2 hours ago. Is. Neuro: Level of Consciousness is awake, alert, obeys commands, Oriented to person, place, time, situation. Cardiovascular: Patient's skin is warm and dry. Respiratory: Reports shortness of breath Airway is patent Respiratory effort is even, unlabored, Respiratory pattern is regular, symmetrical. Derm: Skin is pink, warm \T\ dry. Historical: - Allergies: 08:08 Banana; jl7 - Home Meds: 08:08 amlodipine 10 mg tab 1 tab once daily [Active]; Hydrochlorothiazide Oral [Active]; jl7 Lisinopril Oral [Active]; - PMHx: 08:08 Back pain; Enlarged Heart; Hypertension; TIA; jl7 08:12 Prolonged QT; jl7 - Immunization history:: Adult Immunizations unknown. - Social history:: Smoking status: Patient reports the use of cigarette tobacco products, smokes one-half pack cigarettes per day. Screenin:30 Abuse screen: Denies threats or abuse. Denies injuries from another. Nutritional jl7 screening: No deficits noted. Tuberculosis screening: No symptoms or risk factors identified. Fall Risk IV access (20 points). Total Asencio Fall Scale indicates No Risk (0-24 pts). Assessment: 08:00 General: See triage assessment. [facility] 09:00 Reassessment: Patient appears in no apparent distress at this time. No changes from [facility] previously documented assessment. Patient and/or family updated on plan of care and expected duration. Pain level reassessed. Patient is alert, oriented x 3, equal unlabored respirations, skin warm/dry/pink. 09:45 Reassessment: Pt reports pain is unchanged, ERP notified, see [facility] for orders. [facility] 10:20 Reassessment: Pt reports decreased pain, rated 5/10. [facility] 12:02 Reassessment: Pt states that pain in going back up at this time and asked for something ah for pain. Notified Stephanie PANTS CLOSER. Order received to repeat Fentanyl order. Meds administered. Pt talking on the phone at this time. Awaiting room assignment at this time. 13:16 Reassessment: Hospitalists in to see Pt at this time. 13:45 Reassessment: Pt in bed eating. Pain is decreased at this time. No distress noted. 14:20 Reassessment: Attempted to call report to 2nd floor. Vital Signs: 08:01 BP 147 / 97; Pulse 66; Resp 17; Pulse Ox 97% ; Weight 97.52 kg; Height 5 ft. 11 in. jl7 (180.34 cm); Pain 8/10; 08:30 BP 144 / 104; Pulse 55; Resp 22 S; Pulse Ox 100% on R/A; 7 08:35 Temp 98.2(TE); jl7 09:00 BP 132 / 103; Pulse 52; Resp 18; Pulse Ox 100% ; Pain 8/10; jl7 09:30 BP 148 / 107; Pulse 52; Resp 16; Pulse Ox 100% ; jl7 09:35 Pulse 44; jl7 09:38 BP 150 / 106 LA; Pulse 48; Resp 21; Pulse Ox 100% ; jl7 09:40 BP 150 / 112 RA; Pulse 44; Resp 18; Pulse Ox 100% ; jl7 10:20 Pain 5/10; jl7 10:30 BP 150 / 102; Pulse 46; Resp 16 S; Pulse Ox 100% on R/A; Pain 5/10; jl7 11:00 BP 160 / 113; Pulse 48; Resp 16; Pulse Ox 100% ; jl7 11:48 BP 144 / 93; Pulse 49; Resp 16; Pulse Ox 100% on R/A; dh3 12:04 BP 154 / 121; Pulse 55; Resp 17; Pulse Ox 100% ; ah 13:16 BP 146 / 94; Pulse 55; Resp 19; Pulse Ox 100% ; ah 14:17 BP 136 / 84; Pulse 52; Resp 23; Temp 98.7; Pulse Ox 100% ; ah 08:01 Body Mass Index 29.99 (97.52 kg, 180.34 cm) jl7 ED Course: 07:59 Patient arrived in ED. mr 08:00 Patient maintains SpO2 saturation greater than 95% on room air. jl7 08:01 Brittany Stoner, SABINE is Primary Nurse. jl7 08:03 [facility] snw 08:03 Ruben Styles MD is Attending Physician. snw 08:05 Triage completed. jl7 08:08 Arm band placed on right wrist. jl7 08:30 Initial lab(s) drawn, by ia, sent to lab. Inserted saline lock: 20 gauge in right jl7 antecubital area, using aseptic technique. Blood collected. 08:45 Patient has correct armband on for positive identification. color television console monitor on. Pulse mh5 ox on. NIBP on. 08:53 X-ray completed. Portable x-ray completed in exam room. Patient tolerated procedure mh1 well. 08:58 XRAY Chest (1 view) In Process Unspecified. EDMS 09:56 Patrick Pearson MD is Hospitalizing Provider. snw 11:17 Hospitalizing Provider role handed off by Patrick Pearson MD snw 11:17 Eron Ladd is Hospitalizing Provider. snw 13:15 Consulted physician to see patient. 15:00 No provider procedures requiring assistance completed. Patient admitted, IV remains in ah place. Administered Medications: 09:57 Drug: fentaNYL (PF) 25 mcg Route: IVP; Site: right antecubital; jl7 10:20 Follow up: Pain 5/10 Adult; Response: No adverse reaction; Pain is decreased jl 12:02 Drug: fentaNYL (PF) 25 mcg Route: IVP; Site: right antecubital; 15:45 Follow up: Response: No adverse reaction; Pain is decreased; RASS: Alert and Calm (0) Outcome: 09:56 Decision to Hospitalize by Provider. snw 15:00 Admitted to Tele accompanied by tech, via wheelchair, room 206, with chart, Report called to SABINE Trinidad 15:00 Condition: stable 15:00 Instructed on the need for admit, Demonstrated understanding of 15:16 Patient left the ED. vc Signatures: Dispatcher [employer] EDMS Stephanie Rivas, LEADITE MAN-C LEADITE MAN-Csnw Gabbi aHnShirley mh1 Fernanda Latif 5 Brittany Stoner, RN RN 7 Mervat Medina 3 Lilibeth Stanford RN RN vc Stefanie Horta, SABINE RN Corrections: (The following items were deleted from the chart) 12:06 12:02 Reassessment: Pt states that pain in going back up at this time and asked for something for pain. Notified Stephanie GRIMM. Order received to repeat Fentanyl order. Meds administered. Pt talking on the phone at this time.
--- NOTE | 2020-02-14 09:57 | EDPHYS ---
Physician Documentation [facility] Name: Michele Lomas Age: 34 yrs Sex: Male : 1985 Arrival Date: 02/14/2020 Time: 07:59 Bed 19 Private MD: ED Physician Ruben Styles HPI: 02/13 08:13 This 34 yrs old Black Male presents to ER via EMS with complaints of Chest Pain. snw 08:13 Onset: The symptoms/episode began/occurred acutely, at 05:00. Associated signs and snw symptoms: Pertinent positives: chest pain, shortness of breath. Modifying factors: The patient symptoms are alleviated by nothing. The patient has experienced similar episodes in the past. It is unknown whether or not the patient has recently seen a physician. ASA 324mg po given per EMS in route to ED. Historical: - Allergies: 08:08 Banana; jl7 - Home Meds: 08:08 amlodipine 10 mg tab 1 tab once daily [Active]; Hydrochlorothiazide Oral [Active]; jl7 Lisinopril Oral [Active]; - PMHx: 08:08 Back pain; Enlarged Heart; Hypertension; TIA; jl7 08:12 Prolonged QT; jl7 - Immunization history:: Adult Immunizations unknown. - Social history:: Smoking status: Patient reports the use of cigarette tobacco products, smokes one-half pack cigarettes per day. ROS: 08:12 Constitutional: Negative for fever, chills, and weight loss, Eyes: Negative for injury, snw pain, redness, and discharge, ENT: Negative for injury, pain, and discharge, Neck: Negative for injury, pain, and swelling, Abdomen/GI: Negative for abdominal pain, nausea, vomiting, diarrhea, and constipation, Back: Negative for injury and pain, : Negative for injury, bleeding, discharge, and swelling, MS/Extremity: Negative for injury and deformity, Skin: Negative for injury, rash, and discoloration, Neuro: Negative for headache, weakness, numbness, tingling, and seizure, Psych: Negative for depression, anxiety, suicide ideation, homicidal ideation, and hallucinations. 08:12 Cardiovascular: Positive for chest pain, of the left clavicle and anterior aspect of left upper chest. 08:12 Respiratory: Positive for shortness of breath, at rest. Exam: 08:12 Constitutional: This is a well developed, well nourished patient who is awake, alert, snw and in no acute distress. Head/Face: Normocephalic, atraumatic. Eyes: Pupils equal round and reactive to light, extra-ocular motions intact. Lids and lashes normal. Conjunctiva and sclera are non-icteric and not injected. Cornea within normal limits. Periorbital areas with no swelling, redness, or edema. ENT: Nares patent. No nasal discharge, no septal abnormalities noted. Tympanic membranes are normal and external auditory canals are clear. Oropharynx with no redness, swelling, or masses, exudates, or evidence of obstruction, uvula midline. Mucous membranes moist. Neck: Trachea midline, no thyromegaly or masses palpated, and no cervical lymphadenopathy. Supple, full range of motion without nuchal rigidity, or vertebral point tenderness. No Meningismus. Chest/axilla: Normal chest wall appearance and motion. Nontender with no deformity. No lesions are appreciated. 08:12 Respiratory: Lungs have equal breath sounds bilaterally, clear to auscultation and percussion. No rales, rhonchi or wheezes noted. No increased work of breathing, no retractions or nasal flaring. Abdomen/GI: Soft, non-tender, with normal bowel sounds. No distension or tympany. No guarding or rebound. No evidence of tenderness throughout. Back: No spinal tenderness. No costovertebral tenderness. Full range of motion. Skin: Warm, dry with normal turgor. Normal color with no rashes, no lesions, and no evidence of cellulitis. MS/ Extremity: Pulses equal, no cyanosis. Neurovascular intact. Full, normal range of motion. Neuro: Awake and alert, GCS 15, oriented to person, place, time, and situation. Cranial nerves II-XII grossly intact. Motor strength 5/5 in all extremities. Sensory grossly intact. Cerebellar exam normal. Normal gait. Psych: Awake, alert, with orientation to person, place and time. Behavior, mood, and affect are within normal limits. 08:12 Cardiovascular: Rate: bradycardic, Rhythm: regular, Pulses: no pulse deficits are appreciated, Heart sounds: murmur, systolic, grade 2 over 6, Edema: is not appreciated, JVD: is not appreciated. Vital Signs: 08:01 BP 147 / 97; Pulse 66; Resp 17; Pulse Ox 97% ; Weight 97.52 kg; Height 5 ft. 11 in. jl7 (180.34 cm); Pain 8/10; 08:30 BP 144 / 104; Pulse 55; Resp 22 S; Pulse Ox 100% on R/A; jl7 08:35 Temp 98.2(TE); jl7 09:00 BP 132 / 103; Pulse 52; Resp 18; Pulse Ox 100% ; Pain 8/10; jl7 09:30 BP 148 / 107; Pulse 52; Resp 16; Pulse Ox 100% ; jl7 09:35 Pulse 44; jl7 09:38 BP 150 / 106 LA; Pulse 48; Resp 21; Pulse Ox 100% ; jl7 09:40 BP 150 / 112 RA; Pulse 44; Resp 18; Pulse Ox 100% ; jl7 10:20 Pain 5/10; jl7 10:30 BP 150 / 102; Pulse 46; Resp 16 S; Pulse Ox 100% on R/A; Pain 5/10; jl7 11:00 BP 160 / 113; Pulse 48; Resp 16; Pulse Ox 100% ; jl7 11:48 BP 144 / 93; Pulse 49; Resp 16; Pulse Ox 100% on R/A; dh3 12:04 BP 154 / 121; Pulse 55; Resp 17; Pulse Ox 100% ; ah 13:16 BP 146 / 94; Pulse 55; Resp 19; Pulse Ox 100% ; ah 14:17 BP 136 / 84; Pulse 52; Resp 23; Temp 98.7; Pulse Ox 100% ; ah 08:01 Body Mass Index 29.99 (97.52 kg, 180.34 cm) [facility] MDM: 08:03 Patient medically screened. snw 09:53 Data reviewed: vital signs, nurses notes. Data interpreted: Pulse oximetry: on room air snw is 100 %. Interpretation: normal. Counseling: I had a detailed discussion with the patient and/or guardian regarding: the historical points, exam findings, and any diagnostic results supporting the discharge/admit diagnosis, the presence of at least one elevated blood pressure reading (>120/80) during this emergency department visit, lab results, radiology results, the need for further work-up and treatment in the hospital. Physician consultation: Patrick Pearson MD was called at 09:54, regarding admission. 04/10 08:41 Order name: Basic Metabolic Panel; Complete Time: 09:14 EDMS 02/13 08:41 Order name: Liver (Hepatic) Function; Complete Time: 09:14 EDMS 02/13 08:41 Order name: Troponin (Emerg Dept Use Only); Complete Time: 09:14 EDMS 02/13 08:41 Order name: NT PRO-BNP; Complete Time: 09:14 EDMS 02/13 08:41 Order name: Magnesium; Complete Time: 09:14 EDMS 02/13 08:41 Order name: CBC with Automated Diff; Complete Time: 08:59 EDMS 02/13 08:41 Order name: Protime (+INR); Complete Time: 08:59 EDMS 02/13 08:12 Order name: XRAY Chest (1 view); Complete Time: 09:25 snw 02/13 08:12 Order name: Cardiac monitoring; Complete Time: 08:37 snw 02/13 08:12 Order name: EKG - Nurse/Tech; Complete Time: 08:36 snw 02/13 08:12 Order name: IV Saline Lock; Complete Time: 08:36 snw 02/13 08:12 Order name: Labs collected and sent; Complete Time: 08:36 snw 02/13 08:12 Order name: O2 Per Protocol; Complete Time: 08:36 snw 02/13 08:12 Order name: O2 Sat Monitoring; Complete Time: 08:36 snw 02/13 08:39 Order name: EKG Electrocardiogram EDMS 02/13 10:58 Order name: Diet Heart Healthy; Complete Time: 11:00 jl7 EC:14 Rhythm is regular. T waves are Inverted. Clinical impression: Abnormal EKG without snw significant change. Administered Medications: 09:57 Drug: fentaNYL (PF) 25 mcg Route: IVP; Site: right antecubital; jl7 10:20 Follow up: Pain 5/10 Adult; Response: No adverse reaction; Pain is decreased jl7 12:02 Drug: fentaNYL (PF) 25 mcg Route: IVP; Site: right antecubital; 15:45 Follow up: Response: No adverse reaction; Pain is decreased; RASS: Alert and Calm (0) ah Disposition: 16:53 Co-signature as Attending Physician, Ruben Styles MD I agree with the assessment and kdr plan of care. Disposition: 02/14/20 09:56 Hospitalization ordered by Eron Ladd for Observation. Preliminary diagnosis is Chest pain, unspecified. - Bed requested for Telemetry/MedSurg (observation). - Status is Observation. vc - Condition is Stable. - Problem is an acute exacerbation. - Symptoms are unchanged. Signatures: Dispatcher [employer] EDMS Ruben Styles MD MD [facility] Stephanie Rivas, SIGN DESIGNER-C SIGN DESIGNER-Csnw Brittany Stoner RN RN jl7 Mahogany Farfan Vanessa, RN RN Stefanie Lin RN RN Corrections: (The following items were deleted from the chart) 11:17 09:56 Hospitalization Ordered by Patrick Pearson MD for Observation. Preliminary snw diagnosis is Chest pain, unspecified. Bed requested for Telemetry/MedSurg (observation). Status is Observation. Condition is Stable. Problem is an acute exacerbation. Symptoms are unchanged. snw 11:30 08:46 PROTIME (+INR)+COAG.LAB.BRZ ordered. EDMS EDMS 11:32 08:46 BASIC METABOLIC PANEL+C.LAB.BRZ ordered. EDMS EDMS 11:32 08:46 CBC+H.LAB.BRZ ordered. EDMS EDMS 11:32 08:46 HEPATIC FUNCTION+C.LAB.BRZ ordered. EDMS EDMS 11:32 08:46 MAGNESIUM+C.LAB.BRZ ordered. EDMS EDMS 11:32 08:46 PROBNP+C.LAB.BRZ ordered. EDAR EDMS 11:32 08:47 TROPONIN (EMERG DEPT USE ONLY)+C.LAB.BRZ ordered. EDAR EDMS 14:11 11:17 02/14/2020 09:56 Hospitalization Ordered by Eron Ladd for Observation. eb Preliminary diagnosis is Chest pain, unspecified. Bed requested for Telemetry/MedSurg (observation). Status is Observation. Condition is Stable. Problem is an acute exacerbation. Symptoms are unchanged. snw 15:16 14:11 02/14/2020 09:56 Hospitalization Ordered by Eron Ladd for Observation. vc Preliminary diagnosis is Chest pain, unspecified. Bed requested for Telemetry/MedSurg (observation). Status is Observation. Condition is Stable. Problem is an acute exacerbation. Symptoms are unchanged. eb
[2020-02-14] MEDS ORDERED: FENTANYL CITR 100 MCG/2 ML ONE ×2 (09:58→12:03)
--- NOTE | 2020-02-14 13:41 | P.HP ---
Certification for Inpatient Patient admitted to: Observation With expected LOS: <2 Midnights Practitioner: I am a practitioner with admitting privileges, knowledge of patient current condition, hospital course, and medical plan of care. Services: Services provided to patient in accordance with Admission requirements found in Title 42 Section 412.3 of the Code of Federal Regulations Patient History Date of Service: 02/14/20 Reason for admission: Chest pain History of Present Illness: 34-year-old gentleman with a history of cardiomyopathy presented to the emergency department with a complaint of chest pain of onset this morning. Patient rated chest pain intensity at 8/10. He also reports pain in the neck area which he attributed to previous cricoid fracture. Patient denied any shortness of breath or palpitation or sweating or nausea. Chest pain nonradiating, no relieving or aggravating factors. Noted patient use cocaine about 3 days ago. His chest x-ray in the ED shows no acute disease. EKG demonstrated sinus bradycardia, abnormal ST-T changes which appears to be J- point elevations with deep inverted symmetrical T-waves. Initial troponin is negative. Patient is placed under observation for ACS rule out. Allergies banana Allergy (Verified 04/13/15 14:43) Unknown No Known Drug Allergies Allergy (Verified 04/13/15 14:43) Unknown Home Medications: Amlodipine [Norvasc*] 10 mg PO DAILY #30 tab 04/14/18 Aspirin [Aspirin EC 81 MG] 81 mg PO DAILY #90 tablet. 04/14/18 Lovastatin 40 mg PO DAILY #30 tablet 04/14/18 Nitroglycerin [Nitrostat*] 0.4 mg SL UD PRN #30 tab 04/14/18 lisinopriL [Prinivil*] 10 mg PO DAILY #30 tab 04/14/18 - Past Medical/Surgical History Diabetic: No -: Hypertension -: Cardiomyopathy -: Tobacco abuse -: Alcohol use -: CAD -: Heart Cath Psychosocial/ Personal History: The patient is single. He has 2 children. He works as a cook. - Family History Father -: Heart disease, Hypertension, Diabetes, Other (see notes) (QT disease) Mother -: Hypertension, Diabetes Notes: gout Sister -: Heart disease - Social History Smoking Status: Current every day smoker Alcohol use: Yes CD- Drugs: Yes Caffeine use: No Review of Systems Other: Except as documented, all other systems reviewed and negative. Physical Examination - Physical Exam General: Alert, In no apparent distress, Oriented x3 HEENT: PERRLA, Mucous membr. moist/pink, EOMI, Sclerae nonicteric Neck: Supple, JVD not distended, No Thyromegaly Respiratory: Clear to auscultation bilaterally, Normal air movement Cardiovascular: No edema, Normal S1 S2, Other (Bradycardia, regular rhythm.) Gastrointestinal: Normal bowel sounds, Soft and benign, Non-distended, No tenderness Musculoskeletal: No swelling, No erythema Integumentary: No rashes Neurological: Normal strength at 5/5 x4 extr, Cranial nerves 3-12 intact - Studies Laboratory Data (last 24 hrs) 02/14/20 08:30: PT 11.1, INR 0.94 02/14/20 08:30: WBC 6.1, Hgb 13.4 L, Hct 40.2, Plt Count 235 02/14/20 08:30: Sodium 142, Potassium 4.0, BUN 17, Creatinine 1.04, Glucose 99, Magnesium 1.9, Total Bilirubin 0.3, AST 13 L, ALT 17, Alkaline Phosphatase 57 02/14/20 08:12: PT Cancelled, INR Cancelled 02/14/20 08:12: WBC Cancelled, Hgb Cancelled, Hct Cancelled, Plt Count Cancelled 02/14/20 08:12: Sodium Cancelled, Potassium Cancelled, BUN Cancelled, Creatinine Cancelled, Glucose Cancelled, Magnesium Cancelled, Total Bilirubin Cancelled, AST Cancelled, ALT Cancelled, Alkaline Phosphatase Cancelled Assessment and Plan - Problems (Diagnosis) (1) Chest pain Onset Date: 04/14/15 Current Visit: No Status: Acute Qualifiers: Chest pain type: unspecified (2) Cocaine abuse Current Visit: Yes Status: Acute (3) LVH (left ventricular hypertrophy) due to hypertensive disease Current Visit: No Status: Chronic Qualifiers: Heart failure presence: without heart failure Qualified Code(s): I11.9 - Hypertensive heart disease without heart failure (4) Essential hypertension Current Visit: Yes Status: Acute (5) Cardiomegaly Onset Date: 08/22/17 Current Visit: No Status: Chronic (6) Tobacco abuse Onset Date: 08/22/17 Current Visit: No Status: Chronic - Plan Place patient under observation. Trend troponin Serial EKG Aggressive blood pressure control. Continue home dose amlodipine and lisinopril. Patient reports of uncontrolled blood pressure at home. Recommend to increase hydrochlorothiazide to 25 mg daily. Patient has been advised to stop abusing cocaine, tobacco and alcohol given his risk factors. NTG p.r.n. Obtain echocardiogram Cardiology consult. - Advance Directives Does patient have a Living Will: No Does patient have a Durable POA for Healthcare: No
--- NOTE | 2020-02-14 14:33 | EKG ---
Test Date: 2020-02-14 Test Time: 08:06:24 Physics Teacher: JEFFREY MEASUREMENT RESULTS: Intervals: Rate: 60 AZ: 150 QRSD: 104 QT: 450 QTc: 450 Manning: P: 28 AZ: 150 QRS: 34 T: 215 INTERPRETIVE STATEMENTS: Normal sinus rhythm Left ventricular hypertrophy with repolarization abnormality Abnormal ECG Compared to ECG 04/13/2018 14:49:00 Sinus bradycardia no longer present Electronically Signed On 02-14-20 14:32:52 CDT by Tremayne Meyers
[2020-02-14] MEDS ORDERED: NITROGLYCERIN 0.4 MG/TAB SL PRN (15:36)
[2020-02-14] MEDS: MORPHINE 2 MG/ML SYR IV PRN ×2 (16:16→20:09)
[2020-02-14] MEDS: ENOXAPARIN 40 MG/0.4 ML SQ SCH (16:17)
[2020-02-14 17:56] VITALS: BMI 29.9
[2020-02-15] MEDS: MORPHINE 2 MG/ML SYR IV PRN ×3 (00:30→13:10)
[2020-02-15 08:16] LABS: T3 Free 2.92 pg/mL (2.18-3.98); Thyroid Stimulating Hormone 1.74 uIU/mL (0.360-3.740)
[2020-02-15] MEDS: ENOXAPARIN 40 MG/0.4 ML SQ SCH (08:49)
[2020-02-15] MEDS ORDERED: METOPROLOL TAR 50 MG TAB PO SCH (09:00)
[2020-02-15] MEDS ORDERED: AMLODIPINE 10 MG TAB PO SCH (09:00)
[2020-02-15] MEDS ORDERED: lisinopriL 20 MG TAB PO SCH (09:00)
[2020-02-15] MEDS ORDERED: lisinopriL 10 MG TAB PO SCH (09:00)
[2020-02-15] MEDS ORDERED: ASPIRIN EC 81 MG TAB PO SCH (09:00)
[2020-02-15] MEDS ORDERED: hydroCHLOROthiazide 25 MG TAB PO SCH (09:00)
[2020-02-15 09:10] VITALS: TEMP 97.4
[2020-02-15 12:29] VITALS: BP 150/95
--- NOTE | 2020-02-15 14:28 | P.DS ---
Admission Date: 02/15/20 Discharge Date: 02/15/20 Disposition: ROUTINE DISCHARGE Discharge Condition: GOOD Reason for Admission: Chest pain Consultations: Cardiology-Dr. Meyers Procedures: None - Problems (1) Chest pain Onset Date: 04/14/15 Current Visit: No Status: Acute Qualifiers: Chest pain type: unspecified (2) Cocaine abuse Current Visit: Yes Status: Acute (3) LVH (left ventricular hypertrophy) due to hypertensive disease Current Visit: No Status: Chronic Qualifiers: Heart failure presence: without heart failure Qualified Code(s): I11.9 - Hypertensive heart disease without heart failure (4) Essential hypertension Current Visit: Yes Status: Acute (5) Cardiomegaly Onset Date: 08/22/17 Current Visit: No Status: Chronic (6) Tobacco abuse Onset Date: 08/22/17 Current Visit: No Status: Chronic Brief History of Present Illness: 34-year-old gentleman with a history of cardiomyopathy presented to the emergency department with a complaint of chest pain of onset this morning. Patient rated chest pain intensity at 8/10. He also reports pain in the neck area which he attributed to previous cricoid fracture. Patient denied any shortness of breath or palpitation or sweating or nausea. Chest pain nonradiating, no relieving or aggravating factors. Noted patient stated he used cocaine about 3 days prior to onset of his chest pain. His chest x-ray in the ED shows no acute disease. EKG demonstrated sinus bradycardia, abnormal ST-T changes which appears to be J-point elevations with deep inverted symmetrical T- waves. Initial troponin is negative. Patient is placed under observation for ACS rule out. Hospital Course: Patient placed under observation. Troponin trended negative. Repeat EKG was unchanged from previous ones. Patient was asymptomatic during the hospital stay. He was seen and evaluated by Dr. Meyers-Cardiology. Patient noted to have had normal coronary arteries per his previous cardiac catheterization. Patient is deemed clinically stable for discharge. Lisinopril changed to metoprolol per cardiology recommendation. Patient strongly advised to quit abusing cocaine. He will follow with Dr. Meyers next week for an outpatient echocardiogram. He will continue to take his aspirin. Hydrochlorothiazide has been increased to 25 mg daily. Vital Signs/Physical Exam: Temp Pulse Resp BP Pulse Ox 97.4 F 47 L 16 150/95 H 100 02/15/20 12:00 02/15/20 12:00 02/15/20 12:00 02/15/20 12:00 02/15/20 12:00 General: Alert, In no apparent distress, Oriented x3 HEENT: Mucous membr. moist/pink Neck: Supple Respiratory: Clear to auscultation bilaterally, Normal air movement Cardiovascular: No edema, Regular rate/rhythm, Normal S1 S2 Gastrointestinal: Normal bowel sounds, Soft and benign, No tenderness Musculoskeletal: No swelling, No erythema Integumentary: No rashes Neurological: Normal speech, Normal strength at 5/5 x4 extr Laboratory Data at Discharge: WBC 6.1 K/uL (4.3-10.9) 02/14/20 08:30 Hgb 13.4 g/dL (13.6-17.9) L 02/14/20 08:30 Hct 40.2 % (39.6-49.0) 02/14/20 08:30 Plt Count 235 K/uL (152-406) 02/14/20 08:30 PT 11.1 SECONDS (9.5-12.5) 02/14/20 08:30 INR 0.94 02/14/20 08:30 Sodium 142 mmol/L (136-145) 02/14/20 08:30 Potassium 4.0 mmol/L (3.5-5.1) 02/14/20 08:30 BUN 17 mg/dL (7-18) 02/14/20 08:30 Creatinine 1.04 mg/dL (0.55-1.3) 02/14/20 08:30 Glucose 99 mg/dL (74-106) 02/14/20 08:30 Magnesium 1.9 mg/dL (1.8-2.4) 02/14/20 08:30 Total Bilirubin 0.3 mg/dL (0.2-1.0) 02/14/20 08:30 AST 13 U/L (15-37) L 02/14/20 08:30 ALT 17 U/L (12-78) 02/14/20 08:30 Alkaline Phosphatase 57 U/L (45-117) 02/14/20 08:30 Troponin I 0.06 ng/mL (0.0-0.045) H 02/15/20 00:03 Home Medications: Amlodipine [Norvasc*] 10 mg PO DAILY #30 tab 04/14/18 Aspirin [Aspirin EC 81 MG] 81 mg PO DAILY #90 tablet. 04/14/18 Lovastatin 40 mg PO DAILY #30 tablet 04/14/18 Metoprolol Tartrate [Lopressor*] 50 mg PO BID #60 tab 02/15/20 Nitroglycerin [Nitrostat*] 0.4 mg SL UD PRN #25 tab 02/15/20 hydroCHLOROthiazide [Hydrodiuril*] 25 mg PO DAILY #30 tab 02/15/20 New Medications: hydroCHLOROthiazide [Hydrodiuril*] 25 mg PO DAILY #30 tab Metoprolol Tartrate [Lopressor*] 50 mg PO BID #60 tab Nitroglycerin [Nitrostat*] 0.4 mg SL UD PRN #25 tab PRN Reason: Pain Scale 2-4 (Mild) Diet: AHA Activity: Ad artemio Followup: Tremayne Meyers MD [ACTIVE - CAN ADMIT] - 1 Week Time spent managing pt's care (in minutes): 40
[2020-02-15 14:43] VITALS: O2SAT 99
--- NOTE | 2020-02-16 12:25 | CON ---
Date of Consultation: 02/15/2020 Reason For Consultation: Chest pain. History Of Present Illness: Mr. Lomas is a 34-year-old black male, who has a history of hypertr ophic cardiomyopathy, hypertension, dyslipidemia, history of TIA in the past, strong family history f or heart disease, prolonged QT syndrome. Came into the emergency room with severe hypertension, ches t pain, that is midepigastric radiating to the left lateral chest wall and back. No nausea, vomiting , diaphoresis, PND, orthopnea, pedal edema, palpitations, or syncope. Mr. Lomas is known to use cocaine. Allergies: NONE. Review of Systems: Negative. Social History: Positive for drug use. Medications: At home include lisinopril, hydrochlorothiazide, Norvasc, aspirin, and . Physical Examination: General: When I saw him, he was pain free. Vital Signs: Stable. He was afebrile. He was in a sinus rhythm. HEENT: Negative. Neck: Supple with no bruit. Chest: Clear. Cardiac: Revealed a regular rhythm and rate with an S4 gallop. Abdomen: Benign. Extremities: Revealed no clubbing, cyanosis, or edema. Diagnostic Data: Chest x-ray showed cardiomegaly. EKG showed LVH. Last echocardiogram in August 07 showed LVH with an ejection fraction of 36% with troponins 0.04 and 0.06. Catheterization that w as done recently was negative. Impression And Plan: Chest pain possibly secondary to drug use or gastroesophageal issue. I doubt t hat this is related to his cardiomyopathy, but it can be. He is asymptomatic now and I am comfortabl e with him going home and I will see him in the office in the near future and I will make arrangement for another echocardiogram. Regarding his blood pressure, I suggest that we take him off lisinopril and put him on a beta alice because of his bradycardia. I think beta alice rather th an a calcium alice is much better for his cardiomyopathy. I would continue the diuretic for now. He was against drug use. Cholesterol is well controlled. His QT is not prolonged now. Agueda morfin has had a history of TIA and a family history of heart disease, but had a normal heart catheterizat ion. His elevated troponin is consistent with his cardiomyopathy and this is not an acute coronary s yndrome. He can go home whenever it is okay with Dr. Ladd. REJI/ALLEGRA Voice ID: [id number] Report ID: [id number]
--- NOTE | 2020-02-17 16:19 | EKG ---
Test Date: 2020-02-14 Test Time: 19:16:29 Sheep Sorter: MEASUREMENT RESULTS: Intervals: Rate: 43 CA: 148 QRSD: 102 QT: 496 QTc: 419 [place]: P: 6 CA: 148 QRS: 46 T: 234 INTERPRETIVE STATEMENTS: Marked sinus bradycardia Left ventricular hypertrophy with repolarization abnormality Abnormal ECG Compared to ECG 02/14/2020 08:06:24 Sinus rhythm no longer present Electronically Signed On 02-17-20 16:16:29 CDT by Tremayne Meyers
== END 2020-02-15 14:46 | disposition home or self-care (01) | DRG 918 ==
LOC: ER 07:57 → ERHOLD 13:35 → 2ND 15:08 → OBSVTOIN 02-15 09:12
PROVIDERS: ADMIT Internal Medicine; ATTEND Internal Medicine
DX: T40.5X1A Poisoning by cocaine, accidental (unintentional), initial encounter (principal); I42.9 Cardiomyopathy, unspecified; E78.5 Hyperlipidemia, unspecified; Z79.899 Other long term (current) drug therapy; Z79.82 Long term (current) use of aspirin; F14.10 Cocaine abuse, uncomplicated; I11.9 Hypertensive heart disease without heart failure; Z86.73 Personal history of transient ischemic attack (TIA), and cerebral infarction without residual deficits; I25.10 Atherosclerotic heart disease of native coronary artery without angina pectoris; F17.210 Nicotine dependence, cigarettes, uncomplicated; Z91.018 Allergy to other foods
CPT/HCPCS: 36415; 71045; 80048; 80076; 83735; 83880; 84439; 84443; 84481; 84484; 85025; 85610; 93005; 93306; 94760; 96374; 99285; G0378; J1650; J2270; J3010

== ENCOUNTER 2020-03-27 03:23 | Observation (INO) | payer SELFPAY ==
--- OUTSIDE RECORDS SUMMARY | 2020-03-27 03:25 | XMS REPORT | Clinical Summary ---
:1985 Author Organization [facility] Address [address] [place] [address] Care Team Providers Name Role Phone Juan [...] User Tobacco Cessation: Ready to Quit: No; Co unseling Given: No Alcohol Use Drinks/Week oz/Week Comments Yes Sex Assigned at Date Recorded Not on file Job Start Date Occupation Industry Not on file Not on file Not on file Travel History Travel Start Travel End No recent travel history available. Last Filed Vital Signs Not on file Plan of Treatment Not on file Results Not on fileafter 03/27/2019 Advance Directives For more information, please contact:[address] [phone] Code Status Date Activated Date Inactivated Comments Full Code 08/28/2017 10:26 PM 08/29/2017 8:43 PM This code status was determined by: Patient
--- OUTSIDE RECORDS SUMMARY | 2020-03-27 03:26 | XMS REPORT ---
:[address] [facility] t Address [address] [place] [address] Care Team Providers Name Role Phone MASSUMI Attending Clinician Unavailable MASSUMI Admitting Clinician Unavailable Problems This patient has no known problems. Allergies, Adverse Reactions, Alerts This patient has no known allergies or adverse reactions. Medications This patient has no known medications. Procedures This patient has no known procedures. Encounters Start End Encounter Admission Attending Care Care Encounter Source Date/Time Date/Time Type Type Clinicians Facility Department ID 2019-11-13 2019-11-[address] [facility] MED [id number] [facility] 13:40:00 13:40:00 Results Test Description Test Time Test Comments Results Result Comments Source URINALYSIS W/ MICROSCOPIC 2017-08-29 08:03:00 Test Item Value Reference Range Interpretation Comme nts COLOR (BEAKER) (test code = 470) Yellow CLARITY (BEAKER) (test code = 469) Clear SPECIFIC GRAVITY UA (BEAKER) (test code = 468) 1.034 1.001-1 .035 PH UA (BEAKER) (test code = 467) [...] UA (BEAKER) (test code = 466) Negative Negat sheng UROBILINOGEN UA (BEAKER) (test code = 463) 0.2 mg/dL 0.2-1.0 RBC UA (BEAKER) (test code = 519) 1 /HPF WBC UA (BEAKER) (test code = 520) 2 /HPF MUCUS (BEAKER) (test code = 1574) Rare SOURCE(BEAKER) (test code = 2795) RAPID DRUG SCREEN, [id number] 07:53:00 Test Item Value Reference Range Interpretation Comments BARBITURATE URINE (BEAKER) (test Negative Negative code = 725) BENZODIAZEPINE SCREEN URINE (BEAKER) Positive Negative A (test code = 726) COCAINE (METAB.) SCREEN (BEAKER) Negative Negative (test code = 1164) METHADONE SCREEN (BEAKER) (test code Negative Negative = 1436) OPIATE SCREEN URINE (BEAKER) (test Negative Negative code = 734) CANNABINOID SCREEN URINE (BEAKER) Negative Negative (test code = 727) AMPH/METHAMPH SCREEN (BEAKER) (test Negative Negative code = 1438) PHENCYCLIDINE SCREEN URINE (BEAKER) Negative Negative (test code = 608) OXYCODONE SCREEN URINE (BEAKER) Negative Negative (test code = 2761) DRUG CUTOFF CONC.Cocaine 300 ng/mL Cannabinoid 50 ng/mL Benzodiazepine 200 ng/mLBarbiturate 200 ng/mLPhencyclidine 25 ng/mLOpiate 300 ng/mLMethadone 300 ng/mLAmphetamine/ 1000 ng/mL MethamphetamineOxycodone 300 ng/mLThis assay provides an unconfirmed qualitative test result for the clinical management of patients in emergency situations. Chain of custody not maintained. Some bygd-dre-turklyk medications, as well as adulterants, may cause inaccurate results. Clinical correlation should be applied. A more comprehensive drug screen or confirmation of a detected drug may be performed upon request. HEPATIC FUNCTION [id number] 05:51:00 Test Item Value Reference Range Interpretation Comments TOTAL PROTEIN (BEAKER) (test code = 6.1 gm/dL 6.0-8.3 770) ALBUMIN (BEAKER) (test code = 1145) 3.5 g/dL 3.5-5.0 BILIRUBIN TOTAL (BEAKER) (test code 0.3 mg/dL 0.2-1.2 = 377) BILIRUBIN DIRECT (BEAKER) (test 0.1 mg/dL 0.1-0.5 code = 706) ALKALINE PHOSPHATASE (BEAKER) (test 65 U/L 40-150 code = 346) AST (SGOT) (BEAKER) (test code = 15 U/L 5-34 353) ALT (SGPT) (BEAKER) (test code = 9 U/L 6-55 347) BASIC METABOLIC [id number] 05:51:00 Test Item Value Reference Range Interpretation Comments SODIUM (BEAKER) 138 meq/L 136-145 (test code = 381) POTASSIUM (BEAKER) 3.9 meq/L 3.5-5.1 (test code = 379) CHLORIDE (BEAKER) 112 meq/L 98-107 H (test code = 382) CO2 (BEAKER) (test 20 meq/L 22-29 L code = 355) BLOOD UREA NITROGEN 21 mg/dL 7-21 (BEAKER) (test code = 354) CREATININE (BEAKER) 1.12 mg/dL 0.57-1.25 (test code = 358) GLUCOSE RANDOM 96 mg/dL 70-105 (BEAKER) (test code = 652) CALCIUM (BEAKER) 8.6 mg/dL 8.4-10.2 (test code = 697) EGFR (BEAKER) (test 91 mL/min/1.73 ESTIMA FRANKLYN GFR IS code = 1092) sq m NOT ACCURATE CREATININE CLEARANCE IN PREDICTING GLOMERULAR FILTRATION RATE . ESTIMATED GFR I S NOT APPLICABLE FOR DIALYSIS PATIEN TS. CBC W/PLT COUNT & AUTO [id number] 05:47:00 Test Item Value Reference Range Interpretation Comments WHITE BLOOD CELL COUNT (BEAKER) 5.9 K/ L 3.5-10.5 (test code = 775) RED BLOOD CELL COUNT (BEAKER) 4.35 M/ L 4.63-6.08 L (test code = 761) HEMOGLOBIN (BEAKER) (test code = 12.6 GM/DL 13.7-17.5 L 410) HEMATOCRIT (BEAKER) (test code = 39.0 % 40.1-51.0 L 411) MEAN CORPUSCULAR VOLUME (BEAKER) 89.7 fL 79.0-92.2 (test code = 753) MEAN CORPUSCULAR HEMOGLOBIN 29.0 pg 25.7-32.2 (BEAKER) (test code = 751) MEAN CORPUSCULAR HEMOGLOBIN CONC 32.3 GM/DL 32.3-36.5 (BEAKER) (test code = 752) RED CELL DISTRIBUTION WIDTH 13.0 % 11.6-14.4 (BEAKER) (test code = 412) PLATELET COUNT (BEAKER) (test 222 K/CU MM 150-450 code = 756) MEAN PLATELET VOLUME (BEAKER) 11.2 fL 9.4-12.4 (test code = 754) NUCLEATED RED BLOOD CELLS 0 /100 WBC 0-0 (BEAKER) (test code = 413) NEUTROPHILS RELATIVE PERCENT 51 % (BEAKER) (test code = 429) LYMPHOCYTES RELATIVE PERCENT 38 % (BEAKER) (test code = 430) MONOCYTES RELATIVE PERCENT 8 % (BEAKER) (test code = 431) EOSINOPHILS RELATIVE PERCENT 2 % (BEAKER) (test code = 432) BASOPHILS RELATIVE PERCENT 1 % (BEAKER) (test code = 437) NEUTROPHILS ABSOLUTE COUNT 3.00 K/ L 1.78-5.38 (BEAKER) (test code = 670) LYMPHOCYTES ABSOLUTE COUNT 2.22 K/ L 1.32-3.57 (BEAKER) (test code = 414) MONOCYTES ABSOLUTE COUNT (BEAKER) 0.46 K/ L 0.30-0.82 (test code = 415) EOSINOPHILS ABSOLUTE COUNT 0.12 K/ L 0.04-0.54 (BEAKER) (test code = 416) BASOPHILS ABSOLUTE COUNT (BEAKER) 0.04 K/ L 0.01-0.08 (test code = 417) IMMATURE GRANULOCYTES-RELATIVE 0 % 0-1 PERCENT (BEAKER) (test code = 2801) [id number] 05:40:00 Test Item Value Reference Range Interpretation Comments MAGNESIUM (BEAKER) (test code = 1.9 mg/dL 1.6-2.6 627) BASIC METABOLIC [id number] 05:40:00 Test Item Value Reference Range Interpretation Comments SODIUM (BEAKER) 138 meq/L 136-145 (test code = 381) POTASSIUM (BEAKER) 3.8 meq/L 3.5-5.1 (test code = 379) CHLORIDE (BEAKER) 111 meq/L 98-107 H (test code = 382) CO2 (BEAKER) (test 21 meq/L 22-29 L code = 355) BLOOD UREA NITROGEN 19 mg/dL 7-21 (BEAKER) (test code = 354) CREATININE (BEAKER) 1.12 mg/dL 0.57-1.25 (test code = 358) GLUCOSE RANDOM 96 mg/dL 70-105 (BEAKER) (test code = 652) CALCIUM (BEAKER) 8.6 mg/dL 8.4-10.2 (test code = 697) EGFR (BEAKER) (test 91 mL/min/1.73 ESTIMA FRANKLYN GFR IS code = 1092) sq m NOT ACCURATE CREATININE CLEARANCE IN PREDICTING GLOMERULAR FILTRATION RATE . ESTIMATED GFR I S NOT APPLICABLE FOR DIALYSIS PATIEN TS. CBC W/PLT COUNT & AUTO [id number] 00:35:00 Test Item Value Reference Range Interpretation Comments WHITE BLOOD CELL COUNT 4.4 K/ L 3.5-10.5 (BEAKER) (test code = 775) RED BLOOD CELL COUNT 4.54 M/ L 4.63-6.08 L (BEAKER) (test code = 761) HEMOGLOBIN (BEAKER) 14.2 GM/DL 13.7-17.5 (test code = 410) HEMATOCRIT (BEAKER) 41.1 % 40.1-51.0 (test code = 411) MEAN CORPUSCULAR 90.5 fL 79.0-92.2 VOLUME (BEAKER) (test code = 753) MEAN CORPUSCULAR 31.3 pg 25.7-32.2 HEMOGLOBIN (BEAKER) (test code = 751) MEAN CORPUSCULAR 34.5 GM/DL 32.3-36.5 HEMOGLOBIN CONC (BEAKER) (test code = 752) RED CELL DISTRIBUTION 14.3 % 11.6-14.4 WIDTH (BEAKER) (test code = 412) PLATELET COUNT 409 K/CU MM 150-450 (BEAKER) (test code = 756) MEAN PLATELET VOLUME fL 9.4-12.4 Unable to report due (BEAKER) (test code = to abn ormal Platelet 754) population distribution. NUCLEATED RED BLOOD 8 /100 WBC 0-0 H CELLS (BEAKER) (test code = 413) NEUTROPHILS RELATIVE 51 % PERCENT (BEAKER) (test code = 429) LYMPHOCYTES RELATIVE 44 % PERCENT (BEAKER) (test code = 430) MONOCYTES RELATIVE 3 % PERCENT (BEAKER) (test code = 431) EOSINOPHILS RELATIVE 1 % PERCENT (BEAKER) (test code = 432) BASOPHILS RELATIVE 1 % PERCENT (BEAKER) (test code = 437) NEUTROPHILS ABSOLUTE 2.22 K/ L 1.78-5.38 COUNT (BEAKER) (test code = 670) LYMPHOCYTES ABSOLUTE 1.92 K/ L 1.32-3.57 COUNT (BEAKER) (test code = 414) MONOCYTES ABSOLUTE 0.14 K/ L 0.30-0.82 L COUNT (BEAKER) (test code = 415) EOSINOPHILS ABSOLUTE 0.06 K/ L 0.04-0.54 COUNT (BEAKER) (test code = 416) BASOPHILS ABSOLUTE 0.03 K/ L 0.01-0.08 COUNT (BEAKER) (test code = 417) IMMATURE 0 % 0-1 GRANULOCYTES-RELATIVE PERCENT (BEAKER) (test code = 0480)
[2020-03-27 03:43] LABS: Absolute Lymphocytes (CBC) 2.1 K/uL (0.7-4.9); Basophils % 0.7 % (0-1.3); Hematocrit 38.7 % (39.6-49.0); Lymphocytes % 27.1 % (15.3-44.8); MPV 8.2 fL (7.6-11.3); RBC Red Blood Cell Count 4.13 M/uL (4.33-5.43)
[2020-03-27 03:46] LABS: Protime INR 1.03
[2020-03-27 04:04] LABS: ALT/SGPT 24 U/L (12-78); AST/SGOT 18 U/L (15-37); Albumin 3.8 g/dL (3.4-5.0); Alkaline Phosphatase 53 U/L (45-117); BUN Blood Urea Nitrogen 12 mg/dL (7-18); Bicarbonate 21 mmol/L (21-32); Bilirubin Direct < 0.1 mg/dL (0-0.2); Bilirubin Total 0.2 mg/dL (0.2-1.0); Glucose Level 88 mg/dL (74-106); Magnesium 1.8 mg/dL (1.8-2.4); NT PRO-BNP 630 pg/mL (<125); Potassium 3.1 mmol/L (3.5-5.1); Protein, Total 7.3 g/dL (6.4-8.2); Sodium Level 144 mmol/L (136-145); Troponin (Emerg Dept Use Only) 0.05 ng/mL (0.0-0.045)
--- NOTE | 2020-03-27 04:29 | ER ---
Nurse's Notes [facility] Name: Michele Lomas Age: 35 yrs Sex: Male : 1985 Arrival Date: 03/27/2020 Time: 03:24 Bed 7 Private MD: Diagnosis: Chest pain, unspecified;Cardiomegaly;Cardiomyopathy;Hypokalemia Presentation: 03/27 03:20 Chief complaint: EMS states: PT is reporting chest pain and shortness of breath after jb4 getting into an argument with his fiance. 03:20 Coronavirus screen: Proceed with normal triage. Ebola Screen: No symptoms or risks jb4 identified at this time. Initial Sepsis Screen: Does the patient meet any 2 criteria? No. Patient's initial sepsis screen is negative. Does the patient have a suspected source of infection? No. Patient's initial sepsis screen is negative. Risk Assessment: Do you want to hurt yourself or someone else? Patient reports no desire to harm self or others. Onset of symptoms was March 27, 2020. Transition of care: patient was not received from another setting of care. 03:20 Method Of Arrival: EMS: [facility] jb4 03:20 Acuity: PASTORA 3 jb4 Historical: - Allergies: 03:20 Banana; jb4 - Home Meds: 04:00 hydrochlorothiazide 25 mg oral tab 1 tab once daily [Active]; Fish Oil 1,000 mg oral wh cap [Active]; amlodipine 10 mg tab 1 tab once daily [Active]; aspirin 81 mg Oral chew 1 tab once daily [Active]; metoprolol tartrate 25 mg Oral tab 1 tab 2 times per day [Active]; - PMHx: 03:20 Back pain; Enlarged Heart; Hypertension; prolonged QT; TIA; jb4 - PSHx: 03:20 heart cath; jb4 - Immunization history:: Adult Immunizations up to date. - Social history:: Smoking status: Patient reports the use of cigarette tobacco products, smokes one-half pack cigarettes per day, Patient uses alcohol, occasionally. street drugs, marijuana. - Family history:: not pertinent. Screenin:20 Abuse screen: Denies threats or abuse. Nutritional screening: No deficits noted. jb4 Tuberculosis screening: No symptoms or risk factors identified. Fall Risk None identified. Assessment: 03:20 General: Appears in no apparent distress. uncomfortable, Behavior is calm, cooperative, jb4 appropriate for age. Pain: Complains of pain in chest Pain does not radiate. Pain currently is 8 out of 10 on a pain scale. Quality of pain is described as pressure, Pain began 30 min ago. Neuro: Level of Consciousness is awake, alert, obeys commands, Oriented to person, place, time, situation. Cardiovascular: Patient's skin is warm and dry. Rhythm is sinus bradycardia. Respiratory: Airway is patent Respiratory effort is even, unlabored, Respiratory pattern is regular, symmetrical, Breath sounds are clear bilaterally. GI: No signs and/or symptoms were reported involving the gastrointestinal system. : No signs and/or symptoms were reported regarding the genitourinary system. EENT: No signs and/or symptoms were reported regarding the EENT system. Derm: Skin is intact, Skin is dry, Skin is normal, Skin temperature is warm. Musculoskeletal: Circulation, motion, and sensation intact. Range of motion: intact in all extremities. 04:30 Reassessment: Patient appears in no apparent distress at this time. Patient and/or jb4 family updated on plan of care and expected duration. Pain level reassessed. Patient is alert, oriented x 3, equal unlabored respirations, skin warm/dry/pink. 05:30 Reassessment: Patient appears in no apparent distress at this time. Patient and/or jb4 family updated on plan of care and expected duration. Pain level reassessed. Patient is alert, oriented x 3, equal unlabored respirations, skin warm/dry/pink. 05:55 Reassessment: PT reports worsening chest pain. Provider notified. EKG performed by ED jb4 tech . 06:21 Reassessment: Patient appears in no apparent distress at this time. Patient and/or jb4 family updated on plan of care and expected duration. Pain level reassessed. Patient is alert, oriented x 3, equal unlabored respirations, skin warm/dry/pink. 08:01 Reassessment: Patient appears in no apparent distress at this time. Patient and/or ph family updated on plan of care and expected duration. Pain level reassessed. Patient is alert, oriented x 3, equal unlabored respirations, skin warm/dry/pink. Pt taken by wheelchair to radiology for stress test. 08:18 Reassessment: Attempted to call report to second floor, placed on hold >5 minutes, will ph attempt again. 08:43 Reassessment: Report called to All [facility]ALAD[facility], pt remains in radiology for stress test, will ph be taken to floor by RT. Vital Signs: 03:20 BP 150 / 96; Pulse 72; Resp 16; Temp 98.5(O); Pulse Ox 97% on R/A; Weight 97.52 kg (R); jb4 Height 5 ft. 11 in. (180.34 cm) (R); Pain 8/10; 04:30 BP 138 / 84; Pulse 64; Resp 15; Pulse Ox 98% on R/A; jb4 05:30 BP 151 / 99; Pulse 55; Resp 16; Pulse Ox 100% on R/A; jb4 06:30 BP 138 / 63; Pulse 58; Resp 16; Pulse Ox 97% on R/A; jb4 07:30 BP 125 / 68; Pulse 59; Resp 18; Pulse Ox 98% on R/A; ph 08:30 ph 03:20 Body Mass Index 29.99 (97.52 kg, 180.34 cm) jb4 08:30 pt in radiology ph ED Course: 03:20 Arm band placed on left wrist. jb4 03:20 Patient has correct armband on for positive identification. Placed in gown. Bed in low jb4 position. Call light in reach. Side rails up X 1. technical trainer on. Pulse ox on. NIBP on. 03:24 Patient arrived in ED. ds1 03:32 Nick Rizo MD is Attending Physician. luiz 03:35 Abe Licea, RN is Primary Nurse. jb4 03:56 Triage completed. jb4 04:16 XRAY Chest (1 view) In Process Unspecified. EDMS 04:17 EKG done, by senior radiation protection technician. reviewed by Nick Rizo MD. ar5 04:18 Inserted saline lock: 20 gauge in right antecubital area, using aseptic technique. jb4 04:27 Melanie Rico MD is Hospitalizing Provider. luiz 08:46 No provider procedures requiring assistance completed. Patient admitted, IV remains in ph place. Administered Medications: 04:44 Drug: Lovenox 1 mg/kg Route: Sub-Q; Site: left lower abdomen; wh 04:46 Drug: morphine 4 mg Route: IVP; Site: right antecubital; wh 05:10 Follow up: Response: No adverse reaction; Pain is decreased; RASS: Alert and Calm (0) jb4 04:48 Drug: Zofran (Ondansetron) 4 mg Route: IVP; Site: right antecubital; 05:10 Follow up: Response: No adverse reaction jb4 04:50 Drug: Aspirin 162 mg Route: PO; 04:50 Drug: Lopressor 25 mg {Note: 150/97 68.} Route: PO; 05:20 Follow up: Response: No adverse reaction jb4 04:50 Drug: Potassium Effervescent Tablet 50 mEq Route: PO; 06:31 Drug: Nitro-Bid Ointment 2 % 0.5 inches Route: Transdermal; Site: anterior chest wall; jb4 Outcome: 04:27 Decision to Hospitalize by Provider. [facility] 08:40 Admitted to Tele via wheelchair, with chart, Other taken to floor after nuclear stress ph test 08:40 Condition: stable 08:40 Instructed on the need for admit. 08:51 Patient left the ED. aa5 Signatures: Dispatcher [employer] EDNick Corrales MD MD cha Sanford, Demi ds1 Krystle Johnson, RN RN aa5 Michelle Perdomo RN RN Abe Ortiz RN RN jb4 Jinny Olivas Autumn ar5
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
[2020-03-27] MEDS ORDERED: MORPHINE 4 MG/ML SYR ONE (04:35)
[2020-03-27] MEDS ORDERED: ASPIRIN 81 MG CHEWABLE TABLET ONE (04:35)
[2020-03-27] MEDS ORDERED: ENOXAPARIN 100 MG/ML SYR SQ ONE (04:35)
[2020-03-27] MEDS ORDERED: ONDANSETRON 4 MG/2 ML VIAL ONE (04:35)
[2020-03-27] MEDS ORDERED: POTASSIUM 25 MEQ EFFERV TAB ONE (04:41)
[2020-03-27] MEDS ORDERED: METOPROLOL TAR 25 MG TAB ONE (04:41)
[2020-03-27] MEDS ORDERED: ACETAMINOPHEN 500 MG TAB PO PRN (05:09)
[2020-03-27] MEDS: METOPROLOL TAR 50 MG TAB PO SCH ×2 (06:00→21:07)
[2020-03-27] MEDS: NITROGLYCERIN 1 GM PKT TD SCH ×3 (06:25→17:22)
[2020-03-27] MEDS ORDERED: REGADENOSON 0.4 MG/5 ML SYR IV ONE (08:08)
--- NOTE | 2020-03-27 08:45 | RAD REPORT ---
EXAM DESCRIPTION: Kevin Single View03/27/2020 4:16 am CLINICAL HISTORY: Chest pain COMPARISON: February 2020 FINDINGS: The lungs appear clear of acute infiltrate. The heart is upper limits normal size IMPRESSION: No acute abnormalities displayed
--- NOTE | 2020-03-27 08:48 | CON ---
Date of Consultation: 03/27/[address] Rico on 03/27/2001. I saw the patient on 03/27/2020. Reason For Consultation: Chest pain. History Of Present Illness: Mr. Lomas is a 35-year-old black male, has a history of hypertensio n, dyslipidemia, has prolonged QT, TIA, and family history of heart disease, hypertrophic cardiomyopa thy, who comes in with chest pain, substernal, pressure like, has been going on for about 18 hours. No nausea or vomiting, had some diaphoresis. No shortness of breath. Denied any palpitation or sync ope. Troponin is 0.05, which is chronic for him. The rest of the blood work is unremarkable. EKG s howed left ventricular hypertrophy. Previous catheterization has shown normal coronary artery. Past Medical History: As stated above. Allergies: HE IS ALLERGIC TO BANANA. Review of Systems: Negative. Social History: Positive for drug use occasionally. Family History: Positive for heart disease. Medications: At home include Norvasc, aspirin, lovastatin, metoprolol and hydrochlorothiazide. Physical Examination: General: He appeared to be rather depressed, anxious. He continues to have chest pain. Nitroglycer in paste is on board and has given him headache, but the pain continues to be the same. Vital Signs: Otherwise stable. He is afebrile. He was in sinus rhythm. HEENT: Negative. Neck: Supple without any lymphadenopathy, JVD, or thyromegaly. Chest: Clear. Cardiac: Regular rhythm and rate with S4 gallop. Abdomen: Benign. Extremities: No clubbing, cyanosis, or edema. Diagnostic Data: As stated earlier. Impression And Plan: Atypical chest pain, most likely related to gastroesophageal reflux disease. C ertainly could be hypertrophic cardiomyopathy related. His blood pressure is well controlled. Echoc ardiogram and Lexiscan have been ordered by Dr. Rico, which he will be shown before making final deci sions. His dyslipidemia is well controlled. Drug screen is still pending. We will continue to foll ow him. NB/MODL Voice ID: [id number] Report ID: [id number]
[2020-03-27] MEDS ORDERED: ASPIRIN EC 81 MG TAB PO SCH (09:00)
[2020-03-27] MEDS ORDERED: ENOXAPARIN 40 MG/0.4 ML SQ SCH (09:00)
--- NOTE | 2020-03-27 09:34 | RAD REPORT ---
EXAM DESCRIPTION: NM - Rest Stress Cardiac Imaging - 03/27/2020 9:06 am CLINICAL HISTORY: Chest pain. COMPARISON: 2014 TECHNIQUE: The patient was administered approximately 10mCi of Tc 99m Sestamibi prior to resting SPE CT imaging of the heart. The patient was then administered approximately 30 mCi of Tc 99m Sestamibi f ollowing exercise or pharmacologic stress. Multiplanar SPECT images were reviewed. FINDINGS: Diminished radiotracer uptake involves the inferior left ventricular myocardium on rest a nd stress sequences. Left ventricular cavity is dilated. Ejection fraction of the left ventricle 41% No significant change since the prior exam IMPRESSION: Moderate area of apparent fixed perfusion defect involving the inferior left ventricular myocardium most likely secondary to attenuation from the diaphragm. An infarct can also have this ap pearance. No evidence of stress-induced ischemia Left ventricular ejection fraction 41%
[2020-03-27 09:37] VITALS: BMI 29.9
[2020-03-27 09:46] VITALS: O2SAT 99
[2020-03-27] MEDS: MORPHINE 4 MG/ML SYR IV PRN ×2 (10:03→13:38)
[2020-03-27] MEDS: ONDANSETRON 4 MG/2 ML VIAL IV PRN ×3 (10:03→21:11)
--- NOTE | 2020-03-27 10:08 | P.HP ---
Certification for Inpatient Patient admitted to: Observation With expected LOS: <2 Midnights Patient will require the following post-hospital care: None Practitioner: I am a practitioner with admitting privileges, knowledge of patient current condition, hospital course, and medical plan of care. Services: Services provided to patient in accordance with Admission requirements found in Title 42 Section 412.3 of the Code of Federal Regulations Patient History Date of Service: 03/27/20 Reason for admission: Chest pain rule out acute coronary syndrome History of Present Illness: Patient is a 35-year-old gentleman who came to the hospital with chest discomfort. Patient has chest discomfort over the last month. He came into the ER for further evaluation. In the emergency room he had some shortness of breath complaints as well. He was worked up in the ER and decision was made to do an echocardiogram and a nuclear medicine stress test. Will go ahead and get the scheduled and await results. Patient has been having some shortness of breath with light activity. Patient has PND as well as dyspnea on exertion. Will monitor patient over the next 24-48 hr pending workup. Allergies banana Allergy (Verified 04/13/15 14:43) Unknown No Known Drug Allergies Allergy (Verified 04/13/15 14:43) Unknown Home Medications: Amlodipine [Norvasc*] 10 mg PO DAILY #30 tab 04/14/18 Aspirin [Aspirin EC 81 MG] 81 mg PO DAILY #90 tablet. 04/14/18 Metoprolol Tartrate [Lopressor*] 25 mg PO BID 30 Days #60 tab 02/15/20 hydroCHLOROthiazide [Hydrodiuril*] 25 mg PO DAILY #30 tab 02/15/20 [place]-3/Dha/Epa/Fish Oil [Fish Oil 1,000 mg Softgel] 1 each PO DAILY 03/27/20 - Past Medical/Surgical History Has patient received pneumonia vaccine in the past: No Diabetic: No -: Hypertension -: Cardiomyopathy -: Tobacco abuse -: Alcohol use -: CAD -: TIA -: prolonged QT -: Heart Cath Psychosocial/ Personal History: The patient is single. He has 2 children. He works as a cook. - Family History Father Medical History: Heart disease, Hypertension, Diabetes, Other (see notes) Mother Medical History: Hypertension, Diabetes, Other (see notes) Notes: gout. schizoprenia Sister Medical History: Heart disease - Social History Smoking Status: Current every day smoker Alcohol use: Yes CD- Drugs: Yes Caffeine use: No Place of Residence: Home Review of Systems 10-point ROS is otherwise unremarkable Physical Examination - Vital Signs Temperature: 97.7 F Blood Pressure: 123/68 Pulse: 47 Respirations: 19 Pulse Ox (%): 99 - Physical Exam General: Alert, In no apparent distress, Oriented x3 HEENT: Atraumatic, PERRLA, Mucous membr. moist/pink, EOMI, Sclerae nonicteric Neck: Supple, 2+ carotid pulse no bruit, No LAD, Without JVD or thyroid abnormality Respiratory: Clear to auscultation bilaterally, Normal air movement Cardiovascular: Regular rate/rhythm, Normal S1 S2, No murmurs Gastrointestinal: Normal bowel sounds, Soft and benign, Non-distended, No tenderness Musculoskeletal: No clubbing, No swelling, No tenderness Integumentary: No rashes Neurological: Normal gait, Normal speech, Normal strength at 5/5 x4 extr, Normal tone, Sensation intact, Cranial nerves 3-12 intact, Normal affect Lymphatics: No axilla or inguinal lymphadenopathy - Studies Laboratory Data (last 24 hrs) 03/27/20 03:30: Triglycerides 66, Cholesterol 128, HDL Cholesterol 51, Cholesterol/HDL Ratio 2.51 03/27/20 03:30: PT 12.1, INR 1.03 03/27/20 03:30: WBC 7.6, Hgb 13.0 L, Hct 38.7 L, Plt Count 285 03/27/20 03:30: Sodium 144, Potassium 3.1 L, BUN 12, Creatinine 1.02, Glucose 88, Magnesium 1.8, Total Bilirubin 0.2, AST 18, ALT 24, Alkaline Phosphatase 53 Assessment & Plan - Problems (Diagnosis) (1) Chest pain, rule out acute myocardial infarction Status: Acute (2) Cocaine abuse Status: Acute (3) Essential hypertension Status: Acute (4) Hyperlipidemia Status: Chronic Qualifiers: Hyperlipidemia type: unspecified Qualified Code(s): E78.5 - Hyperlipidemia, unspecified (5) Hypertension Onset Date: 08/22/17 Status: Chronic Qualifiers: Hypertension type: essential hypertension (6) Marijuana abuse Status: Acute - Plan 1. Serial troponins and EKG 2. Appreciate Cardiology consultation 3. Echocardiogram and stress test 4. Anti-platelet therapy, anti coagulation, beta-alice, statin, and O2 as needed 5. IV morphine for pain 6. Nitro p.r.n. 7. Patient may need diuretics 8. GI and DVT prophylaxis Discharge Plan: Home Plan to discharge in: 48 Hours - Advance Directives Does patient have a Living Will: No Does patient have a Durable POA for Healthcare: No - Code Status/Comfort Care Code Status Assessed: Yes Code Status: Full Code Critical Care: No Time Spent Managing PTS Care (In Minutes): 45
[2020-03-27] MEDS: ALPRAZOLAM 0.25 MG TABLET PO PRN ×2 (12:19→21:07)
[2020-03-27] MEDS ORDERED: TRAMADOL HCL 50 MG TAB PO PRN (15:11)
[2020-03-27] MEDS ORDERED: HYDROCODONE/APAP 7.5/325 MG TAB PO PRN (15:11)
--- NOTE | 2020-03-27 15:36 | EKG ---
Test Date: 2020-03-27 Test Time: 05:51:26 Gymnastics Coach Or Instructor: KIERRA MEASUREMENT RESULTS: Intervals: Rate: 50 W[place]: 146 QRSD: 96 QT: 492 QTc: 448 [place]: P: 25 W[place]: 146 QRS: 57 T: 233 INTERPRETIVE STATEMENTS: Sinus bradycardia Left ventricular hypertrophy with repolarization abnormality Abnormal ECG Compared to ECG 03/27/2020 03:51:44 Sinus rhythm no longer present Electronically Signed On 03-27-20 15:35:33 CDT by Tremayne Meyers
--- NOTE | 2020-03-27 15:37 | EKG ---
Test Date: 2020-03-27 Test Time: 03:51:44 Digital Account Executive: KIERRA MEASUREMENT RESULTS: Intervals: Rate: 69 [place]: 148 QRSD: 100 QT: 426 QTc: 456 [place]: P: 30 SC: 148 QRS: 36 T: 217 INTERPRETIVE STATEMENTS: Normal sinus rhythm Left ventricular hypertrophy with repolarization abnormality Abnormal ECG Compared to ECG 02/14/2020 19:16:29 Sinus bradycardia no longer present Electronically Signed On 03-27-20 15:35:39 CDT by Tremayne Meyers
[2020-03-27 17:48] LABS: Barbiturates NEGATIVE (NEGATIVE); Benzodiazepines NEGATIVE (NEGATIVE); Cocaine POSITIVE (NEGATIVE); METHAMPHETAM NEGATIVE (NEGATIVE); Methadone NEGATIVE (NEGATIVE); Opiates POSITIVE (NEGATIVE); Phencyclidine NEGATIVE (NEGATIVE); THC Cannibis POSITIVE (NEGATIVE)
[2020-03-27 20:48] VITALS: TEMP 97.7
[2020-03-27] MEDS ORDERED: MORPHINE 2 MG/ML SYR IV PRN (21:55)
[2020-03-28 01:47] VITALS: BP 123/68
--- NOTE | 2020-03-28 01:54 | P.DS ---
Discharge Date: 03/28/20 Disposition: AMA-LEFT AGAINST MEDICAL ADVIC Discharge Condition: FAIR Reason for Admission: Chest pain rule out acute coronary syndrome Consultations: Cardiology - Problems (1) Chest pain, rule out acute myocardial infarction Status: Acute (2) Cocaine abuse Status: Acute (3) Essential hypertension Status: Acute (4) Hyperlipidemia Status: Chronic Qualifiers: Hyperlipidemia type: unspecified Qualified Code(s): E78.5 - Hyperlipidemia, unspecified (5) Hypertension Onset Date: 08/22/17 Status: Chronic Qualifiers: Hypertension type: essential hypertension (6) Marijuana abuse Status: Acute Brief History of Present Illness: Patient is a 35-year-old gentleman who came to the hospital with chest discomfort. Patient has chest discomfort over the last month. He came into the ER for further evaluation. In the emergency room he had some shortness of breath complaints as well. He was worked up in the ER and decision was made to do an echocardiogram and a nuclear medicine stress test. Will go ahead and get the scheduled and await results. Patient has been having some shortness of breath with light activity. Patient has PND as well as dyspnea on exertion. Will monitor patient over the next 24-48 hr pending workup. Hospital Course: Patient's stress test showed an area of scarring which could indicate an old infarct. Patient's drug screen was positive as well. Echocardiogram is pending. It appears patient has cardiomyopathy. We are waiting echocardiogram results; however, patient left against medical advice. We spoke to him but he said he had a family emergency, and he had to leave immediately. Patient signed out and left against medical advice. He was advised to return to the ER if he has worsening symptoms, and he was told to refrain from drug abuse. Vital Signs/Physical Exam: Temp Pulse Resp BP Pulse Ox 97.7 F 47 L 19 123/68 99 03/28/20 01:50 03/28/20 01:50 03/28/20 01:50 03/28/20 01:50 03/28/20 01:50 General: Alert, In no apparent distress, Oriented x3 Laboratory Data at Discharge: WBC Cancelled 03/28/20 05:00 Hgb Cancelled 03/28/20 05:00 Hct Cancelled 03/28/20 05:00 Plt Count Cancelled 03/28/20 05:00 PT 12.1 SECONDS (9.5-12.5) 03/27/20 03:30 INR 1.03 03/27/20 03:30 Sodium Cancelled 03/28/20 05:00 Potassium Cancelled 03/28/20 05:00 BUN Cancelled 03/28/20 05:00 Creatinine Cancelled 03/28/20 05:00 Glucose Cancelled 03/28/20 05:00 Magnesium 1.8 mg/dL (1.8-2.4) 03/27/20 03:30 Total Bilirubin 0.2 mg/dL (0.2-1.0) 03/27/20 03:30 AST 18 U/L (15-37) 03/27/20 03:30 ALT 24 U/L (12-78) 03/27/20 03:30 Alkaline Phosphatase 53 U/L (45-117) 03/27/20 03:30 Troponin I 0.07 ng/mL (0.0-0.045) H 03/27/20 15:28 Triglycerides 66 mg/dL (<150) 03/27/20 03:30 Cholesterol 128 mg/dL (<200) 03/27/20 03:30 HDL Cholesterol 51 mg/dL (40-60) 03/27/20 03:30 Cholesterol/HDL Ratio 2.51 03/27/20 03:30 Home Medications: Amlodipine [Norvasc*] 10 mg PO DAILY #30 tab 04/14/18 Aspirin [Aspirin EC 81 MG] 81 mg PO DAILY #90 tablet. 04/14/18 Metoprolol Tartrate [Lopressor*] 25 mg PO BID 30 Days #60 tab 02/15/20 hydroCHLOROthiazide [Hydrodiuril*] 25 mg PO DAILY #30 tab 02/15/20 [place]-3/Dha/Epa/Fish Oil [Fish Oil 1,000 mg Softgel] 1 each PO DAILY 03/27/20 Patient Discharge Instructions: Patient left against medical advice Diet: AHA Activity: Fall precautions Time spent managing pt's care (in minutes): 15
[2020-03-28] MEDS ORDERED: EPA PO SCH (09:00)
[2020-03-28] MEDS ORDERED: DHA PO SCH (09:00)
[2020-03-28] MEDS ORDERED: OMEGA PO SCH (09:00)
[2020-03-28] MEDS ORDERED: hydroCHLOROthiazide 25 MG TAB PO SCH (09:00)
[2020-03-28] MEDS ORDERED: DOCOSAHEXANOIC AC/EPA 1000 MG PO SCH (09:00)
[2020-03-28] MEDS ORDERED: FISH OIL PO SCH (09:00)
--- NOTE | 2020-03-30 07:56 | ECHO ---
HEIGHT: 5 ft 11 in WEIGHT: 215 lb 0 oz DATE OF STUDY: 03/27/[address]: Melanie Rico MD 2-DIMENSIONAL: YES M.MODE: YES DOPPLER: YES COLOR FLOW: YES TDS: PORTABLE: DEFINITY: BUBBLE STUDY: DIAGNOSIS: CHEST PAIN CARDIAC HISTORY: CATHERIZATION: YES SURGERY: NO PROSTHETIC VALVE: NO PACEMAKER: NO MEASUREMENTS (cm) DIASTOLIC (NORMALS) SYSTOLIC (NORMALS) IVSd 1.5 (0.6-1.2) LA Diam 4.0 (1.9-4.0) LVEF 55-60% LVIDd 4.6 (3.5-5.7) LVIDs 3.6 (2.0-3.5) %FS % LVPWd 1.6 (0.6-1.2) Ao Diam 3.7 (2.0-3.7) 2 DIMENSIONAL ASSESSMENT: RIGHT ATRIUM: NORMAL LEFT ATRIUM: NORMAL RIGHT VENTRICLE: NORMAL LEFT VENTRICLE: LEFT VENTRICULAR HYPERTROPHY TRICUSPID VALVE: NORMAL MITRAL VALVE: NORMAL PULMONIC VALVE: NORMAL AORTIC VALVE: NORMAL PERICARDIAL EFFUSION: NONE AORTIC ROOT: NORMAL LEFT VENTRICULAR WALL MOTION: NORMAL EJECTION FRACTION. DECREASED LEFT VENTRICULAR COMPLIANCE. DOPPLER/COLOR FLOW: NORMAL COMMENTS: SEVERE CONCENTRIC LEFT VENTRICULAR HYPERTROPHY. NORMAL EJECTION FRACTION. DECREASED LEFT VENTRICULAR COMPLIANCE. TECHNOLOGIST: RIGO DEVINE
--- NOTE | 2020-03-30 08:00 | TREADPHA ---
DX: CHEST PAIN Date of Study: 03/27/2020 Ht: 5' 11 " Wt: 215 lb 0 oz Consulting Physician: SONDRA MEDICATIONS: TYLENOL, LOVENOX, LOPRESSOR, AMLODIPINE HISTORY: 35 YEAR OLD MALE ADMITTED FOR CHEST PRESSURE THAT IS CONSISTENT. HISTORY OF HYPERTENSION AND CARDIOMEGALY, POSITIVE SMOKER. PHYSICIAL EXAMINATION: RESTING B.P.: 139/91 RESTING H.R.: 55 RESTING EKG: SINUS RHYTHM, LEFT VENTRICULAR HYPERTROPHY PROTOCOL: PHARMACOLOGIC EXERCISE TIME: 3:30 B.P. AT PEAK STRESS: 127/83 IMPRESSION: LEXISCAN STRESS TEST PERFORMED. CARDIOLITE INJECTED PER PROTOCOL. NO SUPRAVENTRICULAR TACHYCARDIA, NO VENTRICULAR TACHYCARDIA, NO ARRHYTHMIA NOTED. PATIENT DENIED CHANGE IN CHEST PAIN. RESPIRATORY EVEN NON-LABORED. TOLERATED WELL. SEE NUCLEAR MEDICINE REPORT.
== END 2020-03-28 00:49 | disposition left against medical advice (07) ==
LOC: ER 03:23 → ERHOLD 05:17 → 2ND 08:43
PROVIDERS: ADMIT Hospitalist; ATTEND Hospitalist
DX: R07.89 Other chest pain (principal); I42.9 Cardiomyopathy, unspecified; E78.5 Hyperlipidemia, unspecified; I10 Essential (primary) hypertension; F17.200 Nicotine dependence, unspecified, uncomplicated; I25.10 Atherosclerotic heart disease of native coronary artery without angina pectoris; F14.10 Cocaine abuse, uncomplicated; F12.10 Cannabis abuse, uncomplicated; Z86.73 Personal history of transient ischemic attack (TIA), and cerebral infarction without residual deficits
CPT/HCPCS: 36415; 71045; 78452; 80048; 80061; 80076; 80307; 83735; 83880; 84484; 85025; 85610; 93005; 93017; 93306; 96372; 96374; 96375; 99285; A9500; G0378; J1650; J2270; J2405; J2785

== ENCOUNTER 2020-04-12 19:45 | Emergency (ER) | payer SELFPAY ==
--- OUTSIDE RECORDS SUMMARY | 2020-04-12 19:48 | XMS REPORT | Clinical Summary ---
:1985 Author Organization [facility] Address [address] [place] [address] Care Team Providers Name Role Phone Juan [...] Not on file Results Not on fileafter 04/12/2019 Advance Directives For more information, please contact:[address] [phone] Code Status Date Activated Date Inactivated Comments Full Code 08/28/2017 10:26 PM 08/29/2017 8:43 PM This code status was determined by: Patient
--- OUTSIDE RECORDS SUMMARY | 2020-04-12 19:49 | XMS REPORT | Continuity of Care Document ---
:1985 Author Organization [facility] t Address [address] [place] [address] Care Team Providers Name Role Phone Sharpless Primary Care Physician MASSUMI Attending Clinician Unavailable MASSUMI Admitting Clinician Unavailable Problems Condition Condition Condition Status Onset Resolution Last Treating Co mments Source Name Details Category Date Date Treatment Clinician Date Provoked Provoked Disease [facility] 00 [place] Drug use Drug use Disease Active 2016[facility]11 [facility] [place] Syncope, Syncope, Disease Active 2016[facility]11 [facility] unspecifie unspecifie [facility]-24 Carolyn kes - d syncope d syncope 00:00: Medi jefry type type 00 Center Anxiety Anxiety Disease Active 2016-[address] [facility] 0-[facility] 00 [place] Hypertroph Hypertroph Disease Active 2016-[address] [facility] ic 0-24 [facility] - nonobstruc nonobstruc 00:00: Me dical tive tive 00 Center cardiomyop cardiomyop athy athy Acute Acute Disease Active 2016-[address] [facility] coronary coronary 0-23 [facility] syndrome syndrome 00:00: Medica l 00 [place] Allergies, Adverse Reactions, Alerts This patient has no known allergies or adverse reactions. Family History Family Member Diagnosis Comments Start Date Stop Date Source Natural father Hypertension [facility] Maternal aunt Hypertension [facility] Maternal grandfather Hypertension [facility] Maternal grandmother Arthritis [facility] Maternal grandmother Hearing loss [facility] Maternal grandmother Hypertension [facility] Maternal grandmother Vision loss [facility] Maternal uncle Hypertension [facility] Natural mother Heart disease [facility] Natural mother Hypertension [facility] Natural mother Stroke [facility] Social History Social Habit Start Date Stop Date Quantity Comments Source Sex Assigned At [facility] Cigarettes smoked 2017-08-29 2017-08-29 [facility] - current (pack per 00:00:00 00:00:00 [facility] Center day) - Reported Cigarette pack-years 2017-08-29 2017-08-29 [facility] - 00:00:00 00:00:00 [facility] Smoking Status Start Date Stop Date Source Current every day smoker 2017-08-29 00:00:00 [facility] Medications Ordered Filled Start Stop Current Ordering Indication Dosage Frequency Signature Comments Components Source Medication Medication Date Date Medication? Clinician (SIG) Name Name amLODIPine 2016-11 Yes hypertensio 10mg QD Take [address] [facility] (NORVASC) 0-23 n by mouth [facility] - 10 MG 22:29: daily. Medical tablet [address] [place] [address] Procedures This patient has no known procedures. Encounters Start End Encounter Admission Attending Care Care Encounter Source Date/Time Date/Time Type Type Clinicians Facility Department ID 2019-11-13 2019-11-13 Outpatient E [facility] MED [id number] [facility] 13:40:00 13:40:00 Results Test Description Test [...] (test code = 2795) RAPID DRUG SCREEN, [id number] 07:53:00 Test Item Value Reference Range Interpretation [...] situations. Chain of custody not maintained. Some zvpt-one-eofrtyx medications, as well as adulterants, may cause inaccurate results. Clinical correlation should be applied. A more comprehensive drug screen or confirmation of a detected drug may be performed upon request. HEPATIC FUNCTION [id number] 05:51:00 Test Item Value Reference Range Interpretation [...] = 9 U/L 6-55 347) BASIC METABOLIC [id number] 05:51:00 Test Item Value Reference Range Interpretation [...] PATIEN TS. CBC W/PLT COUNT & AUTO [id number] 05:47:00 Test Item Value Reference Range Interpretation [...] 0-1 PERCENT (BEAKER) (test code = 2801) [id number] 05:40:00 Test Item Value Reference Range Interpretation Comments MAGNESIUM (BEAKER) (test code = 1.9 mg/dL 1.6-2.6 627) BASIC METABOLIC [id number] 05:40:00 Test Item Value Reference Range Interpretation [...] PATIEN TS. CBC W/PLT COUNT & AUTO [id number] 00:35:00 Test Item Value Reference Range Interpretation [...] 0-1 GRANULOCYTES-RELATIVE PERCENT (BEAKER) (test code = 8301)
[2020-04-12] MEDS ORDERED: LIDOCAINE 1% MPF 5 ML VIAL ONE (20:19)
[2020-04-12] MEDS ORDERED: HYDROCODONE/APAP 7.5/325 MG TAB ONE (20:19)
[2020-04-12] MEDS ORDERED: CEPHALEXIN 250 MG CAP ONE (20:19)
[2020-04-12] MEDS ORDERED: ONDANSETRON 4 MG (ODT) TAB ONE (20:20)
--- NOTE | 2020-04-12 20:36 | ER ---
Nurse's Notes [facility] Name: Michele Lomas Age: 35 yrs Sex: Male : 1985 Arrival Date: 04/12/2020 Time: 19:50 Bed 6 Private MD: Diagnosis: Cutaneous abscess of right lower limb-inner thigh Presentation: 04/12 20:00 Chief complaint: Patient states: Abscess to right groin for 2 days getting ll1 progressively more swollen today. No drainage from the site, no fever. Coronavirus screen: Proceed with normal triage. Patient denies a cough. Patient denies shortness of breath or difficulty breathing. Patient denies measured and/or subjective temperature greater than 100.4F prior to today's visit. Patient denies travel on a cruise ship or to a country the [facility] currently lists as an affected area. Patient denies contact with known and/or suspected case of COVID-19. Ebola Screen: Patient denies travel to an Ebola-affected area in the 21 days before illness onset. Initial Sepsis Screen: Does the patient meet any 2 criteria? No. Patient's initial sepsis screen is negative. Does the patient have a suspected source of infection? Yes: Skin breakdown/wound. Risk Assessment: Do you want to hurt yourself or someone else? Patient reports no desire to harm self or others. Onset of symptoms was April 11, 2020. 20:00 Method Of Arrival: Ambulatory ll1 20:00 Acuity: PASTORA 4 ll1 Historical: - Allergies: 20:02 Banana; ll1 - PMHx: 20:02 Enlarged Heart; Hypertension; prolonged QT; Back pain; TIA; ll1 - Social history:: Smoking status: Patient reports the use of cigarette tobacco products, smokes one-half pack cigarettes per day, Patient uses alcohol, only on a social basis. street drugs, marijuana. Screenin:22 Abuse screen: Denies threats or abuse. Nutritional screening: No deficits noted. jb4 Tuberculosis screening: No symptoms or risk factors identified. Fall Risk None identified. Assessment: 20:22 General: Appears in no apparent distress. comfortable, Behavior is calm, cooperative, jb4 appropriate for age. Pain: Complains of pain in right inner thigh Pain does not radiate. Pain currently is 8 out of 10 on a pain scale. Neuro: Level of Consciousness is awake, alert, obeys commands, Oriented to person, place, time, situation. Cardiovascular: Patient's skin is warm and dry. Respiratory: Airway is patent Respiratory effort is even, unlabored, Respiratory pattern is regular, symmetrical. GI: : No signs and/or symptoms were reported regarding the genitourinary system. EENT: No signs and/or symptoms were reported regarding the EENT system. Derm: Skin is intact, Skin is dry, Skin is normal, Skin temperature is warm Abscess located on right inner thigh is quarter sized, has no drainage, is hot to touch, is raised. Musculoskeletal: Circulation, motion, and sensation intact. Range of motion: intact in all extremities. 20:46 Reassessment: Patient appears in no apparent distress at this time. Patient and/or jb4 family updated on plan of care and expected duration. Pain level reassessed. Patient is alert, oriented x 3, equal unlabored respirations, skin warm/dry/pink. PT verbalized understanding of d/c and follow up instructions. Denies questions or concerns. Ambulated out of ED with steady gait. Vital Signs: 20:00 BP 155 / 92; Pulse 71; Resp 17; Temp 98.7; Pulse Ox 98% ; Pain 8/10; ll1 20:47 BP 140 / 95; Pulse 51; Resp 16; Pulse Ox 100% on R/A; jb4 ED Course: 19:50 Patient arrived in ED. ag3 19:55 Judith Gaxiola FNP-C is [facility]. kb 19:55 Glen Nelson MD is Attending Physician. kb 20:01 Triage completed. ll1 20:03 Arm band placed on Patient placed in an exam room, on a stretcher. ll1 20:04 Abe Licea, SABINE is Primary Nurse. jb4 20:22 Patient has correct armband on for positive identification. Bed in low position. Call jb4 light in reach. Side rails up X 1. Pulse ox on. NIBP on. 20:30 Assist provider with I \T\ D: of an abscess on right inner thigh Set up I\T\D tray. andria 4 Performed by Judith MAGDALENO Dressing with 4X4s, tape Patient tolerated well. Patient did not have IV access during this emergency room visit. Administered Medications: 20:14 Drug: Ondansetron (Zofran) 4 mg Route: PO; jb4 20:48 Follow up: Response: No adverse reaction; Nausea is decreased jb4 20:20 Drug: KeFLEX 500 mg Route: PO; jb4 20:49 Follow up: Response: No adverse reaction jb4 20:20 Drug: [place] (7.5 mg-325 mg) 1 tabs Route: PO; jb4 20:48 Follow up: Response: No adverse reaction; Pain is decreased; RASS: Alert and Calm (0) jb4 20:30 Drug: Lidocaine (1 %) 1 vials {Note: Administered by ER provider..} Volume: 5 ml; jb4 Route: Infiltration; 20:49 Follow up: Response: No adverse reaction jb4 Outcome: 20:36 Discharge ordered by MD. healy 20:48 Discharged to home ambulatory. jb4 20:48 Condition: stable 20:48 Discharge instructions given to patient, Instructed on discharge instructions, follow up and referral plans. medication usage, wound care, Demonstrated understanding of instructions, follow-up care, medications, wound care, Prescriptions given X 1. 20:50 Patient left the ED. jb4 Signatures: Judith Gaxiola, BULB GROWER-C BULB GROWER-CkAbe Fuchs, RN RN jb4 Mulu Escamilla3 Carloz Parra, RN RN ll1
--- NOTE | 2020-04-12 20:37 | EDPHYS ---
Physician Documentation [facility] Name: Michele Lomas Age: 35 yrs Sex: Male : 1985 Arrival Date: 04/12/2020 Time: 19:50 Bed 6 Private MD: ED Physician Glen Nelson HPI: 04/12 20:34 This 35 yrs old Black Male presents to ER via Ambulatory with complaints of BUMP ON LEG.kb 20:33 Modifying factors: The patient symptoms are alleviated by. The patient has not kb experienced similar symptoms in the past. The patient has not recently seen a physician. 20:34 The patient presents with an abscess of the right inner thigh. Description: swollen, kb warm. Onset: The symptoms/episode began/occurred 2 day(s) ago. Possible cause(s): unknown. Associated signs and symptoms: The patient has no apparent associated signs or symptoms. Modifying factors: the symptoms are alleviated by nothing, the symptoms are aggravated by squeezing the lesion and expressing the contents, touching. Severity of symptoms: At their worst the symptoms were mild, in the emergency department the symptoms are unchanged. Historical: - Allergies: 20:02 Banana; ll1 - PMHx: 20:02 Enlarged Heart; Hypertension; prolonged QT; Back pain; TIA; ll1 - Social history:: Smoking status: Patient reports the use of cigarette tobacco products, smokes one-half pack cigarettes per day, Patient uses alcohol, only on a social basis. street drugs, marijuana. ROS: 20:32 Constitutional: Negative for fever, chills, and weight loss, Cardiovascular: Negative kb for chest pain, palpitations, and edema, Respiratory: Negative for shortness of breath, cough, wheezing, and pleuritic chest pain, Abdomen/GI: Negative for abdominal pain, nausea, vomiting, diarrhea, and constipation, MS/Extremity: Negative for injury and deformity, Neuro: Negative for headache, weakness, numbness, tingling, and seizure. 20:32 Skin: Positive for abscess, of the right inner thigh. Exam: 20:32 Constitutional: This is a well developed, well nourished patient who is awake, alert, kb and in no acute distress. Head/Face: Normocephalic, atraumatic. Chest/axilla: Normal chest wall appearance and motion. Nontender with no deformity. No lesions are appreciated. Cardiovascular: Regular rate and rhythm with a normal S1 and S2. No gallops, murmurs, or rubs. Normal PMI, no JVD. No pulse deficits. Respiratory: Lungs have equal breath sounds bilaterally, clear to auscultation and percussion. No rales, rhonchi or wheezes noted. No increased work of breathing, no retractions or nasal flaring. Abdomen/GI: Soft, non-tender, with normal bowel sounds. No distension or tympany. No guarding or rebound. No evidence of tenderness throughout. MS/ Extremity: Pulses equal, no cyanosis. Neurovascular intact. Full, normal range of motion. Neuro: Awake and alert, GCS 15, oriented to person, place, time, and situation. Cranial nerves II-XII grossly intact. Motor strength 5/5 in all extremities. Sensory grossly intact. Cerebellar exam normal. Normal gait. 20:32 Skin: abscess, that is small, of the right inner thigh, with fluctuance, that is mild. Vital Signs: 20:00 BP 155 / 92; Pulse 71; Resp 17; Temp 98.7; Pulse Ox 98% ; Pain 8/10; ll1 20:47 BP 140 / 95; Pulse 51; Resp 16; Pulse Ox 100% on R/A; jb4 Procedures: 20:31 I \T\ D: Incision and drainage was performed for an abscess of the right right inner kb thigh Prepped with Betadine, Anesthetized with 1 ml's 1% Lidocaine. Incised with #11 blade. Drained small amount purulent fluid. the patient tolerated the procedure well. MDM: 19:56 Patient medically screened. kb 20:33 Data reviewed: vital signs, nurses notes. Data interpreted: Pulse oximetry: on room air kb is 98 %. Interpretation: normal. Counseling: I had a detailed discussion with the patient and/or guardian regarding: the historical points, exam findings, and any diagnostic results supporting the discharge/admit diagnosis, the need for outpatient follow up, a family practitioner, to return to the emergency department if symptoms worsen or persist or if there are any questions or concerns that arise at home. 04/12 19:58 Order name: I\T\D Setup; Complete Time: 20:13 kb Administered Medications: 20:14 Drug: Ondansetron (Zofran) 4 mg Route: PO; jb4 20:48 Follow up: Response: No adverse reaction; Nausea is decreased jb4 20:20 Drug: KeFLEX 500 mg Route: PO; jb4 20:49 Follow up: Response: No adverse reaction jb4 20:20 Drug: [place] (7.5 mg-325 mg) 1 tabs Route: PO; jb4 20:48 Follow up: Response: No adverse reaction; Pain is decreased; RASS: Alert and Calm (0) jb4 20:30 Drug: Lidocaine (1 %) 1 vials {Note: Administered by ER provider..} Volume: 5 ml; jb4 Route: Infiltration; 20:49 Follow up: Response: No adverse reaction jb4 Disposition: 04/13 03:46 Co-signature as Attending Physician, Glen Nelson MD. [email or web address] Disposition: 04/12/20 20:36 Discharged to Home. Impression: Cutaneous abscess of right lower limb - inner thigh. - Condition is Stable. - Discharge Instructions: Skin Abscess, Mquc-rs-[id number], Incision and Drainage, Care After. - Prescriptions for Keflex 500 mg Oral Capsule - take 1 capsule by ORAL route every 8 hours for 10 days; 30 capsule. - Medication Reconciliation Form, Thank You Letter, Antibiotic Education, Prescription Opioid Use form. - Follow up: Emergency Department; When: As needed; Reason: Worsening of condition. Follow up: Private Physician; When: 2 - 3 days; Reason: Recheck today's complaints, Continuance of care, Re-evaluation by your physician. Signatures: Judith Gaxiola, LIBBY-C LIBBY-Abe Arnett RN RN jb4 Carloz Parra RN RN ll1 Glen Nelson MD MD 7 Corrections: (The following items were deleted from the chart) 04/12 20:50 20:36 04/12/2020 20:36 Discharged to Home. Impression: Cutaneous abscess of right lower jb4 limb - inner thigh. Condition is Stable. Forms are Medication Reconciliation Form, Thank You Letter, Antibiotic Education, Prescription Opioid Use. Follow up: Emergency Department; When: As needed; Reason: Worsening of condition. Follow up: Private Physician; When: 2 - 3 days; Reason: Recheck today's complaints, Continuance of care, Re-evaluation by your physician. kb
[2020-04-12 20:59] VITALS: TEMP 98.7
[2020-04-12 21:00] VITALS: BP 140/95; O2SAT 100
== END 2020-04-12 20:50 | disposition home or self-care (01) ==
LOC: ER 19:45
PROC: 0J9N0ZZ Drainage of Right Lower Leg Subcutaneous Tissue and Fascia, Open Approach (ICD-10-PCS; principal; 2020-04-12)
DX: L02.415 Cutaneous abscess of right lower limb (principal); I10 Essential (primary) hypertension; F17.210 Nicotine dependence, cigarettes, uncomplicated; Z91.018 Allergy to other foods
CPT/HCPCS: 99284

== ENCOUNTER 2020-06-02 07:15 | Emergency (ER) | payer SELFPAY ==
--- OUTSIDE RECORDS SUMMARY | 2020-06-02 07:18 | XMS REPORT | Clinical Summary ---
:[address] [facility] Address [address] [place] [address] Care Team Providers Name Role Phone Juan C Primary Care Provider Allergies No Known Allergies Medications Medication Sig Dispensed Refills Start Date End Date Status amLODIPine (NORVASC) 10 Take 10 mg by 0 Active MG tabletIndications: mouth daily. high blood pressure Active Problems Problem Noted Date Provoked seizure [...] Not on file Results Not on fileafter 06/02/2019 Advance Directives For more information, please contact:[facility] Centermig33[facility]Kqvddn[address] [place], [place] [phone] Code Status Date Activated Date Inactivated Comments Full Code 08/28/2017 10:26 PM 08/29/2017 8:43 PM This code status was determined by: Patient
--- OUTSIDE RECORDS SUMMARY | 2020-06-02 07:19 | XMS REPORT | Continuity of Care Document ---
:1985 Author Organization [facility] t Address [address] [place] [address] Care Team Providers Name Role Phone Sharpless Primary Care Physician MASSUMI Attending Clinician Unavailable MASSUMI Admitting Clinician Unavailable Problems Condition Condition Condition Status Onset Resolution Last Treating Co mments Source Name Details Category Date Date Treatment Clinician Date Provoked Provoked Disease [facility] 00 [place] Drug use Drug use Disease Active 2016[facility] 00 [place] Syncope, Syncope, Disease Active 2016[facility]11 [facility] un[facility]ifie [facility]-24 Carolyn kes - d syncope d syncope 00:00: Medi jefry type type 00 Center Anxiety Anxiety Disease Active 2016-[address] [facility] 0-24 [facility] 00 [place] Hypertroph Hypertroph Disease Active 2016-[address] [facility] ic 0-24 [facility] - nonobstruc nonobstruc 00:00: Me dical tive tive 00 Center cardiomyop cardiomyop athy athy Acute Acute Disease Active 2016-[address] [facility] coronary coronary 0-23 [facility] - syndrome syndrome 00:00: Medica l 00 [place] Allergies, Adverse Reactions, Alerts This patient has no known allergies or adverse reactions. Family History Family Member Diagnosis Comments Start Date Stop Date Source Natural father Hypertension [facility] Maternal aunt Hypertension [facility] Maternal grandfather Hypertension [facility] Maternal grandmother Arthritis [facility] Maternal grandmother Hearing loss [facility] Maternal grandmother Hypertension [facility] Maternal grandmother Vision loss [facility] Maternal uncle Hypertension [facility] Natural mother Heart disease [facility] Natural mother Hypertension [facility] Natural mother Stroke [facility] Social History Social Habit Start Date Stop Date Quantity Comments Source Sex Assigned At [facility] Cigarettes smoked 2017-08-29 2017-08-29 [facility] - current (pack per 00:00:00 00:00:00 [facility] Center day) - Reported Cigarette pack-years 2017-08-29 2017-08-29 [facility] - 00:00:00 00:00:00 [facility] Smoking Status Start Date Stop Date Source Current every day smoker 2017-08-29 00:00:00 [facility] Medications Ordered Filled Start Stop Current Ordering Indication Dosage Frequency Signature Comments Components Source Medication Medication Date Date Medication? Clinician (SIG) Name Name amLODIPine 2016-11 Yes high blood 10mg QD Take 10 mg [facility] (NORVASC) 0-23 pressure by mouth Carolyn kes - 10 MG 22:29: daily. Medical tablet [address] [place] [address] Procedures This patient has no known procedures. Results Test Description Test Time Test Comments [...] (test code = 2795) RAPID DRUG SCREEN, [id number] 07:53:00 Test Item Value Reference Range Interpretation [...] situations. Chain of custody not maintained. Some sntp-wzy-lscmhmb medications, as well as adulterants, may cause inaccurate results. Clinical correlation should be applied. A more comprehensive drug screen or confirmation of a detected drug may be performed upon request. HEPATIC FUNCTION [id number] 05:51:00 Test Item Value Reference Range Interpretation [...] = 9 U/L 6-55 347) BASIC METABOLIC [id number] 05:51:00 Test Item Value Reference Range Interpretation [...] PATIEN TS. CBC W/PLT COUNT & AUTO [id number] 05:47:00 Test Item Value Reference Range Interpretation [...] 0-1 PERCENT (BEAKER) (test code = 2801) [id number] 05:40:00 Test Item Value Reference Range Interpretation Comments MAGNESIUM (BEAKER) (test code = 1.9 mg/dL 1.6-2.6 627) BASIC METABOLIC [id number] 05:40:00 Test Item Value Reference Range Interpretation [...] PATIEN TS. CBC W/PLT COUNT & AUTO [id number] 00:35:00 Test Item Value Reference Range Interpretation [...] 0-1 GRANULOCYTES-RELATIVE PERCENT (BEAKER) (test code = 6111)
--- NOTE | 2020-06-02 07:48 | EDPHYS ---
Physician Documentation [facility] Name: Michele Lomas Age: 35 yrs Sex: Male : 1985 Arrival Date: 06/02/2020 Time: 07:19 Bed 12 Private MD: ED Physician Melanie Hawkins HPI: 06/02 07:41 This 35 yrs old Black Male presents to ER via Ambulatory with complaints of Toothache, cp Facial pain. 07:41 The patient presents with pain, swelling. The problem is located in the left upper cp molar. Onset: The symptoms/episode began/occurred yesterday. Duration: The symptoms are continuous, and are steadily getting worse. Associated signs and symptoms: Pertinent negatives: dysphagia, fever, inability to eat. Severity of symptoms: in the emergency department the symptoms are unchanged, despite home interventions. Historical: - Allergies: : Banana; ss - Home Meds: :28 metoprolol tartrate 25 mg Oral tab 1 tab 2 times per day [Active]; amlodipine 10 mg tab ss 1 tab once daily [Active]; aspirin 81 mg Oral chew 1 tab once daily [Active]; hydrochlorothiazide 25 mg Oral tab 1 tab once daily [Active]; - PMHx: 07:28 Back pain; Enlarged Heart; Hypertension; prolonged QT; TIA; ss - Immunization history:: Adult Immunizations up to date. - Social history:: Smoking status: Patient reports the use of cigarette tobacco products, smokes one-half pack cigarettes per day. ROS: 07:42 Eyes: Negative for injury, pain, redness, and discharge. cp 07:42 Constitutional: Negative for body aches, chills, fever. 07:42 ENT: Positive for dental pain, ear pain, Negative for drainage from ear(s), sore throat, difficulty swallowing, difficulty handling secretions. 07:42 Cardiovascular: Negative for chest pain. 07:42 Respiratory: Negative for cough, shortness of breath, wheezing. 07:42 Abdomen/GI: Negative for abdominal pain, nausea, vomiting, and diarrhea. 07:42 Skin: Negative for rash. 07:42 Neuro: Negative for altered mental status, headache, weakness. 07:42 All other systems are negative. Exam: 07:44 Constitutional: The patient appears in no acute distress, alert, awake, non-toxic, well cp developed, well nourished. 07:44 Head/face: Noted is swelling, that is mild, of the left cheek. 07:44 Eyes: Periorbital structures: appear normal, Conjunctiva: normal, no exudate, no injection, Lids and lashes: appear normal, bilaterally. 07:44 ENT: External ear(s): are unremarkable, Ear canal(s): are normal, clear, TM's: dullness, bilaterally, Nose: is normal, Mouth: Lips: moist, Oral mucosa: pink and intact, moist, Posterior pharynx: Airway: no evidence of obstruction, patent, Tonsils: are normal in appearance, erythema, is not appreciated, exudate, is not appreciated, Dental exam: abscess, is not appreciated, dental caries, that is mild, diffusely, gum swelling, not appreciated, pain, that is moderate, specifically in the upper left first molar (#14), Voice: is normal. 07:44 Neck: Lymph nodes: no appreciated lymphadenopathy. 07:44 Chest/axilla: Inspection: normal, Palpation: is normal, no crepitus, no tenderness. 07:44 Cardiovascular: Rate: normal. 07:44 Respiratory: the patient does not display signs of respiratory distress, Respirations: normal, no use of accessory muscles, no retractions. 07:44 Skin: no rash present. Vital Signs: 07:25 BP 141 / 99; Pulse 66; Resp 16; Temp 97.7(TE); Pulse Ox 98% on R/A; Weight 97.52 kg; ss Height 5 ft. 11 in. (180.34 cm); Pain 10/10; 07:25 Body Mass Index 29.99 (97.52 kg, 180.34 cm) ss MDM: 07:32 Patient medically screened. cp 07:45 Differential diagnosis: dental caries, dental abscess, pericoronitis. cp 07:48 Data reviewed: vital signs, nurses notes, and as a result, I will discharge patient. cp 07:48 Counseling: I had a detailed discussion with the patient and/or guardian regarding: the cp historical points, exam findings, and any diagnostic results supporting the discharge/admit diagnosis, the need for outpatient follow up, for definitive care, a dentist, to return to the emergency department if symptoms worsen or persist or if there are any questions or concerns that arise at home. Administered Medications: 07:41 CANCELLED (Physician Discretion): Clindamycin 300 mg PO once cp 08:06 Drug: Ibuprofen 800 mg Route: PO; ss 08:35 Follow up: Response: No adverse reaction ss 08:06 Drug: HYDROcodone-acetaminophen 5 mg-325 mg 1 tabs Route: PO; ss 08:35 Follow up: Response: No adverse reaction ss 08:33 Not Given (Pt did not want to wait any longer for meds to come from pharmacy): ss penicillin VK 500 mg PO once Disposition: 08:00 Chart complete. cp Disposition: 06/02/20 07:48 Discharged to Home. Impression: Other disorders of teeth and supporting structures. - Condition is Stable. - Discharge Instructions: Dental Pain. - Prescriptions for penicillin V potassium 250 mg Oral tablet - take 2 tablet by ORAL route 4 times per day for 10 days; 80 tablet. Ibuprofen 800 mg Oral Tablet - take 1 tablet by ORAL route every 8 hours As needed take with food; 30 tablet. Tramadol 50 mg Oral Tablet - take 1 tablet by ORAL route every 8 hours as needed; 12 tablet. - Medication Reconciliation Form, Thank You Letter, Antibiotic Education, Prescription Opioid Use form. - Follow up: Private Physician; When: 2 - 3 days; Reason: Recheck today's complaints. - Problem is new. - Symptoms have improved. Signatures: Inna Moraes RN RN Nick Welch PA PA cp Corrections: (The following items were deleted from the chart) 07:41 07:40 Clindamycin 300 mg PO once ordered. cp cp 08:35 07:48 06/02/2020 07:48 Discharged to Home. Impression: Other disorders of teeth and ss supporting structures. Condition is Stable. Forms are Medication Reconciliation Form, Thank You Letter, Antibiotic Education, Prescription Opioid Use. Follow up: Private Physician; When: 2 - 3 days; Reason: Recheck today's complaints. Problem is new. Symptoms have improved. cp
--- NOTE | 2020-06-02 07:48 | ER ---
Nurse's Notes [facility] Name: Michele Lomas Age: 35 yrs Sex: Male : 1985 Arrival Date: 06/02/2020 Time: 07:19 Bed 12 Private MD: Diagnosis: Other disorders of teeth and supporting structures Presentation: 06/02 07:26 Chief complaint: Patient states: L sided dental pain that began yesterday. Pain is now ss radiating to L ear. Denies fever. Coronavirus screen: Patient denies a cough. Patient denies shortness of breath or difficulty breathing. Patient denies measured and/or subjective temperature greater than 100.4F prior to today's visit. Patient denies travel on a cruise ship or to a country the [facility] currently lists as an affected area. Patient denies contact with known and/or suspected case of COVID-19. Ebola Screen: Patient denies exposure to infectious person. Patient denies travel to an Ebola-affected area in the 21 days before illness onset. Initial Sepsis Screen: Does the patient have a suspected source of infection? Yes: Other: dental. Initial Sepsis Screen: Does the patient meet any 2 criteria? No. Patient's initial sepsis screen is negative. Risk Assessment: Do you want to hurt yourself or someone else? Patient reports no desire to harm self or others. Onset of symptoms was June 01, 2020. 07:26 Method Of Arrival: Ambulatory ss 07:26 Acuity: PASTORA 5 ss Historical: - Allergies: 07: Banana; ss - Home Meds: 07:28 metoprolol tartrate 25 mg Oral tab 1 tab 2 times per day [Active]; amlodipine 10 mg tab ss 1 tab once daily [Active]; aspirin 81 mg Oral chew 1 tab once daily [Active]; hydrochlorothiazide 25 mg Oral tab 1 tab once daily [Active]; - PMHx: 07:28 Back pain; Enlarged Heart; Hypertension; prolonged QT; TIA; ss - Immunization history:: Adult Immunizations up to date. - Social history:: Smoking status: Patient reports the use of cigarette tobacco products, smokes one-half pack cigarettes per day. Screenin: Abuse screen: Denies threats or abuse. Denies injuries from another. Nutritional ss screening: No deficits noted. Tuberculosis screening: Never had TB. Fall Risk None identified. Assessment: 07:28 General: Appears uncomfortable, Behavior is calm, cooperative. Pain: Complains of pain ss in upper left first molar (#14) Pain currently is 10 out of 10 on a pain scale. Quality of pain is described as aching, tender, throbbing. Neuro: Level of Consciousness is awake, alert, obeys commands, Oriented to person, place, time, situation, Speech is normal. Cardiovascular: Capillary refill < 3 seconds is brisk in bilateral fingers. Respiratory: Airway is patent Respiratory effort is even, unlabored, Respiratory pattern is regular, symmetrical. GI: Patient currently denies diarrhea, nausea, vomiting. : No signs and/or symptoms were reported regarding the genitourinary system. EENT: Nares are clear Oral mucosa is moist. Throat is clear. Derm: Skin is intact, is healthy with good turgor, Skin is dry, Skin is pink, warm \T\ dry. normal. Musculoskeletal: Circulation, motion, and sensation intact. Range of motion: intact in all extremities, Swelling absent. 08:19 Reassessment: Awaiting for antibiotics to come from pharmacy. Vital Signs: 07:25 BP 141 / 99; Pulse 66; Resp 16; Temp 97.7(TE); Pulse Ox 98% on R/A; Weight 97.52 kg; ss Height 5 ft. 11 in. (180.34 cm); Pain 10/10; 07:25 Body Mass Index 29.99 (97.52 kg, 180.34 cm) ED Course: 07:19 Patient arrived in ED. am2 07:22 Nick Negro PA is PHCP. cp 07:22 Melanie Hawkins MD is Attending Physician. cp 07:25 Arm band placed on right wrist. ss 07:27 Triage completed. ss 07:28 Patient has correct armband on for positive identification. Bed in low position. Call ss light in reach. 08:00 Inna Moraes, SABINE is Primary Nurse. ss 08:33 No provider procedures requiring assistance completed. Patient did not have IV access ss during this emergency room visit. Administered Medications: 07:41 CANCELLED (Physician Discretion): Clindamycin 300 mg PO once cp 08:06 Drug: Ibuprofen 800 mg Route: PO; ss 08:35 Follow up: Response: No adverse reaction 08:06 Drug: HYDROcodone-acetaminophen 5 mg-325 mg 1 tabs Route: PO; 08:35 Follow up: Response: No adverse reaction ss 08:33 Not Given (Pt did not want to wait any longer for meds to come from pharmacy): ss penicillin VK 500 mg PO once Outcome: 07:48 Discharge ordered by . cp 08:33 Discharged to home ambulatory. 08:33 Condition: good 08:33 Discharge instructions given to patient, Instructed on discharge instructions, follow up and referral plans. medication usage, Demonstrated understanding of instructions, follow-up care, medications, Prescriptions given X 3. 08:35 Patient left the ED. Signatures: Inna Moraes RN RN ss Nick Negro PA PA cp Moreno, Amanda am2
[2020-06-02] MEDS ORDERED: HYDROCODONE/APAP 5/325 MG TAB ONE (08:13)
[2020-06-02] MEDS ORDERED: IBUPROFEN 400 MG TAB ONE (08:13)
[2020-06-02 08:44] VITALS: BP 141/99; TEMP 97.7; O2SAT 98
[2020-06-02] MEDS ORDERED: PENICILLIN V K 250 MG TABLET PO ONE (09:00)
== END 2020-06-02 08:35 | disposition home or self-care (01) ==
LOC: ER 07:15
DX: K08.89 Other specified disorders of teeth and supporting structures (principal); I10 Essential (primary) hypertension; F17.210 Nicotine dependence, cigarettes, uncomplicated; Z79.82 Long term (current) use of aspirin; Z91.018 Allergy to other foods
CPT/HCPCS: 99283

== ENCOUNTER 2020-07-06 06:32 | Observation (INO) | payer SELFPAY ==
--- OUTSIDE RECORDS SUMMARY | 2020-07-06 06:34 | XMS REPORT | Clinical Summary ---
:1985 Author Organization [facility] CenterLink [facility] MediaWashington [facility] Address [address] [place] [address] Care Team Providers Name Role Phone Juan [...] Not on file Results Not on fileafter 07/06/2019 Advance Directives For more information, please contact:[facility] EcinityWeiser Memorial HospitalPerSer CorpWashington Rural Health CollaborativeEyuuwt[address] [place], [place] [phone] Code Status Date Activated Date Inactivated Comments Full Code 08/28/2017 10:26 PM 08/29/2017 8:43 PM This code status was determined by: Patient
--- OUTSIDE RECORDS SUMMARY | 2020-07-06 06:34 | XMS REPORT | Continuity of Care Document ---
:1985 Author Organization [facility] t Address [address] [place] [address] Care Team Providers Name Role Phone Sharpless Primary Care Physician MASSUMI Attending Clinician Unavailable MASSUMI Admitting Clinician Unavailable Problems Condition Condition Condition Status Onset Resolution Last Treating Co mments Source Name Details Category Date Date Treatment Clinician Date Provoked Provoked Disease [facility] 00 [place] Drug use Drug use Disease Active 2016[facility] 00 [place] Syncope, Syncope, Disease Active 2016[facility] unspecifie 0-24 Carolyn kes - d syncope d syncope 00:00: Medi jefry type type 00 Center Anxiety Anxiety Disease Active 2016-[address] [facility] [facility] 0-24 [facility]: Medical 00 [place] Hypertroph Hypertroph Disease Active 2016-[address] ic ic 0-24 [facility] - nonobstruc nonobstruc 00:00: Me dical tive tive 00 Center cardiomyop cardiomyop athy athy Acute Acute Disease Active 2016-[address] [facility] coronary coronary 0-23 [facility] - syndrome syndrome 00:00: Medica l 00 [place] Allergies, Adverse Reactions, Alerts This patient has no known allergies or adverse reactions. Family History Family Member Diagnosis Comments Start Date Stop Date Source Natural father Hypertension [facility] Maternal aunt Hypertension [facility] Maternal grandfather Hypertension [facility] Maternal grandmother Arthritis [facility] Maternal grandmother Hearing loss [facility] Maternal grandmother Hypertension [facility] Maternal grandmother Vision loss [facility] Maternal uncle Hypertension [facility] Natural mother Heart disease [facility] Natural mother Hypertension [facility] Natural mother Stroke [facility] Social History Social Habit Start Date Stop Date Quantity Comments Source Sex Assigned At [facility] Cigarettes smoked 2017-08-29 2017-08-29 [facility] - current (pack per 00:00:00 00:00:00 [facility] Center day) - Reported Cigarette pack-years 2017-08-29 2017-08-29 [facility] - 00:00:00 00:00:00 [facility] Smoking Status Start Date Stop Date Source Current every day smoker 2017-08-29 00:00:00 [facility] Medications Ordered Filled Start Stop Current Ordering Indication Dosage Frequency Signature Comments Components Source Medication Medication Date Date Medication? Clinician (SIG) Name Name amLODIPine 2016-11 Yes high blood 10mg QD Take 10 mg [facility] (NORVASC) 0-23 pressure by mouth Carolyn kes - 10 MG 22:29: daily. Medical tablet [address] [place] [address] Procedures This patient has no known procedures. [...] (test code = 2795) RAPID DRUG SCREEN, [id number] 07:53:00 Test Item Value Reference Range Interpretation [...] situations. Chain of custody not maintained. Some nfiw-nlm-zdlryub medications, as well as adulterants, may cause inaccurate results. Clinical correlation should be applied. A more comprehensive drug screen or confirmation of a detected drug may be performed upon request. HEPATIC FUNCTION [id number] 05:51:00 Test Item Value Reference Range Interpretation [...] = 9 U/L 6-55 347) BASIC METABOLIC [id number] 05:51:00 Test Item Value Reference Range Interpretation [...] PATIEN TS. CBC W/PLT COUNT & AUTO [id number] 05:47:00 Test Item Value Reference Range Interpretation [...] 0-1 PERCENT (BEAKER) (test code = 2801) [id number] 05:40:00 Test Item Value Reference Range Interpretation Comments MAGNESIUM (BEAKER) (test code = 1.9 mg/dL 1.6-2.6 627) BASIC METABOLIC [id number] 05:40:00 Test Item Value Reference Range Interpretation [...] PATIEN TS. CBC W/PLT COUNT & AUTO [id number] 00:35:00 Test Item Value Reference Range Interpretation [...] 0-1 GRANULOCYTES-RELATIVE PERCENT (BEAKER) (test code = 7471)
[2020-07-06] MEDS ORDERED: ASPIRIN EC 81 MG TAB PO ONE (07:02)
[2020-07-06] MEDS ORDERED: ASPIRIN 81 MG CHEWABLE TABLET ONE (07:03)
[2020-07-06] MEDS ORDERED: FENTANYL CITR 100 MCG/2 ML ONE (07:08)
[2020-07-06 07:19] LABS: Basophils % 0.7 % (0-1.3); Hematocrit 40.1 % (39.6-49.0); Lymphocytes % 31.8 % (15.3-44.8); MPV 8.2 fL (7.6-11.3); RBC Red Blood Cell Count 4.24 M/uL (4.33-5.43)
[2020-07-06 07:22] LABS: Protime INR 0.95
[2020-07-06 07:41] LABS: ALT/SGPT 30 U/L (12-78); AST/SGOT 21 U/L (15-37); Albumin 3.7 g/dL (3.4-5.0); Alkaline Phosphatase 53 U/L (45-117); BUN Blood Urea Nitrogen 13 mg/dL (7-18); Bicarbonate 24 mmol/L (21-32); Bilirubin Direct < 0.1 mg/dL (0-0.2); Bilirubin Total 0.3 mg/dL (0.2-1.0); Glucose Level 90 mg/dL (74-106); Lipase 190 U/L (73-393); NT PRO-BNP 558 pg/mL (<125); Potassium 3.9 mmol/L (3.5-5.1); Protein, Total 7.1 g/dL (6.4-8.2); Sodium Level 142 mmol/L (136-145); Troponin (Emerg Dept Use Only) 0.04 ng/mL (0.0-0.045)
--- NOTE | 2020-07-06 08:21 | RAD REPORT ---
EXAM DESCRIPTION: Kevin Single View07/06/2020 7:54 am CLINICAL HISTORY: Chest pain COMPARISON: March 2020 FINDINGS: The lungs appear clear of acute infiltrate. The heart is mildly enlarged
[2020-07-06] MEDS ORDERED: HYDROCODONE/APAP 7.5/325 MG TAB ONE (11:10)
--- NOTE | 2020-07-06 11:12 | P.HP ---
Certification for Inpatient Patient admitted to: Observation With expected LOS: <2 Midnights Patient will require the following post-hospital care: None Practitioner: I am a practitioner with admitting privileges, knowledge of patient current condition, hospital course, and medical plan of care. Services: Services provided to patient in accordance with Admission requirements found in Title 42 Section 412.3 of the Code of Federal Regulations Patient History Date of Service: 07/06/20 Primary Care Provider: None; Cardiology-Dr. Meyers Reason for admission: Chest pain History of Present Illness: 35-year-old male with history of cardiomyopathy, hypertension, and illegal drug use including cocaine/THC. Patient presents with chest pain. Mainly to the left side. He rates the pain 10/10. He radiates to the back. The pain is constant. It started yesterday. He denies any nausea, vomiting. He has some mild shortness of breath. Patient has been under stress as he has been out at work for 4 months. Patient admits tobacco abuse, THC use, and cocaine abuse. Patient also reports that he ran out of medication including hydrochlorothiazide, Norvasc, and metoprolol the last couple of days. He came to the ER for further evaluation. In the ER patient evaluated. EKG shows LVH. Prior EKG reviewed. No significant changes noted from prior. CBC, CMP unremarkable. Troponin unremarkable. Urine drug screen pending.Patient admitted for observation. When I saw the patient ER, patient without significant distress. Patient desiring IV pain medication. Patient reports history of heart catheterization 3 years ago which was unremarkable except for cardiomyopathy. Allergies banana Allergy (Verified 04/13/15 14:43) Unknown No Known Drug Allergies Allergy (Verified 04/13/15 14:43) Unknown Home medications list reviewed: Yes Home Medications: Amlodipine [Norvasc*] 10 mg PO DAILY #30 tab 04/14/18 Aspirin [Aspirin EC 81 MG] 81 mg PO DAILY #90 tablet. 04/14/18 Metoprolol Tartrate [Lopressor*] 25 mg PO BID 30 Days #60 tab 02/15/20 hydroCHLOROthiazide [Hydrodiuril*] 25 mg PO DAILY #30 tab 02/15/20 [place]-3/Dha/Epa/Fish Oil [Fish Oil 1,000 mg Softgel] 1 each PO DAILY 03/27/20 - Past Medical/Surgical History Diabetic: No -: Hypertension -: Cardiomyopathy -: Tobacco abuse -: Alcohol use -: History of TIA -: Heart Cath Psychosocial/ Personal History: The patient is single. He has 2 children. He works as a cook. - Family History Father -: Heart disease, Hypertension, Diabetes, Other (see notes) Mother -: Hypertension, Diabetes, Other (see notes) Notes: gout. schizoprenia Sister -: Heart disease - Social History Smoking Status: Heavy Tobacco smoker (>10 cigarettes/day) Counseled patient to stop smoking for: less than 10 minutes Smoking therapy provided: Yes Patient receptive to therapy: Yes Alcohol use: Yes CD- Drugs: Yes Caffeine use: No Place of Residence: Home Review of Systems General: Unremarkable Eyes: Unremarkable ENT: Unremarkable Respiratory: Shortness of Breath, As per HPI Cardiovascular: Chest Pain, As per HPI Gastrointestinal: Unremarkable Genitourinary: Unremarkable Musculoskeletal: Unremarkable Integumentary: Unremarkable Neurological: Unremarkable Lymphatics: Unremarkable Physical Examination - Physical Exam General: Alert, In no apparent distress, Oriented x3, Cooperative HEENT: Atraumatic, Mucous membr. moist/pink Neck: Supple Respiratory: Clear to auscultation bilaterally, Normal air movement Cardiovascular: Normal pulses, Regular rate/rhythm Gastrointestinal: Normal bowel sounds, No guarding Integumentary: No tenderness/swelling, No erythema, No warmth, No cyanosis Neurological: Normal speech, Normal strength at 5/5 x4 extr, Normal tone, Normal affect - Studies Laboratory Data (last 24 hrs) 07/06/20 07:08: PT 11.2, INR 0.95 07/06/20 07:08: WBC 6.1, Hgb 13.6, Hct 40.1, Plt Count 244 07/06/20 07:08: Sodium 142, Potassium 3.9, BUN 13, Creatinine 1.24, Glucose 90, Magnesium 2.0, Total Bilirubin 0.3, AST 21, ALT 30, Alkaline Phosphatase 53, Lipase 190 Assessment and Plan - Plan Impression: Chest pain with history of cardiomyopathy Hypertension Tobacco abuse THC use Cocaine abuse Plan: Chest pain with history of cardiomyopathy: Patient will be admitted for further evaluation and observation. Will continue monitor telemetry and cardiac enzymes. Case discussed in detail with cardiology. Cardiology reviewed EKG. No significant EKG changes noted. Significant LVH noted. Prior echocardiogram done March 2020 shows normal ejection fraction with severe concentric ventricular hypertrophy. Stress test done at that time was unremarkable. Plan will be to monitor cardiac enzymes and telemetry. If repeat cardiac enzymes unremarkable later today then the patient can be discharged home. Compliance with his medication address in detail. Compliance with tobacco cessation, cocaine cessation addressed in detail. Patient understands the risk of continued use. Will contact neonatal social worker to help provide in resources to establish care with a local physician. Will provide medication for pain orally. Discontinue IV pain medication. Will need to monitor for chronic pain use. Anticipate discharge today if repeat troponin unremarkable. Hypertension: Will decrease metoprolol due to mild bradycardia. Continue home medication of Norvasc 10 mg daily, hydrochlorothiazide 25 mg daily. Tobacco abuse: Tobacco cessation addressed in detail. Risks addressed. Patient understands continue use can lead to worsening cardiac disease. THC use: Cessation addressed in detail. Cocaine abuse: Patient admits cocaine abuse. Will check urine drug screen. Will risks address in detail. Patient understands the risk of continued use can lead to sudden cardiac arrest. Patient desires to stop. Cessation to be continued to be addressed. Discharge Plan: Home Plan to discharge in: 24 Hours - Advance Directives Does patient have a Living Will: No Does patient have a Durable POA for Healthcare: No - Code Status/Comfort Care Code Status Assessed: Yes (Patient is full code) Time Spent Managing Pts Care (In Minutes): 55
--- NOTE | 2020-07-06 11:34 | ER ---
Nurse's Notes [facility] Name: Michele Lomas Age: 35 yrs Sex: Male : 1985 Arrival Date: 07/06/2020 Time: 06:32 Bed 5 Private MD: Diagnosis: Chest pain, unspecified Presentation: 07/06 06:35 Chief complaint: Patient states: he has been having chest pain since yesterday. bb Coronavirus screen: At this time, the client does not indicate any symptoms associated with coronavirus-19. Ebola Screen: No symptoms or risks identified at this time. Initial Sepsis Screen: Does the patient meet any 2 criteria? No. Patient's initial sepsis screen is negative. Does the patient have a suspected source of infection? No. Patient's initial sepsis screen is negative. Risk Assessment: Do you want to hurt yourself or someone else? Patient reports no desire to harm self or others. Onset of symptoms was July 05, 2020. 06:35 Method Of Arrival: Ambulatory 06:35 Acuity: PASTORA 3 bb Historical: - Allergies: 07:03 Banana; bb - Home Meds: 07:03 amlodipine 10 mg tab 1 tab once daily [Active]; aspirin 81 mg Oral chew 1 tab once bb daily [Active]; hydrochlorothiazide 25 mg Oral tab 1 tab once daily [Active]; metoprolol tartrate 25 mg Oral tab 1 tab 2 times per day [Active]; tramadol 50 mg Oral tab 1 tab every 8 hours [Active]; penicillin [Active]; - PMHx: 07:03 Back pain; Enlarged Heart; Hypertension; prolonged QT; TIA; bb - PSHx: 07:03 heart cath; bb - Immunization history:: Adult Immunizations up to date. - Social history:: Smoking status: Patient reports the use of cigarette tobacco products, smokes one-half pack cigarettes per day, Patient uses alcohol, occasionally. street drugs, marijuana. Screenin:16 Abuse screen: Denies threats or abuse. Nutritional screening: No deficits noted. mt2 Tuberculosis screening: No symptoms or risk factors identified. Fall Risk None identified. Assessment: 07:15 Reassessment: Patient and/or family updated on plan of care and expected duration. Pain mt2 level reassessed. Patient is alert, oriented x 3, equal unlabored respirations, skin warm/dry/pink. General: Appears uncomfortable, Behavior is cooperative. Pain: Complains of pain in chest Pain does not radiate. Pain currently is 10 out of 10 on a pain scale. Pain began gradually. Neuro: No deficits noted. Cardiovascular: Reports chest pain, shortness of breath. Respiratory: Reports shortness of breath Airway is patent Respiratory effort is even, Respiratory pattern is regular. GI: No deficits noted. : No deficits noted. EENT: No deficits noted. Derm: No deficits noted. 07:36 Reassessment: Patient appears in no apparent distress at this time. Reports decreased jl7 pain rated 5/10 at this time. 08:30 Reassessment: Patient appears in no apparent distress at this time. No changes from jl7 previously documented assessment. Patient and/or family updated on plan of care and expected duration. Pain level reassessed. Patient is alert, oriented x 3, equal unlabored respirations, skin warm/dry/pink. 09:45 Reassessment: Pt reports increased pain, requesting pain medication, ERP notified and jl7 reports hospitalist will be in to see pt around 1015 this morning and will provide additional orders. Pt updated and verbalized understanding. 10:30 Reassessment: Dr. Norris at bedside. jl7 11:25 Reassessment: Pt reports anxiety about BP, Dr. Norris notified and gave VO for Norvasc jl7 10 mg PO and Hydrochlorothiazide 25 mg PO. Vital Signs: 06:35 BP 149 / 83; Pulse 61; Resp 16 S; Temp 98.6(O); Pulse Ox 98% on R/A; Weight 90.72 kg bb (R); Height 5 ft. 11 in. (180.34 cm) (R); Pain 8/10; 07:36 BP 143 / 97; Pulse 47; Resp 15; Pulse Ox 98% ; Pain 5/10; jl7 08:30 BP 133 / 82; Pulse 49; Resp 17; Pulse Ox 98% ; jl7 09:30 BP 133 / 95; Pulse 48; Resp 15; Pulse Ox 100% ; jl7 10:09 BP 134 / 93; Pulse 42; Resp 18; Pulse Ox 100% ; jl7 10:45 BP 148 / 95; Pulse 46; Resp 16; Pulse Ox 98% ; jl7 11:15 BP 142 / 107; Pulse 48; Resp 19; Pulse Ox 99% ; jl7 12:00 BP 142 / 93; Pulse 51; Resp 18 S; Pulse Ox 100% on R/A; ca1 06:35 Body Mass Index 27.89 (90.72 kg, 180.34 cm) bb ED Course: 06:32 Patient arrived in ED. cl3 06:35 Arm band placed on Patient placed in an exam room, on a stretcher, on pulse oximetry. bb EKG completed in triage. Results shown to MD. 06:37 Stephanie Rodgers FNP-C is PHCP. snw 06:37 Glen Nelson MD is Attending Physician. snw 06:50 Yun Gr, SABINE is Primary Nurse. mt2 07:00 Initial lab(s) drawn, by ED staff, sent to lab. EKG done, by ED staff, reviewed by lexi MAGDALENO. 07:02 Triage completed. bb 07:08 Inserted saline lock: 20 gauge in right forearm, using aseptic technique. Blood ds4 collected. 07:16 Bed in low position. Call light in reach. Side rails up X 1. phototypesetting equipment monitor on. Pulse mt2 ox on. NIBP on. 07:17 Patient maintains SpO2 saturation greater than 95% on room air. mt2 07:54 XRAY Chest (1 view) In Process Unspecified. EDMS 11:33 Mark Norris DO is Hospitalizing Provider. snw 11:35 Mark Norris DO is Hospitalizing Provider. snw Administered Medications: 06:56 Drug: Aspirin Chewable Tablet 324 mg Route: PO; mt2 07:36 Follow up: Response: No adverse reaction jl7 07:08 Drug: fentaNYL (PF) 50 mcg Route: IVP; Site: right forearm; jl7 07:36 Follow up: Response: No adverse reaction; Pain is decreased jl7 11:08 Drug: [place] (7.5 mg-325 mg) 1 tabs Route: PO; jl7 11:32 Drug: amLODIPine 10 mg Route: PO; jl7 11:32 Drug: Hydrochlorothiazide 25 mg Route: PO; jl7 11:33 Not Given (WRONG PROVIDER): [place] (7.5 mg-325 mg) 1 tabs PO once; RASS on ADMIN: 7 Combtv4, Very Agttd3, Agttd2, Rstlss1, AlertClm0, Drwsy-1, Lt Sdtn-2, Mod Sdtn-3, Dp Sdtn-4, UnArsble-5 Outcome: 11:33 Decision to Hospitalize by Provider. snw 11:35 Decision to Hospitalize by Provider. snw 14:55 Patient left the ED. jl7 Signatures: Dispatcher [employer] EDMS Stephanie Rodgers, CENTRAL LAB TECHNICIAN-C CENTRAL LAB TECHNICIAN-Csnw Julissa Mckinney, RN RN bb Lj Kelsey ds4 Brittany Stoner RN RN jl7 Hiral Nicolas RN RN ca1 Kanika Parra cl3 Yun Gr RN RN mt2 Corrections: (The following items were deleted from the chart) 11:32 11:08 [place] (7.5 mg-325 mg) 1 tabs PO jl7 jl7
--- NOTE | 2020-07-06 11:34 | EDPHYS ---
Physician Documentation [facility] Name: Michele Lomas Age: 35 yrs Sex: Male : 1985 Arrival Date: 07/06/2020 Time: 06:32 Bed 5 Private MD: ED Physician Glen Nelson HPI: 07/06 06:59 This 35 yrs old Black Male presents to ER via Unassigned with complaints of Chest Pain. snw 06:59 Associated signs and symptoms: Pertinent positives: chest pain, Pertinent negatives: snw abdominal pain, congestion, cough, fever. Modifying factors: The patient symptoms are alleviated by nothing. The patient has experienced a previous episode. The patient has not recently seen a physician, and does not have an established primary care provider. Historical: - Allergies: 07:03 Banana; bb - Home Meds: 07:03 amlodipine 10 mg tab 1 tab once daily [Active]; aspirin 81 mg Oral chew 1 tab once bb daily [Active]; hydrochlorothiazide 25 mg Oral tab 1 tab once daily [Active]; metoprolol tartrate 25 mg Oral tab 1 tab 2 times per day [Active]; tramadol 50 mg Oral tab 1 tab every 8 hours [Active]; penicillin [Active]; - PMHx: 07:03 Back pain; Enlarged Heart; Hypertension; prolonged QT; TIA; bb - PSHx: 07:03 heart cath; bb - Immunization history:: Adult Immunizations up to date. - Social history:: Smoking status: Patient reports the use of cigarette tobacco products, smokes one-half pack cigarettes per day, Patient uses alcohol, occasionally. street drugs, marijuana. ROS: 06:58 Constitutional: Negative for fever, chills, and weight loss, Eyes: Negative for injury, snw pain, redness, and discharge, ENT: Negative for injury, pain, and discharge, Neck: Negative for injury, pain, and swelling, Respiratory: Negative for shortness of breath, cough, wheezing, and pleuritic chest pain, Abdomen/GI: Negative for abdominal pain, nausea, vomiting, diarrhea, and constipation, Back: Negative for injury and pain, : Negative for injury, bleeding, discharge, and swelling, MS/Extremity: Negative for injury and deformity, Skin: Negative for injury, rash, and discoloration, Neuro: Negative for headache, weakness, numbness, tingling, and seizure, Psych: Negative for depression, anxiety, suicide ideation, homicidal ideation, and hallucinations. 06:58 Cardiovascular: Positive for chest pain, of the anterior aspect of left upper chest and left breast, radiates to back. Exam: 06:56 Constitutional: This is a well developed, well nourished patient who is awake, alert, snw and in no acute distress. Head/Face: Normocephalic, atraumatic. Eyes: Pupils equal round and reactive to light, extra-ocular motions intact. Lids and lashes normal. Conjunctiva and sclera are non-icteric and not injected. Cornea within normal limits. Periorbital areas with no swelling, redness, or edema. ENT: Nares patent. No nasal discharge, no septal abnormalities noted. Tympanic membranes are normal and external auditory canals are clear. Oropharynx with no redness, swelling, or masses, exudates, or evidence of obstruction, uvula midline. Mucous membranes moist. Neck: Trachea midline, no thyromegaly or masses palpated, and no cervical lymphadenopathy. Supple, full range of motion without nuchal rigidity, or vertebral point tenderness. No Meningismus. Chest/axilla: Normal chest wall appearance and motion. Nontender with no deformity. No lesions are appreciated. Respiratory: Lungs have equal breath sounds bilaterally, clear to auscultation and percussion. No rales, rhonchi or wheezes noted. No increased work of breathing, no retractions or nasal flaring. Abdomen/GI: Soft, non-tender, with normal bowel sounds. No distension or tympany. No guarding or rebound. No evidence of tenderness throughout. Back: No spinal tenderness. No costovertebral tenderness. Full range of motion. Skin: Warm, dry with normal turgor. Normal color with no rashes, no lesions, and no evidence of cellulitis. MS/ Extremity: Pulses equal, no cyanosis. Neurovascular intact. Full, normal range of motion. Neuro: Awake and alert, GCS 15, oriented to person, place, time, and situation. Cranial nerves II-XII grossly intact. Motor strength 5/5 in all extremities. Sensory grossly intact. Cerebellar exam normal. Normal gait. Psych: Awake, alert, with orientation to person, place and time. Behavior, mood, and affect are within normal limits. 06:56 Cardiovascular: Rate: bradycardic, Rhythm: regular, Pulses: no pulse deficits are appreciated, Heart sounds: normal. 06:56 ECG was reviewed by the Attending Physician. Vital Signs: 06:35 BP 149 / 83; Pulse 61; Resp 16 S; Temp 98.6(O); Pulse Ox 98% on R/A; Weight 90.72 kg bb (R); Height 5 ft. 11 in. (180.34 cm) (R); Pain 8/10; 07:36 BP 143 / 97; Pulse 47; Resp 15; Pulse Ox 98% ; Pain 5/10; jl7 08:30 BP 133 / 82; Pulse 49; Resp 17; Pulse Ox 98% ; jl7 09:30 BP 133 / 95; Pulse 48; Resp 15; Pulse Ox 100% ; jl7 10:09 BP 134 / 93; Pulse 42; Resp 18; Pulse Ox 100% ; jl7 10:45 BP 148 / 95; Pulse 46; Resp 16; Pulse Ox 98% ; jl7 11:15 BP 142 / 107; Pulse 48; Resp 19; Pulse Ox 99% ; jl7 12:00 BP 142 / 93; Pulse 51; Resp 18 S; Pulse Ox 100% on R/A; ca1 06:35 Body Mass Index 27.89 (90.72 kg, 180.34 cm) bb MDM: 06:47 Patient medically screened. snw 09:11 Data reviewed: vital signs, nurses notes. Data interpreted: Pulse oximetry: on room air snw is 98 %. Interpretation: normal. Counseling: I had a detailed discussion with the patient and/or guardian regarding: the historical points, exam findings, and any diagnostic results supporting the discharge/admit diagnosis, the presence of at least one elevated blood pressure reading (>120/80) during this emergency department visit, lab results, radiology results, the need for outpatient follow up, for definitive care, a sericulturist. Physician consultation: Tremayne Meyers MD was called at 09:11, regarding consult, patient's condition. 09:48 Physician consultation: Mark Norris DO was called at 09:48, was contacted at 09:49, snw and will see patient in ED, shortly. 10:19 Awaiting: consulting physician, Dr. Dr. Norris. snw 10:34 ED course: Dr. Prezas at bedside. snw 07/06 06:42 Order name: Basic Metabolic Panel; Complete Time: 07:43 snw 07/06 06:42 Order name: CBC with Diff; Complete Time: 07:31 snw 07/06 06:42 Order name: LFT's; Complete Time: 07:43 snw 07/06 06:42 Order name: Magnesium; Complete Time: 07:43 snw 07/06 06:42 Order name: NT PRO-BNP; Complete Time: 07:43 snw 07/06 06:42 Order name: PT-INR; Complete Time: 07:31 snw 07/06 06:42 Order name: Troponin (emerg Dept Use Only); Complete Time: 07:43 snw 07/06 06:42 Order name: XRAY Chest (1 view); Complete Time: 08:30 snw 07/06 06:42 Order name: Lipase; Complete Time: 07:43 snw 07/06 09:47 Order name: UDS; Complete Time: 12:21 snw 07/06 12:19 Order name: Urine Dipstick--Ancillary (enter results) bd 07/06 12:23 Order name: Urine Dipstick-Ancillary; Complete Time: 12:32 EDMS 07/06 06:42 Order name: EKG; Complete Time: 06:43 snw 07/06 06:42 Order name: Cardiac monitoring; Complete Time: 06:56 snw 07/06 06:42 Order name: EKG - Nurse/Tech; Complete Time: 06:56 snw 07/06 06:42 Order name: IV Saline Lock; Complete Time: 06:56 snw 07/06 06:42 Order name: Labs collected and sent; Complete Time: 06:56 snw 07/06 06:42 Order name: O2 Per Protocol; Complete Time: 06:56 snw 07/06 06:42 Order name: O2 Sat Monitoring; Complete Time: 07:14 snw 07/06 09:13 Order name: consult Order-Tremayne Meyers MD (Cardiology) sn 07/06 10:58 Order name: Diet Heart Healthy; Complete Time: 10:59 jl7 07/06 12:31 Order name: Diet Heart Healthy; Complete Time: 12:31 iw EC:56 Rate is 51 beats/min. Rhythm is regular. QRS Dinosaur is Normal. CA interval is shortened. snw QRS interval is normal. QT interval is normal. T waves are Inverted. Clinical impression: No change from prior ECG and Sinus bradycardia. Administered Medications: 06:56 Drug: Aspirin Chewable Tablet 324 mg Route: PO; mt2 07:36 Follow up: Response: No adverse reaction jl7 07:08 Drug: fentaNYL (PF) 50 mcg Route: IVP; Site: right forearm; jl7 07:36 Follow up: Response: No adverse reaction; Pain is decreased jl7 11:08 Drug: [place] (7.5 mg-325 mg) 1 tabs Route: PO; jl7 11:32 Drug: amLODIPine 10 mg Route: PO; jl7 11:32 Drug: Hydrochlorothiazide 25 mg Route: PO; jl7 11:33 Not Given (WRONG PROVIDER): [place] (7.5 mg-325 mg) 1 tabs PO once; RASS on ADMIN: jl7 Combtv4, Very Agttd3, Agttd2, Rstlss1, AlertClm0, Drwsy-1, Lt Sdtn-2, Mod Sdtn-3, Dp Sdtn-4, UnArsble-5 Disposition: 07/06/20 11:35 Hospitalization ordered by Mark Norris for Observation. Preliminary diagnosis is Chest pain, unspecified. - Bed requested for [facility] ER HOLD. - Status is Observation. jl7 - Condition is Stable. - Problem is an acute exacerbation. - Symptoms are unchanged. Signatures: Dispatcher [employer] EDMS Afshan Love Shelly, MACHINE REBUILDER-C MACHINE REBUILDER-Csnw Julissa Mckinney RN RN bb Brittany Stoner RN RN jl7 Yun Gr RN RN mt2 Corrections: (The following items were deleted from the chart) 11:34 11:33 Hospitalization Ordered by Mark Norris DO for Observation. Preliminary snw diagnosis is Chest pain, unspecified. Bed requested for Telemetry/MedSurg (observation). Status is Observation. Condition is Stable. Problem is an acute exacerbation. Symptoms are unchanged. snw 12:31 11:35 Hospitalization Ordered by Mark Norris DO for Observation. Preliminary bd diagnosis is Chest pain, unspecified. Bed requested for Telemetry/MedSurg (observation). Status is Observation. Condition is Stable. Problem is an acute exacerbation. Symptoms are unchanged. snw 14:55 12:31 07/06/2020 11:35 Hospitalization Ordered by Mark Norris DO for Observation. jl7 Preliminary diagnosis is Chest pain, unspecified. Bed requested for [facility] ER HOLD. Status is Observation. Condition is Stable. Problem is an acute exacerbation. Symptoms are unchanged. bd
[2020-07-06] MEDS ORDERED: hydroCHLOROthiazide 25 MG TAB ONE (11:38)
[2020-07-06] MEDS ORDERED: AMLODIPINE 10 MG TAB ONE (11:38)
[2020-07-06 12:19] LABS: Barbiturates NEGATIVE (NEGATIVE); Benzodiazepines NEGATIVE (NEGATIVE); Cocaine POSITIVE (NEGATIVE); METHAMPHETAM NEGATIVE (NEGATIVE); Methadone NEGATIVE (NEGATIVE); Opiates NEGATIVE (NEGATIVE); Phencyclidine NEGATIVE (NEGATIVE); THC Cannibis POSITIVE (NEGATIVE)
[2020-07-06 12:23] LABS: Urine Blood TRACE (NEG); Urine Glucose NEGATIVE (NEG); Urine Protein NEGATIVE (NEG); Urine Specific Gravity >1.030 (1.005-1.030)
[2020-07-06] MEDS ORDERED: ACETAMINOPHEN 500 MG TAB PO PRN (13:12)
[2020-07-06] MEDS ORDERED: TRAMADOL HCL 50 MG TAB PO PRN (13:12)
[2020-07-06] MEDS ORDERED: ONDANSETRON 4 MG/2 ML VIAL IV PRN (13:12)
[2020-07-06] MEDS ORDERED: HYDROCODONE/APAP 7.5/325 MG TAB PO PRN (13:12)
[2020-07-06 13:48] VITALS: BMI 27.8
[2020-07-06] MEDS ORDERED: AMLODIPINE 10 MG TAB PO SCH (17:00)
--- NOTE | 2020-07-06 17:03 | P.DS ---
Admission Date: 07/06/20 Discharge Date: 07/06/20 Primary Care Provider: None; Cardiology-Dr. Meyers Disposition: AMA-LEFT AGAINST MEDICAL ADVIC Discharge Condition: GOOD Reason for Admission: Chest pain Consultations: Cardiology Procedures: Medical problem list: Chest pain with history of cardiomyopathy Hypertension Hyperlipidemia Tobacco abuse Cocaine abuse THC abuse Brief History of Present Illness: 35-year-old male with history of cardiomyopathy, hypertension, and illegal drug use including cocaine/THC. Patient presents with chest pain. Mainly to the left side. He rates the pain 10/10. He radiates to the back. The pain is constant. It started yesterday. He denies any nausea, vomiting. He has some mild shortness of breath. Patient has been under stress as he has been out at work for 4 months. Patient admits tobacco abuse, THC use, and cocaine abuse. Patient also reports that he ran out of medication including hydrochlorothiazide, Norvasc, and metoprolol the last couple of days. He came to the ER for further evaluation. In the ER patient evaluated. EKG shows LVH. Prior EKG reviewed. No sign ificant changes noted from prior. CBC, CMP unremarkable. Troponin unremarkable. Urine drug screen pending.Patient admitted for observation. When I saw the patient ER, patient without significant distress. Patient desiring IV pain medication. Patient reports history of heart catheterization 3 years ago which was unremarkable except for cardiomyopathy. Hospital Course: Patient was admitted for further evaluation and treatment. Case discussed with cardiology. Cardiology recommended to continue to monitor cardiac enzymes and telemetry. Patient was found to be positive for cocaine and THC. Patient was requesting IV pain medication. Patient then decided to leave against medical advice. Patient was counseled by ER physician. This was relayed to me after the patient was admitted. Please note patient was counseled extensively on compliance with medications, tobacco cessation, cocaine cessation. Risks were addressed in detail. Patient understood this in detail. Will recommend to monitor cocaine abuse in the future. Will also need to monitor for chronic pain medication abuse. Vital Signs/Physical Exam: Patient left against medical advice. Patient seen upon admission. Please see H&P pre Laboratory Data at Discharge: WBC 6.1 K/uL (4.3-10.9) 07/06/20 07:08 Hgb 13.6 g/dL (13.6-17.9) 07/06/20 07:08 Hct 40.1 % (39.6-49.0) 07/06/20 07:08 Plt Count 244 K/uL (152-406) 07/06/20 07:08 PT 11.2 SECONDS (9.5-12.5) 07/06/20 07:08 INR 0.95 07/06/20 07:08 Sodium 142 mmol/L (136-145) 07/06/20 07:08 Potassium 3.9 mmol/L (3.5-5.1) 07/06/20 07:08 BUN 13 mg/dL (7-18) 07/06/20 07:08 Creatinine 1.24 mg/dL (0.55-1.3) 07/06/20 07:08 Glucose 90 mg/dL (74-106) 07/06/20 07:08 Magnesium 2.0 mg/dL (1.8-2.4) 07/06/20 07:08 Total Bilirubin 0.3 mg/dL (0.2-1.0) 07/06/20 07:08 AST 21 U/L (15-37) 07/06/20 07:08 ALT 30 U/L (12-78) 07/06/20 07:08 Alkaline Phosphatase 53 U/L (45-117) 07/06/20 07:08 Lipase 190 U/L (73-393) 07/06/20 07:08 Home Medications: Amlodipine [Norvasc*] 10 mg PO DAILY #30 tab 04/14/18 Aspirin [Aspirin EC 81 MG] 81 mg PO DAILY #90 tablet. 04/14/18 Metoprolol Tartrate [Lopressor*] 25 mg PO BID 30 Days #60 tab 02/15/20 hydroCHLOROthiazide [Hydrodiuril*] 25 mg PO DAILY #30 tab 02/15/20 [place]-3/Dha/Epa/Fish Oil [Fish Oil 1,000 mg Softgel] 1 each PO DAILY 03/27/20 Patient Discharge Instructions: Patient left against medical advice. Diet: AHA Activity: Ad artemio Time spent managing pt's care (in minutes): 15
--- NOTE | 2020-07-06 17:15 | CON ---
Reason For Consultation: Chest pain. History Of Present Illness: This is a young male with history of tobacco smoking and cocaine abuse, hypertension, presented with chest pain started yesterday, constant in the left side in the location, no radiation, and sharp. The patient uses cocaine and smokes daily up to full back. He has had mul tiple hospitalizations. He said in 2018 he was rushed to [place] and had a cardiac catheterization t hat showed totally normal coronary arteries. He has hypertension. Blood pressure is not controlled. Past Medical History: Hypertension, polysubstance abuse, and smoker. Medications: Refer to reconciliation sheet for medication list. Allergies: NO KNOWN DRUG ALLERGIES. Social History: Smokes, drinks, and uses drugs as above. Family History: Sister suddenly from prolonged QT syndrome. Review of Systems: All systems reviewed and they were negative except as mentioned in the HPI. Physical Examination: Vital Signs: Reviewed. Blood pressure is elevated. General: Pleasant young male, in no distress. Head and Neck: Pupils are equal, reactive to light. Intact eye movements. No JVD. No cervical lym phadenopathy. Neck is supple. Thyroid is not enlarged. Lungs: Clear to auscultation bilaterally. No rhonchi, rales, or wheezes. No accessory muscle use. Heart: Regular rate and rhythm. No extra sounds. Abdomen: Soft, nontender. Bowel sounds positive. No organomegaly. Extremities: No edema, clubbing, or cyanosis. Intact pulses. Skin: No rash. Neurologic: Alert, awake, oriented x3. No acute focal appreciated. Investigations: EKG; LVH with repolarization abnormalities, similar to the EKG from March 27 this ye moshe. Labs were reviewed. Assessment And Plan: 1.Chest pain. It is atypical, however, cocaine induced. He claimed of having a normal coronary ang iogram 2 years ago. We will try to obtain records from those and recommend observing the patient for rule out with serial troponin measurements. 2.Hypertension, uncontrolled. Recommend blood pressure control with a goal of systolic below 130 an d avoid beta-blockers due to cocaine abuse. 3.Cocaine abuse and smoking disorder. He was counseled against both. I appreciate the courtesy of this consultation. /ALLEGRA Voice ID: [id number] Report ID: [id number]
[2020-07-06] MEDS ORDERED: METOPROLOL TAR 25 MG TAB PO SCH (18:00)
[2020-07-06] MEDS ORDERED: ATORVASTATIN 40 MG TAB PO SCH (21:00)
[2020-07-07] MEDS ORDERED: ENOXAPARIN 40 MG/0.4 ML SQ SCH (09:00)
[2020-07-07] MEDS ORDERED: ASPIRIN EC 81 MG TAB PO SCH (09:00)
[2020-07-07] MEDS ORDERED: hydroCHLOROthiazide 25 MG TAB PO SCH (09:00)
[2020-07-09 09:18] VITALS: TEMP 98.6
[2020-07-09 09:27] VITALS: BP 142/93; O2SAT 100
== END 2020-07-06 15:00 | disposition left against medical advice (07) ==
LOC: ER 06:32 → ERHOLD 10:56
PROVIDERS: ADMIT Family Medicine; ATTEND Family Medicine
DX: R07.89 Other chest pain (principal); I42.9 Cardiomyopathy, unspecified; I11.9 Hypertensive heart disease without heart failure; F17.210 Nicotine dependence, cigarettes, uncomplicated; F12.90 Cannabis use, unspecified, uncomplicated; F14.10 Cocaine abuse, uncomplicated; R00.1 Bradycardia, unspecified; Z53.29 Procedure and treatment not carried out because of patient's decision for other reasons; Z79.82 Long term (current) use of aspirin; Z79.899 Other long term (current) drug therapy; Z86.73 Personal history of transient ischemic attack (TIA), and cerebral infarction without residual deficits
CPT/HCPCS: 36415; 71045; 80048; 80076; 80307; 81003; 83690; 83735; 83880; 84484; 85025; 85610; 93005; 96374; 99285; G0378; J3010

== ENCOUNTER 2020-09-21 07:29 | Emergency (ER) | payer SELFPAY ==
--- OUTSIDE RECORDS SUMMARY | 2020-09-21 07:32 | XMS REPORT | Continuity of Care Document ---
:1985 Author Organization [facility] t Address [address] [place] [address] Care Team Providers Name Role Phone Sharpless Primary Care Physician MASSUMI Attending Clinician Unavailable MASSUMI Admitting Clinician Unavailable Payers Payer Name Policy Type Policy Number Effective Date Expiration Date S ource Problems Condition Condition Condition Status Onset Resolution Last Treating Co mments Source Name Details Category Date Date Treatment Clinician Date Provoked Provoked Disease [facility] [place] Drug use Drug use Disease Active 2016[facility]11 [facility] [place] Syncope, Syncope, Disease Active 2016[facility]11 [facility] unspecifie unspecifie 0-24 Carolyn kes - d syncope d syncope 00:00: Medi jefry type type 00 Center Anxiety Anxiety Disease Active 2016-[address] [facility] Hypertroph Hypertroph Disease Active 2016-[address] [facility] ic 0-24 [facility] - nonobstruc nonobstruc 00:00: Me dical tive tive 00 Center cardiomyop cardiomyop athy athy Acute Acute Disease Active 2016-[address] [facility] [address] coronary coronary 0-23 [facility] syndrome syndrome 00:00: Medica l Center Allergies, Adverse Reactions, Alerts Allergy Allergy Status Severity Reaction(s) Onset Inactive Treating Comm ents Source Name Type Date Date Clinician No Known DA Active [facility]ie 14 [place] [facility] 00[facility] d [facility] Family History Family Member Diagnosis Comments Start Date Stop Date Source Natural father Hypertension [facility] Maternal aunt Hypertension [facility] Maternal grandfather Hypertension [facility] Maternal grandmother Arthritis [facility] Maternal grandmother Hearing loss [facility] Maternal grandmother Hypertension I [facility] Maternal grandmother Vision loss [facility] Maternal uncle Hypertension [facility] Natural mother Heart disease [facility] Natural mother Hypertension [facility] Natural mother Stroke [facility] Social History Social Habit Start Date Stop Date Quantity Comments Source Sex Assigned At [facility] Cigarettes smoked 2017-08-29 2017-08-[address] [facility] - current (pack per 00:00:00 00:00:00 [facility] Center day) - Reported Cigarette 2017-08-29 2017-08-[address] [facility] - pack-years 00:00:00 00:00:00 [facility] Tobacco use and 2017-08-29 2017-08-[address] [facility] - exposure 00:00:00 00:00:00 [facility] Alcohol intake 2017-08-29 2017-08-29 [facility] 00:00:00 of alcohol [facility] Center (finding) Smoking Status Start Date Stop Date Source Current every day smoker 2017-08-29 00:00:00 [facility] Medications Ordered Filled Start Stop Current Ordering Indication Dosage Frequency Signature Comments Components Source Medication Medication Date Date Medication? Clinician (SIG) Name Name amLODIPine 2016-11 Yes hypertensio 10mg QD Take [address] [facility] [address] (NORVASC) 0-24 n by mouth [facility] - 10 MG 18:43: daily. Medical tablet Center Procedures This patient has no known procedures. Results Test Description Test Time Test Comments Results Result [facility] e Comments - CT HEAD/BRAIN 2020-09-20 W/O CONT [facility]:02[facility] 1985 Sex: M Name: BUD FLETCHER [facility] : 1985 Age/S: 35 / M [id number] Unit #: [id number] Loc: [place] [address] Phys: Aure Pena MD Acct: [id number] Dis Date: Status: REG ER PHONE #: [phone] Exam Date: 09/20/2020 0055 FAX #: Reason: head trauma; frontal [place] EXAMS: CPT: [id number] CT HEAD/BRAIN W/O CONT 96351 EXAM: - CT HEAD/BRAIN W/O CONT LOCATION: H57 HISTORY: 35 years-year old Male with head trauma; frontal [place] TECHNIQUE: Computerized tomography images from the skull base to the vertex were obtained. Coronal and sagittal reformatted images are provided. This exam was performed according to our departmental dose-optimization program, which includes automated exposure control, adjustment of the mA and/or kV according to patient size and/or use of iterative reconstruction technique COMPARISON: None FINDINGS: Brain: The brain parenchyma is unremarkable. There is no evidence of an acute territorial infarct. There is no mass effect, midline shift, or parenchymal edema. Ventricles/Extra-axia l spaces: There is no acute intracranial hemorrhage or extra-axial fluid collection. The ventricles are unremarkable. No basal cistern effacement. Bones: There is no evidence of acute displaced calvarial fracture. Sinuses: The visualized paranasal sinuses and mastoid air cells are clear. Soft Tissues: Unremarkable. Other: None. IMPRESSION: 1. No CT evidence of acute intracranial abnormality. PAGE 1 Signed Report (CONTINUED) Name: BUD FLETCHER [facility] [place] : 1985 Age/S: 35 / M [address] Unit #: [id number] Loc: [place] [address] Phys: Aure Pena MD Acct: [id number] Dis Date: Status: REG ER PHONE #: [phone] Exam Date: 09/20/2020 0055 FAX #: Reason: head trauma; frontal [place] EXAMS: CPT: [id number] CT HEAD/BRAIN W/O CONT [id number] <Continued> at 0102 Reported and signed by: Piyush Liu M.D. CC: Aure Pena MD Technologist:Nisha Ching RT(R)(CT); ... CTDI: DLP: Trnscb Date/Time: 09/20/2020 (101) [email or web address] Orig Print D/T: S: 09/20/2020 (105) PAGE 2 Signed Report URINALYSIS W/ MICROSCOPIC 2017-08-29 08:03:00 Test Item [...] (test code = 2795) RAPID DRUG SCREEN, [id number] 07:53:00 Test Item Value Reference Range Interpretation [...] situations. Chain of custody not maintained. Some aibe-que-gwzbpde medications, as well as adulterants, may cause inaccurate results. Clinical correlation should be applied. A more comprehensive drug screen or confirmation of a detected drug may be performed upon request. HEPATIC FUNCTION [id number] 05:51:00 Test Item Value Reference Range Interpretation [...] = 9 U/L 6-55 347) BASIC METABOLIC [id number] 05:51:00 Test Item Value Reference Range Interpretation [...] PATIEN TS. CBC W/PLT COUNT & AUTO [id number] 05:47:00 Test Item Value Reference Range Interpretation [...] 0-1 PERCENT (BEAKER) (test code = 2801) [id number] 05:40:00 Test Item Value Reference Range Interpretation Comments MAGNESIUM (BEAKER) (test code = 1.9 mg/dL 1.6-2.6 627) BASIC METABOLIC [id number] 05:40:00 Test Item Value Reference Range Interpretation [...] PATIEN TS. CBC W/PLT COUNT & AUTO [id number] 00:35:00 Test Item Value Reference Range Interpretation [...] 0-1 GRANULOCYTES-RELATIVE PERCENT (BEAKER) (test code = 2804)
--- OUTSIDE RECORDS SUMMARY | 2020-09-21 07:32 | XMS REPORT | Clinical Summary ---
:1985 Author Organization [facility] Address [address] [place] [address] Care Team Providers Name Role Phone Juan [...] Not on file Last Filed Vital Signs Not on file Plan of Treatment Not on file Results Not on fileafter 09/21/2019 Advance Directives For more information, please contact: [phone] Code Status Date Activated Date Inactivated Comments Full Code 08/28/2017 10:26 PM 08/29/2017 8:43 PM This code status was determined by: Patient
[2020-09-21] MEDS ORDERED: HYDROCODONE/APAP 5/325 MG TAB ONE (08:35)
--- NOTE | 2020-09-21 09:30 | EDPHYS ---
Physician Documentation [facility] Name: Michele Lomas Age: 35 yrs Sex: Male : 1985 Arrival Date: 09/21/2020 Time: 07:31 Bed 19 Private MD: ED Physician Blanco Shultz HPI: 09/21 09:26 This 35 yrs old Black Male presents to ER via Ambulatory with complaints of Wrist Pain, rn Toe Pain. 09:26 The patient or guardian reports pain. The complaints affect the left wrist diffusely. rn Context: The problem was sustained outdoors, resulted from an unknown cause. 09:26 Onset: The symptoms/episode began/occurred 2 day(s) ago. Modifying factors: The rn symptoms are alleviated by nothing, the symptoms are aggravated by movement. Associated signs and symptoms: Pertinent negatives: cyanosis distally, fever, numbness distally, tingling distally. The patient has not experienced similar symptoms in the past. The patient has not recently seen a physician. Reports arrested Monday, now having pain from handcuffs, no deformity. No direct trauma or fall that he recalls. Reports also having left 3rd toe pain, also does not recall if kicked something, reports walking in flip flops at the time.. Historical: - Allergies: 07:45 Banana; ss - PMHx: 07:45 Back pain; Enlarged Heart; Hypertension; prolonged QT; TIA; ss - PSHx: 07:45 heart cath; ss - Immunization history:: Adult Immunizations up to date. - Social history:: Smoking status: Patient reports the use of cigarette tobacco products, smokes one-half pack cigarettes per day. - Family history:: not pertinent. - Hospitalizations: : No recent hospitalization is reported. ROS: 09:26 Constitutional: Negative for fever, chills, and weight loss, MS/Extremity: + left wrist rn pain and left 3rd toe pain Exam: 09:26 Constitutional: This is a well developed, well nourished patient who is awake, alert, rn and in no acute distress. MS/ Extremity: Pulses equal, no cyanosis. Neurovascular intact. + mild left wrist tenderness, no swelling, no discoloration. + 3rd left toe with mild swelling and ecchymosis. Vital Signs: 07:42 BP 137 / 105; Pulse 84; Resp 16; Temp 98.3(TE); Pulse Ox 100% on R/A; Weight 99.79 kg; ss Height 5 ft. 11 in. (180.34 cm); Pain 8/10; 08:30 BP 143 / 94; Pulse 55; Resp 16; Pulse Ox 99% on R/A; Pain 9/10; em 07:42 Body Mass Index 30.68 (99.79 kg, 180.34 cm) ss MDM: 07:37 Patient medically screened. rn 09:26 Differential diagnosis: closed fracture, contusion. Data reviewed: vital signs, nurses rn notes, radiologic studies, plain films, and as a result, I will discharge patient. Counseling: I had a detailed discussion with the patient and/or guardian regarding: the historical points, exam findings, and any diagnostic results supporting the discharge/admit diagnosis, radiology results, the need for outpatient follow up, to return to the emergency department if symptoms worsen or persist or if there are any questions or concerns that arise at home. Special discussion: I discussed with the patient/guardian in detail that at this point there is no indication for admission to the hospital. It is understood, however, that if the symptoms persist or worsen the patient needs to return immediately for re-evaluation. 09/21 07:50 Order name: XRAY Wrist LEFT 3 view rn 09/21 07:50 Order name: XRAY Foot LEFT 3 View rn 09/21 09:31 Order name: Splint: flor tape toe; Complete Time: 09:53 rn Administered Medications: 08:22 Drug: [place] 5 mg-325 mg 1 tabs Route: PO; em 09:53 Follow up: Response: No adverse reaction; Marked relief of symptoms; Pain is decreased; em RASS: Alert and Calm (0) Disposition: 09/21/20 09:30 Discharged to Home. Impression: Pain in left wrist, Contusion of left lesser toe(s) without damage to nail. - Condition is Stable. - Discharge Instructions: Contusion, Foot Contusion, Wrist Pain. - Medication Reconciliation Form, Thank You Letter, Antibiotic Education, Prescription Opioid Use form. - Follow up: Private Physician; When: As needed; Reason: Recheck today's complaints, Re-evaluation by your physician. - Problem is new. - Symptoms have improved. Signatures: Dispatcher [employer] EDMS Dawson, Geo, Blanco Andrews RN, MD MD rn Smirch, Shelby, RN RN ss Corrections: (The following items were deleted from the chart) 09:58 09:30 09/21/2020 09:30 Discharged to Home. Impression: Pain in left wrist; Contusion of em left lesser toe(s) without damage to nail. Condition is Stable. Forms are Medication Reconciliation Form, Thank You Letter, Antibiotic Education, Prescription Opioid Use. Follow up: Private Physician; When: As needed; Reason: Recheck today's complaints, Re-evaluation by your physician. Problem is new. Symptoms have improved. rn
--- NOTE | 2020-09-21 09:30 | ER ---
Nurse's Notes [facility] Name: Michele Lomas Age: 35 yrs Sex: Male : 1985 Arrival Date: 09/21/2020 Time: 07:31 Bed 19 Private MD: Diagnosis: Pain in left wrist;Contusion of left lesser toe(s) without damage to nail Presentation: 09/21 07:42 Chief complaint: Patient states: L wrist and L third toe pain that began Monday after ss being arrested. Pt states that the cuffs hurt his wrist and he is unsure how he injured his toe. Coronavirus screen: Client denies travel out of the [place] in the last 14 days. Ebola Screen: Patient denies exposure to infectious person. Patient denies travel to an Ebola-affected area in the 21 days before illness onset. Initial Sepsis Screen: Does the patient meet any 2 criteria? No. Patient's initial sepsis screen is negative. Does the patient have a suspected source of infection? No. Patient's initial sepsis screen is negative. Risk Assessment: Do you want to hurt yourself or someone else? Patient reports no desire to harm self or others. Onset of symptoms was September 19, 2020. 07:42 Method Of Arrival: Ambulatory ss 07:42 Acuity: PASTORA 4 ss Historical: - Allergies: 07:45 Banana; ss - PMHx: 07:45 Back pain; Enlarged Heart; Hypertension; prolonged QT; TIA; ss - PSHx: 07:45 heart cath; ss - Immunization history:: Adult Immunizations up to date. - Social history:: Smoking status: Patient reports the use of cigarette tobacco products, smokes one-half pack cigarettes per day. - Family history:: not pertinent. - Hospitalizations: : No recent hospitalization is reported. Screenin:47 Abuse screen: Denies threats or abuse. Nutritional screening: No deficits noted. em Tuberculosis screening: No symptoms or risk factors identified. Fall Risk None identified. Assessment: 08:15 General: Appears in no apparent distress. uncomfortable, Behavior is calm, cooperative, em appropriate for age. Pain: Complains of pain in left foot, right wrist and left wrist Pain currently is 9 out of 10 on a pain scale. Neuro: Level of Consciousness is awake, alert, obeys commands, Oriented to person, place, time, situation, Appropriate for age. Cardiovascular: Capillary refill < 3 seconds Patient's skin is warm and dry. Respiratory: Airway is patent Respiratory effort is even, unlabored, Respiratory pattern is regular, symmetrical. Derm: Skin is intact, is healthy with good turgor, Skin is pink, warm \T\ dry. Musculoskeletal: Capillary refill < 3 seconds, Range of motion: limited in left wrist and right wrist. 09:30 Reassessment: Patient appears in no apparent distress at this time. Patient and/or em family updated on plan of care and expected duration. Pain level reassessed. Patient is alert, oriented x 3, equal unlabored respirations, skin warm/dry/pink. Vital Signs: 07:42 BP 137 / 105; Pulse 84; Resp 16; Temp 98.3(TE); Pulse Ox 100% on R/A; Weight 99.79 kg; ss Height 5 ft. 11 in. (180.34 cm); Pain 8/10; 08:30 BP 143 / 94; Pulse 55; Resp 16; Pulse Ox 99% on R/A; Pain 9/10; em 07:42 Body Mass Index 30.68 (99.79 kg, 180.34 cm) ED Course: 07:31 Patient arrived in ED. ds1 07:37 Blanco Shultz MD is Attending Physician. rn 07:38 Geo Dawson, SABINE is Primary Nurse. em 07:45 Triage completed. ss 07:45 Arm band placed on right wrist. ss 07:47 Patient has correct armband on for positive identification. Bed in low position. Call em light in reach. Side rails up X2. 08:13 XRAY Wrist LEFT 3 view In Process Unspecified. EDMS 08:29 XRAY Foot LEFT 3 View In Process Unspecified. EDMS 09:54 No provider procedures requiring assistance completed. Patient did not have IV access em during this emergency room visit. Administered Medications: 08:22 Drug: [employer] 5 mg-325 mg 1 tabs Route: PO; em 09:53 Follow up: Response: No adverse reaction; Marked relief of symptoms; Pain is decreased; em RASS: Alert and Calm (0) Outcome: 09:30 Discharge ordered by MD. rn 09:54 Discharged to home ambulatory. em 09:54 Condition: good 09:54 Discharge instructions given to patient, Instructed on discharge instructions, follow up and referral plans. Demonstrated understanding of instructions, follow-up care. 09:58 Patient left the ED. em Signatures: Dispatcher [employer] Geo Eagle, RN RN Kimberly Cope ds1 Blanco Shultz MD MD rn Smirch, Shelby, RN RN ss
--- NOTE | 2020-09-21 10:03 | RAD REPORT ---
EXAM DESCRIPTION: RAD - Wrist Left 3 View - 09/21/2020 8:12 am CLINICAL HISTORY: Left wrist pain FINDINGS: No fracture or dislocation is seen. If the patient continues to have symptoms to suggest an occult fracture then a followup plain film se paramjit in 7 days would be recommended
--- NOTE | 2020-09-21 10:04 | RAD REPORT ---
EXAM DESCRIPTION: RAD - Foot Left 3 View - 09/21/2020 8:29 am CLINICAL HISTORY: Left Foot pain FINDINGS: No fracture or dislocation is seen.
[2020-09-21 10:14] VITALS: TEMP 98.3
[2020-09-21 10:16] VITALS: BP 143/94; O2SAT 99
== END 2020-09-21 09:58 | disposition home or self-care (01) ==
LOC: ER 07:29
DX: S90.122A Contusion of left lesser toe(s) without damage to nail, initial encounter (principal); I10 Essential (primary) hypertension; F17.210 Nicotine dependence, cigarettes, uncomplicated; Z91.018 Allergy to other foods
CPT/HCPCS: 99283

== ENCOUNTER 2021-01-14 22:12 | Emergency (ER) | payer SELFPAY ==
--- OUTSIDE RECORDS SUMMARY | 2021-01-14 22:15 | XMS REPORT | Continuity of Care Document ---
:1985 Author Organization [facility] t Address [address] [place] [address] Care Team Providers Name Role Phone Sharpless [...] seizure 0-24 [facility] 00 [place] Drug use Drug use Disease [facility] 2016[facility]11 [facility] 00 [place] Syncope, Syncope, Disease Active 2016[facility]11 [facility] [...] Diagnosis Comments Start Date Stop Date Source Maternal uncle Hypertension [facility] Natural mother Heart disease [facility] Natural mother Hypertension [facility] Natural mother Stroke [facility] Natural father Hypertension [facility] Maternal aunt Hypertension [facility] Maternal grandfather Hypertension [facility] Maternal grandmother Arthritis [facility] Maternal grandmother Hearing loss [facility] Maternal grandmother Hypertension [facility] Maternal grandmother Vision loss [facility] Social History Social Habit Start Date Stop Date Quantity Comments Source Sex Assigned At [facility] Cigarettes smoked 2017-08-29 2017-08-[address] [facility] - [facility] (pack per 00:00:00 00:00:00 [facility] day) - Reported Cigarette 2017-08-29 2017-08-[address] [facility] - pack-years 00:00:00 00:00:00 [facility] Tobacco use and 2017-08-29 2017-08-[address] [facility] - exposure 00:00:00 00:00:00 [facility] Alcohol intake 2017-08-29 2017-08-29 [facility]00:00 of alcohol [facility] (finding) Smoking Status Start Date Stop Date Source Current every day smoker 2017-08-29 00:00:00 [facility] Medications Ordered Filled Start Stop Current Ordering [...] Facility Department ID 2019-11-13 2019-11-13 Outpatient E [facility] [address] [facility] 13:40:00 13:40:00 Results Test Description Test Time Test Comments Results Result [facility] e Comments - CT HEAD/BRAIN 2020-09-20 W/O CONT 01:02:00 [facility] 1985 Sex: M Name: BUD FLETCHER [facility] : 1985 Age/S: 35 / M [address] [place] Unit #: [id number] Loc: [place] [address] Phys: Aure Pena MD Acct: [id number] Dis Date: Status: REG ER PHONE #: [phone] Exam Date: 09/20/2020 0055 FAX #: Reason: head trauma; frontal [place]AM[place] EXAMS: CPT: [id number] CT HEAD/BRAIN W/O CONT 99330 EXAM: - CT HEAD/BRAIN W/O CONT LOCATION: [...] 1 Signed Report (CONTINUED) Name: BUD FLETCHER [facility] : 1985 Age/S: 35 / M [address] [place] Unit #: [id number] Loc: [place] [address] Phys: Aure Pean MD Acct: [id number] Dis Date: Status: REG ER PHONE #: [phone] Exam Date: 09/20/2020 0055 FAX #: Reason: head trauma; frontal [place]AMLIN EXAMS: CPT: [id number] CT HEAD/BRAIN W/O CONT 60505 <Continued> at 0102 Reported and signed by: Piyush Liu M.D. CC: Aure Pena MD Technologist:Nisha Ching, RT(R)(CT); ... CTDI: DLP: Trnscb Date/Time: 09/20/2020 (101) [email or web address] Orig Print D/T: S: 09/20/2020 (010) PAGE 2 Signed Report URINALYSIS W/ MICROSCOPIC [...] (test code = 2795) RAPID DRUG SCREEN, [id number] 07:53:00 Test Item Value Reference Range Interpretation [...] situations. Chain of custody not maintained. Some sdsa-ves-xpbbajl medications, as well as adulterants, may cause inaccurate results. Clinical correlation should be applied. A more comprehensive drug screen or confirmation of a detected drug may be performed upon request. HEPATIC FUNCTION [id number] 05:51:00 Test Item Value Reference Range Interpretation [...] = 9 U/L 6-55 347) BASIC METABOLIC [id number] 05:51:00 Test Item Value Reference Range Interpretation [...] PATIEN TS. CBC W/PLT COUNT & AUTO [id number] 05:47:00 Test Item Value Reference Range Interpretation [...] 0-1 PERCENT (BEAKER) (test code = 2801) [id number] 05:40:00 Test Item Value Reference Range Interpretation Comments MAGNESIUM (BEAKER) (test code = 1.9 mg/dL 1.6-2.6 627) BASIC METABOLIC [id number] 05:40:00 Test Item Value Reference Range Interpretation [...] PATIEN TS. CBC W/PLT COUNT & AUTO [id number] 00:35:00 Test Item Value Reference Range Interpretation [...] 0-1 GRANULOCYTES-RELATIVE PERCENT (BEAKER) (test code = 5201)
[2021-01-15] MEDS ORDERED: LIDOCAINE 1% W/EPI 1:100,000 MDV 50 ML VIAL ONE (00:02)
[2021-01-15] MEDS ORDERED: TETANUS & DIPHTHERIA TOX,ADULT 0.5 ML VIAL ONE (00:16)
[2021-01-15] MEDS ORDERED: AMLODIPINE 10 MG TAB ONE (00:25)
--- NOTE | 2021-01-15 00:32 | ER ---
Nurse's Notes [facility] Name: Michele Lomas Age: 35 yrs Sex: Male : 1985 Arrival Date: 01/14/2021 Time: 22:15 Bed 19 Private MD: Diagnosis: Laceration without foreign body of left hand Presentation: 01/14 23:16 Chief complaint: Patient states: cut left palm earlier today while at work, has 2 em lacerations, reports putting liquid band aide on palm, unknown if he has tetanus UTD. Coronavirus screen: Client denies travel out of the [place] in the last 14 days. Ebola Screen: Patient negative for fever greater than or equal to 101.5 degrees Fahrenheit, and additional compatible Ebola Virus Disease symptoms Patient denies exposure to infectious person. Patient denies travel to an Ebola-affected area in the 21 days before illness onset. No symptoms or risks identified at this time. Complicating Factors: There are no complicating factors for this patient. Initial Sepsis Screen: Does the patient meet any 2 criteria? No. Patient's initial sepsis screen is negative. Does the patient have a suspected source of infection? No. Patient's initial sepsis screen is negative. Risk Assessment: Do you want to hurt yourself or someone else? Patient reports no desire to harm self or others. Onset of symptoms was January 14, 2021. 23:16 Method Of Arrival: Ambulatory em 23:16 Acuity: PASTORA 4 em Historical: - Allergies: 23:18 Banana; em - Home Meds: 23:18 amlodipine 10 mg tab 1 tab once daily [Active]; aspirin 81 mg Oral chew 1 tab once em daily [Active]; hydrochlorothiazide 25 mg Oral tab 1 tab once daily [Active]; - PMHx: 23:18 Back pain; Enlarged Heart; Hypertension; prolonged QT; TIA; em - PSHx: 01/15 00:10 None; sf - Immunization history:: Adult Immunizations not up to date. - Social history:: Smoking status: Patient denies any tobacco usage or history of. Patient/guardian denies using alcohol, street drugs, The patient lives with family. - Family history:: not pertinent. Screenin/11 23:50 Abuse screen: Denies threats or abuse. Denies injuries from another. Nutritional sf screening: No deficits noted. Tuberculosis screening: No symptoms or risk factors identified. Never had TB. Possible symptoms: None Risk factors: None. Fall Risk None identified. No fall in past 12 months (0 pts). No secondary diagnosis (0 pts). No IV (0 pts). Ambulatory Aid- None/Bed Rest/Nurse Assist (0 pts). Gait- Normal/Bed Rest/Wheelchair (0 pts) Mental Status- Oriented to own ability (0 pts). Total Asencio Fall Scale indicates No Risk (0-24 pts). Assessment: 23:50 General: Appears in no apparent distress. comfortable, Behavior is calm, cooperative, sf appropriate for age. Pain: Complains of pain in palm of left hand. Neuro: No deficits noted. Level of Consciousness is awake, alert, Oriented to person, place, time, situation. Cardiovascular: No deficits noted. Patient's skin is warm and dry. Respiratory: No deficits noted. Airway is patent Respiratory effort is even, unlabored, Respiratory pattern is regular, symmetrical. GI:. Derm: Wound noted palm of left hand Wound is <1 cm laceration. Musculoskeletal: No deficits noted. No signs and/or symptoms reported regarding the musculoskeletal system. Injury Description: Laceration sustained to palm of left hand is clean, 0.5 to 2.5 cm long, not bleeding. Vital Signs: 23:15 BP 146 / 98; Pulse 59; sf 23:16 BP 155 / 106; Pulse 55; Resp 18; Temp 98.6(O); Pulse Ox 98% on R/A; Weight 95.25 kg; em Height 5 ft. 11 in. (180.34 cm); Pain 8/10; 23:30 BP 142 / 104; Pulse 66; sf 23:45 BP 149 / 109; Pulse 57; sf 03 00:00 BP 155 / 101; Pulse 52; sf 01/14 23:16 Body Mass Index 29.29 (95.25 kg, 180.34 cm) em ED Course: 01/14 22:15 Patient arrived in ED. am4 23:18 Triage completed. em 23:18 Arm band placed on. em 23:27 Grover Lanier RN is Primary Nurse. sf 23:27 Melanie Hawkins MD is Attending Physician. pa2 23:50 Patient has correct armband on for positive identification. Bed in low position. Call sf light in reach. Pulse ox on. NIBP on. Door closed. Noise minimized. Visitors limited. Lights dimmed. Verbal reassurance given. 23:50 Assist provider with laceration repair on palm of left hand that was 2.5 cm. or less sf using sutures. Set up tray. Performed by Melanie Hawkins MD Dressed with Kerlix, Neosporin, Patient tolerated well. Patient did not have IV access during this emergency room visit. Administered Medications: 01/15 00:00 Drug: Tetanus-Diphtheria Toxoid Adult 0.5 ml {Pen Rider: [employer]. Exp: sf 04/11/2022. Lot #: [id number]. } Route: IM; Site: right deltoid; 00:10 Follow up: Response: No adverse reaction sf 00:12 Drug: amLODIPine 10 mg Route: PO; sf 00:12 Follow up: Response: Medication administered at discharge. Outcome: 00:31 Discharge ordered by . pa2 00:35 Discharged to home ambulatory. em 00:35 Condition: stable 00:35 Discharge instructions given to patient, Instructed on discharge instructions, follow up and referral plans. medication usage, wound care, Demonstrated understanding of instructions, follow-up care, medications, wound care, Prescriptions given X 3. 00:35 Patient left the ED. em Signatures: Geo Dawson, RN RN Melanie Hawkins MD MD ma2 Nisha Latif Steven, RN RN
--- NOTE | 2021-01-15 00:32 | EDPHYS ---
Physician Documentation [facility] Name: Michele Lomas Age: 35 yrs Sex: Male : 1985 Arrival Date: 01/14/2021 Time: 22:15 Bed 19 Private MD: ED Physician Melanie Hawkins HPI: 01/15 00:27 This 35 yrs old Black Male presents to ER via Ambulatory with complaints of Laceration ma2 To Hand. 00:27 The patient has a laceration related to:. Onset: The symptoms/episode began/occurred ma2 suddenly, 5 hour(s) ago. Associated signs and symptoms: Pertinent negatives: heavy bleeding, numbness distal to injury. The patient has not experienced similar symptoms in the past. was moving furniture and sustained 2 palm lac from jason . Historical: - Allergies: 01/14 23:18 Banana; em - Home Meds: 23:18 amlodipine 10 mg tab 1 tab once daily [Active]; aspirin 81 mg Oral chew 1 tab once em daily [Active]; hydrochlorothiazide 25 mg Oral tab 1 tab once daily [Active]; - PMHx: 23:18 Back pain; Enlarged Heart; Hypertension; prolonged QT; TIA; em - PSHx: 01/15 00:10 None; sf - Immunization history:: Adult Immunizations not up to date. - Social history:: Smoking status: Patient denies any tobacco usage or history of. Patient/guardian denies using alcohol, street drugs, The patient lives with family. - Family history:: not pertinent. ROS: 00:27 Constitutional: Negative for fever, chills, and weight loss. ma2 00:27 All other systems are negative. Exam: 00:27 Constitutional: This is a well developed, well nourished patient who is awake, alert, ma2 and in no acute distress. Head/Face: Normocephalic, atraumatic. Eyes: Pupils equal round and reactive to light, extra-ocular motions intact. Lids and lashes normal. Conjunctiva and sclera are non-icteric and not injected. Cornea within normal limits. Periorbital areas with no swelling, redness, or edema. ENT: Nares patent. No nasal discharge, no septal abnormalities noted. Tympanic membranes are normal and external auditory canals are clear. Oropharynx with no redness, swelling, or masses, exudates, or evidence of obstruction, uvula midline. Mucous membranes moist. Neck: Trachea midline, no thyromegaly or masses palpated, and no cervical lymphadenopathy. Supple, full range of motion without nuchal rigidity, or vertebral point tenderness. No Meningismus. Chest/axilla: Normal chest wall appearance and motion. Nontender with no deformity. No lesions are appreciated. Cardiovascular: Regular rate and rhythm with a normal S1 and S2. No gallops, murmurs, or rubs. Normal PMI, no JVD. No pulse deficits. Respiratory: Lungs have equal breath sounds bilaterally, clear to auscultation and percussion. No rales, rhonchi or wheezes noted. No increased work of breathing, no retractions or nasal flaring. Abdomen/GI: Soft, non-tender, with normal bowel sounds. No distension or tympany. No guarding or rebound. No evidence of tenderness throughout. MS/ Extremity: left palm with 2 superficial lacerations, Pulses equal, no cyanosis. Neurovascular intact. Full, normal range of motion. Neuro: Awake and alert, GCS 15, oriented to person, place, time, and situation. Cranial nerves II-XII grossly intact. Motor strength 5/5 in all extremities. Sensory grossly intact. Cerebellar exam normal. Normal gait. Vital Signs: 01/14 23:15 BP 146 / 98; Pulse 59; sf 23:16 BP 155 / 106; Pulse 55; Resp 18; Temp 98.6(O); Pulse Ox 98% on R/A; Weight 95.25 kg; em Height 5 ft. 11 in. (180.34 cm); Pain 8/10; 23:30 BP 142 / 104; Pulse 66; sf 23:45 BP 149 / 109; Pulse 57; sf 01/15 00:00 BP 155 / 101; Pulse 52; sf 01/14 23:16 Body Mass Index 29.29 (95.25 kg, 180.34 cm) em Laceration: 00:27 Wound Repair of 5cm ( 2.0in ) subcutaneous laceration to left hand. Distal ma2 neuro/vascular/tendon intact. Anesthesia: Local anesthetic administered with 10 mls of 1% lidocaine w/ Epi. Wound prep: Extensive cleansing. Skin closed with 4 2-0 Prolene using simple sutures and sterile technique. Dressed with 4x4's. Patient tolerated well. MDM: 01/14 23:27 Patient medically screened. ma2 01/15 00:27 Differential diagnosis: superficial laceration, n otendon or vascular injury, ma2 superficial palm lac. Data reviewed: vital signs, nurses notes. Counseling: I had a detailed discussion with the patient and/or guardian regarding: the historical points, exam findings, and any diagnostic results supporting the discharge/admit diagnosis, the presence of at least one elevated blood pressure reading (>120/80) during this emergency department visit, the need for outpatient follow up. Response to treatment: the patient's symptoms have resolved after treatment. Administered Medications: 00:00 Drug: Tetanus-Diphtheria Toxoid Adult 0.5 ml {Biomat[employer]ian: [employer]. Exp: sf 04/11/2022. Lot #: [id number]. } Route: IM; Site: right deltoid; 00:10 Follow up: Response: No adverse reaction 00:12 Drug: amLODIPine 10 mg Route: PO; sf 00:12 Follow up: Response: Medication administered at discharge. sf Disposition: 01/15/21 00:31 Discharged to Home. Impression: Laceration without foreign body of left hand. - Condition is Stable. - Prescriptions for aspirin 81 mg Oral tablet,chewable - chew 1 tablet by ORAL route once daily; 30 tablet. Norvasc 10 mg Oral Tablet - take 1 tablet by ORAL route once daily; 30 tablet. Hydrochlorothiazide 12.5 mg Oral Capsule - take 2 tablet by ORAL route once daily; 30 tablet. - Medication Reconciliation Form, Thank You Letter, Antibiotic Education, Prescription Opioid Use form. - Follow up: Private Physician; When: Tomorrow; Reason: If symptoms return, Continuance of care. - Notes: remove stiches in 10 days Signatures: Geo Dawson RN RN em Melanie Hawkins MD MD ma2 Grover Lanier RN RN sf Corrections: (The following items were deleted from the chart) 00:35 00:31 01/15/2021 00:31 Discharged to Home. Impression: Laceration without foreign body em of left hand. Condition is Stable. Prescriptions for aspirin 81 mg Oral tablet,chewable - chew 1 tablet by ORAL route once daily; 30 tablet, Norvasc 10 mg Oral Tablet - take 1 tablet by ORAL route once daily; 30 tablet, Hydrochlorothiazide 12.5 mg Oral Capsule - take 2 tablet by ORAL route once daily; 30 tablet. and Forms are Medication Reconciliation Form, Thank You Letter, Antibiotic Education, Prescription Opioid Use. Follow up: Private Physician; When: Tomorrow; Reason: If symptoms return, Continuance of care. ma2
[2021-01-15 00:51] VITALS: TEMP 98.6; O2SAT 98
[2021-01-15 00:54] VITALS: BP 155/101
== END 2021-01-15 00:35 | disposition home or self-care (01) ==
LOC: ER 22:12
PROC: 0HQGXZZ Repair Left Hand Skin, External Approach (ICD-10-PCS; principal; 2021-01-15)
DX: S61.412A Laceration without foreign body of left hand, initial encounter (principal); W26.8XXA Contact with other sharp object(s), not elsewhere classified, initial encounter; Z86.73 Personal history of transient ischemic attack (TIA), and cerebral infarction without residual deficits; I11.9 Hypertensive heart disease without heart failure; Z23 Encounter for immunization
CPT/HCPCS: 90471; 99284

== ENCOUNTER 2021-02-19 03:24 | Inpatient (IN) | payer SELFPAY ==
--- OUTSIDE RECORDS SUMMARY | 2021-02-19 03:26 | XMS REPORT | Continuity of Care Document ---
:1985 Author Organization [facility] t Address [address] [place] [address] Care Team Providers Name Role Phone Sharpless [...] seizure 0-24 [facility] 00 [place] Drug use Drug use Disease [facility] 2016[facility]11 [facility] 00 [place] Syncope, Syncope, Disease Active 2016-11 [facility] [...] Date Stop Date Source Maternal uncle Hypertension [facility] Natural mother Heart disease [facility] Natural mother Hypertension [facility] Natural mother Stroke [facility] Natural father Hypertension [facility] Maternal aunt Hypertension [place] Maternal grandfather Hypertension [facility] Maternal grandmother Arthritis [facility] Maternal grandmother Hearing loss [facility] Maternal grandmother Hypertension [facility] Maternal grandmother Vision loss [facility] Social History Social Habit Start Date Stop Date Quantity Comments Source Sex Assigned At [facility] Cigarettes smoked 2017-08-29 2017-08-[address] [facility] [facility] - [facility] (pack per 00:00:00 00:00:00 [facility] day) - Reported Cigarette 2017-08-29 2017-08-[address] [facility] [facility] - pack-years 00:00:00 00:00:00 [facility] Tobacco use and 2017-08-29 2017-08-[address] [facility] - exposure 00:00:00 00:00:00 [facility] Alcohol intake 2017-08-29 2017-08-29 [facility] - [facility] 00:00:00 of alcohol [facility] (finding) Smoking Status Start Date Stop Date Source Current every day smoker 2017-08-29 00:00:00 [facility] Medications Ordered Filled Start Stop Current [...] Facility Department ID 2019-11-13 2019-11-13 Outpatient E [facility] MED [address] [facility] 13:40:00 13:40:00 Results Test Description Test Time Test Comments Results Result [facility] e Comments - CT HEAD/BRAIN 2020-09-20 W/O CONT 01:02:00 [facility] 1985 Sex: M Name: BUD FLETCHER [facility] : 1985 Age/S: 35 / M [address] [place] Unit #: [id number] Loc: [place] [address] Phys: Aure Pena MD Acct: [id number] Dis Date: Status: REG ER PHONE #: [phone] Exam Date: 09/20/2020 0055 FAX #: Reason: head trauma; frontal [place] EXAMS: CPT: [id number] CT HEAD/BRAIN W/O CONT [id number] EXAM: - CT HEAD/BRAIN W/O CONT LOCATION: [...] 1 Signed Report (CONTINUED) Name: BUD FLETCHER [facility] : 1985 Age/S: 35 / M [address] [place] Unit #: [id number] Loc: [place] [address] Phys: Aure Pena MD Acct: [id number] Dis Date: Status: REG ER PHONE #: [phone] Exam Date: 09/20/2020 0055 FAX #: Reason: head trauma; frontal [place] EXAMS: CPT: [id number] CT HEAD/BRAIN W/O CONT 35077 <Continued> at 0102 Reported and signed by: [...] (test code = 2795) RAPID DRUG SCREEN, [id number] 07:53:00 Test Item Value Reference Range Interpretation [...] situations. Chain of custody not maintained. Some tyke-laq-nkrlgvb medications, as well as adulterants, may cause inaccurate results. Clinical correlation should be applied. A more comprehensive drug screen or confirmation of a detected drug may be performed upon request. HEPATIC FUNCTION [id number] 05:51:00 Test Item Value Reference Range Interpretation [...] = 9 U/L 6-55 347) BASIC METABOLIC [id number] 05:51:00 Test Item Value Reference Range Interpretation [...] PATIEN TS. CBC W/PLT COUNT & AUTO [id number] 05:47:00 Test Item Value Reference Range Interpretation [...] 0-1 PERCENT (BEAKER) (test code = 2801) [id number] 05:40:00 Test Item Value Reference Range Interpretation Comments MAGNESIUM (BEAKER) (test code = 1.9 mg/dL 1.6-2.6 627) BASIC METABOLIC [id number] 05:40:00 Test Item Value Reference Range Interpretation [...] PATIEN TS. CBC W/PLT COUNT & AUTO [id number] 00:35:00 Test Item Value Reference Range Interpretation [...] 0-1 GRANULOCYTES-RELATIVE PERCENT (BEAKER) (test code = 4701)
[2021-02-19] MEDS ORDERED: ONDANSETRON 4 MG/2 ML VIAL ONE ×2 (03:56→11:13)
[2021-02-19] MEDS ORDERED: MORPHINE 4 MG/ML SYR ONE (03:56)
[2021-02-19 03:59] LABS: Absolute Lymphocytes (CBC) 2.3 K/uL (0.7-4.9); Basophils % 0.9 % (0-1.3); Hematocrit 43.1 % (39.6-49.0); Lymphocytes % 30.1 % (15.3-44.8); MPV 8.8 fL (7.6-11.3); RBC Red Blood Cell Count 4.54 M/uL (4.33-5.43)
[2021-02-19 04:17] LABS: BUN Blood Urea Nitrogen 15 mg/dL (7-18); Bicarbonate 26 mmol/L (21-32); Glucose Level 95 mg/dL (74-106); Magnesium 1.8 mg/dL (1.8-2.4); NT PRO-BNP 718 pg/mL (<125); Potassium 3.9 mmol/L (3.5-5.1); Sodium Level 142 mmol/L (136-145); Troponin (Emerg Dept Use Only) 0.08 ng/mL (0.0-0.045)
[2021-02-19 04:41] LABS: Urine Blood Trace-intact (Negative); Urine Glucose Negative (Negative); Urine Protein Negative (Negative); Urine Specific Gravity >=1.030 (1.005-1.030)
--- NOTE | 2021-02-19 04:41 | ER ---
Nurse's Notes [facility] Name: Michele Lomas Age: 35 yrs Sex: Male : 1985 Arrival Date: 02/19/2021 Time: 03:27 Bed 20 Private MD: Diagnosis: Chest pain, unspecified;Malignant Hypertension Presentation: 02/19 03:27 Chief complaint: EMS states: C/O chest pain since yesterday. Pt with Hx of Heart stents wh and HTN. Coronavirus screen: Client denies travel out of the [place] in the last 14 days. At this time, the client does not indicate any symptoms associated with coronavirus-19. Ebola Screen: Patient negative for fever greater than or equal to 101.5 degrees Fahrenheit, and additional compatible Ebola Virus Disease symptoms Patient denies exposure to infectious person. Initial Sepsis Screen: Does the patient meet any 2 criteria? No. Patient's initial sepsis screen is negative. Does the patient have a suspected source of infection? No. Patient's initial sepsis screen is negative. Risk Assessment: Do you want to hurt yourself or someone else? Patient reports no desire to harm self or others. Onset of symptoms was February 19, 2021. 03:27 Method Of Arrival: EMS: [facility] 03:27 Acuity: PASTORA 3 03:27 Care prior to arrival: Medication(s) given: ASA, 324 mg. Historical: - Allergies: 03:43 Banana; - Home Meds: 03:43 amlodipine 10 mg tab 1 tab once daily [Active]; aspirin 81 mg Oral chew 1 tab once daily [Active]; hydrochlorothiazide 25 mg Oral tab 1 tab once daily [Active]; - PMHx: 03:43 Back pain; Enlarged Heart; Hypertension; prolonged QT; TIA; - PSHx: 03:43 Heart stents; - Immunization history:: Adult Immunizations up to date. - Social history:: Smoking status: Patient reports the use of cigarette tobacco products, smokes one-half pack cigarettes per day, Patient uses street drugs, marijuana. - Family history:: not pertinent. - Hospitalizations: : No recent hospitalization is reported. Screenin:44 Abuse screen: Denies threats or abuse. Denies injuries from another. Nutritional screening: No deficits noted. Tuberculosis screening: No symptoms or risk factors identified. Fall Risk None identified. Assessment: 03:45 General: Appears in no apparent distress. Behavior is calm, cooperative, appropriate wh for age. Pain: Complains of pain in chest Pain does not radiate. Pain currently is 7 out of 10 on a pain scale. Quality of pain is described as sharp, Pain began 1 day ago. Neuro: Level of Consciousness is awake, alert, obeys commands, Oriented to person, place, time, situation, Appropriate for age. Cardiovascular: Heart tones S1 S2 Rhythm is sinus bradycardia. Respiratory: Airway is patent Respiratory effort is even, unlabored, Respiratory pattern is regular, symmetrical, Breath sounds are clear bilaterally. GI: Abdomen is flat, non-distended. : No signs and/or symptoms were reported regarding the genitourinary system. EENT: No signs and/or symptoms were reported regarding the EENT system. Derm: Skin is intact, is healthy with good turgor, Skin is pink, warm \T\ dry. normal. Musculoskeletal: Circulation, motion, and sensation intact. 04:45 Reassessment: Hospitalist at bedside explaining POC need for admit. 05:00 Reassessment: Patient appears in no apparent distress at this time. No changes from previously documented assessment. Patient and/or family updated on plan of care and expected duration. Pain level reassessed. Patient is alert, oriented x 3, equal unlabored respirations, skin warm/dry/pink. 06:25 Reassessment: Patient appears in no apparent distress at this time. Patient and/or family updated on plan of care and expected duration. Pain level reassessed. Patient is alert, oriented x 3, equal unlabored respirations, skin warm/dry/pink. 12:51 Reassessment: report given to Val REGALADO, nurse for room 208. [id number] Vital Signs: 03:27 BP 163 / 112; Pulse 51; Resp 18; Temp 98.4; Pulse Ox 99% ; Weight 95.25 kg; Height 5 wh ft. 11 in. (180.34 cm); Pain 7/10; 05:00 BP 148 / 91; Pulse 63; Resp 18; Pulse Ox 100% on R/A; wh 06:25 BP 146 / 96; Pulse 71; Resp 18; Pulse Ox 99% on R/A; 03:27 Body Mass Index 29.29 (95.25 kg, 180.34 cm) ED Course: 03:27 Patient arrived in ED. cl3 03:28 Blanco Shultz MD is Attending Physician. rn 03:30 Initial lab(s) drawn, by me, sent to lab. Inserted saline lock: 20 gauge in right sf forearm, using aseptic technique. Blood collected. 03:34 Jinny Olivas, RN is Primary Nurse. 03:42 Triage completed. 03:44 Patient has correct armband on for positive identification. Placed in gown. Bed in low wh position. Call light in reach. Side rails up X 1. athletic monitor on. Pulse ox on. NIBP on. 03:45 Arm band placed on right wrist. 03:46 Patient maintains SpO2 saturation greater than 95% on room air. 04:40 Mark Norris DO is Hospitalizing Provider. rn 06:40 No provider procedures requiring assistance completed. Patient admitted, IV remains in place. Administered Medications: 03:48 Drug: morphine 4 mg {Note: RASS 0.} Route: IVP; Site: right antecubital; 04:23 Follow up: Response: No adverse reaction; Pain is decreased; RASS: Alert and Calm (0) 03:50 Drug: Zofran (Ondansetron) 4 mg Route: IVP; Site: right forearm; 04:23 Follow up: Response: No adverse reaction 04:30 Drug: hydrALAZINE 10 mg Route: IV; Rate: calculated rate; Site: right forearm; 05:01 Follow up: Response: No adverse reaction; Blood pressure is lowered; IV Status: Completed infusion Outcome: 04:41 Decision to Hospitalize by Provider. rn 06:40 Admitted to ER Hold. Please see [facility] for further documentation. 06:40 Condition: stable 06:40 Instructed on the need for admit. 13:55 Patient left the ED. eb Signatures: Blanco Shultz MD MD rn Habalo, Winsy, RN RN Low Abebe RN RN jMahogany Deleon Charde cl3 Grover Lanier RN RN
--- NOTE | 2021-02-19 04:41 | EDPHYS ---
Physician Documentation [facility] Name: Michele Lomas Age: 35 yrs Sex: Male : 1985 Arrival Date: 02/19/2021 Time: 03:27 Bed 20 Private MD: ED Physician Blanco Shultz HPI: 02/19 03:37 This 35 yrs old Black Male presents to ER via Unassigned with complaints of Chest Pain. rn 03:37 The patient or guardian reports chest pain that is located primarily in the substernal rn area. The pain does not radiate. Associated signs and symptoms: Pertinent positives: shortness of breath, Pertinent negatives: abdominal pain, headache, lightheadedness, nausea, near syncope, palpitations, syncope, vomiting. The chest pain is described as aching. Duration: The patient or guardian reports multiple episodes, that are intermittent. Modifying factors: The symptoms are alleviated by nothing. the symptoms are aggravated by nothing. Severity of pain: At its worst the pain was moderate in the emergency department the pain has improved. The patient has experienced similar episodes in the past. Reports chest pain, since yesterday, central, non-radiating, identical pains in past with multiple admissions and states neg cath 2-3 years ago. No fever/cough, does not feel sick. No abd pain. No vomiting/diarrhea. No trauma. . Historical: - Allergies: 03:43 Banana; - Home Meds: 03:43 amlodipine 10 mg tab 1 tab once daily [Active]; aspirin 81 mg Oral chew 1 tab once wh daily [Active]; hydrochlorothiazide 25 mg Oral tab 1 tab once daily [Active]; - PMHx: 03:43 Back pain; Enlarged Heart; Hypertension; prolonged QT; TIA; wh - PSHx: 03:43 Heart stents; - Immunization history:: Adult Immunizations up to date. - Social history:: Smoking status: Patient reports the use of cigarette tobacco products, smokes one-half pack cigarettes per day, Patient uses street drugs, marijuana. - Family history:: not pertinent. - Hospitalizations: : No recent hospitalization is reported. ROS: 03:37 Constitutional: Negative for fever, chills, and weight loss, Eyes: Negative for injury, rn pain, redness, and discharge, Neck: Negative for injury, pain, and swelling, Cardiovascular: Negative for palpitations, and edema, Respiratory: Negative for shortness of breath, cough, wheezing, and pleuritic chest pain, Abdomen/GI: Negative for abdominal pain, nausea, vomiting, diarrhea, and constipation, Back: Negative for injury and pain, MS/Extremity: Negative for injury and deformity, Skin: Negative for injury, rash, and discoloration, Neuro: Negative for headache, weakness, numbness, tingling, and seizure. 03:37 All other systems are negative. Exam: 03:37 Constitutional: This is a well developed, well nourished patient who is awake, alert, rn and in no acute distress. Head/Face: Normocephalic, atraumatic. Eyes: Pupils equal round and reactive to light, extra-ocular motions intact. Cardiovascular: Regular rate and rhythm. No pulse deficits. Respiratory: No increased work of breathing, no retractions or nasal flaring. Abdomen/GI: soft, non-tender Skin: Warm, dry MS/ Extremity: Pulses equal, no cyanosis. Neuro: Awake and alert, GCS 15 03:41 ECG was reviewed by the Attending Physician. rn Vital Signs: 03:27 BP 163 / 112; Pulse 51; Resp 18; Temp 98.4; Pulse Ox 99% ; Weight 95.25 kg; Height 5 wh ft. 11 in. (180.34 cm); Pain 7/10; 05:00 BP 148 / 91; Pulse 63; Resp 18; Pulse Ox 100% on R/A; wh 06:25 BP 146 / 96; Pulse 71; Resp 18; Pulse Ox 99% on R/A; wh 03:27 Body Mass Index 29.29 (95.25 kg, 180.34 cm) MDM: 03:28 Patient medically screened. rn 04:32 Differential diagnosis: acute myocardial infarction, acute pericarditis, pleurisy, rn pneumothorax, stable angina, unstable angina. Data reviewed: vital signs, nurses notes, lab test result(s), EKG, radiologic studies, plain films, and as a result, I will admit patient. Counseling: I had a detailed discussion with the patient and/or guardian regarding: the historical points, exam findings, and any diagnostic results supporting the discharge/admit diagnosis, lab results, radiology results, the need for further work-up and treatment in the hospital. Response to treatment: the patient's symptoms have mildly improved after treatment, and as a result, I will admit patient. Admission orders: after a detailed discussion of the patient's condition and case, the admit orders are written by me. ED course: Pt with elevated troponin, could be cocaine related as he used 3 days prior, is known cocaine user, but HTN difficult to control and last time seen with chest pain, trop neg. Does not seem like occlusion, possible vasospasm vs malignant HTN. Will admit for BP control and serial markers, may not need cath. . 02/19 03:30 Order name: Basic Metabolic Panel rn 02/19 03:30 Order name: CBC with Diff rn 02/19 03:30 Order name: Magnesium rn 02/19 03:30 Order name: NT PRO-BNP rn 02/19 03:30 Order name: Troponin (emerg Dept Use Only) rn 02/19 04:04 Order name: CBC with Automated Diff; Complete Time: 04:19 EDAR 02/19 04:17 Order name: Basic Metabolic Panel; Complete Time: 04:19 EDAR 02/19 04:17 Order name: Troponin (Emerg Dept Use Only); Complete Time: 04:19 EDAR 02/19 04:17 Order name: NT PRO-BNP; Complete Time: 04:19 EDAR 02/19 04:17 Order name: Magnesium; Complete Time: 04:19 EDAR 02/19 04:21 Order name: Urine Drug Screen rn 02/19 04:33 Order name: COVID-19 : Document "Date of Symptom Onset" if Symptomatic. bb 02/19 04:41 Order name: Urine Dipstick-Ancillary EDAR 02/19 04:58 Order name: CORONAVIRUS EDAR 02/19 03:30 Order name: XRAY Chest (1 view) rn 02/19 03:30 Order name: EKG; Complete Time: 03:30 rn 02/19 03:30 Order name: Cardiac monitoring; Complete Time: 03:51 rn 02/19 03:30 Order name: EKG - Nurse/Tech; Complete Time: 03:51 rn 02/19 03:30 Order name: IV Saline Lock; Complete Time: 03:51 rn 02/19 03:30 Order name: Labs collected and sent; Complete Time: 03:51 rn 02/19 05:05 Order name: Urine Drug Screen [facility] 02/19 05:48 Order name: SARS-COV-2 RT PCR EDAR 02/19 07:19 Order name: Lipid Profile EDAR 02/19 09:48 Order name: Troponin I EDAR 02/19 09:48 Order name: T4 Free EDAR 02/19 09:48 Order name: Thyroid Stimulating Hormone EDAR 02/19 10:50 Order name: RAD [facility] 02/19 03:30 Order name: O2 Per Protocol; Complete Time: 03:51 rn 02/19 03:30 Order name: O2 Sat Monitoring; Complete Time: 03:51 rn EC:41 Rate is 52 beats/min. Rhythm is regular. QRS [place] is Normal. MI interval is normal. QRS rn interval is normal. QT interval is normal. No Q waves. T waves are Inverted in leads I, II, aVL, aVF, V4, V5, V6. No ST changes noted. Clinical impression: sinus bradycardia, LVH, repolarization. Interpreted by me. Reviewed by me. Administered Medications: 03:48 Drug: morphine 4 mg {Note: RASS 0.} Route: IVP; Site: right antecubital; 04:23 Follow up: Response: No adverse reaction; Pain is decreased; RASS: Alert and Calm (0) 03:50 Drug: Zofran (Ondansetron) 4 mg Route: IVP; Site: right forearm; 04:23 Follow up: Response: No adverse reaction 04:30 Drug: hydrALAZINE 10 mg Route: IV; Rate: calculated rate; Site: right forearm; 05:01 Follow up: Response: No adverse reaction; Blood pressure is lowered; IV Status: Completed infusion Disposition: 02/19/21 04:41 Hospitalization ordered by Mark Norris for Observation. Preliminary diagnosis are Chest pain, unspecified, Malignant Hypertension. - Bed requested for Telemetry/MedSurg (observation). - Status is Observation. eb - Condition is Stable. - Problem is new. - Symptoms have improved. Signatures: Dispatcher [employer] [facility] Blanco Shultz MD MD rn Garcia, Cindy, RN RN Jinny Olivas RN RN Mahogany Farfan Corrections: (The following items were deleted from the chart) 06:37 04:41 Hospitalization Ordered by Mark Norris DO for Observation. Preliminary diagnosis is Chest pain, unspecified; Malignant Hypertension. Bed requested for Telemetry/MedSurg (observation). Status is Observation. Condition is Stable. Problem is new. Symptoms have improved. rn 12:17 06:37 02/19/2021 04:41 Hospitalization Ordered by Mark Norris DO for Observation. eb Preliminary diagnosis is Chest pain, unspecified; Malignant Hypertension. Bed requested for [facility] ER HOLD. Status is Observation. Condition is Stable. Problem is new. Symptoms have improved. cg 13:55 12:17 02/19/2021 04:41 Hospitalization Ordered by Mark Norris DO for Observation. eb Preliminary diagnosis is Chest pain, unspecified; Malignant Hypertension. Bed requested for Telemetry/MedSurg (observation). Status is Observation. Condition is Stable. Problem is new. Symptoms have improved. eb
[2021-02-19] MEDS ORDERED: HYDRALAZINE HCL 20 MG/ML VIAL ONE (04:45)
[2021-02-19 05:05] LABS: Barbiturates NEGATIVE (NEGATIVE); Benzodiazepines NEGATIVE (NEGATIVE); Cocaine POSITIVE (NEGATIVE); METHAMPHETAM NEGATIVE (NEGATIVE); Methadone NEGATIVE (NEGATIVE); Opiates POSITIVE (NEGATIVE); Phencyclidine NEGATIVE (NEGATIVE); THC Cannibis POSITIVE (NEGATIVE)
--- NOTE | 2021-02-19 05:15 | P.HP ---
Certification for Inpatient Patient admitted to: Observation With expected LOS: <2 Midnights Patient will require the following post-hospital care: None Practitioner: I am a practitioner with admitting privileges, knowledge of patient current condition, hospital course, and medical plan of care. Services: Services provided to patient in accordance with Admission requirements found in Title 42 Section 412.3 of the Code of Federal Regulations Patient History Date of Service: 02/19/21 Reason for admission: Chest pain History of Present Illness: 35-year-old male with history of hypertension, cocaine abuse presents emergency department for chest pain. Patient reports ongoing chest pain over the course of the last day, last used cocaine approximately 3 days prior. Patient reports he had a heart catheterization approximately 3 years prior with clean coronaries, labs in the emergency department significant for mildly elevated troponin 0.08 elevated BNP 718 drug screen positive for cocaine, THC, opiates, patient was given morphine prior to urine drug screen. EKG without acute changes, chest x-ray unremarkable, ED provider wishes to admit for chest pain rule out. Allergies banana Allergy (Verified 04/13/15 14:43) Unknown No Known Drug Allergies Allergy (Verified 04/13/15 14:43) Unknown Home Medications: Amlodipine [Norvasc*] 10 mg PO DAILY #30 tab 04/14/18 Aspirin [Aspirin EC 81 MG] 81 mg PO DAILY #90 tablet. 04/14/18 Metoprolol Tartrate [Lopressor*] 25 mg PO BID 30 Days #60 tab 02/15/20 hydroCHLOROthiazide [Hydrodiuril*] 25 mg PO DAILY #30 tab 02/15/20 [place]-3/Dha/Epa/Fish Oil [Fish Oil 1,000 mg Softgel] 1 each PO DAILY 03/27/20 - Past Medical/Surgical History Diabetic: No -: Hypertension -: Cardiomyopathy -: Tobacco abuse -: Alcohol use -: History of TIA -: TIA -: prolonged QT -: Heart Cath-reported clean coronaries around 2017 Psychosocial/ Personal History: The patient is single. He has 2 children. He works as a cook. - Family History Father -: Heart disease, Hypertension, Diabetes, Other (see notes) Mother -: Hypertension, Diabetes, Other (see notes) Notes: gout. schizoprenia Sister -: Heart disease - Social History Smoking Status: Current every day smoker Counseled patient to stop smoking for: less than 10 minutes Alcohol use: Yes CD- Drugs: Yes Caffeine use: No Place of Residence: Home Review of Systems 10-point ROS is otherwise unremarkable Respiratory: Shortness of Breath Cardiovascular: Chest Pain Physical Examination - Physical Exam General: Alert, In no apparent distress HEENT: Atraumatic, PERRLA, Mucous membr. moist/pink Neck: Supple, 2+ carotid pulse no bruit, No LAD Respiratory: Clear to auscultation bilaterally, Normal air movement Cardiovascular: Regular rate/rhythm, Normal S1 S2 Gastrointestinal: No tenderness Musculoskeletal: No tenderness Integumentary: No rashes Neurological: Normal speech, Normal strength at 5/5 x4 extr, Normal tone, Normal affect - Studies Laboratory Data (last 24 hrs) 02/19/21 03:30: WBC 7.80, Hgb 14.4, Hct 43.1, Plt Count 257 02/19/21 03:30: Sodium 142, Potassium 3.9, BUN 15, Creatinine 1.09, Glucose 95, Magnesium 1.8 Assessment and Plan - Plan Assessment Chest pain rule out ACS Hypertension Prolonged QT Cocaine/marijuana abuse Tobacco abuse Plan Chest pain rule out ACS: Monitor on telemetry, trend troponins, continue home medications amlodipine/hydrochlorothiazide/aspirin. Cardiology consulted. Lipid/thyroid panel with morning labs. DVT prophylaxis Lovenox 40 mg subcutaneous once daily. Hypertension: Uncontrolled hypertension at this point, patient does report using cocaine approximately 3 days prior, blood pressure around 100 diastolic given hydralazine in the emergency department will continue patient's home medications. Adjust as necessary. Prolonged QT: Appears stable, continue to monitor on telemetry. Sister from sudden cardiac likely related to prolonged QT Cocaine/marijuana abuse: Patient suggest that he uses cocaine approximately 10 times per year, last use approximately 3 days ago, explained risks of this, patient verbalized understanding. Discussed need for abstinence. Tobacco abuse: Discussed need for tobacco cessation. Discharge Plan: Home Plan to discharge in: 24 Hours - Advance Directives Does patient have a Living Will: No Does patient have a Durable POA for Healthcare: No - Code Status/Comfort Care Code Status Assessed: Yes (Full code) Critical Care: No Time Spent Managing Pts Care (In Minutes): 55
[2021-02-19] MEDS ORDERED: ONDANSETRON 4 MG/2 ML VIAL IV PRN (05:23)
[2021-02-19] MEDS ORDERED: HYDROCODONE/APAP 5/325 MG TAB PO PRN (05:23)
[2021-02-19 05:28] VITALS: BMI 29.2
[2021-02-19] MEDS ORDERED: TRAMADOL HCL 50 MG TAB PO PRN (06:27)
[2021-02-19] MEDS ORDERED: PANTOPRAZOLE 40MG TABLET PO SCH (06:30)
[2021-02-19] MEDS ORDERED: METOPROLOL TAR 25 MG TAB ONE (07:01)
[2021-02-19] MEDS ORDERED: PANTOPRAZOLE 40MG TABLET PO ONE (07:14)
[2021-02-19] MEDS ORDERED: HYDROCODONE/APAP 5/325 MG TAB ONE (08:07)
[2021-02-19] MEDS ORDERED: hydroCHLOROthiazide 25 MG TAB PO SCH (09:00)
[2021-02-19] MEDS ORDERED: ENOXAPARIN 40 MG/0.4 ML SQ SCH (09:00)
[2021-02-19] MEDS ORDERED: AMLODIPINE 10 MG TAB PO SCH (09:00)
[2021-02-19] MEDS ORDERED: ASPIRIN EC 81 MG TAB PO SCH (09:00)
[2021-02-19] MEDS ORDERED: ASPIRIN EC 81 MG TAB PO ONE (09:18)
[2021-02-19] MEDS ORDERED: AMLODIPINE 10 MG TAB ONE (09:18)
[2021-02-19] MEDS ORDERED: hydroCHLOROthiazide 25 MG TAB ONE (09:18)
[2021-02-19] MEDS ORDERED: ENOXAPARIN 40 MG/0.4 ML SQ ONE (09:19)
[2021-02-19 09:48] LABS: Thyroid Stimulating Hormone 1.84 uIU/mL (0.360-3.740); Troponin I 0.08 ng/mL (0.0-0.045)
--- NOTE | 2021-02-19 10:50 | RAD REPORT ---
EXAM DESCRIPTION: Chest Radiography COMPARISON: None. CLINICAL HISTORY: [facility] MAIN CHEST PAIN FINDINGS: A single AP view of the chest demonstrates a mildly enlarged cardiomediastinal silhouette. No pneumothorax or pleural effusion. No consolidation or pulmonary edema. Osseous structures are intact. IMPRESSION: Mild cardiomegaly without other acute chest process. Electronically signed by: Isaiah Giraldo MD 02/19/2021 3:55 AM CDT Due to temporary technical issues with the PACS/Fluency reporting system, reports are being signed by the in house radiologist without review as a courtesy to ensure prompt reporting. The interpreting r adiologist is fully responsible for the content of the report.
[2021-02-19 14:14] VITALS: O2SAT 99
--- NOTE | 2021-02-19 14:37 | P.DS ---
Admission Date: 02/19/21 Discharge Date: 02/19/21 Primary Care Provider: none Disposition: ROUTINE DISCHARGE Discharge Condition: GOOD Reason for Admission: Chest pain Consultations: Cardiology-Dr. Dinero Procedures: COVID: Negative Cardiac stress test 03/27/2020: FINDINGS: Diminished radiotracer uptake involves the inferior left ventricular myocardium on rest and stress sequences. Left ventricular cavity is dilated. Ejection fraction of the left ventricle 41% No significant change since the prior exam IMPRESSION: Moderate area of apparent fixed perfusion defect involving the inferior left ventricular myocardium most likely secondary to attenuation from the diaphragm. An infarct can also have this appearance. No evidence of stress-induced ischemia Left ventricular ejection fraction 41% ECHO 03/27/2020: MEASUREMENTS (cm) DIASTOLIC (NORMALS) SYSTOLIC (NORMALS) IVSd 1.5 (0.6-1.2) LA Diam 4.0 (1.9-4.0) LVEF 55-60% LVIDd 4.6 (3.5-5.7) LVIDs 3.6 (2.0-3.5) %FS % LVPWd 1.6 (0.6-1.2) Ao Diam 3.7 (2.0-3.7) 2 DIMENSIONAL ASSESSMENT: RIGHT ATRIUM: NORMAL LEFT ATRIUM: NORMAL RIGHT VENTRICLE: NORMAL LEFT VENTRICLE: LEFT VENTRICULAR HYPERTROPHY TRICUSPID VALVE: NORMAL MITRAL VALVE: NORMAL PULMONIC VALVE: NORMAL AORTIC VALVE: NORMAL PERICARDIAL EFFUSION: NONE AORTIC ROOT: NORMAL LEFT VENTRICULAR WALL MOTION: NORMAL EJECTION FRACTION. DECREASED LEFT VENTRICULAR COMPLIANCE. DOPPLER/COLOR FLOW: NORMAL COMMENTS: SEVERE CONCENTRIC LEFT VENTRICULAR HYPERTROPHY. NORMAL EJECTION FRACTION. DECREASED LEFT VENTRICULAR COMPLIANCE. CXR: FINDINGS: A single AP view of the chest demonstrates a mildly enlarged cardiomediastinal silhouette. No pneumothorax or pleural effusion. No consolidation or pulmonary edema. Osseous structures are intact. IMPRESSION: Mild cardiomegaly without other acute chest process. Medical problem List: Chest pain rule out ACS Hypertension Hx of Prolonged QT Cocaine/marijuana abuse Tobacco abuse Poor compliance with follow-up Brief History of Present Illness: 35-year-old male with history of hypertension, cocaine abuse presents emergency department for chest pain. Patient reports ongoing chest pain over the course of the last day, last used cocaine approximately 3 days prior. Patient reports he had a heart catheterization approximately 3 years prior with clean coronaries, labs in the emergency department significant for mildly elevated troponin 0.08 elevated BNP 718 drug screen positive for cocaine, THC, opiates, patient was given morphine prior to urine drug screen. EKG without acute changes, chest x-ray unremarkable. Patient admitted for further evaluation and treatment. Hospital Course: Patient presented with patient was seen and evaluated. Chest x-ray showed no acute changes. No significant EKG changes noted. Patient was evaluated by cardiology. No intervention was required. Patient with prior cardiac stress test unremarkable. Compliance with medication addressed in detail. Patient with underlying hypertension and history of prolonged QT. Patient also positive for THC use and cocaine use. Risk of to continued use of cocaine addressed in detail. Patient understands. Blood pressure is improved. Compliance with medication addressed in detail. Recommend to maintain blood pressure less than 130/80. Further adjustment can be done by his PCP. Patient will be given a list of PCPs in the area to establish care. At discharge the patient will continue with Norvasc 10 mg 1 pill daily, metoprolol 12.5 mg 1 pill twice daily, hydrochlorothiazide 25 mg daily and aspirin 81 mg daily. At discharge recommend follow-up with PCP to further monitor and adjust and refill medication. Recommend follow-up with cardiology in 2 to 4 weeks to follow-up with hospitalization and follow-up his care. Patient with urine drug screen positive for cocaine, marijuana. Patient also with tobacco cessation. Cessation education provided in detail. Patient understands the risk of continued use of cocaine including GA or . Patient with history of poor compliance. Recommend to establish care locally in the area so that he can have his medications refilled and so that he has good follow-up. Patient seems to be agreeable with plan. Vital Signs/Physical Exam: Temp Pulse Resp BP Pulse Ox 98.4 F 57 15 151/91 H 99 02/19/21 03:27 02/19/21 12:00 02/19/21 12:00 02/19/21 12:02/19/21 12:00 General: Alert, In no apparent distress, Oriented x3, Cooperative HEENT: Atraumatic Neck: Supple Respiratory: Clear to auscultation bilaterally, Normal air movement Cardiovascular: Normal pulses, Regular rate/rhythm Gastrointestinal: Normal bowel sounds, Soft and benign, Non-distended, No tenderness, No masses, No rebound, No guarding Musculoskeletal: No erythema, No tenderness, No warmth Integumentary: No tenderness/swelling Neurological: Normal speech, Normal strength at 5/5 x4 extr, Normal tone, Normal affect Laboratory Data at Discharge: WBC 7.80 K/uL (4.3-10.9) 02/19/21 03:30 Hgb 14.4 g/dL (13.6-17.9) 02/19/21 03:30 Hct 43.1 % (39.6-49.0) 02/19/21 03:30 Plt Count 257 K/uL (152-406) 02/19/21 03:30 Sodium 142 mmol/L (136-145) 02/19/21 03:30 Potassium 3.9 mmol/L (3.5-5.1) 02/19/21 03:30 BUN 15 mg/dL (7-18) 02/19/21 03:30 Creatinine 1.09 mg/dL (0.55-1.3) 02/19/21 03:30 Glucose 95 mg/dL (74-106) 02/19/21 03:30 Magnesium 1.8 mg/dL (1.8-2.4) 02/19/21 03:30 Troponin I 0.08 ng/mL (0.0-0.045) H 02/19/21 09:15 Triglycerides 79 mg/dL (<150) 02/19/21 03:30 Cholesterol 120 mg/dL (<200) 02/19/21 03:30 HDL Cholesterol 55 mg/dL (40-60) 02/19/21 03:30 Cholesterol/HDL Ratio 2.18 02/19/21 03:30 Home Medications: Amlodipine [Norvasc*] 10 mg PO DAILY #30 tab 02/19/21 Aspirin [Aspirin EC 81 MG] 81 mg PO DAILY #90 tablet. 02/19/21 Metoprolol Tartrate [Lopressor*] 12.5 mg PO BID #30 tab 02/19/21 hydroCHLOROthiazide [Hydrochlorothiazide] 25 mg PO DAILY #30 tablet 02/19/21 New Medications: Aspirin [Aspirin EC 81 MG] 81 mg PO DAILY #90 tablet. hydroCHLOROthiazide [Hydrochlorothiazide] 25 mg PO DAILY #30 tablet Metoprolol Tartrate [Lopressor*] 12.5 mg PO BID #30 tab Amlodipine [Norvasc*] 10 mg PO DAILY #30 tab Physician Discharge Instructions: Patient presented with patient was seen and evaluated. Chest x-ray showed no acute changes. No significant EKG changes noted. Patient was evaluated by cardiology. No intervention was required. Patient with prior cardiac stress test unremarkable. Compliance with medication addressed in detail. Patient with underlying hypertension and history of prolonged QT. Patient also positive for THC use and cocaine use. Risk of to continued use of cocaine addressed in detail. Patient understands. Blood pressure is improved. Compliance with medication addressed in detail. Recommend to maintain blood pressure less than 130/80. Further adjustment can be done by his PCP. Patient will be given a list of PCPs in the area to establish care. At discharge the patient will continue with Norvasc 10 mg 1 pill daily, metoprolol 12.5 mg 1 pill twice daily, hydrochlorothiazide 25 mg daily and aspirin 81 mg daily. At discharge rec ommend follow-up with PCP to further monitor and adjust and refill medication. Recommend follow-up with cardiology in 2 to 4 weeks to follow-up with hospitalization and follow-up his care. Patient with urine drug screen positive for cocaine, marijuana. Patient also with tobacco cessation. Cessation education provided in detail. Patient understands the risk of continued use of cocaine including GA or . Patient with history of poor compliance. Recommend to establish care locally in the area so that he can have his medications refilled and so that he has good follow-up. Patient seems to be agreeable with plan. Diet: AHA Activity: Ad artemio Followup: Unknown,U [Primary Care Provider] - Time spent managing pt's care (in minutes): 55
[2021-02-19 16:42] VITALS: BP 149/93; TEMP 98.7
[2021-02-19] MEDS ORDERED: METOPROLOL TAR 25 MG TAB PO SCH (18:00)
== END 2021-02-19 18:40 | disposition home or self-care (01) | DRG 313 ==
LOC: ER 03:24 → ERHOLD 05:18 → OBSVTOIN 08:07 → 2ND 12:52
PROVIDERS: ADMIT Family Medicine; ATTEND Family Medicine
DX: R07.9 Chest pain, unspecified (principal); F17.210 Nicotine dependence, cigarettes, uncomplicated; F14.10 Cocaine abuse, uncomplicated; F12.10 Cannabis abuse, uncomplicated; I10 Essential (primary) hypertension; R94.31 Abnormal electrocardiogram [ECG] [EKG]; Z91.018 Allergy to other foods; Z79.82 Long term (current) use of aspirin; Z86.73 Personal history of transient ischemic attack (TIA), and cerebral infarction without residual deficits; Z95.5 Presence of coronary angioplasty implant and graft; Z79.899 Other long term (current) drug therapy; Z91.14 Patient's other noncompliance with medication regimen; Z20.822 Contact with and (suspected) exposure to COVID-19
CPT/HCPCS: 36415; 71045; 80048; 80061; 80307; 81003; 83735; 83880; 84439; 84443; 84484; 85025; 93005; 99285; G0378; J0360; J1650; J2405; U0003

== ENCOUNTER 2024-03-13 14:53 | Emergency (ER) | payer SELFPAY ==
[2024-03-13] MEDS ORDERED: HYDROCODONE/APAP 5/325 MG TAB ONE (15:30)
[2024-03-13] MEDS ORDERED: DIAZEPAM 5 MG TABLET ONE (15:30)
[2024-03-13] MEDS ORDERED: KETOROLAC 30 MG/ML INJ ONE (15:30)
--- NOTE | 2024-03-13 17:33 | ER ---
Nurse's Notes [facility] Name: Michele Lomas Age: 39 yrs Sex: Male : 1985 Arrival Date: 03/13/2024 Time: 14:53 Bed 11 Private MD: Diagnosis: Sciatica, left side Presentation: 03/13 15:12 Chief complaint: Patient states: left lower back pain X 2 days now , pain radiates down iw entire leg, and now the leg feels numb. Coronavirus screen: At this time, the client does not indicate any symptoms associated with coronavirus-19. Ebola Screen: Patient negative for fever greater than or equal to 101.5 degrees Fahrenheit, and additional compatible Ebola Virus Disease symptoms Patient denies exposure to infectious person. Patient denies travel to an Ebola-affected area in the 21 days before illness onset. No symptoms or risks identified at this time. Initial Sepsis Screen: Does the patient meet any 2 criteria? No. Patient's initial sepsis screen is negative. Does the patient have a suspected source of infection? No. Patient's initial sepsis screen is negative. Risk Assessment: Do you want to hurt yourself or someone else? Patient reports no desire to harm self or others. Onset of symptoms was March 11, 2024. 15:12 Method Of Arrival: Ambulatory iw 15:12 Acuity: PASTORA 3 iw Historical: - Allergies: 15:14 Banana; iw - PMHx: 15:14 Enlarged Heart; Back pain; Hypertension; prolonged QT; TIA; Diabetes mellitus; iw - PSHx: 15:14 None; iw - Immunization history:: Adult Immunizations not up to date, Client reports receiving the 2nd dose of the Covid vaccine. - Infectious Disease History:: Denies. - Social history:: Smoking status: Patient reports the use of cigarette tobacco products, smokes one-half pack cigarettes per day. Screenin:17 [facility] ED Fall Risk Assessment (Adult) History of falling in the last 3 months, ph including since admission No falls in past 3 months (0 pts) Confusion or Disorientation No (0 pts) Intoxicated or Sedated No (0 pts) Impaired Gait No (0 pts) Mobility Assist Device Used No (0 pt) Altered Elimination No (0 pt) Score/Fall Risk Level 0 - 2 = Low Risk Oriented to surroundings, Maintained a safe environment, Hourly rounding (assess needs \T\ fall precautionary measures) done. Abuse screen: Denies threats or abuse. Denies injuries from another. Nutritional screening: No deficits noted. Tuberculosis screening: No symptoms or risk factors identified. Assessment: 15:18 General: Appears in no apparent distress. Behavior is calm, cooperative. Pain: ph Complains of pain in left low back Pain radiates to left leg. Neuro: Level of Consciousness is awake, alert, obeys commands, Oriented to person, place, time, situation. Derm: Skin is pink, warm \T\ dry. Musculoskeletal: Circulation, motion, and sensation intact. Range of motion: intact in all extremities. 16:31 Reassessment: Patient and/or family updated on plan of care and expected duration. Pain ll1 level reassessed. 17:44 Reassessment: Patient appears in no apparent distress at this time. Patient and/or ph family updated on plan of care and expected duration. Pain level reassessed. Patient is alert, oriented x 3, equal unlabored respirations, skin warm/dry/pink. Vital Signs: 15:12 BP 135 / 88; Pulse 65; Resp 16; Temp 98.6; Pulse Ox 97% on R/A; Weight 129.27 kg; iw Height 5 ft. 11 in. ; Pain 10/10; 17:44 BP 129 / 78; Pulse 67; Resp 18; Temp 97.9; Pulse Ox 99% on R/A; ph 15:12 Body Mass Index 39.75 (129.27 kg, 180.34 cm) iw 15:12 Pain Scale: Adult iw ED Course: 15:08 Patient arrived in ED. rg4 15:14 Triage completed. iw 15:15 Arm band placed on. iw 15:16 Michelle Perdomo, RN is Primary Nurse. ph 15:17 Talon Sousa DO is Attending Physician. ms3 15:17 Patient has correct armband on for positive identification. Bed in low position. Call ph light in reach. Side rails up X 1. Pulse ox on. NIBP on. 15:17 Provided Education on: Use of call light. ph 15:22 No provider procedures requiring assistance completed. Patient did not have IV access ph during this emergency room visit. 17:32 aKrel Louis DO is Referral Physician. ms3 Administered Medications: 15:37 Drug: Ketorolac IM 15 mg IM once Route: IM; Site: right deltoid; ph 17:44 Follow up: Response: No adverse reaction ph 15:38 Drug: HYDROcodone-acetaminophen PO 5 mg-325 mg 1 tabs PO once Route: PO; ph 17:44 Follow up: Response: No adverse reaction; Pain is decreased; RASS: Alert and Calm (0) ph 15:38 Drug: Diazepam PO 5 mg PO once Route: PO; ph 17:44 Follow up: Response: No adverse reaction; Pain is decreased; RASS: Alert and Calm (0) ph Medication: 15:17 VIS not applicable for this client. ph Outcome: 17:33 Discharge ordered by . ms3 17:45 Discharged to home ambulatory, with family, ph 17:45 Condition: good 17:45 Discharge instructions given to patient, Instructed on discharge instructions, follow up and referral plans. medication usage, Demonstrated understanding of instructions, follow-up care, medications, Prescriptions given X 2, 17:45 Patient left the ED. ph Signatures: Sandra Sutherland RN RN Michelle Perdomo RN RN ph Garcia, Rubi rg4 Carloz Parra RN RN ll1 Talon Sousa DO DO ms3
--- NOTE | 2024-03-13 17:33 | EDPHYS ---
Physician Documentation [facility] Name: Michele Lomas Age: 39 yrs Sex: Male : 1985 Arrival Date: 03/13/2024 Time: 14:53 Bed 11 Private MD: ED Physician Talon Sousa HPI: 03/13 15:42 This 39 yrs old Black Male presents to ER via Ambulatory with complaints of Back Pain, ms3 Weakness. 15:42 39-year-old male with past medical history of enlarged heart, back pain, hypertension, ms3 TIA, diabetes presents to the emergency department for left lower back pain that radiates down his leg and is rated a 10/10. He denies any alleviating or inciting factors. He denies fevers, chills, nausea, vomiting, urinary incontinence or retention, bowel incontinence or constipation.. Historical: - Allergies: 15:14 Banana; iw - PMHx: 15:14 Enlarged Heart; Back pain; Hypertension; prolonged QT; TIA; Diabetes mellitus; iw - PSHx: 15:14 None; iw - Immunization history:: Adult Immunizations not up to date, Client reports receiving the 2nd dose of the Covid vaccine. - Infectious Disease History:: Denies. - Social history:: Smoking status: Patient reports the use of cigarette tobacco products, smokes one-half pack cigarettes per day. ROS: 15:42 Constitutional: Negative for fever, and chills. Neck: Negative for injury, pain, and ms3 swelling, Cardiovascular: Negative for chest pain, and palpitations. Respiratory: Negative for shortness of breath, cough, wheezing, and pleuritic chest pain, Abdomen/GI: Negative for abdominal pain, nausea, vomiting, diarrhea, and constipation, 15:42 Back: Positive for radiated pain, Exam: 15:42 Constitutional: This is a well developed, well nourished patient who is awake, alert, ms3 and in no acute distress. Head/Face: Normocephalic, atraumatic. Neck: Trachea midline, no cervical lymphadenopathy. Supple, full range of motion without nuchal rigidity, or vertebral point tenderness. No Meningismus. Chest/axilla: Normal chest wall appearance and motion. Nontender with no deformity. Cardiovascular: Regular rate and rhythm with a normal S1 and S2. No gallops, murmurs, or rubs. Normal PMI, no JVD. No pulse deficits. Respiratory: Lungs have equal breath sounds bilaterally, clear to auscultation and percussion. No rales, rhonchi or wheezes noted. No increased work of breathing, no retractions or nasal flaring. Abdomen/GI: Soft, non-tender, with normal bowel sounds. No distension or tympany. No guarding or rebound. No evidence of tenderness throughout. 15:42 Back: pain, that is moderate, of the left low back, muscle spasm, is appreciated in the left low back, Vital Signs: 15:12 BP 135 / 88; Pulse 65; Resp 16; Temp 98.6; Pulse Ox 97% on R/A; Weight 129.27 kg; iw Height 5 ft. 11 in. ; Pain 10/10; 17:44 BP 129 / 78; Pulse 67; Resp 18; Temp 97.9; Pulse Ox 99% on R/A; ph 15:12 Body Mass Index 39.75 (129.27 kg, 180.34 cm) iw 15:12 Pain Scale: Adult iw MDM: 15:26 Patient medically screened. ms3 15:42 Differential diagnosis: Muscle spasm vs Sciatica vs Herniated disc. ms3 03/14 13:00 Data reviewed: vital signs, nurses notes, and as a result, I will discharge patient. I ms3 considered the following discharge prescriptions or medication management in the emergency department Medications were administered in the Emergency Department. See MAR. Counseling: I had a detailed discussion with the patient and/or guardian regarding the historical points, exam findings, and any diagnostic results supporting the discharge/admit diagnosis, the need for outpatient follow up, to return to the emergency department if symptoms worsen or persist or if there are any questions or concerns that arise at home. ED course: On reevaluation patient's symptoms had improved, patient was alert and oriented x 4, no apparent distress, nontoxic-appearing, ambulatory emergency department. Is to follow-up with his primary care physician in 2 to 3 days. Patient understands and agrees with plan. All questions were answered. Return precautions discussed include worsening symptoms, or any other concerns. Administered Medications: 03/13 15:37 Drug: Ketorolac IM 15 mg IM once Route: IM; Site: right deltoid; ph 17:44 Follow up: Response: No adverse reaction ph 15:38 Drug: HYDROcodone-acetaminophen PO 5 mg-325 mg 1 tabs PO once Route: PO; ph 17:44 Follow up: Response: No adverse reaction; Pain is decreased; RASS: Alert and Calm (0) ph 15:38 Drug: Diazepam PO 5 mg PO once Route: PO; ph 17:44 Follow up: Response: No adverse reaction; Pain is decreased; RASS: Alert and Calm (0) ph Disposition Summary: 03/13/24 17:33 Discharge Ordered Notes: Location: Home ms3 Condition: Stable ms3 Diagnosis - Sciatica, left side ms3 Followup: ms3 - With: Karel Louis DO - When: 2 - 3 days - Reason: Recheck today's complaints Discharge Instructions: - Discharge Summary Sheet ms3 - Sciatica ms3 Forms: - Medication Reconciliation Form ms3 - Antibiotic Education ms3 - Prescription Opioid Use ms3 - Patient Portal Instructions ms3 - Leadership Thank You Letter ms3 Prescriptions: - Ibuprofen 600 mg Oral Tablet - take 1 tablet ORAL route every 6 hours As needed take with food; 30 tablet; ms3 Refills: 0, Product Selection Permitted - Cyclobenzaprine 10 mg Oral Tablet - take 1 tablet ORAL route every 8 hours As needed; 30 tablet; Refills: 0, ms3 Product Selection Permitted Signatures: Sandra Sutherland RN RN iw Hall, Patricia, RN RN ph Sims, Marcus, DO DO ms3
[2024-03-13 18:06] VITALS: BP 129/78; TEMP 97.9; O2SAT 99
== END 2024-03-13 17:45 | disposition home or self-care (01) ==
LOC: ER 14:53
DX: M54.32 Sciatica, left side (principal)

== ENCOUNTER 2024-03-17 18:08 | Emergency (ER) | payer SELFPAY ==
[2024-03-17] MEDS ORDERED: KETOROLAC 30 MG/ML INJ ONE (18:28)
[2024-03-17] MEDS ORDERED: HYDROCODONE/APAP 5/325 MG TAB ONE (18:29)
--- NOTE | 2024-03-17 18:58 | RAD REPORT ---
EXAM DESCRIPTION: CT - Spine Lumbar Wo Con - 03/17/2024 6:40 pm CLINICAL HISTORY: L spine pain COMPARISON: No comparisons TECHNIQUE: Axial noncontrast CT imaging of the lumbar spine was performed with coronal and sagittal re-formatted images. All CT scans are performed using dose optimization technique as appropriate and may include automated exposure control or mA/KV adjustment according to patient size. FINDINGS: No acute lumbar spine fracture seen. No aggressive marrow pattern or malalignment. Paraspinal tissues are normal in thickness. No paraspinal abscess or hematoma seen. Intervertebral disc disease assessment is inherently limited by CT. Within these limitations, no high -grade canal stenosis suspected. Broad-based posterior disc bulge at L4-5, and to lesser degree at L 3-4 and L5-S1 associated with mild endplate remodeling. Mild bilateral neural foraminal narrowing at those levels. IMPRESSION: No acute findings on lumbar spine MRI. Mild degenerative changes as above, with mild degrees of neural foraminal narrowing at the lower lumb ar levels.
--- NOTE | 2024-03-17 19:07 | EDPHYS ---
Physician Documentation [facility] Name: Michele Lomas Age: 39 yrs Sex: Male : 1985 Arrival Date: 03/17/2024 Time: 18:08 Bed 17 Private MD: ED Physician Hernandez Dimas HPI: 03/17 18:27 This 39 yrs old Black Male presents to ER via Ambulatory with complaints of Low Back ec2 Pain. 18:27 Patient arrives today for evaluation of low back pain. Patient complaining of low back ec2 pain rating to the left leg. Patient reports he was seen last week, diagnosed sciatica, on ibuprofen and Flexeril with minimal alleviation in symptoms. Patient reports the pain is worsened which is what prompted evaluation today. Patient also with complai patient denies any red flag symptoms, no falls injuries or trauma.. Historical: - Allergies: 18:16 Banana; iw - Home Meds: 18:18 hydrochlorothiazide 25 mg Oral tab 1 tab once daily [Active]; aspirin 81 mg Oral chew 1 mb9 tab once daily [Active]; amlodipine 10 mg tab 1 tab once daily [Active]; - PMHx: 18:16 diabetes mellitus; Enlarged Heart; Hypertension; Back pain; prolonged QT; TIA; iw - PSHx: 18:18 None; mb9 - Immunization history:: Adult Immunizations up to date. - Infectious Disease History:: Denies. - Social history:: Smoking status: Patient reports the use of cigarette tobacco products. ROS: 18:27 Constitutional: as per hpi ec2 Exam: 18:27 Constitutional: GEN: NAD Head: atraumatic Eyes: EOMI Ears: External ears are ec2 normal. CV: regular rate LUNGS: no respiratory distress ABD: non-distended SKIN: no evidence of rashes MSK: no evidence of trauma, no C or T spine TTP or deformities. L-spine with TTP, left paraspinal TTP as well. NEURO: moves all extremities equally, intact sensation in the bilateral lower extremities. Vital Signs: 18:14 BP 138 / 92; Pulse 73; Resp 16; Temp 97.5; Pulse Ox 99% ; Weight 127.01 kg; Height 5 iw ft. 11 in. ; Pain 10/10; 19:18 BP 132 / 90; Pulse 70; Resp 15 S; Temp 98.1; Pulse Ox 100% on R/A; ha1 18:14 Body Mass Index 39.05 (127.01 kg, 180.34 cm) iw 18:14 Pain Scale: Adult iw MDM: 18:20 Patient medically screened. sb4 18:27 Data reviewed: vital signs. ED course: Patient arrives today for evaluation of lower ec2 back pain radiating to the left leg. Examination remarkable for MSK findings as above. Will obtain CT scan of the L-spine, treat the patient symptoms and reassess. Evaluate for processes such as muscular strain, sciatica, doubt bony fracture. Initially doubt spinal cord pathology given lack of red flag symptoms. Additionally doubt other processes such as epidural abscess . 19:03 ED course: CT of the L-spine shows arthritis. Will prescribe Tylenol with codeine, ec2 instructed patient to follow-up with primary care doctor, return precautions given. Presentation consistent with sciatica. . 03/17 18:27 Order name: CT Lumbar Spine Wo Con; Complete Time: 19:01 ec2 Administered Medications: 18:32 Drug: HYDROcodone-acetaminophen PO 5 mg-325 mg 2 tabs PO once Route: PO; mb9 19:18 Follow up: Response: No adverse reaction; Marked relief of symptoms; Pain is decreased; ha1 RASS: Alert and Calm (0) 18:32 Drug: Ketorolac IM 30 mg IM once Route: IM; Site: left deltoid; mb9 19:18 Follow up: Response: No adverse reaction; Marked relief of symptoms; Pain is decreased ha1 Disposition Summary: 03/17/24 19:07 Discharge Ordered Notes: Location: Home ec2 Condition: Stable ec2 Diagnosis - Sciatica, left side ec2 Followup: ec2 - With: Private Physician - When: - Reason: Re-evaluation by your physician Discharge Instructions: - Discharge Summary Sheet ec2 - Sciatica ec2 Forms: - Work release form ec2 - Medication Reconciliation Form ec2 - Antibiotic Education ec2 - Prescription Opioid Use ec2 - Patient Portal Instructions ec2 - Leadership Thank You Letter ec2 Prescriptions: - acetaminophen-codeine 300-15 mg Oral tablet - take 1 tablet ORAL route 3 times per day; 15 tablet; Refills: 0, Product ec2 Selection Permitted Signatures: Dispatcher [employer] Sandra Hannah RN RN iw Brown, Sophia, PA-C PA-C sb4 Gabbi Massey RN RN mb9 Hernandez Dimas MD MD ec2 Teresa Batista RN ha1 Corrections: (The following items were deleted from the chart) 18:27 18:27 Spine Lumbar Wo Con+CT.RAD.BRZ ordered. EDMS EDMS
--- NOTE | 2024-03-17 19:07 | ER ---
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 Coronavirus screen: At this time, the client does not indicate any symptoms associated with coronavirus-19. Ebola Screen: Patient negative for fever greater than or equal to 101.5 degrees Fahrenheit, and additional compatible Ebola Virus Disease symptoms Patient denies exposure to infectious person. Patient denies travel to an Ebola-affected area in the 21 days before illness onset. No symptoms or risks identified at this time. Initial Sepsis Screen: Does the patient meet any 2 criteria? No. Patient's initial sepsis screen is negative. Does the patient have a suspected source of infection?. Risk Assessment: Do you want to hurt yourself or someone else? Patient reports no desire to harm self or others. Onset of symptoms was March 17, 2024. 18:14 Method Of Arrival: Ambulatory iw 18:14 Acuity: PASTORA 4 iw Historical: - Allergies: 18:16 Banana; iw - Home Meds: 18:18 hydrochlorothiazide 25 mg Oral tab 1 tab once daily [Active]; aspirin 81 mg Oral chew 1 mb9 tab once daily [Active]; amlodipine 10 mg tab 1 tab once daily [Active]; - PMHx: 18:16 diabetes mellitus; Enlarged Heart; Hypertension; Back pain; prolonged QT; TIA; iw - PSHx: 18:18 None; mb9 - Immunization history:: Adult Immunizations up to date. - Infectious Disease History:: Denies. - Social history:: Smoking status: Patient reports the use of cigarette tobacco products. Screenin:17 [facility] ED Fall Risk Assessment (Adult) History of falling in the last 3 months, mb9 including since admission No falls in past 3 months (0 pts) Confusion or Disorientation No (0 pts) Intoxicated or Sedated No (0 pts) Impaired Gait No (0 pts) Mobility Assist Device Used No (0 pt) Altered Elimination No (0 pt) Score/Fall Risk Level 0 - 2 = Low Risk Oriented to surroundings, Maintained a safe environment, Educated pt \T\ family on fall prevention, incl call for assistance when getting out of bed. Abuse screen: Denies threats or abuse. Nutritional screening: No deficits noted. Tuberculosis screening: No symptoms or risk factors identified. Assessment: 18:20 General: Appears in no apparent distress. Behavior is calm, cooperative. Pain: mb9 Complains of pain in back Pain radiates to left leg Pain currently is 10 out of 10 on a pain scale. Quality of pain is described as sharp, shooting, stabbing, Pain began gradually, Is continuous, Aggravated by increased activity, repositioning, weight bearing. Neuro: Pierre Agitation-Sedation Scale (RASS): 0 - Alert and Calm Level of Consciousness is awake, alert, obeys commands, Oriented to person, place, time, situation, Appropriate for age. Cardiovascular: Patient's skin is warm and dry. Respiratory: Airway is patent Respiratory effort is even, unlabored, Respiratory pattern is regular, symmetrical. GI: Abdomen is round non-distended. : No signs and/or symptoms were reported regarding the genitourinary system. EENT: No signs and/or symptoms were reported regarding the EENT system. Derm: Skin is pink, warm \T\ dry. Musculoskeletal: Range of motion: intact in all extremities. 19:18 Reassessment: Patient and/or family updated on plan of care and expected duration. Pain ha1 level reassessed. Patient is alert, oriented x 3, equal unlabored respirations, skin warm/dry/pink. Patient states feeling better. Patient states symptoms have improved. Vital Signs: 18:14 BP 138 / 92; Pulse 73; Resp 16; Temp 97.5; Pulse Ox 99% ; Weight 127.01 kg; Height 5 iw ft. 11 in. ; Pain 10/10; 19:18 BP 132 / 90; Pulse 70; Resp 15 S; Temp 98.1; Pulse Ox 100% on R/A; ha1 18:14 Body Mass Index 39.05 (127.01 kg, 180.34 cm) iw 18:14 Pain Scale: Adult iw ED Course: 18:11 Patient arrived in ED. im 18:12 Dorcas Lewis PA-C is PHCP. sb4 18:12 Hernandez Dimas MD is Attending Physician. sb4 18:16 Triage completed. iw 18:16 Arm band placed on. iw 18:17 Gabbi Massey, RN is Primary Nurse. mb9 18:18 Placed in gown. Bed in low position. Call light in reach. Side rails up X 1. Provided mb9 Education on: press call light if needing anything. Client placed on continuous cardiac and pulse oximetry monitoring. NIBP monitoring applied. Door closed. Noise minimized. Warm blanket given. 18:20 No provider procedures requiring assistance completed. mb9 18:33 Patient moved to [place] via wheelchair. mb9 18:40 CT Lumbar Spine Wo Con In Process Unspecified. EDMS 18:41 Patient moved back from [place]. mb9 19:19 Patient did not have IV access during this emergency room visit. ha1 Administered Medications: 18:32 Drug: HYDROcodone-acetaminophen PO 5 mg-325 mg 2 tabs PO once Route: PO; mb9 19:18 Follow up: Response: No adverse reaction; Marked relief of symptoms; Pain is decreased; ha1 RASS: Alert and Calm (0) 18:32 Drug: Ketorolac IM 30 mg IM once Route: IM; Site: left deltoid; mb9 19:18 Follow up: Response: No adverse reaction; Marked relief of symptoms; Pain is decreased ha1 Medication: 18:18 VIS not applicable for this client. mb9 Outcome: 19:07 Discharge ordered by . ec2 19:19 Discharged to home ambulatory, ha1 19:19 Condition: stable 19:19 Discharge instructions given to patient, Instructed on discharge instructions, follow up and referral plans. medication usage, Demonstrated understanding of instructions, follow-up care, medications, Prescriptions given X 1, 19:19 Patient left the ED. ha1 Signatures: Dispatcher [employer] EDSandra Servin RN RN iw Teresa Batista RN RN ha1 Dorcas Lewis PA-C PA-C sb4 Breneman, Mary Beth, RN RN mb9 Jennifer Bueno Hernandez Dimas MD MD ec2 Corrections: (The following items were deleted from the chart) 18:16 18:14 Pulse 73bpm; Resp 16bpm; Pulse Ox 99%; 127.01 kg; Height 5 ft. 11 in.; BMI: 39.0; iw Pain 10, Adult; iw
[2024-03-17 19:44] VITALS: BP 132/90; TEMP 98.1; O2SAT 100
== END 2024-03-17 19:19 | disposition home or self-care (01) ==
LOC: ER 18:08
DX: M54.32 Sciatica, left side (principal)
CPT/HCPCS: 72131; 96372; 99285

== ENCOUNTER 2024-06-26 16:19 | Emergency (ER) | payer SELFPAY ==
--- NOTE | 2024-06-26 16:31 | EDPHYS ---
Physician Documentation [facility] Name: Michele Lomas Age: 39 yrs Sex: Male : 1985 Arrival Date: 06/26/2024 Time: 16:19 Bed IW3 Private MD: ED Physician Hernandez Dimas HPI: 06/26 16:58 This 39 yrs old Black Male presents to ER via Unassigned with complaints of Insect Bite.kb 16:58 Pt is a 39 year old male who presents for insect bite that happened about 3 days ago. kb States the bite has been draining purulent fluid and has developed surrounding edema and redness. Denies fever. Historical: - Allergies: 16:25 Banana; ph - PMHx: 16:25 Back pain; diabetes mellitus; Enlarged Heart; Hypertension; prolonged QT; TIA; ph - Immunization history:: Adult Immunizations unknown. - Infectious Disease History:: Denies. - Social history:: Smoking status: unknown. ROS: 16:57 Constitutional: As per HPI kb Exam: 16:57 Constitutional: This is a well developed, well nourished patient who is awake, alert, kb and in no acute distress. Head/Face: Normocephalic, atraumatic. ENT: Moist Mucous membranes Cardiovascular: Regular rate Respiratory: Respirations even and unlabored. No increased work of breathing. Talking in full sentences Abdomen/GI: Soft, non-tender. No distention MS/ Extremity: Pulses equal, no cyanosis. Neurovascular intact. Full, normal range of motion. Neuro: Awake and alert, GCS 15, oriented to person, place, time, and situation. Moves all extremities. Normal gait. 16:57 Skin: cellulitis, that is minimal, on the left forearm, Vital Signs: 16:25 BP 139 / 78; Pulse 89; Resp 18; Temp 97.9; Pulse Ox 99% on R/A; ph MDM: 16:25 Patient medically screened. kb 16:57 Differential diagnosis: insect bite, cellulitis, abscess. Data reviewed: vital signs, kb nurses notes. Test considered but Not performed: Labs: cbc, cmp considered but pt is nontoxic in appearance, vss, afebrile. . Counseling: I had a detailed discussion with the patient and/or guardian regarding the historical points, exam findings, and any diagnostic results supporting the discharge/admit diagnosis, the need for outpatient follow up, a family practitioner, to return to the emergency department if symptoms worsen or persist or if there are any questions or concerns that arise at home. Administered Medications: No medications were administered Disposition Summary: 06/26/24 16:31 Discharge Ordered Notes: Location: Home kb Condition: Stable kb Diagnosis - Cellulitis of left upper limb kb Followup: kb - With: Emergency Department - When: As needed - Reason: Worsening of condition Followup: kb - With: Private Physician - When: 2 - 3 days - Reason: Recheck today's complaints, Continuance of care, Re-evaluation by your physician Discharge Instructions: - Discharge Summary Sheet kb - Insect Bite, Adult, [id number] kb - Cellulitis, Adult, [id number] kb Forms: - Medication Reconciliation Form kb - Antibiotic Education kb - Prescription Opioid Use kb - Patient Portal Instructions kb - Leadership Thank You Letter kb Prescriptions: - Cephalexin 500 mg Oral Capsule - take 1 capsule ORAL route every 8 hours for 10 days; 30 capsule; Refills: 0, kb Product Selection Permitted Signatures: Judith Gaxiola, MECHANICAL ENGINEERING TECHNOLOGIST-C MECHANICAL ENGINEERING TECHNOLOGIST-Michelle Laguna, RN RN ph
--- NOTE | 2024-06-27 16:45 | ER ---
Nurse's Notes [facility] Name: Michele Lomas Age: 39 yrs Sex: Male : 1985 Arrival Date: 06/26/2024 Time: 16:19 Bed IW3 Private MD: Diagnosis: Cellulitis of left upper limb Presentation: 06/26 16:25 Chief complaint: Patient states: Bitten by unknown insect to LFA, area slightly swollen ph and red, denies fever. Coronavirus screen: Vaccine status: Patient reports being unvaccinated. Ebola Screen: No symptoms or risks identified at this time. Initial Sepsis Screen: Does the patient meet any 2 criteria? No. Patient's initial sepsis screen is negative. Does the patient have a suspected source of infection? No. Patient's initial sepsis screen is negative. Risk Assessment: Do you want to hurt yourself or someone else? Patient reports no desire to harm self or others. Onset of symptoms was June 26, 2024. 16:25 Method Of Arrival: Ambulatory 16:25 Acuity: PASTORA 4 ph Triage Assessment: 16:25 Bite description: bite sustained to left forearm by insect. General: Appears in no ph apparent distress. Behavior is calm, cooperative. Pain: Denies pain. Derm: Skin is healthy with good turgor, Skin is pink, warm \T\ dry. Historical: - Allergies: 16:25 Banana; ph - PMHx: 16:25 Back pain; diabetes mellitus; Enlarged Heart; Hypertension; prolonged QT; TIA; ph - Immunization history:: Adult Immunizations unknown. - Infectious Disease History:: Denies. - Social history:: Smoking status: unknown. Screenin:30 [facility] ED Fall Risk Assessment (Adult) History of falling in the last 3 months, ph including since admission No falls in past 3 months (0 pts) Confusion or Disorientation No (0 pts) Intoxicated or Sedated No (0 pts) Impaired Gait No (0 pts) Mobility Assist Device Used No (0 pt) Altered Elimination No (0 pt) Score/Fall Risk Level 0 - 2 = Low Risk Oriented to surroundings, Maintained a safe environment. Abuse screen: Denies threats or abuse. Denies injuries from another. Nutritional screening: No deficits noted. Tuberculosis screening: No symptoms or risk factors identified. Vital Signs: 16:25 BP 139 / 78; Pulse 89; Resp 18; Temp 97.9; Pulse Ox 99% on R/A; ph ED Course: 16:25 Patient arrived in ED. mg5 16:25 Judith Gaxiola FNP-C is [facility]. kb 16:25 Hernandez Dimas MD is Attending Physician. kb 16:25 Arm band placed on. ph 16:30 Patient has correct armband on for positive identification. ph 16:45 Michelle Perdomo, RN is Primary Nurse. ph 16:45 No provider procedures requiring assistance completed. Patient did not have IV access ph during this emergency room visit. 18:43 Triage completed. ph Administered Medications: No medications were administered Medication: 16:30 VIS not applicable for this client. ph Outcome: 16:31 Discharge ordered by . kb 16:45 Patient left the ED. ph 16:45 Discharged to home ambulatory, ph 16:45 Condition: good 16:45 Discharge instructions given to patient, Instructed on discharge instructions, follow up and referral plans. medication usage, Demonstrated understanding of instructions, follow-up care, medications, Prescriptions given X 1, Signatures: Judith Gaxiola FNP-C FNP-Michelle Laguna, RN RN [facility] mg5
== END 2024-06-26 16:45 | disposition home or self-care (01) ==
LOC: ER 16:19
DX: L03.114 Cellulitis of left upper limb (principal)

== ENCOUNTER 2024-10-15 17:27 | Emergency (ER) | payer SELFPAY ==
--- NOTE | 2024-10-15 18:50 | ER ---
Nurse's Notes [facility] Name: Michele Lomas Age: 39 yrs Sex: Male : 1985 Arrival Date: 10/15/2024 Time: 17:27 Bed Waiting Private MD: Diagnosis: ED Course: 10/15 17:29 Patient arrived in ED. ra3 17:32 [facility] sb4 17:32 Sondra Louis MD is Attending Physician. sb4 18:29 Patient's name was called from ER lobby. No response. cm10 18:37 Patient's name was called from ER lobby. Unable to locate patient. Will disposition as cm10 left without being seen by a provider. Administered Medications: No medications were administered Outcome: 18:49 Patient left the ED. cm10 Signatures: Dorcas Lewis PA-C PA-C sb4 Gladys Latif RN RN cm10 Erin Lopez ra3
== END 2024-10-15 18:49 | disposition left against medical advice (07) ==
LOC: ER 17:27
DX: Z02.9 Encounter for administrative examinations, unspecified (principal)